=== PATIENT | male | born 1945 | race Caucasian/White ===

== ENCOUNTER → 2016-10-22 | Outpatient (CLI) | payer OTHER ==
[~2016-10-22] MED LIST: CALCTAB13 PO; DENOINJ IM; ENZA1CAP PO; FURO20TA PO; HYDR-3419 PO; LISI-725 PO; MELO7.5T5 PO; METO-478 PO; MORP15TA PO; MULT-506 PO; SENN1TAB77 PO; VITACAP26 PO; WARF3TAB PO; WARF7.5T4 PO; ZLDI IM
== END | disposition home or self-care (01) ==
LOC: C.NUCL 13:22
PROVIDERS: ATTEND Radiology Radiation Oncology
DX: C61 Malignant neoplasm of prostate (principal); C79.51 Secondary malignant neoplasm of bone

== ENCOUNTER → 2016-11-18 | Outpatient (CLI) | payer OTHER | END | disposition home or self-care (01) | LOC: C.NUCL 12:54 | PROVIDERS: ATTEND Radiology Radiation Oncology | DX: C61 Malignant neoplasm of prostate (principal); C79.51 Secondary malignant neoplasm of bone ==

== ENCOUNTER → 2016-12-19 | Outpatient (CLI) | payer OTHER | END | disposition home or self-care (01) | LOC: C.NUCL 13:08 | PROVIDERS: ATTEND Radiology Radiation Oncology | DX: C61 Malignant neoplasm of prostate (principal); C79.51 Secondary malignant neoplasm of bone ==

== ENCOUNTER → 2017-01-20 | Outpatient (CLI) | payer OTHER ==
[~2017-01-20] MED LIST changes: -METO-478 PO; +METO1TAB31 PO
== END | disposition home or self-care (01) ==
LOC: C.NUCL 10:09
PROVIDERS: ATTEND Internal Medicine Hematology
DX: C61 Malignant neoplasm of prostate (principal); C79.51 Secondary malignant neoplasm of bone

== ENCOUNTER → 2017-02-21 | Outpatient (CLI) | payer OTHER | END | disposition home or self-care (01) | LOC: C.NUCL 14:50 | PROVIDERS: ATTEND Radiology Radiation Oncology | DX: C61 Malignant neoplasm of prostate (principal); C79.51 Secondary malignant neoplasm of bone ==

== ENCOUNTER → 2017-03-28 | Outpatient (CLI) | payer OTHER | END | disposition home or self-care (01) | LOC: C.NUCL 12:48 | PROVIDERS: ATTEND Internal Medicine Hematology | DX: C61 Malignant neoplasm of prostate (principal); C79.51 Secondary malignant neoplasm of bone ==

== ENCOUNTER 2018-07-03 11:29 | Inpatient (IN) ==
[2018-07-03 12:02] LABS: Basophils # (auto) 0.01 K/uL (0-0.2); Basophils % (auto) 0.1 %; Eosinophils # (auto) 0.01 K/uL (0-0.5); Eosinophils % (auto) 0.1 %; Hematocrit (blood only) 36.4 % (42-52); Hemoglobin 11.4 g/dL (14.0-18.0); Immature Granulocytes # (auto) 0.08 K/uL (0.00-0.02); Lymphocytes # (auto) 1.28 K/uL (1.2-3.4); Lymphocytes % (auto) 15.5 %; Mean Corpuscular Hgb Conc 31.3 g/dL (32-36); Mean Corpuscular Volume 93.1 fL (80-100); Mean Platelet Volume 8.6 fL (7.4-10.4); Monocytes # (auto) 0.39 K/uL (0.11-0.59); Monocytes % (auto) 4.7 %; Neutrophils # (auto) 6.47 K/uL (1.4-6.5); Neutrophils % (auto) 78.6 %; Platelet Count 219 K/uL (130-400); RDW Coefficient of Variation 16.2 % (11.5-14.5); RDW Standard Deviation 55.4 fL (36.4-46.3); Red Blood Count 3.91 M/uL (4.7-6.1); White Blood Count 8.24 K/uL (4.8-10.8)
[2018-07-03 12:15] LABS: Alanine Aminotransferase 30 U/L (12-78); Albumin Level 2.8 gm/dl (3.4-5.0); Aspartate Aminotransferase 17 U/L (15-37); BUN Creatinine Ratio 13.4 (10-20); Blood Urea Nitrogen 18 mg/dl (7-18); Calcium 9.2 mg/dl (8.5-10.1); Carbon Dioxide 31 mmol/L (21-32); Chloride 92 mmol/L (98-107); Creatinine Clr Calc Pharmacy 59.3 ml/min; Est GFR (Non-African American) 54.4; Glucose 116 mg/dl (70-99); Partial Thromboplastin Time 25.5 Seconds (21.0-31.0); Potassium 3.8 mmol/L (3.5-5.1); Sodium 132 mmol/L (136-145)
[2018-07-03 12:20] LABS: Albumin Globulin Ratio 0.7 (0.9-2); Alkaline Phosphatase 59 U/L (45-117); Bilirubin,Total 0.5 mg/dl (0.2-1); Globulin 3.8 gm/dl (2.5-4.0); Total Protein 6.6 gm/dl (6.4-8.2); Troponin I < 0.015 ng/ml (0-0.045)
--- NOTE | 2018-07-03 12:35 | XRay Report ---
XR chest 1V portable HISTORY: 73 years-old Male Chest Pain acute atypical chest pain COMPARISON: Chest radiograph 04/17/2018, chest CT 08/30/2016. TECHNIQUE: Portable AP view of the chest FINDINGS: Cardiac silhouette is upper limits of normal in size. Calcification the thoracic aortic arch. Linear subsegmental bibasilar opacities are suggestive of atelectasis/scarring with chronic blunting of the costophrenic angles. No pneumothorax, pleural effusion or overt pulmonary edema. Multifocal blastic m etastasis redemonstrated. IMPRESSION: 1. Linear subsegmental bibasilar atelectasis/scarring without acute process. 2. Multifocal osseous blastic metastasis redemonstrated. The above report was generated using voice recognition software. It may contain grammatical, syntax o r spelling errors. Electronically signed by: Ever Aguilar M.D. 07/03/2018 12:33 PM
--- NOTE | 2018-07-03 12:59 | Emergency Department Note ---
Entered by Franco Castillo acting as a scribe for Elías Bess MD History of Present Illness General Chief complaint: Shortness of Breath/Dyspnea Stated complaint: sob / endo dept. Source: patient and RN notes reviewed Mode of arrival: wheelchair Limitations: no limitations History of Present Illness Provider complaint: Hypoxia/Fluid and weight gain Onset (ago): week(s) (2) Location: chest, lower extremity, left and right Pain Consistency: + other (worsening) Quality: + burning ("heartburn" in chest) and + other (wheeping in lower extremities, fluid acuumulation in abdomen) Associated symptoms: + other (Confusion); no fever/chills The patient is a 73 year old male who presents to the Emergency Room with complaints of worsening fluid build up and weight gain over the past two weeks. The patient was brought to the emergency department by Endoscopy lab nurses after he presented for a colonoscopy this morning. The nursing staff states that he went to have the procedure performed at [facility] last evening, but was 70% on room air after walking in from the parking lot. He came up to 90% without any supplemental oxygen. The [facility] office suggested he come to the ED last night, but he refused so they scheduled the colonoscopy to be performed today in the [facility] Endoscopy lab. After hearing the patient's story the endoscopy nurses brought him to the emergency department. The patient and his note that he has experienced a 20 pound weight gain over the past two weeks. He complains of feeling "heart burn" upon exertion. The patient also notes that he sees wound care for "weeping" of his lower extremities which has been progressively worsening for the past year. The patient has a history of prostate cancer with metastasis to the bone. Home Medications Home Medications Medication Instructions Recorded Confirmed Type ascorbic acid (vitamin C) [Vitamin 500 mg PO BID 03/29/18 07/03/18 History C] goserelin [Zoladex] 3.6 mg SUBCUT DIRECTED 03/29/18 07/03/18 History hydrocodone-acetaminophen [Vicodin] 1 tab PO Q4H PRN 03/29/18 07/03/18 History multivitamin 1 tab PO BID 03/29/18 07/03/18 History pantoprazole 40 mg PO QAM 03/29/18 07/03/18 History apixaban 5 mg PO BID 10/19/18 01/04/19 History prednisone 10 mg PO BID 04/17/18 07/03/18 History amiodarone 200 mg PO QPM 07/02/18 07/03/18 History gabapentin 600 mg PO Q6H 07/02/18 07/03/18 History metoprolol succinate 50 mg PO QAM 07/02/18 07/03/18 History morphine 30 mg PO Q12H 07/02/18 07/03/18 History sertraline 50 mg PO QPM 07/02/18 07/03/18 History spironolactone 25 mg PO QPM 07/02/18 07/03/18 History torsemide 40 mg PO QAM 07/02/18 07/03/18 History calcium carbonate-vitamin D3 2 tab PO BID 07/03/18 07/03/18 History [Calcium 500 + D] morphine 15 mg PO Q8H PRN 07/03/18 07/03/18 History potassium chloride [Klor-Con 10] 10 meq PO QPM 07/03/18 07/03/18 History sennosides-docusate sodium [Senna 4 tab PO BID PRN 07/03/18 07/03/18 History Plus] Allergies Allergy/AdvReac Type Severity Reaction Status Date / Time cephalexin [From Keflex] Allergy Rash Verified 07/03/18 12:25 Past Med/Surg History Medical History Chest pain (Acute) H/O Atrial fibrillation (Acute) TAKES METOPROLOL. NO CARDIOVERSION. Anasarca (Acute) HTN (hypertension) Prostate cancer Pyoderma gangrenosum Obesity (BMI 30-39.9) GERD (gastroesophageal reflux disease) Prostate cancer metastatic to bone (Chronic) ~2013 Anxiety Cancer PROSTATE CANCER (2000) Chronic steroid use TAKING STEROIDS DAILY FOR LOWER LEG SORES CURRENTLY. Depression Dyslipidemia H/O fracture of nose Hx of fracture of rib Leg fracture, right NO SURGERY. On anticoagulant therapy Right wrist fracture NO SURGERY. Sleep apnea MILD--NO MACHINE Transient ischemic attack (TIA) 2004 Umbilical hernia Surgical History H/O radical prostatectomy ~2000 History of arthroscopy of right knee History of back surgery L4-L5 History of cholecystectomy History of colonoscopy History of repair of rotator cuff LEFT SHOULDER History of tonsillectomy and adenoidectomy Family History Other No pertinent family history Social History marital status: Current Living Situation: Spouse Feels Safe at Home: Yes Smoking Status: Never smoker Tobacco Type: cigarettes Hx Alcohol Use: Yes Alcohol type: beer Alcohol Intake Frequency: holidays/ special occasions only Hx Substance Use: No Beliefs That Will Affect Care: None Preferred Language: Kuwaiti Communication Ability: Effective Review of Systems See HPI for pertinent positives & negatives. and A total of 10 systems reviewed and were otherwise negative Physical Exam Vital Signs Vital Signs - 24 hr 07/03/18 11:38 07/03/18 12:05 07/03/18 13:05 Temperature 36.7 C Temperature Source Oral Sepsis Recent Fever Within 48 Hours No Sepsis Action Taken by Nursing No Action Required Pulse Rate 80 Pulse Rate [Finger] 79 Respiratory Rate 24 24 Blood Pressure 137/82 Blood Pressure [Right Arm] 126/71 Blood Pressure Mean 100 Blood Pressure Mean [Right Arm] 89 Pulse Oximetry 94 92 94 Oxygen Delivery Method Room Air Room Air Room Air 07/03/18 14:28 Temperature Temperature Source Sepsis Recent Fever Within 48 Hours Sepsis Action Taken by Nursing Pulse Rate Pulse Rate [Finger] 83 Respiratory Rate 20 Blood Pressure Blood Pressure [Right Arm] 136/95 Blood Pressure Mean Blood Pressure Mean [Right Arm] 108 Pulse Oximetry 94 Oxygen Delivery Method Room Air General: Chronically-ill appearing older male in no acute distress. HEENT: Normal cephalic atraumatic. Pupils are equal round and reactive to light. Extraocular movements are intact. Oropharynx is pink with moist mucous membranes. No swelling of the mouth lips or tongue. Neck: Supple with a midline trachea. No meningeal signs or stiffness, no JVD or bruits. No Stridor. Chest: Clear to auscultation bilaterally. No wheezes or rhonchi. No increased work of breathing. Heart: regular rate and rhythm. Abdomen: Soft nontender, but distended without rebound guarding or rigidity. Extremities: Pitting edema present to the bilateral LE. Intact wound care wraps in place. Spine/Back. Non tender to palpation. No CVA tenderness Skin: Good turgor without rashes. Neurologic exam: Cranial nerves two through 12 are intact. Motor and sensation are intact and symmetrical throughout. Course 1128: Past medical records reviewed. The patient was evaluated in room B2, and a complete history and physical examination were performed. 1246: I checked on the patient at this time. He appears more comfortable and is agreeable to inpatient stay. 1249: I reviewed the patient's case with Alexia Tillman Zach WORTHY. She will evaluate the patient for further management. Consultations Consultation #1: 1249: I reviewed the patient's case with Alexia Serrano PA-C. She will evaluate the patient for further management. Medical Decision Making Differential Diagnosis Differential Diagnosis includes: CHF, renal failure, infection, electrolyte or metabolic abnormality Medical Records Attestation: I reviewed the patient's medical records. Home Medications Current Medication List: was personally reviewed by me Laboratory Data Attestation: I reviewed the patient's lab results. Result diagrams: 07/03/18 11:51 07/03/18 11:51 Lab Results 07/03/18 07/03/18 07/03/18 Range/Units 11:51 11:51 11:51 WBC 8.24 (4.8-10.8) K/uL RBC 3.91 L (4.7-6.1) M/uL Hgb 11.4 L (14.0-18.0) g/dL Hct 36.4 L (42-52) % MCV 93.1 (80-100) fL MCH 29.2 (25-34) pg MCHC 31.3 L (32-36) g/dL RDW Std Deviation 55.4 H (36.4-46.3) fL RDW Coeff of Adriana 16.2 H (11.5-14.5) % Plt Count 219 (130-400) K/uL MPV 8.6 (7.4-10.4) fL Immature Gran % (Auto) 1.0 % Neut % (Auto) 78.6 % Lymph % (Auto) 15.5 % Eddy % (Auto) 4.7 % Eos % (Auto) 0.1 % Baso % (Auto) 0.1 % Immature Gran # (Auto) 0.08 H (0.00-0.02) K/uL Neut # (Auto) 6.47 (1.4-6.5) K/uL Lymph # (Auto) 1.28 (1.2-3.4) K/uL Eddy # (Auto) 0.39 (0.11-0.59) K/uL Eos # (Auto) 0.01 (0-0.5) K/uL Baso # (Auto) 0.01 (0-0.2) K/uL PT 10.0 (9.0-12.0) Seconds INR 1.0 (0.9-1.1) APTT 25.5 (21.0-31.0) Seconds PTT Ratio 1.0 Sodium 132 L (136-145) mmol/L Potassium 3.8 (3.5-5.1) mmol/L Chloride 92 L (98-107) mmol/L Carbon Dioxide 31 (21-32) mmol/L Anion Gap 9.0 (3-11) BUN 18 (7-18) mg/dl Creatinine 1.31 (0.6-1.4) mg/dl Est Cr Clr Drug Dosing 59.3 ml/min Est GFR ( Amer) 63.0 Est GFR (Non-Af Amer) 54.4 BUN/Creatinine Ratio 13.4 (10-20) Glucose 116 H (70-99) mg/dl Calcium 9.2 (8.5-10.1) mg/dl Total Bilirubin 0.5 (0.2-1) mg/dl AST 17 (15-37) U/L ALT 30 (12-78) U/L Alkaline Phosphatase 59 (45-117) U/L Troponin I < 0.015 (0-0.045) ng/ml Total Protein 6.6 (6.4-8.2) gm/dl Albumin 2.8 L (3.4-5.0) gm/dl Globulin 3.8 (2.5-4.0) gm/dl Albumin/Globulin Ratio 0.7 L (0.9-2) Lipase 173 (73-393) U/L Imaging Data Attestation: I personally reviewed and interpreted this imaging study as follows : Radiologist's Impression: XR chest 1V portable HISTORY: 73 years-old Male Chest Pain acute atypical chest pain COMPARISON: Chest radiograph 04/17/2018, chest CT 08/30/2016. TECHNIQUE: Portable AP view of the chest FINDINGS: Cardiac silhouette is upper limits of normal in size. Calcification the thoracic aortic arch. Linear subsegmental bibasilar opacities are suggestive of atelectasis/scarring with chronic blunting of the costophrenic angles. No pneumothorax, pleural effusion or overt pulmonary edema. Multifocal blastic metastasis redemonstrated. IMPRESSION: 1. Linear subsegmental bibasilar atelectasis/scarring without acute process. 2. Multifocal osseous blastic metastasis redemonstrated. The above report was generated using voice recognition software. It may contain grammatical, syntax or spelling errors. Electronically signed by: Ever Aguilar M.D. 07/03/2018 12:33 PM ECG Data Attestation: I personally reviewed and interpreted this ECG as follows: Indication: SOB/dyspnea Rhythm: normal sinus Findings: + other (Poor baseline due to tremor); no acute ischemic change and no ectopy Comparison ECG Date: from (04/23/2018) Blood Pressure Blood Pressure Findings: Elevated blood pressure Blood Pressure Disposition: further management by hospitalist [facility] Narrative This patient comes in as described above. He was sent over from the endoscopy suite. He apparently showed up there today they are concerned about his respiratory status. He actually was at [facility] yesterday and they did not want to do endoscopy on him because his O2 sat was in the 70s and he was in A. fib at the time. he was supposed to come the ER but did not want to come last evening. He has had a weight gain of about 15-20 pounds. he does have a history of anasarca. He appears okay at present. He has wraps on his legs from chronic wounds that were placed by the wound center with special dressings. His lungs are clear. IV access established chest x-ray and EKG was obtained. Chest x-ray does not show pulmonary edema. I think it is more of right-sided heart failure/peripheral edema. He has a history of renal insufficiency and renal problems as well. He is not in A. fib at present. He has no acute electrolyte or metabolic abnormalities. I do think he will likely need diuresis and further treatment evaluation and input from both cardiology and nephrology. I have consulted [place] [facility] [place] to see him in the ER for these measures Impression & Plan SOB (shortness of breath), Anasarca Discharge Plan Visit Data Chief Complaint: Shortness of Breath/Dyspnea Stated Complaint: sob / endo dept. ED Provider: Elías Bess Discharge Problem: SOB (shortness of breath), Anasarca Patient Disposition: Being Evaluated by Hospitalist Forms Stand Alone Forms: My [facility] Prescriptions Prescriptions: No Action prednisone 10 mg tablet 10 mg PO BID RF: 0 apixaban 5 mg tablet 5 mg PO BID RF: 0 potassium chloride [Klor-Con 10] 10 mEq Tablet Extended Release 10 meq PO QPM RF: 0 calcium carbonate-vitamin D3 [Calcium 500 + D] 500 mg(1,250mg) -200 unit Tablet 2 tab PO BID RF: 0 sennosides-docusate sodium [Senna Plus] 8.6-50 mg Tablet 4 tab PO BID PRN (Reason: Constipation) RF: 0 morphine 15 mg Tablet 15 mg PO Q8H PRN (Reason: Pain) RF: 0 multivitamin Tablet 1 tab PO BID RF: 0 goserelin [Zoladex] 3.6 mg Implant 3.6 mg subcut DIRECTED RF: 0 ascorbic acid (vitamin C) [Vitamin C] 500 mg Tablet 500 mg PO BID RF: 0 pantoprazole 40 mg Tablet,Delayed Release (Dr/Ec) 40 mg PO QAM RF: 0 hydrocodone-acetaminophen [Vicodin] 5-300 mg Tablet 1 tab PO Q4H PRN (Reason: Pain) RF: 0 metoprolol succinate 50 mg Tablet Extended Release 24 Hr 50 mg PO QAM RF: 0 morphine 30 mg Tablet Extended Release 30 mg PO Q12H RF: 0 torsemide 20 mg Tablet 40 mg PO QAM RF: 0 sertraline 25 mg Tablet 50 mg PO QPM RF: 0 amiodarone 200 mg tablet 200 mg PO QPM RF: 0 spironolactone 25 mg tablet 25 mg PO QPM RF: 0 gabapentin 300 mg capsule 600 mg PO Q6H RF: 0 Referrals Referrals: Damion Taylor [Primary Care Provider] - The ezraibe's documentation has been prepared under my direction and personally reviewed by me in its entirety. I confirm that the note above accurately reflects all work, treatment, procedures, and medical decision making performed by me.
--- NOTE | 2018-07-03 14:45 | History & Physical Report ---
Date of Service July 03, 2018 Assessment & Plan (1) Anasarca: This is a 73yo M with a PMH of prostate cancer with mets to bone, h/o non- healing BLE wounds with recent diagnosis of non-uremic calciphylaxis by [facility] dermatology/wound care, HTN, paroxysmal A Fib (on Eliquis), CKD III and other medical problems listed below who presents with weight gain and progressive shortness of breath x 2 weeks. -Twenty pound weight gain, worsening orthopnea, dyspnea on exertion -Ongoing problems with anasarca in setting of chemotherapy (which has since been changed with some improvement) and chronic prednisone use. Dermatology/ wound clinic in process of tapering prednisone -Oxygen saturation of 94% on RA at rest, becomes hypoxic with exertion -No evidence of overt pulmonary edema or pleural effusion on CXR. 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 Follows weekly with [facility] wound care/dermatology -Is scheduled for a wrap change by wound care at [facility] on Jul 08 -Plan for prednisone taper and trial of bisphosphonate (also following with nephro) -No evidence of infection. May require wound care consult (4) Atrial fibrillation: Currently in normal sinus rhythm -Continue home dose amiodarone -Eliquis resumed for anticoagulation (has been stopped for last few days due to planned colonoscopy this morning) (5) Prostate cancer metastatic to bone: Receiving Zoladex every 3 weeks but rest of chemo regimen is being held due to complicated skin condition -Continue home pain regimen including scheduled gabapentin and morphine as well as PRN Tylenol, [place] and Morphine (6) CKD (chronic kidney disease), stage III: At high end of baseline kidney function range with Cr 1.3, GFR 54 -Monitor with daily BMP in the setting of IV diuretics (7) HTN (hypertension): Normotensive. Hold PO torsemide and spironolactone while receiving IV Lasix (8) GERD (gastroesophageal reflux disease): Continue PPI (9) Mood disorder: Continue SSRI DVT Ppx: Continue home Eliquis Code status: FULL per discussion with patient PCP: Brandon Dispo: Admitted to telemetry. Plan to return home once medically stable. Patient seen in collaboration with Dr. Tapia. Please see addendum. History of Present Illness Chief Complaint: Weight gain, SOB Primary Care Provider: Damion Taylor This is a 73yo M with a PMH of prostate cancer with mets to bone, h/o non- healing BLE wounds with recent diagnosis of non-uremic calciphylaxis by [facility] dermatology/wound care, HTN, paroxysmal A Fib (on Eliquis), CKD III and other medical problems listed below who presents with weight gain and progressive shortness of breath x 2 weeks. Was recently admitted to our service in early March for anasarca in the setting of chemotherapy and prednisone treatment for chronic leg ulcers and then again later in March for A Fib with RVR. Was discharged home on 04/27 after being started on amiodarone 200mg daily. Chemotherapy agents were changed (still receiving Zoladex every 3 weeks but other agents are on hold due to BLE open wounds) and anasarca improved until the last two weeks, when patient notes a 20 pound weight gain. Reported for colonoscopy today and was found to be short of breath and hypoxic at 70%. Was brought to ED for further evaluation. In addition to weight gain, patient notes worsening orthopnea and has been sleeping sitting up. Denies any chest pain or palpitations. Takes 40mg Torsemide daily and 25mg Spironolactone HS. Follows with Dr. Mulligan in clinic. Denies fever, chills, cough, congestion, wheezing, abdominal pain, nausea, vomiting, diarrhea or constipation. EKG with normal sinus rhythm upon arrival. Of note, is seen weekly by a grants specialist in [place] and scheduled to return on Friday, Jul 08 for new wraps. Also are planning to taper daily prednisone. Also recently evaluated by [facility] nephro iwho recommended starting patient on bisphosphonate with nephro follow up on Jul [address] Hoover. Allergies Allergy/AdvReac Type Severity Reaction Status Date / Time cephalexin [From Keflex] Allergy Rash Verified 07/03/18 12:25 Home Medications Home Medications Medication Instructions Recorded Confirmed Type ascorbic acid (vitamin C) [Vitamin 500 mg PO BID 03/29/18 07/03/18 History C] goserelin [Zoladex] 3.6 mg SUBCUT DIRECTED 03/29/18 07/03/18 History hydrocodone-acetaminophen [Vicodin] 1 tab PO Q4H PRN 03/29/18 07/03/18 History multivitamin 1 tab PO BID 03/29/18 07/03/18 History pantoprazole 40 mg PO QAM 03/29/18 07/03/18 History apixaban 5 mg PO BID 04/17/18 07/03/18 History prednisone 10 mg PO BID 04/17/18 07/03/18 History amiodarone 200 mg PO QPM 07/02/18 07/03/18 History gabapentin 600 mg PO Q6H 07/02/18 07/03/18 History metoprolol succinate 50 mg PO QAM 07/02/18 07/03/18 History morphine 30 mg PO Q12H 07/02/18 07/03/18 History sertraline 50 mg PO QPM 07/02/18 07/03/18 History spironolactone 25 mg PO QPM 07/02/18 07/03/18 History torsemide 40 mg PO QAM 07/02/18 07/03/18 History calcium carbonate-vitamin D3 2 tab PO BID 07/03/18 07/03/18 History [Calcium 500 + D] morphine 15 mg PO Q8H PRN 07/03/18 07/03/18 History potassium chloride [Klor-Con 10] 10 meq PO QPM 07/03/18 07/03/18 History sennosides-docusate sodium [Senna 4 tab PO BID PRN 07/03/18 07/03/18 History Plus] Past Med/Surg History Medical History Mood disorder (Chronic) Prostate cancer metastatic to bone (Chronic) ~2013 Anxiety (Chronic) Depression (Chronic) Umbilical hernia (Chronic) Dyslipidemia (Chronic) On anticoagulant therapy (Chronic) Chronic steroid use (Chronic) TAKING STEROIDS DAILY FOR LOWER LEG SORES CURRENTLY. Atrial fibrillation (Chronic) Chronic pain (Chronic) HTN (hypertension) (Chronic) Obesity (BMI 30-39.9) (Chronic) GERD (gastroesophageal reflux disease) (Chronic) Surgical History History of tonsillectomy and adenoidectomy (Resolved) H/O radical prostatectomy (Resolved) ~2000 History of cholecystectomy (Resolved) History of back surgery (Resolved) L4-L5 History of repair of rotator cuff (Resolved) LEFT SHOULDER Family History Mother HTN (hypertension) Father Lymphoma Social History marital status: Current Living Situation: Spouse current occupational status: retired Other Information That Helps Us Care for You: No Feels Safe at Home: Yes Safety Concerns: Feels Safe At This Time Smoking Status: Former smoker Do You Dip or Chew Tobacco: No Second Hand Exposure: No Tobacco Cessation Education Requested by Patient: No Hx Alcohol Use: No Hx Substance Use: No Beliefs That Will Affect Care: None Preferred Language: Belarusian Communication Ability: Effective 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[employer] 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 Required: No Review of Systems All systems reviewed & are unremarkable except as noted in HPI & below Physical Exam 2 Vital Signs (Past 24 Hours): Last Vital Signs Temp 36.7 C 07/03/18 11:38 Pulse 83 07/03/18 14:28 Resp 20 07/03/18 14:28 BP 136/95 07/03/18 14:28 Pulse Ox 94 07/03/18 14:28 Physical Exam: General Appearance: WD/WN, sitting upright with SOB when speaking, chronically ill appearing, obese Head: normocephalic, atraumatic Eyes: normal inspection, PERRL, EOMI ENT: hearing grossly normal, pharynx normal (moist mucous membranes) Neck: supple, no JVD, no adenopathy Respiratory/Chest: lungs clear to auscultation except for faint bibasilar crackles. No wheezes or rhonci. No respiratory distress or accessory muscle use Cardiovascular: regular rate, rhythm, no murmur, normal peripheral pulses Abdomen/GI: normal bowel sounds, distended but soft, non-tender to palpation Extremities/Musculoskelatal: Bilateral leg wraps to knee with some clear weeping. 2-3+ pitting edema distal to knee. Normal capillary refill. Neurologic/Psych: alert, normal mood/affect, oriented x 3 Skin: normal color, warm/dry, areas of purple lesions on bilateral arms Results & Data Laboratory Results Short CBC 07/03/18 Range/Units 11:51 WBC 8.24 (4.8-10.8) K/uL Hgb 11.4 L (14.0-18.0) g/dL Hct 36.4 L (42-52) % Plt Count 219 (130-400) K/uL BMP 07/03/18 11:51 Sodium 132 L Potassium 3.8 Chloride 92 L Carbon Dioxide 31 BUN 18 Creatinine 1.31 Glucose 116 H Calcium 9.2 Cardiac Enzymes 07/03/18 Range/Units 11:51 Troponin I < 0.015 (0-0.045) ng/ml Liver Function 07/03/18 Range/Units 11:51 Total Bilirubin 0.5 (0.2-1) mg/dl AST 17 (15-37) U/L ALT 30 (12-78) U/L Alkaline Phosphatase 59 (45-117) U/L Albumin 2.8 L (3.4-5.0) gm/dl Diagnostic Findings CXR: IMPRESSION: 1. Linear subsegmental bibasilar atelectasis/scarring without acute process. 2. Multifocal osseous blastic metastasis redemonstrated. ECG Rhythm: normal sinus Change: no significant change Code Status & VTE Plan Code Status FULL CODE VTE Prophylaxis Plan VTE Prophylaxis will be ordered: Yes Supervising Physician Co-Signing Physician Notes I saw this patient with the physician assistant family teacher, I participated in the history, physical, review of systems, and physical exam. I reviewed the medications with the patient and the physician assistant family teacher and helped reconcile the medications. I helped take a detailed family and social history as well. I formulated the assessment and plan personally with the physician assistant family teacher went over it with the patient and his .
[2018-07-03] MEDS ORDERED: POLYETHYLENE (MIRALAX) 17 GM PACK PO PRN (16:00)
[2018-07-03] MEDS ORDERED: HYDROCODONE ACETAMINOPHEN PO PRN (16:00)
[2018-07-03] MEDS ORDERED: DOCUSATE SODIUM/SENNA 50/8.6MG TAB PO PRN (16:00)
[2018-07-03] MEDS: FUROSEMIDE 40 MG in SYRINGE 0 ML IV SCH (17:06)
[2018-07-03] MEDS: GABAPENTIN 600 MG TAB PO SCH ×2 (17:07→23:19)
[2018-07-03] MEDS: MoRPHine SULFATE IR 15 MG TAB (IMMEDIATE RELEASE) PO PRN (17:09)
[2018-07-03] MEDS ORDERED: MoRPHine SULFATE CR 15 MG TABCR PO SCH (21:00)
[2018-07-03] MEDS: AMIODARONE 200 MG TAB PO SCH (21:11)
[2018-07-03] MEDS: CALCIUM 600MG + VIT D 400 IU TAB PO SCH (21:11)
[2018-07-03] MEDS: POTASSIUM CHLORIDE 10 MEQ TABCR PO SCH (21:12)
[2018-07-03] MEDS: APIXABAN 5 MG TABLET PO SCH (21:12)
[2018-07-03] MEDS: MULTIVITAMIN TAB PO SCH (21:12)
[2018-07-03] MEDS: predniSONE 10 MG TABLET PO SCH (21:13)
[2018-07-03] MEDS: SERTRALINE HCL 50 MG TABLET PO SCH (21:13)
[2018-07-03] MEDS: ASCORBIC ACID 500 MG TAB PO SCH (21:13)
[2018-07-03] MEDS: MoRPHine SULFATE CR 15 MG TABCR PO SCH (21:16)
[2018-07-03] MEDS: ACETAMINOPHEN 325 MG TAB PO PRN (21:16)
[2018-07-04 06:11] LABS: Hematocrit (blood only) 37.7 % (42-52); Hemoglobin 11.4 g/dL (14.0-18.0); Mean Corpuscular Hgb Conc 30.2 g/dL (32-36); Mean Corpuscular Volume 94.5 fL (80-100); Mean Platelet Volume 8.6 fL (7.4-10.4); Platelet Count 236 K/uL (130-400); RDW Coefficient of Variation 16.3 % (11.5-14.5); RDW Standard Deviation 56.1 fL (36.4-46.3); Red Blood Count 3.99 M/uL (4.7-6.1); White Blood Count 7.44 K/uL (4.8-10.8)
[2018-07-04] MEDS: GABAPENTIN 600 MG TAB PO SCH ×4 (06:14→23:13)
[2018-07-04] MEDS: PANTOprazole 40 MG TAB PO SCH (06:17)
[2018-07-04 06:47] LABS: Calcium 9.4 mg/dl (8.5-10.1); Creatinine Clr Calc Pharmacy 64.7 ml/min; Est GFR (African American) 70.8; Est GFR (Non-African American) 61.1; Potassium 4.2 mmol/L (3.5-5.1)
[2018-07-04] MEDS: MULTIVITAMIN TAB PO SCH ×2 (07:38→21:24)
[2018-07-04] MEDS: CALCIUM 600MG + VIT D 400 IU TAB PO SCH ×2 (07:39→21:23)
[2018-07-04] MEDS: MoRPHine SULFATE CR 15 MG TABCR PO SCH ×2 (07:39→21:21)
[2018-07-04] MEDS: predniSONE 10 MG TABLET PO SCH ×2 (07:39→21:23)
[2018-07-04] MEDS: METOPROLOL SUCC 50MG EXT REL TAB PO SCH (07:39)
[2018-07-04] MEDS: APIXABAN 5 MG TABLET PO SCH ×2 (07:39→21:23)
[2018-07-04] MEDS: ASCORBIC ACID 500 MG TAB PO SCH ×2 (07:40→21:22)
[2018-07-04] MEDS: FUROSEMIDE 40 MG in SYRINGE 0 ML IV SCH ×2 (09:46→17:16)
--- NOTE | 2018-07-04 10:11 | Hospitalist Progress Note ---
Date of Service July 04, 2018 Assessment & Plan (1) Anasarca: Documented 20 pound weight gain in the last 6 months with previous inpatient standing scale weight of 96 kg in March 2018. However, the patient' s weight has also fluctuated up and down around this number. He has had issues with fluid retention on chemotherapy according to the notes, and his chemo has been changed with some improvement. He has been on high-dose steroids since January 2018 and is also on gabapentin which can both cause lower extremity swelling and weight gain. He is also on apixaban making DVT less likely however he has had chronic lower extremity wounds that are nonhealing for many months and Eliquis was recently held for his upcoming colonoscopy. Arterial insufficiency or blood clots are also possible etiologies of the swelling. Will obtain lower extremity ultrasound to rule out DVT and would recommend ankle -brachial index measurements to screen for vascular insufficiency as outpatient. For now, nephrology has been consulted and recommends diuresis in addition to fluid restriction to help pull the weight down. Continue daily standing weights. Will work with him to adjust gabapentin to an alternative therapy. He is already on a prednisone taper. No evidence of overt pulmonary edema on CXR, and no acute infiltrates/clinical picture not consistent with pneumonia. Cont Lasix 40 IV BID and adjust per Nephro recommendations. Cont fluid restriction. Holding home Torsemide 40mg PO daily. Cont spironolactone 25mg qHS. Cont low sodium diet. 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 Follows weekly with [facility] [place] care/dermatology -Is scheduled for a wrap change by wound care at [facility] on Jul 08 -On prednisone taper and trial of pamidronate (also following with nephro) -Wound care was consulted to assess the wounds -Will not start this therapy until improved and discharged. Cont steroid taper as prescribed by outpatient Dermatology (4) Atrial fibrillation: Currently in normal sinus rhythm -Continue home dose amiodarone -Eliquis resumed for anticoagulation (has been stopped for last few days due to planned colonoscopy this morning) (5) Prostate cancer metastatic to bone: Receiving Zoladex every 3 weeks but rest of chemo regimen is being held due to complicated skin condition -Continue home pain regimen including scheduled gabapentin and morphine as well as PRN Tylenol, [place] and Morphine (6) CKD (chronic kidney disease), stage III: At high end of baseline kidney function range with Cr 1.3, GFR 54 -Monitor with daily BMP in the setting of IV diuretics (7) HTN (hypertension): Normotensive. Hold PO torsemide while receiving IV Lasix (8) GERD (gastroesophageal reflux disease): Continue PPI (9) Mood disorder: Continue SSRI DVT Ppx: Continue home Eliquis Code status: FULL PCP: Brandon Dispo: Admitted to telemetry. Plan to return home once medically stable. Lindsay Arambula, [facility] Subjective 73 y M with metastatic prostate cancer and 20 lb weight gain over the past 1-2 weeks. He has simultaneously experienced dyspnea on exertion and was found to be hypoxic on room air (70%) yesterday. He has no lung disease and is not on oxygen at baseline. He was going for a colonoscopy, however, he was sent to the ER instead. Since admission he has diuresed approximately 1L and weight has gone down some, however, he doesn't report much improvement. He denies cough, fevers, chills. He has been on high dose prednisone (50mg) since Jan 2018, and was on 10mg daily chronically for the last two years. He has bilateral LE wounds that are wrapped and received a dx of calciphylaxis recently , on a prednisone taper. He is currently on 20mg PO daily. He was ambulating around the hallways today and was very SOB when he got back to the room. His exercise capacity would allow him to make a lap around the hallways at baseline , but currently he can only go 20 ft or so. No chest pain. Expresssed his dissatisfaction with the fluid restriction. Physical Exam 2 Vital Signs (Past 24 Hours): Last Vital Signs Temp 36.7 C 07/04/18 07:42 Pulse 90 07/04/18 08:00 Resp 20 07/04/18 07:42 BP 155/85 H 07/04/18 07:42 Pulse Ox 92 07/04/18 07:42 CONSTITUTIONAL: WNWD, vitals as above, generally well-appearing EYES: normal conjuctivae, no scleral icterus ENT: MMM RESPIRATORY: clear to auscultation bilaterally, minor crackles that are sparse at bases bilaterally. No conversational dyspnea or SOB at rest. CARDIOVASCULAR: regular rate and rhythm, S1 and 2 heard without murmurs, gallops or rubs, no JVD, 3+ pitting edema to thighs bilaterally GASTROINTESTINAL: normal bowel sounds, soft, nontender, nondistended but protuberant MUSCULOSKELETAL: strength 5/5 throughout, head is normocephalic and atraumatic , amblatory SKIN: warm and dry, bilateral LE wounds which are wrapped and draining some. Wounds were not visualized. NEUROLOGIC: CN 2-12 grossly intact, normal cognition, normal speech PSYCHIATRIC: alert cooperative and oriented to person, place and time. Results & Data Laboratory Results Short CBC 07/04/18 Range/Units 05:42 WBC 7.44 (4.8-10.8) K/uL Hgb 11.4 L (14.0-18.0) g/dL Hct 37.7 L (42-52) % Plt Count 236 (130-400) K/uL BMP 07/04/18 05:42 Sodium 134 L Potassium 4.2 Chloride 94 L Carbon Dioxide 37 H BUN 20 H Creatinine 1.19 Glucose 154 H Calcium 9.4 Urine 07/04/18 Range/Units 17:45 Urine Color Yellow Urine Appearance Clear (Clear) Urine pH 7.0 (4.5-7.5) Ur Specific [place] 1.008 (1.000-1.030) Urine Protein Negative (Negative) Urine Glucose (UA) Negative (Negative) Medications Administered Current Inpatient Medications Acetaminophen (Tylenol) 650 mg PO Q4H PRN PRN Reason: Pain or Fever Stop: 08/02/18 15:59 Last Admin: 07/05/18 04:02 Dose: 650 mg Amiodarone HCl (Cordarone) 200 mg PO QPM LISBETH Stop: 08/02/18 20:59 Last Admin: 07/04/18 21:22 Dose: 200 mg Apixaban (Eliquis) 5 mg PO BID LISBETH Stop: 08/02/18 20:59 Last Admin: 07/04/18 21:23 Dose: 5 mg Ascorbic Acid (Vitamin C) 500 mg PO BID LISBETH Stop: 08/02/18 20:59 Last Admin: 07/04/18 21:22 Dose: 500 mg Gabapentin (Neurontin) 600 mg PO Q6H LISBETH Stop: 08/02/18 17:59 Last Admin: 07/04/18 23:13 Dose: 600 mg Furosemide 40 mg/ Syringe 4 mls @ 4 mls/min IV BID17 [facility] Stop: 08/02/18 16:59 Last Admin: 07/04/18 17:16 Dose: 4 mls/min Metoprolol Succinate (Toprol Xl) 50 mg PO QAM [facility] Stop: 08/03/18 08:59 Last Admin: 07/04/18 07:39 Dose: 50 mg Morphine Sulfate (Morphine Sulfate Ir) 15 mg PO Q8H PRN PRN Reason: Pain Stop: 07/17/18 14:44 Last Admin: 07/04/18 13:29 Dose: 15 mg Morphine Sulfate (Ms Contin) 30 mg PO Q12 [facility] Stop: 07/17/18 20:59 Last Admin: 07/04/18 21:21 Dose: 30 mg Multivitamins (Multivitamin) 1 tab PO BID [facility] Stop: 08/02/18 20:59 Last Admin: 07/04/18 21:24 Dose: 1 tab Multivitamins/Minerals (Caltrate Plus) 1 tab PO BID [facility] Stop: 08/02/18 20:59 Last Admin: 07/04/18 21:23 Dose: 1 tab Pantoprazole Sodium (Protonix) 40 mg PO QAM [facility] Stop: 08/03/18 08:59 Last Admin: 07/04/18 06:17 Dose: 40 mg Polyethylene Glycol (Miralax Powder Packet) 17 gm PO DAILY PRN PRN Reason: Constipation Stop: 08/02/18 15:59 Potassium Chloride (Klor-Con M10) 10 meq PO QPM [facility] Stop: 08/02/18 20:59 Last Admin: 07/04/18 21:23 Dose: 10 meq Prednisone (Prednisone) 10 mg PO BID [facility] Stop: 08/02/18 20:59 Last Admin: 07/04/18 21:23 Dose: 10 mg Senna/Docusate Sodium (Senokot S) 4 tab PO BID PRN PRN Reason: Constipation Stop: 08/02/18 15:59 Sertraline HCl (Zoloft) 50 mg PO QPM [facility] Stop: 08/02/18 20:59 Last Admin: 07/04/18 21:24 Dose: 50 mg
--- NOTE | 2018-07-04 13:23 | Nephrology Consultation ---
Date of Consultation July 04, 2018 Assessment & Plan (1) Edema extremities: CURRENT THERAPY -getting lasix 40 mg IV bid -large doses gabapentin noted -prednisone tapering -spironolactone held RECOMMEND >ordered uacm, prot/creat (had 600 mg proteinuria in fall 2017) >resume spironolactone and cont current lasix versus cont current lasix alone timed so as not to disrupt sleep > ? if we could try alternative med to gabapentin which can cause significant edema -continue wraps/ unna boots -needs daily standing weight >> he needs reinforcement/ teaching about daily weights, about low sodium intake , about fluid limits - he is very angry/agitated when I mention fluid limit to him and states that team is lying to him and working at cross purposes w/ one another (2L FR had been lifted earlier in day b/c pt refused to follow it) -would cont <2 gm daily Na diet; would also limit po fluid to 1.5L which I told him is what he needs but will order 2L to see if he can try that/get used to it ; not clear that he is interested in this -daily bmp >while he is at risk for CKD he does not technically have it >> has not had abnormal eGFR for 3 mos; has had EL however this fall and certainly at risk for that to occurr; would accept some worsening chronically of renal function to get good diuresis Present on Admission?: Yes (2) Chronic steroid use: can contribute to edema though edema exacerbation comes as this is being tapered; cont taper Present on Admission?: Yes (3) 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 PMH includes prostate CA w/ bone mets, non healing BLE wounds present for more than a year; A fib on eliquis, HTN, chronic and severe joint/bone pain. He was admitted here in March w/ a fib and RVR. He was dx'd w/ calciphylaxis (nonuremic) last month > > plan is pamidronate infusion 30 mg IV q2 wks x 3 doses; if no improvement plan then is to switch to Na thiosulfate. He follows in wound clinic [facility] for LE wounds >> no satisfactory dx has been found for these from what I read in chart. Had been concern for coumadin necrosis (but no improvement w/ stopping coumadin), for pyoderma gangrenosum (but no longer mentioned as dx on last derm note which does evaluate ulcers and no response to high dose prednisone which is being tapered); most recently concern for calciphylaxis. He is getting active treatment for prostate mets w/ zoladex q3 mos but xgeva held (per dr fitzpatrick's last note but still on med list) d/t worsening clinical status and cabazitaxel deferred d/t ulcerations. He was started on spironolactone in March and torsemide was also continued same time. he has had labile renal function past few months, with creatinine up to 1.7 in April > improved to 1.1 on 06/25; baseline through January was 0.9-1.0. he does not limit sodium or fluid intake on routine basis. His wt is generally in mid 210s including late April; at 06/25 [facility] visit it was up to 230 however but wt changes rapidly/ not consistent; does not do daily wts at home. First/ only standing wt this admission is 105.2 this am. Started gabapentin high dose late April. multiple family at bedside Allergies Allergy/AdvReac Type Severity Reaction Status Date / Time cephalexin [From Keflex] Allergy Rash Verified 07/03/18 12:25 Home Medications Home Medications Medication Instructions Recorded Confirmed Type ascorbic acid (vitamin C) [Vitamin 500 mg PO BID 03/29/18 07/03/18 History C] goserelin [Zoladex] 3.6 mg SUBCUT DIRECTED 03/29/18 07/03/18 History hydrocodone-acetaminophen [Vicodin] 1 tab PO Q4H PRN 03/29/18 07/03/18 History multivitamin 1 tab PO BID 03/29/18 07/03/18 History pantoprazole 40 mg PO QAM 03/29/18 07/03/18 History apixaban 5 mg PO BID 04/17/18 07/03/18 History prednisone 10 mg PO BID 04/17/18 07/03/18 History amiodarone 200 mg PO QPM 07/02/18 07/03/18 History gabapentin 600 mg PO Q6H 07/02/18 07/03/18 History metoprolol succinate 50 mg PO QAM 07/02/18 07/03/18 History morphine 30 mg PO Q12H 07/02/18 07/03/18 History sertraline 50 mg PO QPM 07/02/18 07/03/18 History spironolactone 25 mg PO QPM 07/02/18 07/03/18 History torsemide 40 mg PO QAM 07/02/18 07/03/18 History calcium carbonate-vitamin D3 2 tab PO BID 07/03/18 07/03/18 History [Calcium 500 + D] morphine 15 mg PO Q8H PRN 07/03/18 07/03/18 History potassium chloride [Klor-Con 10] 10 meq PO QPM 07/03/18 07/03/18 History sennosides-docusate sodium [Senna 4 tab PO BID PRN 07/03/18 07/03/18 History Plus] Patient History Medical History Mood disorder (Chronic) Prostate cancer metastatic to bone (Chronic) ~2013 Anxiety (Chronic) Depression (Chronic) Umbilical hernia (Chronic) Dyslipidemia (Chronic) On anticoagulant therapy (Chronic) Chronic steroid use (Chronic) TAKING STEROIDS DAILY FOR LOWER LEG SORES CURRENTLY. Atrial fibrillation (Chronic) Chronic pain (Chronic) HTN (hypertension) (Chronic) Obesity (BMI 30-39.9) (Chronic) GERD (gastroesophageal reflux disease) (Chronic) Surgical History History of tonsillectomy and adenoidectomy (Resolved) H/O radical prostatectomy (Resolved) ~2000 History of cholecystectomy (Resolved) History of back surgery (Resolved) L4-L5 History of repair of rotator cuff (Resolved) LEFT SHOULDER Family History Mother HTN (hypertension) Father Lymphoma Social History marital status: Current Living Situation: Spouse current occupational status: retired Other Information That Helps Us Care for You: No Feels Safe at Home: Yes Safety Concerns: Feels Safe At This Time Smoking Status: Former smoker Do You Dip or Chew Tobacco: No Second Hand Exposure: No Tobacco Cessation Education Requested by Patient: No Hx Alcohol Use: No Hx Substance Use: No Beliefs That Will Affect Care: None Preferred Language: Belgian Communication Ability: Effective Pump Service Supervisor Required: No Review of Systems Constitutional: + body aches, + fatigue and + weakness Eyes: no worsening vision Ear, Nose, Mouth, Throat: no dry mouth Respiratory: + dyspnea (stable chronic) Cardiovascular: + dyspnea, + edema and + calf pain; no chest pain Gastrointestinal: + change in bowel habits; no abdominal pain and no vomiting Genitourinary (Male): no dysuria, no difficulty urinating, no urinary frequency , no urinary hesitancy, no nocturia and no hematuria Musculoskeletal: as per Subjective / HPI, + back pain, + neck pain, + limited range of motion and + myalgia Integumentary: + non-healing lesions (sores BLE x 1 year; weeping/oozing) Neurologic: + gait abnormality and + loss of sensation; no confusion Psychiatric: + depression and + irritability; no confusion Endocrine: + fatigue and + polydipsia Hematologic / Lymphatic: no easy bleeding Physical Exam 2 Vital Signs (Past 24 Hours): Last Vital Signs Temp 37.3 C 07/04/18 11:36 Pulse 88 07/04/18 11:36 Resp 20 07/04/18 11:36 BP 144/82 H 07/04/18 11:36 Pulse Ox 94 07/04/18 11:36 Constitutional: well developed, well nourished and + obese sitting in chair on RA; legs not elevated Eyes: EOM intact bilaterally ENMT: Ears: no external ear abnormality Nose: no external nose abnormality Mouth: + dry oral mucous membranes Neck: no nuchal rigidity Respiratory: normal respiratory effort Auscultation: + diminished lung sounds Cardiovascular: Rate/Rhythm: regular rate (distant HS) and regular rhythm Extremities: + edema (pitting BL ant shins/prox near knee) Gastrointestinal (Abdomen): Inspection/Auscultation: normal bowel sounds Percussion/Palpation: abdomen soft; abdomen nontender no rivera Musculoskeletal: Extremities: strength 5/5 throughout Skin: + ulcer (reported/ dressing not removed as need wound nurse to replace properly; weeping around dressing) Neurologic: awake Motor/Sensory: normal movement Psychiatric: Orientation: alert and oriented x 3 Eye Contact: + fair eye contact Speech: normal rate/rhythm/volume of speech Mood: + irritable mood Thought Process: + flight of ideas and + looseness of associations Thought Content: + cognitive distortions Insight: + limited insight Judgement: + limited judgement Genitourinary: no rivera Results & Data Laboratory Results Abnormal lab results 07/04/18 07/04/18 Range/Units 05:42 05:42 RBC 3.99 L (4.7-6.1) M/uL Hgb 11.4 L (14.0-18.0) g/dL Hct 37.7 L (42-52) % MCHC 30.2 L (32-36) g/dL RDW Std Deviation 56.1 H (36.4-46.3) fL RDW Coeff of Adriana 16.3 H (11.5-14.5) % Sodium 134 L (136-145) mmol/L Chloride 94 L (98-107) mmol/L Carbon Dioxide 37 H (21-32) mmol/L BUN 20 H (7-18) mg/dl Glucose 154 H (70-99) mg/dl Diagnostic Findings cxr 1. Linear subsegmental bibasilar atelectasis/scarring without acute process. 2. Multifocal osseous blastic metastasis redemonstrated.
[2018-07-04] MEDS: MoRPHine SULFATE IR 15 MG TAB (IMMEDIATE RELEASE) PO PRN (13:29)
[2018-07-04 18:11] LABS: Appearance Urine Clear (Clear); Bilirubin Urine Negative (Negative); Color Urine Yellow; Glucose Urine UA Negative (Negative); Ketones Urine Negative (Negative); Leukocyte Esterase Urine Negative (Negative); Nitrite Urine Negative (Negative); Protein Urine Negative (Negative); Specific Gravity Urine 1.008 (1.000-1.030); Urobilinogen Urine Negative (Negative)
[2018-07-04 18:41] LABS: Creatinine Urine Random 29.9 mg/dl; Total Protein Urine Random < 5.0 mg/dl (0-11.9)
[2018-07-04] MEDS: ACETAMINOPHEN 325 MG TAB PO PRN (19:32)
[2018-07-04] MEDS: AMIODARONE 200 MG TAB PO SCH (21:22)
[2018-07-04] MEDS: POTASSIUM CHLORIDE 10 MEQ TABCR PO SCH (21:23)
[2018-07-04] MEDS: SERTRALINE HCL 50 MG TABLET PO SCH (21:24)
[2018-07-05] MEDS: ACETAMINOPHEN 325 MG TAB PO PRN ×2 (04:02→12:54)
[2018-07-05] MEDS: GABAPENTIN 600 MG TAB PO SCH ×3 (06:09→17:43)
[2018-07-05 06:28] LABS: Hematocrit (blood only) 38.7 % (42-52); Mean Corpuscular Volume 95.1 fL (80-100); Mean Platelet Volume 8.3 fL (7.4-10.4); Platelet Count 253 K/uL (130-400); RDW Coefficient of Variation 16.3 % (11.5-14.5); RDW Standard Deviation 56.4 fL (36.4-46.3); Red Blood Count 4.07 M/uL (4.7-6.1); White Blood Count 11.48 K/uL (4.8-10.8)
[2018-07-05 06:56] LABS: BUN Creatinine Ratio 17.2 (10-20); Calcium 9.3 mg/dl (8.5-10.1); Creatinine Clr Calc Pharmacy 68.4 ml/min; Est GFR (African American) 75.4; Potassium 4.2 mmol/L (3.5-5.1)
[2018-07-05] MEDS: MoRPHine SULFATE CR 15 MG TABCR PO SCH ×2 (08:53→21:15)
[2018-07-05] MEDS: predniSONE 10 MG TABLET PO SCH ×2 (08:53→21:08)
[2018-07-05] MEDS: FUROSEMIDE 40 MG in SYRINGE 0 ML IV SCH (08:53)
[2018-07-05] MEDS: APIXABAN 5 MG TABLET PO SCH (08:53)
[2018-07-05] MEDS: CALCIUM 600MG + VIT D 400 IU TAB PO SCH ×2 (08:53→21:10)
[2018-07-05] MEDS: METOPROLOL SUCC 50MG EXT REL TAB PO SCH (08:54)
[2018-07-05] MEDS: MULTIVITAMIN TAB PO SCH ×2 (08:54→21:07)
[2018-07-05] MEDS: PANTOprazole 40 MG TAB PO SCH (08:54)
[2018-07-05] MEDS: ASCORBIC ACID 500 MG TAB PO SCH ×2 (08:54→21:09)
--- NOTE | 2018-07-05 11:09 | Ultrasound Report ---
ULTRASOUND BILATERAL LOWER EXTREMITY VENOUS CLINICAL HISTORY: Lower extremity edema and chronic wounds. COMPARISON STUDY: Right lower extremity venous ultrasound dated 04/12/2010. TECHNIQUE: Real-time, grayscale, and color Doppler sonography of the deep veins of the right and left lower extremity was performed from the inguinal crease to the calf. Compression and augmentation wer e utilized. FINDINGS: Right lower extremity: There is no sonographic evidence of above knee deep venous thrombosis identifi ed in the right lower extremity. The common femoral, superficial femoral, and popliteal veins are pat ent and normally compressible. The greater saphenous vein and the profunda femoris vein at the juncti on with the common femoral vein are clear. The calf vessels were not assessed due to overlying bandag es. Soft tissue edema is noted. Left lower extremity: There is nearly occlusive deep venous thrombosis identified in the left poplite al vein. The left common femoral and superficial femoral veins are patent and normally compressible. The greater saphenous vein and the profunda femoris vein at the junction with the common femoral vein are clear. The calf vessels were assessed due to overlying bandages. Soft tissue edema is noted. IMPRESSION: 1. There is nearly occlusive deep venous thrombosis identified in the left popliteal vein. 2. The remaining above-knee deep veins of the left lower extremity are clear. 3. There is no sonographic evidence of above-knee deep venous thrombosis in the right lower extremity . 4. The calf vessels were not assessed due to wounds and bandaging. Electronically signed by: Joe Omalley M.D. 07/05/2018 11:07 AM
[2018-07-05] MEDS ORDERED: OPTIRAY 320 125ml IV PRN (12:37)
--- NOTE | 2018-07-05 13:02 | CT Scan Report ---
CT SCAN OF THE CHEST WITH IV CONTRAST CLINICAL HISTORY: Dyspnea. Deep venous thrombosis. COMPARISON STUDY: Chest x-ray dated 07/03/2018. TECHNIQUE: Following the IV administration of 118 cc of Optiray 320, CT scan of the thorax was perfor med from the thoracic inlet to the upper abdomen. Images are reviewed in the axial, sagittal, and cor onal planes. IV contrast was administered without complication. A dose lowering technique was utiliz ed adhering to the principles of ALARA. CT DOSE: 747.61 mGy.cm FINDINGS: Thyroid: Imaged portions of the thyroid gland are normal in size and attenuation. Thoracic aorta: There is atherosclerotic calcification of the thoracic aorta, which is normal in enriqueta bunny and demonstrates standard 3-vessel arch anatomy. No dissection is seen. Pulmonary vasculature: The pulmonary trunk is normal in caliber. There are no filling defects identif ied within the main, lobar, or proximal segmental pulmonary vessels to indicate pulmonary embolus. No te that this examination was not protocoled for evaluation of the pulmonary arteries as ordered by [facility] clinician. Heart: The heart is top normal in size and without pericardial effusion. The coronary arteries are de nsely calcified. Lungs and pleural spaces: There is no airspace consolidation or pleural effusion. Bibasilar scarring/ atelectasis is identified. There are at least 4 small pulmonary nodules scattered throughout the righ t lung. The largest measures 4 mm and is seen in the right middle lobe on image #[id number]. A calcified gra nuloma is noted in the left upper lobe. The trachea and central airways are clear. Mediastinum: There are scattered subcentimeter mediastinal lymph nodes. These are not pathologically enlarged by size criteria. Nikki: Clear. Axillae: There is no axillary lymphadenopathy. Upper abdomen: A 2.5 cm exophytic cyst arises from the upper pole of the right kidney. A 1.1 cm low-a ttenuation left adrenal nodule likely represents a small adenoma but cannot definitively characterize d due to the presence of IV contrast. Skeletal structures: The skeletal structures are osteopenic. Arthritic change is seen in the shoulder s. There is evidence of multifocal osteoblastic metastatic disease. IMPRESSION: 1. There are no filling defects identified within the main, lobar, or proximal segmental pulmonary ar teries to indicate pulmonary embolus. Note that the examination was not protocoled for evaluation of the pulmonary arteries as ordered by the referring clinician, and a small peripheral pulmonary embolu s would be difficult to exclude. 2. 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 Correlation with the patient's oncological history will be required. 3. No airspace consolidation or pleural effusion is identified. 4. There are least 4 pathologically indeterminant pulmonary nodules scattered throughout the right susan ng measuring up to 4 mm. 5. Additional findings as above. Electronically signed by: Joe Omalley M.D. 07/05/2018 1:01 PM
[2018-07-05] MEDS ORDERED: ENOXAPARIN 100 MG/1ML SYR SQ SCH (14:30)
--- NOTE | 2018-07-05 15:42 | Hospitalist Progress Note ---
Date of Service July 05, 2018 Assessment & Plan (1) Acute DVT (deep venous thrombosis): Failed Eliquis in setting of active malignancy. Switched to Lovenox full dose yesterday and will plan to dc on this. (2) Anasarca: Documented 20 pound weight gain in the last 6 months with previous inpatient standing scale weight of 96 kg in March 2018. However, the patient' s weight has also fluctuated up and down around this number. He has had issues with fluid retention on chemotherapy according to the notes, and his chemo has been changed with some improvement. He has been on high-dose steroids since January 2018 and is also on gabapentin which can both cause lower extremity swelling and weight gain. He is also on apixaban making DVT less likely however he has had chronic lower extremity wounds that are non-healing for many months and Eliquis was recently held for his upcoming colonoscopy. Arterial insufficiency may also be contributing. US of both leg with Doppler was performed, but was limited in the setting of bilateral Unna boots. Blood clot was seen in popliteal vein of the left leg. Eliquis was stopped and Lovenox was started. Right leg was not completely evaluated. Feel his swelling is still multifactorial and not completely related to the DVTs. Would recommend outpatient provider trying to titrate gabapentin, however, this is a drug that helps him with severe pain and neuropathy if he stops it. Lyrica is not an option as this causes peripheral edema as well. Hopeful that coming off the prednisone in the near future will lessen the edema. Lasix and fluid restriction resulted in 5 L off overnight. The patient has a headache and this may be contributing. Will decrease Lasix to once daily today in this elderly gentleman. Continue fluid restriction to assist with fluid loss per nephrology. No evidence of overt pulmonary edema on CXR, and no acute infiltrates/clinical picture not consistent with pneumonia. Patient still has dyspnea on exertion which is not improved since yesterday. Echo in March 2018 was within normal limits, however will repeat echo in setting of increased swelling. Suspect chronic wounds have something to do with current swelling as they are nonhealing. Cannot visualize them with current Unna boot on until cleared with wound care at [facility] as we have no ability to rewrap his legs. He reports when his wounds are exposed to air for more than 5 minutes they become severely itchy and painful. Consulted nutrition in setting of low albumin to assess nutritional intake. Low protein may contribute. Will also check TSH. (3) Dyspnea on exertion: He was much improved during the first 24 hours of admission but has since plateaued. Expect this is somewhat close to his baseline even though he reports a decreased exercise tolerance from his baseline 3-6 months ago. 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 [place] [facility] [place]matology -Is scheduled for a wrap change by wound care at [facility] on Jul 08 -On prednisone taper and trial of pamidronate (also following with nephro) -Wound care was consulted to assess the wounds -Will not start this therapy until improved and discharged. Cont steroid taper as prescribed by outpatient Dermatology (5) Atrial fibrillation: Continue amiodarone, Eliquis DC'd as above. Continue Lovenox full dose. (6) Prostate cancer metastatic to bone: Receiving Zoladex every 3 weeks but rest of chemo regimen is being held due to complicated skin condition -Continue home pain regimen including scheduled gabapentin and morphine as well as PRN Tylenol, [place] and Morphine (7) CKD (chronic kidney disease), stage III: At high end of baseline kidney function range with Cr 1.3, GFR 54 -Monitor with daily BMP in the setting of IV diuretics (8) HTN (hypertension): Normotensive. Hold PO torsemide while receiving IV Lasix (9) GERD (gastroesophageal reflux disease): Continue PPI (10) Mood disorder: Continue SSRI DVT Ppx: lovenox Code status: FULL PCP: Brandon Dispo: Admitted to telemetry. Plan to return home once medically stable. Lindsay Arambula DO [facility] Hospitalist Subjective +ENAMORADO after CT. No PE was seen. +DVT, switched to Lovenox. Pt states dyspnea on exertion is still present and not much improved. Physical Exam 2 Vital Signs (Past 24 Hours): Last Vital Signs Temp 36.7 C 07/05/18 15:09 Pulse 82 07/05/18 15:09 Resp 18 07/05/18 15:09 BP 146/83 H 07/05/18 15:09 Pulse Ox 92 07/05/18 15:09 CONSTITUTIONAL: WNWD, vitals as above, generally well-appearing EYES: normal conjuctivae, no scleral icterus ENT: MMM RESPIRATORY: clear to auscultation bilaterally, minor crackles that are sparse at bases bilaterally. No conversational dyspnea or SOB at rest. CARDIOVASCULAR: regular rate and rhythm, S1 and 2 heard without murmurs, gallops or rubs, no JVD, 3+ pitting edema to thighs bilaterally GASTROINTESTINAL: normal bowel sounds, soft, nontender, nondistended but protuberant MUSCULOSKELETAL: strength 5/5 throughout, head is normocephalic and atraumatic , amblatory SKIN: warm and dry, bilateral LE wounds which are wrapped and draining some. Wounds were not visualized. NEUROLOGIC: CN 2-12 grossly intact, normal cognition, normal speech PSYCHIATRIC: alert cooperative and oriented to person, place and time. Results & Data Medications Administered Current Inpatient Medications Acetaminophen (Tylenol) 650 mg PO Q4H PRN PRN Reason: Pain or Fever Stop: 08/02/18 15:59 Last Admin: 07/05/18 12:54 Dose: 650 mg Amiodarone HCl (Cordarone) 200 mg PO QPM [facility] Stop: 08/02/18 20:59 Last Admin: 07/05/18 21:07 Dose: 200 mg Ascorbic Acid (Vitamin C) 500 mg PO BID [facility] Stop: 08/02/18 20:59 Last Admin: 07/05/18 21:09 Dose: 500 mg Enoxaparin Sodium (Lovenox) 111 mg SQ Q12 [facility] Stop: 08/04/18 14:29 Last Admin: 07/06/18 00:17 Dose: 111 mg Gabapentin (Neurontin) 600 mg PO Q6H [facility] Stop: 08/02/18 17:59 Last Admin: 07/06/18 05:49 Dose: 600 mg Furosemide 40 mg/ Syringe 4 mls @ 4 mls/min IV DAILY [facility]ISBETH Stop: 08/05/18 08:59 Ioversol (Optiray 320 125ml) 118 ml IV ONCE PRN PRN Reason: Interaction Checking Stop: 07/09/18 12:36 Last Admin: 07/05/18 12:38 Dose: 118 ml Metoprolol Succinate (Toprol Xl) 50 mg PO QAM [facility] Stop: 08/03/18 08:59 Last Admin: 07/05/18 08:54 Dose: 50 mg Morphine Sulfate (Morphine Sulfate Ir) 15 mg PO Q8H PRN PRN Reason: Pain Stop: 07/17/18 14:44 Last Admin: 07/05/18 18:32 Dose: 15 mg Morphine Sulfate (Ms Contin) 30 mg PO Q12 [facility] Stop: 07/17/18 20:59 Last Admin: 07/05/18 21:15 Dose: 30 mg Multivitamins (Multivitamin) 1 tab PO BID LISBETH Stop: 08/02/18 20:59 Last Admin: 07/05/18 21:07 Dose: 1 tab Multivitamins/Minerals (Caltrate Plus) 1 tab PO BID [facility]ISBETH Stop: 08/02/18 20:59 Last Admin: 07/05/18 21:10 Dose: 1 tab Pantoprazole Sodium (Protonix) 40 mg PO QAM [facility] Stop: 08/03/18 08:59 Last Admin: 07/05/18 08:54 Dose: 40 mg Polyethylene Glycol (Miralax Powder Packet) 17 gm PO DAILY PRN PRN Reason: Constipation Stop: 08/02/18 15:59 Potassium Chloride (Klor-Con M10) 10 meq PO QPM [facility] Stop: 08/02/18 20:59 Last Admin: 07/05/18 21:10 Dose: 10 meq Prednisone (Prednisone) 10 mg PO BID [facility] Stop: 08/02/18 20:59 Last Admin: 07/05/18 21:08 Dose: 10 mg Senna/Docusate Sodium (Senokot S) 4 tab PO BID PRN PRN Reason: Constipation Stop: 08/02/18 15:59 Sertraline HCl (Zoloft) 50 mg PO QPM [facility] Stop: 08/02/18 20:59 Last Admin: 07/05/18 21:09 Dose: 50 mg Spironolactone (Aldactone) 25 mg PO QPM [facility] Stop: 08/04/18 20:59 Last Admin: 07/05/18 21:08 Dose: 25 mg
[2018-07-05] MEDS: ENOXAPARIN INJ 120 MG/0.8 ML SYR SQ SCH (16:18)
[2018-07-05] MEDS: MoRPHine SULFATE IR 15 MG TAB (IMMEDIATE RELEASE) PO PRN (18:32)
[2018-07-05] MEDS: AMIODARONE 200 MG TAB PO SCH (21:07)
[2018-07-05] MEDS: SPIRONOLACTONE 25 MG TAB PO SCH (21:08)
[2018-07-05] MEDS: SERTRALINE HCL 50 MG TABLET PO SCH (21:09)
[2018-07-05] MEDS: POTASSIUM CHLORIDE 10 MEQ TABCR PO SCH (21:10)
[2018-07-06] MEDS: GABAPENTIN 600 MG TAB PO SCH ×4 (00:16→17:38)
[2018-07-06] MEDS: ENOXAPARIN INJ 120 MG/0.8 ML SYR SQ SCH ×3 (00:17→21:24)
[2018-07-06 08:39] LABS: BUN Creatinine Ratio 18.5 (10-20); Calcium 9.7 mg/dl (8.5-10.1); Est GFR (African American) 76.2; Est GFR (Non-African American) 65.7; Magnesium 2.2 mg/dl (1.8-2.4); Potassium 3.6 mmol/L (3.5-5.1)
[2018-07-06] MEDS: METOPROLOL SUCC 50MG EXT REL TAB PO SCH (08:43)
[2018-07-06] MEDS: ASCORBIC ACID 500 MG TAB PO SCH ×2 (08:43→21:23)
[2018-07-06] MEDS: MoRPHine SULFATE CR 15 MG TABCR PO SCH ×2 (08:43→21:19)
[2018-07-06] MEDS: predniSONE 10 MG TABLET PO SCH ×2 (08:43→21:21)
[2018-07-06] MEDS: CALCIUM 600MG + VIT D 400 IU TAB PO SCH ×2 (08:43→21:22)
[2018-07-06] MEDS: MULTIVITAMIN TAB PO SCH ×2 (08:43→21:21)
[2018-07-06] MEDS: PANTOprazole 40 MG TAB PO SCH (08:43)
[2018-07-06] MEDS: FUROSEMIDE 40 MG in SYRINGE 0 ML IV SCH (08:44)
--- NOTE | 2018-07-06 17:45 | Nephrology Progress Note ---
Date of Service July 06, 2018 Assessment & Plan (1) Edema extremities: CURRENT THERAPY -getting lasix 40 mg IV bid -large doses gabapentin noted -prednisone tapering -spironolactone 25 mg daily -urine sediment completely bland RECOMMEND >hold diuretics this evening or am tomorrow since he had IV contrast << already held for this evening; cont to follow > ? if we could try alternative med to gabapentin which can cause significant edema -continue wraps/ unna boots -cont daily standing weight >> he needs reinforcement/ teaching about daily weights, about low sodium intake , about fluid limits - -would cont <2 gm daily Na diet; would also limit po fluid to 1.5L which I told him is what he needs but will order 2L to see if he can try that/get used to it ; not clear that he is interested in this -daily bmp >while he is at risk for CKD he does not technically have it >> has not had abnormal eGFR for 3 mos running; has had EL however this fall and certainly at risk for that to occurr; would accept some worsening chronically of renal function to get good diuresis (2) Chronic steroid use: can contribute to edema though edema exacerbation comes as this is being tapered; cont taper (3) 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 worried that lost no wt despite active voiding. no sob; no changes in edema noted. pain reasonable at time of my eval on rds this am 0740. note has L popliteal DVT and chest CTA w/o emboli no n/v/d. no voiding c/o. no chest pain/palpitations. no other lesions/rash. no bleeding. very good appetite ate full brkfst. Physical Exam 2 Vital Signs (Past 24 Hours): Last Vital Signs Temp 36.4 C L 07/06/18 15:31 Pulse 82 07/06/18 16:00 Resp 20 07/06/18 15:31 BP 104/71 07/06/18 15:31 Pulse Ox 93 07/06/18 15:31 Constitutional: well developed, well nourished and + obese sitting up in chair w/ legs down on RA Eyes: EOM intact bilaterally ENMT: Ears: no external ear abnormality Nose: no external nose abnormality Mouth: + dry oral mucous membranes Neck: no nuchal rigidity Respiratory: normal respiratory effort Auscultation: + diminished lung sounds Cardiovascular: Rate/Rhythm: regular rate (distant HS) and regular rhythm Extremities: + edema (pitting above knees/2+ BL; BL unna boots/ tight dressings on) Gastrointestinal (Abdomen): Inspection/Auscultation: normal bowel sounds Percussion/Palpation: abdomen soft; abdomen nontender Musculoskeletal: Extremities: strength 5/5 throughout Skin: + ulcer (reported/ dressing not removed as need wound nurse to replace properly; weeping around dressing) Neurologic: awake Motor/Sensory: normal movement Psychiatric: Orientation: alert and oriented x 3 Eye Contact: + fair eye contact Speech: normal rate/rhythm/volume of speech Mood: + anxious mood Thought Content: + preoccupation Insight: + limited insight Judgement: + limited judgement Results & Data Laboratory Results Abnormal lab results 07/06/18 Range/Units 07:49 Sodium 133 L (136-145) mmol/L Chloride 92 L (98-107) mmol/L Carbon Dioxide 34 H (21-32) mmol/L BUN 21 H (7-18) mg/dl Glucose 124 H (70-99) mg/dl
--- NOTE | 2018-07-06 17:59 | Hospitalist Progress Note ---
Date of Service July 06, 2018 Assessment & Plan (1) Acute DVT (deep venous thrombosis): Failed Eliquis in setting of active malignancy. Switched to Lovenox full dose and will plan to dc on this. (2) Anasarca: Resolved. Echo within normal limits, TSH normal. Today all swelling has resolved . Unna boots have been removed and wounds are covered with Optifoam. (3) Dyspnea on exertion: Continues to improve closer to baseline. 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 Follows weekly with [facility] wound care/dermatology -Is scheduled for a wrap change by wound care at [facility] on Jul 08 -On prednisone taper and trial of pamidronate (also following with nephro) -Wound care was consulted to assess the wounds -Will not start this therapy until improved and discharged. Cont steroid taper as prescribed by outpatient Dermatology (5) Atrial fibrillation: Continue amiodarone, Eliquis DC'd as above. Continue Lovenox full dose. (6) Prostate cancer metastatic to bone: Receiving Zoladex every 3 weeks but rest of chemo regimen is being held due to complicated skin condition -Continue home pain regimen including scheduled gabapentin and morphine as well as PRN Tylenol, [place] and Morphine (7) CKD (chronic kidney disease), stage III: at baseline (8) HTN (hypertension): Normotensive. Hold PO torsemide while receiving IV Lasix (9) GERD (gastroesophageal reflux disease): Continue PPI (10) Mood disorder: Continue SSRI DVT Ppx: lovenox Code status: FULL PCP: Brandon Dispo: transfer to med[facility]surg [facility] Subjective +swelling resolved +no [place] +no abdominal pain ROS otherwise negative. -pt can ambulate and transfer in the room independently Physical Exam 2 Vital Signs (Past 24 Hours): Last Vital Signs Temp 36.4 C L 07/06/18 15:31 Pulse 82 07/06/18 16:00 Resp 20 07/06/18 15:31 BP 104/71 07/06/18 15:31 Pulse Ox 93 07/06/18 15:31 CONSTITUTIONAL: WNWD, vitals as above, generally well-appearing EYES: normal conjuctivae, no scleral icterus ENT: MMM RESPIRATORY: clear to auscultation bilaterally.. No conversational dyspnea or SOB at rest. CARDIOVASCULAR: regular rate and rhythm, S1 and 2 heard without murmurs, gallops or rubs, no JVD, edema has resolved. GASTROINTESTINAL: ventral hernia, normal bowel sounds, soft, nontender, nondistended but protuberant MUSCULOSKELETAL: strength 5/5 throughout, head is normocephalic and atraumatic , amblatory SKIN: warm and dry, bilateral LE wounds which are covered with Optifoam and draining. Wounds were not visualized. Unna boots off. NEUROLOGIC: CN 2-12 grossly intact, normal cognition, normal speech PSYCHIATRIC: alert cooperative and oriented to person, place and time. Results & Data Laboratory Results [facility] 07/06/18 07:49 Sodium 133 L Potassium 3.6 Chloride 92 L Carbon Dioxide 34 H BUN 21 H Creatinine 1.12 Glucose 124 H Calcium 9.7 Medications Administered Current Inpatient Medications Acetaminophen (Tylenol) 650 mg PO Q4H PRN PRN Reason: Pain or Fever Stop: 08/02/18 15:59 Last Admin: 07/05/18 12:54 Dose: 650 mg Amiodarone HCl (Cordarone) 200 mg PO QPM [facility] Stop: 08/02/18 20:59 Last Admin: 07/06/18 21:20 Dose: 200 mg Ascorbic Acid (Vitamin C) 500 mg PO BID [facility] Stop: 08/02/18 20:59 Last Admin: 07/06/18 21:23 Dose: 500 mg Enoxaparin Sodium (Lovenox) 111 mg SQ Q12 [facility] Stop: 08/04/18 14:29 Last Admin: 07/06/18 21:24 Dose: 111 mg Gabapentin (Neurontin) 600 mg PO Q6H [facility] Stop: 08/02/18 17:59 Last Admin: 07/07/18 00:30 Dose: 600 mg Furosemide 40 mg/ Syringe 4 mls @ 4 mls/min IV DAILY [facility] Stop: 08/05/18 08:59 Last Admin: 07/06/18 08:44 Dose: 4 mls/min Ioversol (Optiray 320 125ml) 118 ml IV ONCE PRN PRN Reason: Interaction Checking Stop: 07/09/18 12:36 Last Admin: 07/05/18 12:38 Dose: 118 ml Metoprolol Succinate (Toprol Xl) 50 mg PO QAM [facility] Stop: 08/03/18 08:59 Last Admin: 07/06/18 08:43 Dose: 50 mg Morphine Sulfate (Morphine Sulfate Ir) 15 mg PO Q8H PRN PRN Reason: Pain Stop: 07/17/18 14:44 Last Admin: 07/05/18 18:32 Dose: 15 mg Morphine Sulfate (Ms Contin) 30 mg PO Q12 [facility] Stop: 07/17/18 20:59 Last Admin: 07/06/18 21:19 Dose: 30 mg Multivitamins (Multivitamin) 1 tab PO BID [facility] Stop: 08/02/18 20:59 Last Admin: 07/06/18 21:21 Dose: 1 tab Multivitamins/Minerals (Caltrate Plus) 1 tab PO BID [facility] Stop: 08/02/18 20:59 Last Admin: 07/06/18 21:22 Dose: 1 tab Pantoprazole Sodium (Protonix) 40 mg PO QAM [facility] Stop: 08/03/18 08:59 Last Admin: 07/06/18 08:43 Dose: 40 mg Polyethylene Glycol (Miralax Powder Packet) 17 gm PO DAILY PRN PRN Reason: Constipation Stop: 08/02/18 15:59 Potassium Chloride (Klor-Con M10) 10 meq PO QPM [facility] Stop: 08/02/18 20:59 Last Admin: 07/06/18 21:22 Dose: 10 meq Prednisone (Prednisone) 10 mg PO BID [facility] Stop: 08/02/18 20:59 Last Admin: 07/06/18 21:21 Dose: 10 mg Senna/Docusate Sodium (Senokot S) 4 tab PO BID PRN PRN Reason: Constipation Stop: 08/02/18 15:59 Sertraline HCl (Zoloft) 50 mg PO QPM [facility] Stop: 08/02/18 20:59 Last Admin: 07/06/18 21:23 Dose: 50 mg Spironolactone (Aldactone) 25 mg PO QPM [facility] Stop: 08/04/18 20:59 Last Admin: 07/06/18 21:22 Dose: 25 mg Zinc Sulfate (Zinc Sulfate) 220 mg PO QAM [facility] Stop: 08/06/18 08:59
[2018-07-06] MEDS: AMIODARONE 200 MG TAB PO SCH (21:20)
[2018-07-06] MEDS: SPIRONOLACTONE 25 MG TAB PO SCH (21:22)
[2018-07-06] MEDS: POTASSIUM CHLORIDE 10 MEQ TABCR PO SCH (21:22)
[2018-07-06] MEDS: SERTRALINE HCL 50 MG TABLET PO SCH (21:23)
[2018-07-07] MEDS: GABAPENTIN 600 MG TAB PO SCH ×3 (00:30→12:10)
[2018-07-07 03:54] LABS: BUN Creatinine Ratio 23.4 (10-20); Calcium 9.3 mg/dl (8.5-10.1); Creatinine Clr Calc Pharmacy 71.6 ml/min; Est GFR (African American) 79.6; Est GFR (Non-African American) 68.7
[2018-07-07] MEDS: MoRPHine SULFATE IR 15 MG TAB (IMMEDIATE RELEASE) PO PRN (04:44)
[2018-07-07] MEDS: FUROSEMIDE 40 MG in SYRINGE 0 ML IV SCH (08:21)
[2018-07-07] MEDS: METOPROLOL SUCC 50MG EXT REL TAB PO SCH (08:22)
[2018-07-07] MEDS: MULTIVITAMIN TAB PO SCH (08:22)
[2018-07-07] MEDS: ENOXAPARIN INJ 120 MG/0.8 ML SYR SQ SCH (08:22)
[2018-07-07] MEDS: predniSONE 10 MG TABLET PO SCH (08:22)
[2018-07-07] MEDS: CALCIUM 600MG + VIT D 400 IU TAB PO SCH (08:22)
[2018-07-07] MEDS: PANTOprazole 40 MG TAB PO SCH (08:22)
[2018-07-07] MEDS: ASCORBIC ACID 500 MG TAB PO SCH (08:22)
[2018-07-07] MEDS: MoRPHine SULFATE CR 15 MG TABCR PO SCH (08:27)
[2018-07-07] MEDS ORDERED: ZINC SULFATE 220 MG CAPSULE PO SCH (09:00)
[2018-07-07] MEDS: ACETAMINOPHEN 325 MG TAB PO PRN ×2 (10:54→17:48)
--- NOTE | 2018-07-07 10:55 | Infectious Disease Consult ---
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 Would like to start patient on oral Bactrim to hopefully reduce bacterial burden and allow better wound healing, will need to discuss with nephrology because of other medications and potential for hyperkalemia. Would like to see patient back in 2-3 weeks to assess response. Will follow while in hospital. History of Present Illness Reason for Consultation: Chronic lower extremity wounds, chronic ?infection, do we treat? Attending Physician: Lindsay Arambula, DO History of Present Illness 73-year-old male with multiple medical problems including history of prostate cancer with bone metastases, A. fib previously on Eliquis, hypertension, who has had problems with nonhealing lower extremity wounds for over a year. He has been followed at the [facility] wound care center and recently was found to have calciphylaxis on biopsy by dermatology. He has had multiple episodes of skin infection and treatment with antibiotics. He was admitted on the fourth with progressively worsening shortness of breath and fluid retention, found to have DVT and is now been started on Lovenox. Previous cultures from his wound grew Proteus, Citrobacter, and Serratia, and culture from yesterday growing 2 different gram-negative bacilli. Patient not currently on antibiotics. He has been wrapped with Coban and until this admission. Allergies Allergy/AdvReac Type Severity Reaction Status Date / Time cephalexin [From Keflex] Allergy Rash Verified 07/03/18 12:25 Home Medications Home Medications Medication Instructions Recorded Confirmed Type ascorbic acid (vitamin C) [Vitamin 500 mg PO BID 03/29/18 07/03/18 History C] goserelin [Zoladex] 3.6 mg SUBCUT DIRECTED 03/29/18 07/03/18 History hydrocodone-acetaminophen [Vicodin] 1 tab PO Q4H PRN 03/29/18 07/03/18 History multivitamin 1 tab PO BID 03/29/18 07/03/18 History pantoprazole 40 mg PO QAM 03/29/18 07/03/18 History apixaban 5 mg PO BID 04/17/18 07/03/18 History prednisone 10 mg PO BID 04/17/18 07/03/18 History amiodarone 200 mg PO QPM 07/02/18 07/03/18 History gabapentin 600 mg PO Q6H 07/02/18 07/03/18 History metoprolol succinate 50 mg PO QAM 07/02/18 07/03/18 History morphine 30 mg PO Q12H 07/02/18 07/03/18 History sertraline 50 mg PO QPM 07/02/18 07/03/18 History spironolactone 25 mg PO QPM 07/02/18 07/03/18 History torsemide 40 mg PO QAM 07/02/18 07/03/18 History calcium carbonate-vitamin D3 2 tab PO BID 07/03/18 07/03/18 History [Calcium 500 + D] morphine 15 mg PO Q8H PRN 07/03/18 07/03/18 History potassium chloride [Klor-Con 10] 10 meq PO QPM 07/03/18 07/03/18 History sennosides-docusate sodium [Senna 4 tab PO BID PRN 07/03/18 07/03/18 History Plus] Patient History Medical History Mood disorder (Chronic) Prostate cancer metastatic to bone (Chronic) ~2013 Anxiety (Chronic) Depression (Chronic) Umbilical hernia (Chronic) Dyslipidemia (Chronic) On anticoagulant therapy (Chronic) Chronic steroid use (Chronic) TAKING STEROIDS DAILY FOR LOWER LEG SORES CURRENTLY. Atrial fibrillation (Chronic) Chronic pain (Chronic) HTN (hypertension) (Chronic) Obesity (BMI 30-39.9) (Chronic) GERD (gastroesophageal reflux disease) (Chronic) Surgical History History of tonsillectomy and adenoidectomy (Resolved) H/O radical prostatectomy (Resolved) ~2000 History of cholecystectomy (Resolved) History of back surgery (Resolved) L4-L5 History of repair of rotator cuff (Resolved) LEFT SHOULDER Family History Mother HTN (hypertension) Father Lymphoma Social History marital status: Current Living Situation: Spouse current occupational status: retired Other Information That Helps Us Care for You: No Feels Safe at Home: Yes Safety Concerns: Feels Safe At This Time Smoking Status: Former smoker Do You Dip or Chew Tobacco: No Second Hand Exposure: No Tobacco Cessation Education Requested by Patient: No Hx Alcohol Use: No Hx Substance Use: No Beliefs That Will Affect Care: None Communication Ability: Effective Review of Systems All systems were reviewed and are negative except as per HPI Physical Exam 2 Vital Signs (Past 24 Hours): Last Vital Signs Temp 36.6 C 07/07/18 07:08 Pulse 76 07/07/18 07:08 Resp 16 07/07/18 07:08 BP 116/73 07/07/18 07:08 Pulse Ox 92 07/07/18 07:08 Constitutional: WD/WN, vitals as above comfortable; no acute distress Eyes: PERRL, conjunctivae normal, anicteric sclerae ENMT: external ear and nose normal, oropharynx normal Neck: trachea midline, no thyromegaly neck nontender Respiratory: normal respiratory effort, lungs clear to auscultation normal percussion; does not use accessory muscles Cardiovascular: Rate/Rhythm: regular rate and regular rhythm Heart Sounds: normal S1 and normal S2; no gallop, no murmur and no cardiac rub Vessels: normal peripheral pulses; no JVD Extremities: + edema Gastrointestinal (Abdomen): normal bowel sounds, soft, nontender, no hepatosplenomegaly Musculoskeletal: no cyanosis or clubbing, extremities motor strength 5/5 Spine: thoracic spine normal to inspection and lumbar spine normal to inspection ; no cervical spinal tenderness Skin: no rashes Bilateral lower extremity skin ulcerations with serous weeping, no significant surrounding cellulitis Neurologic: patellar DTR's 2+ bilat, sensation intact no focal motor deficits Psychiatric: A+Ox3, euthymic affect Orientation: cooperative Lymphatic: no cervical or axillary lymphadenopathy no inguinal lymphadenopathy Results & Data Laboratory Results BMP 07/07/18 03:15 Sodium 132 L Potassium 4.0 Chloride 93 L Carbon Dioxide 36 H BUN 25 H Creatinine 1.08 Glucose 116 H Calcium 9.3 Diagnostic Findings Microbiology 07/06/18 10:40 Leg,Left Gram Stain - Final 07/06/18 10:40 Leg,Left Wound Culture - Preliminary Gram negative bacilli Gram negative bacilli#2 07/06/18 10:40 Leg,Right Gram Stain - Final 07/06/18 10:40 Leg,Right Wound Culture - Preliminary Gram negative bacilli Gram negative bacilli#2 ULTRASOUND BILATERAL LOWER EXTREMITY VENOUS CLINICAL HISTORY: Lower extremity edema and chronic wounds. COMPARISON STUDY: Right lower extremity venous ultrasound dated 04/12/2010. TECHNIQUE: Real-time, grayscale, and color Doppler sonography of the deep veins of the right and left lower extremity was performed from the inguinal crease to the calf. Compression and augmentation were utilized. FINDINGS: Right lower extremity: There is no sonographic evidence of above knee deep venous thrombosis identified in the right lower extremity. The common femoral, superficial femoral, and popliteal veins are patent and normally compressible. The greater saphenous vein and the profunda femoris vein at the junction with the common femoral vein are clear. The calf vessels were not assessed due to overlying bandages. Soft tissue edema is noted. Left lower extremity: There is nearly occlusive deep venous thrombosis identified in the left popliteal vein. The left common femoral and superficial femoral veins are patent and normally compressible. The greater saphenous vein and the profunda femoris vein at the junction with the common femoral vein are clear. The calf vessels were assessed due to overlying bandages. Soft tissue edema is noted. IMPRESSION: 1. There is nearly occlusive deep venous thrombosis identified in the left popliteal vein. 2. The remaining above-knee deep veins of the left lower extremity are clear. 3. There is no sonographic evidence of above-knee deep venous thrombosis in the right lower extremity. 4. The calf vessels were not assessed due to wounds and bandaging. Electronically signed by: Joe Omalley M.D. 07/05/2018 11:07 AM
[2018-07-07] MEDS ORDERED: Nursing to Pharmacy Communication ONE (16:56)
[2018-07-07] MEDS ORDERED: ENOXAPARIN 100 MG/1ML SYR SQ SCH ×2 (18:00→21:00)
--- NOTE | 2018-07-09 12:43 | Discharge Summary ---
Date of Service July 09, 2018 Admission HPI Per Admitting Provider This is a 73yo M with a PMH of prostate cancer with mets to bone, h/o non- healing BLE wounds with recent diagnosis of non-uremic calciphylaxis by [facility] dermatology/wound care, HTN, paroxysmal A Fib (on Eliquis), CKD III and other medical problems listed below who presents with weight gain and progressive shortness of breath x 2 weeks. Was recently admitted to our service in early March for anasarca in the setting of chemotherapy and prednisone treatment for chronic leg ulcers and then again later in March for A Fib with RVR. Was discharged home on 04/27 after being started on amiodarone 200mg daily. Chemotherapy agents were changed (still receiving Zoladex every 3 weeks but other agents are on hold due to BLE open wounds) and anasarca improved until the last two weeks, when patient notes a 20 pound weight gain. Reported for colonoscopy today and was found to be short of breath and hypoxic at 70%. Was brought to ED for further evaluation. In addition to weight gain, patient notes worsening orthopnea and has been sleeping sitting up. Denies any chest pain or palpitations. Takes 40mg Torsemide daily and 25mg Spironolactone HS. Follows with Dr. Mulligan in clinic. Denies fever, chills, cough, congestion, wheezing, abdominal pain, nausea, vomiting, diarrhea or constipation. EKG with normal sinus rhythm upon arrival. Of note, is seen weekly by a marketing specialist in [place] and scheduled to return on Friday, Jul 08 for new wraps. Also are planning to taper daily prednisone. Also recently evaluated by [facility] nephro iwho recommended starting patient on bisphosphonate with nephro follow up on Jul [address] Hoover. Admission Exam Per Admitting Provider General Appearance: WD/WN, sitting upright with SOB when speaking, chronically ill appearing, obese Head: normocephalic, atraumatic Eyes: normal inspection, PERRL, EOMI ENT: hearing grossly normal, pharynx normal (moist mucous membranes) Neck: supple, no JVD, no adenopathy Respiratory/Chest: lungs clear to auscultation except for faint bibasilar crackles. No wheezes or rhonci. No respiratory distress or accessory muscle use Cardiovascular: regular rate, rhythm, no murmur, normal peripheral pulses Abdomen/GI: normal bowel sounds, distended but soft, non-tender to palpation Extremities/Musculoskelatal: Bilateral leg wraps to knee with some clear weeping. 2-3+ pitting edema distal to knee. Normal capillary refill. Neurologic/Psych: alert, normal mood/affect, oriented x 3 Skin: normal color, warm/dry, areas of purple lesions on bilateral arms Principal Diagnosis anasarca, superficial wound infection Discharge Exam CONSTITUTIONAL: WNWD, vitals as above, generally well-appearing EYES: normal conjuctivae, no scleral icterus ENT: MMM RESPIRATORY: clear to auscultation bilaterally.. No conversational dyspnea or SOB at rest. CARDIOVASCULAR: regular rate and rhythm, S1 and 2 heard without murmurs, gallops or rubs, no JVD, edema has resolved. GASTROINTESTINAL: ventral hernia, normal bowel sounds, soft, nontender, nondistended but protuberant MUSCULOSKELETAL: strength 5/5 throughout, head is normocephalic and atraumatic , amblatory SKIN: warm and dry, bilateral LE wounds which are covered with Optifoam and draining. Wounds were not visualized. Unna boots off. NEUROLOGIC: CN 2-12 grossly intact, normal cognition, normal speech PSYCHIATRIC: alert cooperative and oriented to person, place and time. 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 The patient was brought into the emergency department by the endoscopy lab nurses at [facility] where he presented for colonoscopy that morning. He was found to be 70% on room air walking in from the parking lot and came up to 90% without supplemental oxygen. The patient and his noted a 20 pound weight gain in the past 2 weeks which is verified on records. He also notably has chronic bilateral wounds wrapped in Unna boots on arrival, and had noted weeping of his lower extremities for the past year. He also notably has a history of prostate cancer with metastatic disease to the bone and is undergoing treatment with Dr. Dukes at [facility] oncology. On admission he was hemodynamically stable and afebrile oxygenating 94% on room air in the emergency room. Lab work revealed a very mild baseline anemia, sodium of 132 and renal function at baseline. No proteinuria was noted. Chest x-ray revealed linear subsegmental bibasilar atelectasis versus scarring without acute process and multifocal osseous blastic metastasis that were redemonstrated. An EKG revealed no acute ischemic change and no ectopy and was unchanged from prior EKG in March 2018. He was admitted to the hospitalist service and placed on IV diuresis and fluid restriction. Nephrology was consulted and recommended continuation of this to eliminate excess interstitial fluid. After initial diuresis efforts he had 4 L out and notably improved exercise tolerance, off supplemental oxygen at room air. Pitting edema to his thighs remained, however because of a headache and malaise, diuresis was thought to be too aggressive, and Lasix was decreased to 40 mg IV once daily. Fluid restriction was continued. There was subsequent resolution of anasarca over the next 2 days. Overall multiple issues were thought to have been contributing to his fluid retention and weight gain including chronic high-dose steroids since January 2018 which were being tapered , use of high-dose gabapentin for neuropathic pain in his lower extremities. Other issues such as low protein intake and chronic leg wounds were also thought to be contributing. Arterial insufficiency was considered, and it is recommended that he undergo vascular studies as outpatient. A Doppler ultrasound of both legs were performed while he was hospitalized but were limited in the setting of bilateral Unna boots. A blood clot was seen in the popliteal vein of the left leg. As the patient was on Eliquis this was considered a treatment failure and Lovenox subcutaneous was started at 1 mg/kg twice daily. A factor Xa level returned after the fifth dose indicating he was supratherapeutic and his Lovenox dose was reduced by 20% after discussing the case with Dr. Dukes, hematology/oncology with [facility]. At time of discharge, the patient's anasarca had resolved and his dyspnea on exertion was much improved. He was scheduled to undergo treatment for presumed calciphylaxis of his lower extremities with pamidronate as outpatient. He was discharged on Lovenox subcutaneous with close recommended primary care follow-up. Of note wound cultures were obtained during admission revealing superficial infection wi Proteus and Serratia. Infectious disease was consulted and recommended 4 weeks of oral Bactrim in an effort to reduce the bacterial burden and allow better wound healing. As a result of the Bactrim, his spironolactone was cut by 50% and his potassium supplementation was discontinued at discharge to avoid hyperkalemia issues. While hospitalized he also underwent an echocardiogram revealing EF of 60-65% with grade 1 diastolic dysfunction and normal LV systolic function. He was discharged in guarded condition because of his terminal cancer diagnosis but was stable and asymptomatic. Close PCP followup was recommended. Total Time Total Time Spent Total Time Spent (In Minutes): 60 Total Time Includes: Examination of the Patient, Discharge Planning, Medication Reconciliation and Communication With Other Providers Discharge Plan Discharge Items Patient Disposition: Home - Self-Care Reason For Visit: ANASARCA,ACUTE HYPOXIC RESP FAILURE Discharge Diagnosis: anasarca, superficial wound infection Discharge Goals: Decrease discomfort Activity: Resume your previous activity Non-emergency contact: Primary Care Provider Call non-emergency contact if: you have any medication questions, your symptoms worsen, your pain is not controlled, your pain is worsening and you have a fever Follow-up/Referrals: Lyndon Reddy MD [Physician] - Damion Taylor [Primary Care Provider] - Diet: Low Sodium (2gm) Addtl Provider Instructions: Please take all medications as instructed on discharge list below. You have been started on Enoxaparin injections for a new blood clot in your leg. These will need to be self-administered at home, and please follow-up with Dr. Hima Dukes regarding this treatment at the earliest convenience. It is recommended that you get a hospital follow-up appointment with Dr. Damion Taylor . Please followup with wound care as instructed. It is recommended that you take 4 weeks of Bactrim for a superficial wound infection. While on this medication, please use the prescription you received at discharge to get weekly NONFASTING bloodwork. You will need to follow-up with Dr. Lyndon Reddy in the [facility] Infectious Disease clinic in 2-3 weeks. It was a pleasure taking care of you! Please call if you have any questions or problems. You can reach a [facility] hospitalist on duty at [facility] 24 hours a day by calling [phone]. Take care of yourself. Lindsay Arambula, DO [facility] Prescriptions: New enoxaparin 100 mg/mL Syringe 90 mg subcut Q12 30 Days Qty: 54 RF: 1 spironolactone 25 mg Tablet 12.5 mg PO QPM 30 Days Qty: 15 RF: 0 zinc sulfate 220 (50) mg Capsule 220 mg PO QAM 30 Days Qty: 30 RF: 1 sulfamethoxazole-trimethoprim [Bactrim DS] 800-160 mg tablet 1 tab PO Q12H Qty: 30 RF: 1 Continue prednisone 10 mg tablet 10 mg PO BID RF: 0 calcium carbonate-vitamin D3 [Calcium 500 + D] 500 mg(1,250mg) -200 unit Tablet 2 tab PO BID RF: 0 sennosides-docusate sodium [Senna Plus] 8.6-50 mg Tablet 4 tab PO BID PRN (Reason: Constipation) RF: 0 morphine 15 mg Tablet 15 mg PO Q8H PRN (Reason: Pain) RF: 0 multivitamin Tablet 1 tab PO BID RF: 0 goserelin [Zoladex] 3.6 mg Implant 3.6 mg subcut DIRECTED RF: 0 ascorbic acid (vitamin C) [Vitamin C] 500 mg Tablet 500 mg PO BID RF: 0 pantoprazole 40 mg Tablet,Delayed Release (Dr/Ec) 40 mg PO QAM RF: 0 hydrocodone-acetaminophen [Vicodin] 5-300 mg Tablet 1 tab PO Q4H PRN (Reason: Pain) RF: 0 metoprolol succinate 50 mg Tablet Extended Release 24 Hr 50 mg PO QAM RF: 0 morphine 30 mg Tablet Extended Release 30 mg PO Q12H RF: 0 torsemide 20 mg Tablet 40 mg PO QAM RF: 0 sertraline 25 mg Tablet 50 mg PO QPM RF: 0 amiodarone 200 mg tablet 200 mg PO QPM RF: 0 gabapentin 300 mg capsule 600 mg PO Q6H RF: 0 Discontinued apixaban 5 mg tablet 5 mg PO BID RF: 0 potassium chloride [Klor-Con 10] 10 mEq Tablet Extended Release 10 meq PO QPM RF: 0 spironolactone 25 mg tablet 25 mg PO QPM RF: 0 Visit Report Forms: [facility] Portal Stand-Alone Forms: [facility] Discharge Orders: Discharge Order (Routine); Ordered 07/07/18 Ordered By: Lindsay Arambula Admission Data Admit Date/Time: 07/03/18 14:29 Attending Provider: Lindsay Arambula Admit Provider: Jean Carlos Tapia Primary Care Provider: Damion Taylor Other Providers: Remedios Dixon ; Lyndon Reddy Service: Medical Other Interventions: Discharge Summary Assessment (RN) Last Done: 07/07/18 18:27 DC Date/Time DO NOT enter until pt leaves facility: 07/07/18 19:21
== END 2018-07-07 19:21 | disposition home or self-care (01) | DRG 948 ==
LOC: ED 11:29 → 2S 14:29 → 2W 07-06 20:09
DX: I12.9 Hypertensive chronic kidney disease with stage 1 through stage 4 chronic kidney disease, or unspecified chronic kidney disease; Z68.38 Body mass index [BMI] 38.0-38.9, adult; E66.9 Obesity, unspecified; C61 Malignant neoplasm of prostate; I82.432 Acute embolism and thrombosis of left popliteal vein; I48.0 Paroxysmal atrial fibrillation; E78.5 Hyperlipidemia, unspecified; N18.3 Chronic kidney disease, stage 3 (moderate); C79.51 Secondary malignant neoplasm of bone; E83.59 Other disorders of calcium metabolism; Z79.02 Long term (current) use of antithrombotics/antiplatelets; F32.9 Major depressive disorder, single episode, unspecified; K21.9 Gastro-esophageal reflux disease without esophagitis; R60.1 Generalized edema; Z79.899 Other long term (current) drug therapy; Z79.52 Long term (current) use of systemic steroids

== ENCOUNTER 2018-09-23 14:55 | Inpatient (IN) ==
--- NOTE | 2018-09-23 17:10 | XRay Report ---
XR chest 1V portable HISTORY: Atypical Chest Pain COMPARISON: Chest 07/03/2018. 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 No pneumothorax. Small left pleu ral effusion and left basilar densities have slightly progressed. Progressive interstitial and vascul ar thickening consistent with mild pulmonary edema. The heart is mildly enlarged. IMPRESSION: 1. Interval progression of the mild pulmonary edema and small left pleural effusion. 2. Left basilar densities have also progressed and may represent atelectasis or pneumonia. 3. 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 Electronically signed by: Griffin Romero M.D. 09/23/2018 5:09 PM
[2018-09-23] MEDS ORDERED: MoRPHine SULFATE 4 MG/ML 1 ML CARP\\VIAL IV PRN (17:20)
[2018-09-23 17:43] LABS: Alanine Aminotransferase 16 U/L (12-78); Albumin Level 1.6 gm/dl (3.4-5.0); Aspartate Aminotransferase 33 U/L (15-37); BUN Creatinine Ratio 10.2 (10-20); Blood Urea Nitrogen 6 mg/dl (7-18); Calcium 8.2 mg/dl (8.5-10.1); Carbon Dioxide 29 mmol/L (21-32); Chloride 102 mmol/L (98-107); Est GFR (African American) 122.4; Est GFR (Non-African American) 105.6; Glucose 106 mg/dl (70-99); Potassium 3.5 mmol/L (3.5-5.1); Sodium 136 mmol/L (136-145)
[2018-09-23 17:48] LABS: Albumin Globulin Ratio 0.4 (0.9-2); Alkaline Phosphatase 97 U/L (45-117); Bilirubin,Total 0.2 mg/dl (0.2-1); Globulin 3.9 gm/dl (2.5-4.0); INR 1.1 (0.9-1.1); NT Pro B Type Natriuretic Pept 165 pg/ml (0-900); Partial Thromboplastin Ratio 1.4; Partial Thromboplastin Time 36.8 Seconds (21.0-31.0); Prothrombin Time 11.4 Seconds (9.0-12.0); Total Protein 5.5 gm/dl (6.4-8.2); Troponin I < 0.015 ng/ml (0-0.045)
[2018-09-23] MEDS ORDERED: HEPARIN 25000 UNIT/500 ML D5W IV ONE (18:04)
[2018-09-23] MEDS: Heparin IV Standard *NO* Bolus IV ONE ×2 (18:31→18:45)
--- NOTE | 2018-09-23 18:35 | History & Physical Report ---
Date of Service September 23, 2018 Assessment & Plan (1) Acute DVT (deep venous thrombosis): -acute DVT of left upper extremity ; history of lower extremity DVT in the past -in the past patient was on coumadin for anticoagulation of atrial fibrillation but this was stopped because of concern that coumadin worsened calciphylaxis lower leg wounds and was discontinued, then was on Eliquis and developed lower extremity DVT and was switched to Lovenox -recent hospitalization x 1 month in August 2018 at [facility] in [place] needing central lines for sepsis - Patient was discharged to [facility] on 09/21/18 on Lovenox and then Doppler of the LUE obtained on 09/23/18 as outpatient indicates left internal jugular and subclavian vein DVTs. Patient was then sent to Emergency room at [facility]. Emergency room doctor concerned that patient may have failed Lovenox therapy and started patient on heparin drip -Have contacted Dr. Hima Dukes of hemtaology/oncology for consultation on future anticoagulation regimen for this patient Metastatic Prostate Cancer to bones -follows with Dr. Hima Dukes of hemtaology/oncology -will defer to him on more background and assessment about patient's prostate cancer management calciphylaxis of lower extremities and bilateral leg ulcers present on admission bilateral heel ulcers present on admission -wound care every shift, wound care nursing -leg supports paroxysmal atrial Fibrillation -anticoagulation as above -continue home dose metoprolol 25 mg q12h, amiodarine 200 mg daily Chronic respiratory failure with hypoxia -admission CXR: Multifocal osteoblastic metastatic disease is again noted. No pneumothorax. Small left pleural effusion and left basilar densities have slightly progressed. Progressive interstitial and vascular thickening consistent with mild pulmonary edema. The heart is mildly enlarged. -will give Lasix 20 mg IV BID Current left upper extremity edema from DVT History of edema of lower extremities and anasarca -will give Lasix 20 mg IV BID chronic kidney disease stage III -monitor renal function while on Lasix History of clostridial bacteremia and c diff colitis -appears to have completed treatments as per review of available [facility] and [facility] notes -will place on contact precautions history of TIA as per discharge summary from [facility] in [place] -no gross focal deficits Chronic use of narcotics for pain control -continue home dose oxycodone and continue bowel regimen current DVT prophylaxis: heparin drip patient and patient's family (son Adonay [phone]; Hannah [phone] or [phone]) Full Code History of Present Illness Primary Care Provider: Damion Taylor This is a 73 year old Male with metastatic prostate cancer, calciphylaxis, chronic kidney disease stage III, atrial fibrillation, history of TIA as per discharge summary from [facility] in [place], who was hospitalized at [facility] for 4 weeks with multiple complications - he was initially admitted from wound care center due to weakness and confusion, eventually found with clostridial bacteremia and c diff colitis, acute respiratory failure requiring ventilatory support, he has a history of metastatic prostate cancer with diffuse spinal mets, history of lower extremity DVT while on Eliquis and patient had been on Lovenox Then Patient was discharged to [facility] on 09/21/18 on Lovenox and then Doppler of the LUE obtained on 09/23/18 as outpatient indicates left internal jugular and subclavian vein DVTs. Patient was then sent to Emergency room at [facility]. Emergency room doctor concerned that patient may have failed Lovenox therapy and started patient on heparin drip As per patient and patient's family (son Adonay [phone]; Hannah [phone] or [phone]) patient's left arm was actually swollen during hospitalization at [facility] in [place] but it was initially attributed to edema. Patient has had in the past hospitalizations at [facility] for lower extremity edema and poor wound healing from calciphylaxis (and actually was taken off of coumadin in the past because there was concern that coumadin may have contributed to worsening calciphylaxis) Patient is on chronic oxygen On this presentation to [facility], he denies shortness of breath, chest pain, of vomiting or headache. patient has generally been bedbound and non ambulatory. Besides the wound from ulcers due to calciphylaxis, patient also has bilateral heel ulcers that prevent him from putting pressure on the foot Family History of Father with malignancy Allergies Allergy/AdvReac Type Severity Reaction Status Date / Time doxycycline Allergy Unknown Unknown Verified 09/23/18 15:38 cephalexin [From Keflex] Allergy Rash Verified 07/03/18 12:25 Home Medications Home Medications Medication Instructions Recorded Confirmed Type ascorbic acid (vitamin C) [Vitamin 500 mg PO AMHS 03/29/18 09/23/18 History C] multivitamin 1 tab PO QAM 03/29/18 09/23/18 History pantoprazole 40 mg PO QAM 03/29/18 09/23/18 History amiodarone 200 mg PO QAM 07/02/18 09/23/18 History calcium carbonate-vitamin D3 2 tab PO BID 07/03/18 09/23/18 History [Calcium 500 + D] sennosides-docusate sodium [Senna 4 - 5 tabs PO AMHS 07/03/18 09/23/18 History Plus] acetaminophen [Acetaminophen Extra 500 mg PO Q6H PRN 09/23/18 09/23/18 History Strength] enoxaparin [Lovenox] 60 mg SUBCUT Q12H 09/23/18 09/23/18 History metoclopramide HCl 10 mg PO ACHS 09/23/18 09/23/18 History metoprolol tartrate 25 mg PO AMHS 09/23/18 09/23/18 History nystatin 1 applic TOPICAL BID 09/23/18 09/23/18 History ondansetron 8 mg PO Q8H PRN 09/23/18 09/23/18 History oxycodone 10 mg PO Q4H PRN 09/23/18 09/23/18 History oxycodone [OxyContin] 20 mg PO Q12H 09/23/18 09/23/18 History sertraline 75 mg PO QAM 09/23/18 09/23/18 History zinc sulfate 220 mg PO QAM 09/23/18 09/23/18 History Past Med/Surg History Medical History Mood disorder (Chronic) Prostate cancer metastatic to bone (Chronic) ~2013 Anxiety (Chronic) Depression (Chronic) Umbilical hernia (Chronic) Dyslipidemia (Chronic) On anticoagulant therapy (Chronic) Chronic steroid use (Chronic) TAKING STEROIDS DAILY FOR LOWER LEG SORES CURRENTLY. Atrial fibrillation (Chronic) Chronic pain (Chronic) HTN (hypertension) (Chronic) Obesity (BMI 30-39.9) (Chronic) GERD (gastroesophageal reflux disease) (Chronic) Surgical History History of tonsillectomy and adenoidectomy (Resolved) H/O radical prostatectomy (Resolved) ~2000 History of cholecystectomy (Resolved) History of back surgery (Resolved) L4-L5 History of repair of rotator cuff (Resolved) LEFT SHOULDER Family History Mother Hypertension Father Lymphoma Social History Preferred Language: Ukrainian Beliefs That Will Affect Care: None marital status: Current Living Situation: Spouse current occupational status: retired Feels Safe at Home: Yes Smoking Status: Never smoker Hx Alcohol Use: No Hx Substance Use: No Review of Systems All systems reviewed & are unremarkable except as noted in HPI & below Physical Exam Vital Signs (Past 24 Hours): Last Vital Signs Temp 36.9 C 09/23/18 15:20 Pulse 96 H 09/23/18 17:31 Resp 24 09/23/18 17:31 BP 118/65 09/23/18 17:30 Pulse Ox 96 09/23/18 17:31 Physical Exam: General: cooperative on exam Lungs: on nasal cannula, breathing is non labored, no wheezing Heart: regular rate Abdomen: obese, soft, nontender, bowel sounds present Extremities: lower extremities in dressing, photos of calciphylaxis bilateral ulcers shown by patient's were reviewed, bilateral heel ulcers Neuro/Psych: awake and alert and oriented x 3
[2018-09-23 18:36] LABS: Eosinophils # (auto) 0.09 K/uL (0-0.5); Eosinophils % (auto) 1.2 %; Hematocrit (blood only) 26.2 % (42-52); Hemoglobin 7.6 g/dL (14.0-18.0); Hypochromasia Present; Immature Granulocytes # (auto) 0.08 K/uL (0.00-0.02); Immature Granulocytes % (auto) 1.1 %; Lymphocytes # (auto) 1.91 K/uL (1.2-3.4); Lymphocytes % (auto) 25.8 %; Mean Corpuscular Volume 95.3 fL (80-100); Mean Platelet Volume 8.1 fL (7.4-10.4); Monocytes % (auto) 9.4 %; Neutrophils # (auto) 4.63 K/uL (1.4-6.5); Neutrophils % (auto) 62.5 %; Platelet Count 300 K/uL (130-400); RDW Coefficient of Variation 18.9 % (11.5-14.5); RDW Standard Deviation 65.2 fL (36.4-46.3); Red Blood Count 2.75 M/uL (4.7-6.1); White Blood Count 7.41 K/uL (4.8-10.8)
[2018-09-23] MEDS: Heparin Adult STANDARD Wt-Based Dextrose 5% 25,000 units/500 mL IV SCH (18:43)
--- NOTE | 2018-09-23 18:55 | Emergency Department Note ---
Entered by Alondra Asencio acting as a scribe for Garth Mohan DO History of Present Illness General Chief complaint: Illness Source: patient History of Present Illness Onset (ago): week(s) 2 Location: upper extremity Pain Consistency: + other (worsening) Quality: + other (illness) Associated symptoms: + other (left arm swelling); no chest pain, no nausea/vomiting and no shortness of breath (lying flat) The patient is a 73 year old male who presents to the Emergency Room with complaints of worsening illness starting 2 weeks ago. The patient states that he was in [place] for a month because he was incoherent and not himself. He states that he had pneumonia. He reports that while there he was having left arm swelling. He states that he mentioned it, but they told him it was due to fluid in the skin. The patient states that 2 days ago he was discharged to [facility]. He reports that the doctor there was concerned about it and ordered a Doppler to be done this morning. He reports that it came back positive for a blood clot so he was sent in. He states that he is on Lovenox because he had b een on Coumadin and Xarelto, but developed a DVT. The patient denies shortness of breath when lying flat, chest pain, nausea, and vomiting. He notes that he was not on Oxygen before going to [place], but has been since being there. Home Medications Home Medications Medication Instructions Recorded Confirmed Type ascorbic acid (vitamin C) [Vitamin 500 mg PO AMHS 03/29/18 09/23/18 History C] multivitamin 1 tab PO QAM 03/29/18 09/23/18 History pantoprazole 40 mg PO QAM 03/29/18 09/23/18 History amiodarone 200 mg PO QAM 07/02/18 09/23/18 History calcium carbonate-vitamin D3 2 tab PO BID 07/03/18 09/23/18 History [Calcium 500 + D] sennosides-docusate sodium [Senna 4 - 5 tabs PO AMHS 07/03/18 09/23/18 History Plus] acetaminophen [Acetaminophen Extra 500 mg PO Q6H PRN 09/23/18 09/23/18 History Strength] enoxaparin [Lovenox] 60 mg SUBCUT Q12H 09/23/18 09/23/18 History metoclopramide HCl 10 mg PO ACHS 09/23/18 09/23/18 History metoprolol tartrate 25 mg PO AMHS 09/23/18 09/23/18 History nystatin 1 applic TOPICAL BID 09/23/18 09/23/18 History ondansetron 8 mg PO Q8H PRN 09/23/18 09/23/18 History oxycodone 10 mg PO Q4H PRN 09/23/18 09/23/18 History oxycodone [OxyContin] 20 mg PO Q12H 09/23/18 09/23/18 History sertraline 75 mg PO QAM 09/23/18 09/23/18 History zinc sulfate 220 mg PO QAM 09/23/18 09/23/18 History Allergies Allergy/AdvReac Type Severity Reaction Status Date / Time doxycycline Allergy Unknown Unknown Verified 09/23/18 15:38 cephalexin [From Keflex] Allergy Rash Verified 07/03/18 12:25 Past Med/Surg History Medical History Mood disorder (Chronic) Prostate cancer metastatic to bone (Chronic) ~2013 Anxiety (Chronic) Depression (Chronic) Umbilical hernia (Chronic) Dyslipidemia (Chronic) On anticoagulant therapy (Chronic) Chronic steroid use (Chronic) TAKING STEROIDS DAILY FOR LOWER LEG SORES CURRENTLY. Atrial fibrillation (Chronic) Chronic pain (Chronic) HTN (hypertension) (Chronic) Obesity (BMI 30-39.9) (Chronic) GERD (gastroesophageal reflux disease) (Chronic) Surgical History History of tonsillectomy and adenoidectomy (Resolved) H/O radical prostatectomy (Resolved) ~2000 History of cholecystectomy (Resolved) History of back surgery (Resolved) L4-L5 History of repair of rotator cuff (Resolved) LEFT SHOULDER Family History Mother Hypertension Father Lymphoma Social History Communication Ability: Effective Beliefs That Will Affect Care: None marital status: Current Living Situation: Spouse current occupational status: retired Other Information That Helps Us Care for You: No Feels Safe at Home: Yes Safety Concerns: Feels Safe At This Time Smoking Status: Never smoker Hx Alcohol Use: No Hx Substance Use: No Review of Systems See HPI for pertinent positives & negatives. and A total of 10 systems reviewed and were otherwise negative Physical Exam Vital Signs Vital Signs - 24 hr 09/24/18 15:45 09/24/18 19:09 09/25/18 00:41 Temperature 37.7 C H 36.9 C Temperature Source Axillary Oral Pulse Rate 90 Pulse Rate [Right Brachial] 95 H 76 Respiratory Rate 18 20 Respiratory Effort / Characteristics Non-Labored Spontaneous Respiratory Depth Normal Respiratory Pattern Regular Blood Pressure [Right Arm] 127/73 102/63 Blood Pressure Mean [Right Arm] 91 76 Blood Pressure Position [Right Arm] Lying Lying Pulse Oximetry 91 94 Oxygen Delivery Method Nasal Cannula Nasal Cannula Nasal Cannula Oxygen Flow Rate 5 5 5 09/25/18 01:00 09/25/18 02:11 09/25/18 04:22 Temperature 37.2 C Temperature Source Oral Pulse Rate 88 Pulse Rate [Right Brachial] 91 H Respiratory Rate 20 Respiratory Effort / Characteristics Non-Labored Spontaneous Respiratory Depth Normal Respiratory Pattern Regular Blood Pressure [Right Arm] 114/61 Blood Pressure Mean [Right Arm] 78 Blood Pressure Position [Right Arm] Lying Pulse Oximetry 93 Oxygen Delivery Method Nasal Cannula Nasal Cannula Oxygen Flow Rate 5 5 09/25/18 07:28 09/25/18 08:11 09/25/18 11:42 Temperature 36.9 C Temperature Source Oral Pulse Rate 87 Pulse Rate [Right Brachial] 89 Respiratory Rate 18 Respiratory Effort / Characteristics Non-Labored Respiratory Depth Normal Respiratory Pattern Regular Blood Pressure [Right Arm] 132/73 Blood Pressure Mean [Right Arm] 92 Blood Pressure Position [Right Arm] Pulse Oximetry 92 Oxygen Delivery Method Room Air Oxygen Flow Rate GENERAL: Patient is listless and slow to respond to questions. Appears appropriately and follows commands. EYES: The conjunctivae are clear. The pupils are round and reactive. EARS, NOSE, MOUTH AND THROAT: The nose is without any evidence of deformity. Mucous membranes are moist. Tongue is midline. NECK: The neck is nontender and supple. RESPIRATORY: Normal respiratory effort is noted. Diminished breath sounds throughout with scattered rhonchi. CARDIOVASCULAR: Regular rate and rhythm noted. There are no murmurs rubs or gal lops. Normal S1, normal S2. GASTROINTESTINAL: The abdomen is soft. Bowel sounds are present in all q uadrants. Abdomen is nontender. MUSCULOSKELETAL/EXTREMITIES: There is no evidence of gross deformity. Full range of motion is noted in the hips and shoulders. SKIN: There is no obvious evidence of any rash. Bilateral lower extremity edema and left upper extremity edema. Skin was warm and dry. There is no petechiae, pallor or cyanosis noted. NEUROLOGIC: Patient is awake alert and oriented x3. Course 1517: Past medical records reviewed. The patient was evaluated in room C1B, and a complete history and physical examination were performed. 1738: I reevaluated the patient and updated him on his test results. I discussed the treatment plan with him. He verbally agrees and understands. 1743: I reviewed the patient's case [facility] He will evaluate the patient for further management. Consultations Consultation #1: I reviewed the patient's case with Dr. Yohana Serrano. He will evaluate the patient for further management. Time: 17:43 Administered Medications Amiodarone HCl (Cordarone) 200 mg PO QAM [facility] Stop: 10/24/18 08:59 Last Admin: 09/25/18 09:38 Dose: 200 mg Documented by: [id number] Admin: 09/24/18 08:03 Dose: 200 mg Documented by: [id number] Ascorbic Acid (Vitamin C) 500 mg PO AMHS [facility] Stop: 10/23/18 21:05 Last Admin: 09/25/18 09:51 Dose: 500 mg Documented by: [id number] Admin: 09/24/18 21:49 Dose: 500 mg Documented by: [id number] Admin: 09/24/18 08:05 Dose: 500 mg Documented by: [id number] Admin: 09/23/18 23:02 Dose: 500 mg Documented by: [id number] Enoxaparin Sodium (Lovenox) 100 mg SQ Q12@0600,1800 [facility] Stop: 10/24/18 17:59 Last Admin: 09/25/18 05:35 Dose: 100 mg Documented by: [id number] Admin: 09/24/18 21:49 Dose: 100 mg Documented by: [id number] Metoclopramide HCl (Reglan) 10 mg PO ACHS [facility] Stop: 10/23/18 21:05 Last Admin: 09/25/18 12:48 Dose: 10 mg Documented by: [id number] Admin: 09/25/18 09:42 Dose: 10 mg Documented by: [id number] Admin: 09/24/18 21:52 Dose: 10 mg Documented by: [id number] Admin: 09/24/18 16:09 Dose: 10 mg Documented by: [id number] Admin: 09/24/18 13:22 Dose: 10 mg Documented by: [id number] Admin: 09/24/18 08:02 Dose: 10 mg Documented by: [id number] Admin: 09/23/18 23:01 Dose: 10 mg Documented by: [id number] Metoprolol Tartrate (Lopressor) 25 mg PO AMHS [facility] Stop: 10/23/18 21:05 Last Admin: 09/25/18 09:40 Dose: 25 mg Documented by: [id number] Admin: 09/24/18 21:51 Dose: 25 mg Documented by: [id number] Admin: 09/24/18 10:23 Dose: 25 mg Documented by: [id number] Admin: 09/23/18 23:01 Dose: 25 mg Documented by: [id number] Multivitamins (Multivitamin Tab) 1 tab PO QAM [facility] Stop: 10/24/18 08:59 Last Admin: 09/25/18 09:41 Dose: 1 tab Documented by: [id number] Admin: 09/24/18 08:05 Dose: 1 tab Documented by: [id number] Multivitamins/Minerals (Caltrate Plus) 2 tab PO BID [facility] Stop: 10/23/18 21:05 Last Admin: 09/25/18 09:42 Dose: 2 tab Documented by: [id number] Admin: 09/24/18 21:50 Dose: 2 tab Documented by: [id number] Admin: 09/24/18 08:03 Dose: 2 tab Documented by: [id number] Admin: 09/23/18 23:01 Dose: 2 tab Documented by: [id number] Nystatin (Mycostatin) 1 appln EXT BID [facility] Stop: 10/23/18 21:05 Last Admin: 09/25/18 09:53 Dose: 1 appln Documented by: [id number] Admin: 09/24/18 21:52 Dose: 1 appln Documented by: [id number] Admin: 09/24/18 08:07 Dose: 1 appln Documented by: [id number] Admin: 09/23/18 23:02 Dose: 1 appln Documented by: [id number] Ondansetron HCl (Zofran Odt) 8 mg PO Q8H PRN PRN Reason: Nausea Stop: 10/23/18 21:05 Last Admin: 09/24/18 09:31 Dose: 8 mg Documented by: [id number] Oseltamivir Phosphate (Tamiflu) 75 mg PO DAILY [facility] Stop: 10/04/18 09:01 Last Admin: 09/25/18 14:45 Dose: 75 mg Documented by: [id number] Oxycodone HCl (Oxycontin) 20 mg PO Q12 [facility] Stop: 10/07/18 21:05 Last Admin: 09/25/18 10:04 Dose: 20 mg Documented by: [id number] Admin: 09/24/18 21:49 Dose: 20 mg Documented by: [id number] Admin: 09/24/18 08:02 Dose: 20 mg Documented by: [id number] Admin: 09/23/18 23:05 Dose: 20 mg Documented by: [id number] Oxycodone HCl (Roxicodone Immediate Rel) 10 mg PO Q4H PRN PRN Reason: Pain Stop: 10/07/18 21:05 Last Admin: 09/25/18 06:30 Dose: 10 mg Documented by: [id number] Admin: 09/24/18 12:46 Dose: 10 mg Documented by: [id number] Admin: 09/24/18 07:57 Dose: 10 mg Documented by: [id number] Pantoprazole Sodium (Protonix) 40 mg PO QAM [facility] Stop: 10/24/18 08:59 Last Admin: 09/25/18 09:42 Dose: 40 mg Documented by: [id number] Admin: 09/24/18 08:05 Dose: 40 mg Documented by: [id number] Senna/Docusate Sodium (Senokot S) 5 tab PO BID [facility] Stop: 10/23/18 22:59 Last Admin: 09/25/18 09:37 Dose: 5 tab Documented by: [id number] Admin: 09/24/18 21:52 Dose: Not Given Documented by: [id number] Admin: 09/24/18 10:22 Dose: Not Given Documented by: [id number] Admin: 09/23/18 23:05 Dose: 5 tab Documented by: [id number] Sertraline HCl (Zoloft) 75 mg PO QAM [facility] Stop: 10/24/18 08:59 Last Admin: 09/25/18 09:38 Dose: 75 mg Documented by: [id number] Admin: 09/24/18 08:06 Dose: 75 mg Documented by: [id number] Zinc Sulfate (Zinc Sulfate) 220 mg PO QAM [facility] Stop: 10/24/18 08:59 Last Admin: 09/25/18 09:38 Dose: 220 mg Documented by: [id number] Admin: 09/24/18 08:06 Dose: 220 mg Documented by: [id number] Discontinued Medications Furosemide (Lasix) 20 mg IV ONE ONE Stop: 09/23/18 19:16 Last Admin: 09/23/18 19:36 Dose: 20 mg Documented by: [id number] Heparin Sodium/Dextrose () 1 ea IV ONE ONE; Protocol Stop: 09/23/18 17:48 Last Admin: 09/23/18 18:45 Dose: Not Given Documented by: [id number] Heparin Sodium/Dextrose (Heparin Sodium/Dextrose) Confirm Administered Dose 25,000 units IV .STK-MED ONE Stop: 09/23/18 18:05 Last Admin: 09/23/18 18:31 Dose: Not Given Documented by: [id number] Hydromorphone HCl (Dilaudid) 0.5 mg IV NOW STA Stop: 09/24/18 11:46 Last Admin: 09/24/18 13:22 Dose: 0.5 mg Documented by: [id number] Heparin Sodium/Dextrose (Heparin Sodium/Dextrose) 25,000 units in 500 mls @ 20 mls/hr IV .Q24H [facility]; Protocol Stop: 10/23/18 18:44 Last Titration: 09/24/18 18:44 Dose: 0 units/hr, 0 mls/hr Documented by: [id number] Cosigned by: [id number] Titration: 09/24/18 16:31 Dose: 1,000 units/hr, 20 mls/hr Documented by: [id number] Cosigned by: [id number] Admin: 09/24/18 16:05 Dose: 1,100 units/hr, 22 mls/hr Documented by: [id number] Cosigned by: [id number] Titration: 09/24/18 15:52 Dose: 1,100 units/hr, 22 mls/hr Documented by: [id number] Cosigned by: [id number] Titration: 09/24/18 09:10 Dose: 1,100 units/hr, 22 mls/hr Documented by: [id number] Cosigned by: [id number] Titration: 09/24/18 08:10 Dose: 0 units/hr, 0 mls/hr Documented by: [id number] Cosigned by: [id number] Titration: 09/24/18 01:04 Dose: 1,250 units/hr, 25 mls/hr Documented by: [id number] Cosigned by: [id number] Admin: 09/23/18 18:43 Dose: 1,400 units/hr, 28 mls/hr Documented by: [id number] Cosigned by: [id number] Magnesium Sulfate/Dextrose (Magnesium Sulfate / D5w) 1 gm in 100 mls @ 100 mls/hr IV Q1H [facility] Stop: 09/25/18 11:59 Last Infusion: 09/25/18 14:28 Dose: 0 mls/hr Documented by: [id number] Admin: 09/25/18 12:48 Dose: 100 mls/hr Documented by: [id number] Infusion: 09/25/18 12:47 Dose: 100 mls/hr Documented by: [id number] Admin: 09/25/18 10:05 Dose: 100 mls/hr Documented by: [id number] Miscellaneous (Stop Order) 1 ea N/A NOW STA Stop: 09/24/18 18:03 Last Admin: 09/24/18 18:46 Dose: 1 ea Documented by: [id number] Morphine Sulfate (Morphine Sulfate) 4 mg IV Q15M PRN PRN Reason: Pain Stop: 10/07/18 17:19 Last Admin: 09/23/18 17:48 Dose: 4 mg Documented by: [id number] Potassium Chloride (Klor-Con M20) 40 meq PO NOW STA Stop: 09/24/18 14:34 Last Admin: 09/24/18 16:06 Dose: 40 meq Documented by: [id number] Medical Decision Making Differential Diagnosis Etiologies such as DVT, joint effusion, infection, trauma, muscular, lymphedema, idiopathic, CHF, as well as others were entertained. Medical Records Attestation: I reviewed the patient's medical records. Home Medications Current Medication List: was personally reviewed by me Laboratory Data Attestation: I reviewed the patient's lab results. Result diagrams: 09/25/18 07:29 09/25/18 07:29 Lab Results 09/23/18 09/23/18 09/23/18 Range/Units 17:07 17:07 17:07 WBC 7.41 (4.8-10.8) K/uL RBC 2.75 L (4.7-6.1) M/uL Hgb 7.6 L (14.0-18.0) g/dL Hct 26.2 L (42-52) % MCV 95.3 (80-100) fL MCH 27.6 (25-34) pg MCHC 29.0 L (32-36) g/dL RDW Std Deviation 65.2 H (36.4-46.3) fL RDW Coeff of Adriana 18.9 H (11.5-14.5) % Plt Count 300 (130-400) K/uL MPV 8.1 (7.4-10.4) fL Immature Gran % (Auto) 1.1 % Neut % (Auto) 62.5 % Lymph % (Auto) 25.8 % Cass % (Auto) 9.4 % Eos % (Auto) 1.2 % Baso % (Auto) 0.0 % Immature Gran # (Auto) 0.08 H (0.00-0.02) K/uL Neut # (Auto) 4.63 (1.4-6.5) K/uL Lymph # (Auto) 1.91 (1.2-3.4) K/uL Cass # (Auto) 0.70 H (0.11-0.59) K/uL Eos # (Auto) 0.09 (0-0.5) K/uL Baso # (Auto) 0.00 (0-0.2) K/uL Hypochromasia Present Anisocytosis PT 11.4 (9.0-12.0) Seconds INR 1.1 (0.9-1.1) APTT 36.8 H (21.0-31.0) Seconds PTT Ratio 1.4 Sodium 136 (136-145) mmol/L Potassium 3.5 (3.5-5.1) mmol/L Chloride 102 (98-107) mmol/L Carbon Dioxide 29 (21-32) mmol/L Anion Gap 6.0 (3-11) BUN 6 L (7-18) mg/dl Creatinine 0.54 L (0.6-1.4) mg/dl Est Cr Clr Drug Dosing Not Reportable Est GFR ( Amer) 122.4 Est GFR (Non-Af Amer) 105.6 BUN/Creatinine Ratio 10.2 (10-20) Glucose 106 H (70-99) mg/dl Calcium 8.2 L (8.5-10.1) mg/dl Magnesium (1.8-2.4) mg/dl Total Bilirubin 0.2 (0.2-1) mg/dl AST 33 (15-37) U/L ALT 16 (12-78) U/L Alkaline Phosphatase 97 (45-117) U/L Troponin I < 0.015 (0-0.045) ng/ml NT-Pro-B Natriuret Pep 165 (0-900) pg/ml Total Protein 5.5 L (6.4-8.2) gm/dl Albumin 1.6 L (3.4-5.0) gm/dl Globulin 3.9 (2.5-4.0) gm/dl Albumin/Globulin Ratio 0.4 L (0.9-2) Lipase 167 (73-393) U/L Nasal Screen MRSA (PCR) (Negative) Blood Type Antibody Screen Crossmatch 09/24/18 09/24/18 09/24/18 Range/Units 00:15 00:19 07:16 WBC 8.16 (4.8-10.8) K/uL RBC 2.82 L (4.7-6.1) M/uL Hgb 7.7 L (14.0-18.0) g/dL Hct 26.7 L (42-52) % MCV 94.7 (80-100) fL MCH 27.3 (25-34) pg MCHC 28.8 L (32-36) g/dL RDW Std Deviation 66.0 H (36.4-46.3) fL RDW Coeff of Adriana 19.1 H (11.5-14.5) % Plt Count 282 (130-400) K/uL MPV 8.0 (7.4-10.4) fL Immature Gran % (Auto) 1.1 % Neut % (Auto) 66.5 % Lymph % (Auto) 22.5 % Cass % (Auto) 8.9 % Eos % (Auto) 0.9 % Baso % (Auto) 0.1 % Immature Gran # (Auto) 0.09 H (0.00-0.02) K/uL Neut # (Auto) 5.42 (1.4-6.5) K/uL Lymph # (Auto) 1.84 (1.2-3.4) K/uL Cass # (Auto) 0.73 H (0.11-0.59) K/uL Eos # (Auto) 0.07 (0-0.5) K/uL Baso # (Auto) 0.01 (0-0.2) K/uL Hypochromasia Present Anisocytosis Present PT (9.0-12.0) Seconds INR (0.9-1.1) APTT 76.5 H* (21.0-31.0) Seconds PTT Ratio 2.8 Sodium (136-145) mmol/L Potassium (3.5-5.1) mmol/L Chloride (98-107) mmol/L Carbon Dioxide (21-32) mmol/L Anion Gap (3-11) BUN (7-18) mg/dl Creatinine (0.6-1.4) mg/dl Est Cr Clr Drug Dosing Est GFR ( Amer) Est GFR (Non-Af Amer) BUN/Creatinine Ratio (10-20) Glucose (70-99) mg/dl Calcium (8.5-10.1) mg/dl Magnesium (1.8-2.4) mg/dl Total Bilirubin (0.2-1) mg/dl AST (15-37) U/L ALT (12-78) U/L Alkaline Phosphatase (45-117) U/L Troponin I (0-0.045) ng/ml NT-Pro-B Natriuret Pep (0-900) pg/ml Total Protein (6.4-8.2) gm/dl Albumin (3.4-5.0) gm/dl Globulin (2.5-4.0) gm/dl Albumin/Globulin Ratio (0.9-2) Lipase (73-393) U/L Nasal Screen MRSA (PCR) Negative (Negative) Blood Type Antibody Screen Crossmatch 09/24/18 09/24/18 09/24/18 Range/Units 07:16 07:16 12:30 WBC (4.8-10.8) K/uL RBC (4.7-6.1) M/uL Hgb (14.0-18.0) g/dL Hct (42-52) % MCV (80-100) fL MCH (25-34) pg MCHC (32-36) g/dL RDW Std Deviation (36.4-46.3) fL RDW Coeff of Adriana (11.5-14.5) % Plt Count (130-400) K/uL MPV (7.4-10.4) fL Immature Gran % (Auto) % Neut % (Auto) % Lymph % (Auto) % Cass % (Auto) % Eos % (Auto) % Baso % (Auto) % Immature Gran # (Auto) (0.00-0.02) K/uL Neut # (Auto) (1.4-6.5) K/uL Lymph # (Auto) (1.2-3.4) K/uL Cass # (Auto) (0.11-0.59) K/uL Eos # (Auto) (0-0.5) K/uL Baso # (Auto) (0-0.2) K/uL Hypochromasia Anisocytosis PT (9.0-12.0) Seconds INR (0.9-1.1) APTT 97.9 H* 71.1 H* (21.0-31.0) Seconds PTT Ratio 3.6 2.6 Sodium 136 (136-145) mmol/L Potassium 3.1 L (3.5-5.1) mmol/L Chloride 99 (98-107) mmol/L Carbon Dioxide 33 H (21-32) mmol/L Anion Gap 4.0 (3-11) BUN 5 L (7-18) mg/dl Creatinine 0.55 L (0.6-1.4) mg/dl Est Cr Clr Drug Dosing 134.3 Est GFR ( Amer) 121.5 Est GFR (Non-Af Amer) 104.8 BUN/Creatinine Ratio 8.7 L (10-20) Glucose 94 (70-99) mg/dl Calcium 8.3 L (8.5-10.1) mg/dl Magnesium (1.8-2.4) mg/dl Total Bilirubin 0.2 (0.2-1) mg/dl AST 31 (15-37) U/L ALT 16 (12-78) U/L Alkaline Phosphatase 98 (45-117) U/L Troponin I (0-0.045) ng/ml NT-Pro-B Natriuret Pep (0-900) pg/ml Total Protein 5.4 L (6.4-8.2) gm/dl Albumin 1.6 L (3.4-5.0) gm/dl Globulin 3.8 (2.5-4.0) gm/dl Albumin/Globulin Ratio 0.4 L (0.9-2) Lipase (73-393) U/L Nasal Screen MRSA (PCR) (Negative) Blood Type Antibody Screen Crossmatch 09/24/18 09/24/18 09/25/18 Range/Units 15:22 22:26 07:29 WBC 7.68 (4.8-10.8) K/uL RBC 2.62 L (4.7-6.1) M/uL Hgb 7.1 L (14.0-18.0) g/dL Hct 24.6 L (42-52) % MCV 93.9 (80-100) fL MCH 27.1 (25-34) pg MCHC 28.9 L (32-36) g/dL RDW Std Deviation 66.3 H (36.4-46.3) fL RDW Coeff of Adriana 19.2 H (11.5-14.5) % Plt Count 246 (130-400) K/uL MPV 8.1 (7.4-10.4) fL Immature Gran % (Auto) 1.2 % Neut % (Auto) 57.6 % Lymph % (Auto) 30.3 % Cass % (Auto) 9.9 % Eos % (Auto) 0.9 % Baso % (Auto) 0.1 % Immature Gran # (Auto) 0.09 H (0.00-0.02) K/uL Neut # (Auto) 4.42 (1.4-6.5) K/uL Lymph # (Auto) 2.33 (1.2-3.4) K/uL Cass # (Auto) 0.76 H (0.11-0.59) K/uL Eos # (Auto) 0.07 (0-0.5) K/uL Baso # (Auto) 0.01 (0-0.2) K/uL Hypochromasia Anisocytosis Present PT (9.0-12.0) Seconds INR (0.9-1.1) APTT 68.7 H* 39.6 H (21.0-31.0) Seconds PTT Ratio 2.5 1.5 Sodium (136-145) mmol/L Potassium (3.5-5.1) mmol/L Chloride (98-107) mmol/L Carbon Dioxide (21-32) mmol/L Anion Gap (3-11) BUN (7-18) mg/dl Creatinine (0.6-1.4) mg/dl Est Cr Clr Drug Dosing Est GFR ( Amer) Est GFR (Non-Af Amer) BUN/Creatinine Ratio (10-20) Glucose (70-99) mg/dl Calcium (8.5-10.1) mg/dl Magnesium (1.8-2.4) mg/dl Total Bilirubin (0.2-1) mg/dl AST (15-37) U/L ALT (12-78) U/L Alkaline Phosphatase (45-117) U/L Troponin I (0-0.045) ng/ml NT-Pro-B Natriuret Pep (0-900) pg/ml Total Protein (6.4-8.2) gm/dl Albumin (3.4-5.0) gm/dl Globulin (2.5-4.0) gm/dl Albumin/Globulin Ratio (0.9-2) Lipase (73-393) U/L Nasal Screen MRSA (PCR) (Negative) Blood Type Antibody Screen Crossmatch 09/25/18 09/25/18 Range/Units 07:29 10:35 WBC (4.8-10.8) K/uL RBC (4.7-6.1) M/uL Hgb (14.0-18.0) g/dL Hct (42-52) % MCV (80-100) fL MCH (25-34) pg MCHC (32-36) g/dL RDW Std Deviation (36.4-46.3) fL RDW Coeff of Adriana (11.5-14.5) % Plt Count (130-400) K/uL MPV (7.4-10.4) fL Immature Gran % (Auto) % Neut % (Auto) % Lymph % (Auto) % Cass % (Auto) % Eos % (Auto) % Baso % (Auto) % Immature Gran # (Auto) (0.00-0.02) K/uL Neut # (Auto) (1.4-6.5) K/uL Lymph # (Auto) (1.2-3.4) K/uL Cass # (Auto) (0.11-0.59) K/uL Eos # (Auto) (0-0.5) K/uL Baso # (Auto) (0-0.2) K/uL Hypochromasia Anisocytosis PT (9.0-12.0) Seconds INR (0.9-1.1) APTT (21.0-31.0) Seconds PTT Ratio Sodium 135 L (136-145) mmol/L Potassium 3.8 D (3.5-5.1) mmol/L Chloride 100 (98-107) mmol/L Carbon Dioxide 31 (21-32) mmol/L Anion Gap 4.0 (3-11) BUN 6 L (7-18) mg/dl Creatinine 0.48 L (0.6-1.4) mg/dl Est Cr Clr Drug Dosing 152.8 Est GFR ( Amer) 128.5 Est GFR (Non-Af Amer) 110.9 BUN/Creatinine Ratio 11.5 (10-20) Glucose 91 (70-99) mg/dl Calcium 7.9 L (8.5-10.1) mg/dl Magnesium 1.1 L (1.8-2.4) mg/dl Total Bilirubin (0.2-1) mg/dl AST (15-37) U/L ALT (12-78) U/L Alkaline Phosphatase (45-117) U/L Troponin I (0-0.045) ng/ml NT-Pro-B Natriuret Pep (0-900) pg/ml Total Protein (6.4-8.2) gm/dl Albumin (3.4-5.0) gm/dl Globulin (2.5-4.0) gm/dl Albumin/Globulin Ratio (0.9-2) Lipase (73-393) U/L Nasal Screen MRSA (PCR) (Negative) Blood Type B Positive Antibody Screen NEGATIVE Crossmatch See Detail Imaging Data Radiologist's Impression: Radiology results as stated below per my review and the radiologist's interpretation: VENOUS DOPPLER LEFT EXTREMITY - Pre Hospital Left internal jugular and subclavian deep vein thrombosis. Signed by AKILAH Guerin 09/23/2018 1:49 PM XR chest 1V portable HISTORY: Atypical Chest Pain COMPARISON: Chest 07/03/2018. 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 No pneumothorax. Small left pleural effusion and left basilar densities have slig htly progressed. Progressive interstitial and vascular thickening consistent with mild pulmonary edema. The heart is mildly enlarged. IMPRESSION: 1. Interval progression of the mild pulmonary edema and small left pleural effusion. 2. Left basilar densities have also progressed and may represent atelectasis or pneumonia. 3. 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 Electronically signed by: Griffin Romero M.D. 09/23/2018 5:09 PM ECG Data Attestation: I personally reviewed and interpreted this ECG as follows: Indication: other (DVT) Rate (beats per minute): 91 Rhythm: normal sinus Findings: no PAC, no PVC, no ST depression, no ST elevation and no ectopy Comparison ECG Date: from (07/03/2018) Change: no significant change Blood Pressure Blood Pressure Findings: Normal blood pressure Blood Pressure Disposition: did not require urgent referral MDM Narrative The patient is a 73-year-old male who presented to the emergency department for an evaluation of an abnormal ultrasound. The patient's been having left upper extremity swelling. He has a recent admission to [facility] in [place] for a pneumonia which was prolonged with its course. The patient's symptoms are very complicated and he did have a central line placed in his left subclavian. The patient has had left upper extremity swelling for the last few weeks according to his . An ultrasound done as an outpatient showed an internal jugular as well as a subclavian DVT despite the patient taking Lovenox for another DVT. The patient was started on heparin in the emergency department. I discussed the patient's laboratory and radiographic studies with him. I discussed his condition with the on-call [facility] hospitalist. He was started on IV heparin. Impression & Plan Deep vein thrombosis (DVT) of left upper extremity Critical Care Time I have personally spent greater than 45 minutes of critical care time in the direct management of this patient. This includes bedside care, interpretation of diagnostic studies, and testing, discussion with consultants, patient, and family members, and other required patient management activities. This 45 minutes is in excess of all separately billable procedures. Critical Care Time: Yes Total Critical Care Time: 45 Discharge Plan Visit Data *Final* Discharge Date/Time: 09/23/18 20:13 Chief Complaint: Illness ED Provider: Garth Mohan Discharge Problem: Deep vein thrombosis (DVT) of left upper extremity Patient Disposition: Admitted As Inpatient The ezraibe's documentation has been prepared under my direction and personally reviewed by me in its entirety. I confirm that the note above accurately reflects all work, treatment, procedures, and medical decision making performed by me.
[2018-09-23] MEDS ORDERED: FUROSEMIDE 20 MG in SYRINGE 0 ML IV ONE (18:57)
[2018-09-23] MEDS ORDERED: FUROSEMIDE 40 MG/4 ML VIAL IV ONE (19:15)
[2018-09-23] MEDS ORDERED: ACETAMINOPHEN 325 MG TAB PO PRN (21:06)
[2018-09-23] MEDS ORDERED: ONDANSETRON 8MG OD TAB PO PRN (21:06)
[2018-09-23] MEDS: CALCIUM 600MG + VIT D 400 IU TAB PO SCH (23:01)
[2018-09-23] MEDS: METOPROLOL TARTRATE 25 MG TAB PO SCH (23:01)
[2018-09-23] MEDS: METOCLOPRAMIDE HCL 10 MG TABLET PO SCH (23:01)
[2018-09-23] MEDS: ASCORBIC ACID 500 MG TAB PO SCH (23:02)
[2018-09-23] MEDS: NYSTATIN POWDER 15GM BTL EXT SCH (23:02)
[2018-09-23] MEDS: DOCUSATE SODIUM/SENNA 50/8.6MG TAB PO SCH (23:05)
[2018-09-23] MEDS: OXYCODONE HCL 20 MG TABCR (OXYCONTIN) PO SCH (23:05)
[2018-09-24 00:50] LABS: Partial Thromboplastin Ratio 2.8
[2018-09-24 00:59] LABS: Partial Thromboplastin Time 76.5 Seconds (21.0-31.0)
--- NOTE | 2018-09-24 06:26 | Ultrasound Report ---
US venous doppler UE LT HISTORY: Pain. Edema. identify the outpatient DVT COMPARISON STUDY: None. FINDINGS: Findings consistent with acute deep venous thrombosis within the left jugular as well as le ft subclavian veins. There is also superficial component involving the cephalic vein. Soft tissue edema. IMPRESSION: Acute deep venous thrombosis involving the left jugular and subclavian vein. Superficial thrombophleb itis involving components of the cephalic vein. The above report was generated using voice recognition software. It may contain grammatical, syntax or spelling errors. Electronically signed by: Alex Jauregui M.D. 09/24/2018 6:25 AM
[2018-09-24 07:53] LABS: Hematocrit (blood only) 26.7 % (42-52); Hemoglobin 7.7 g/dL (14.0-18.0); Mean Corpuscular Hgb Conc 28.8 g/dL (32-36); Mean Corpuscular Volume 94.7 fL (80-100); Platelet Count 282 K/uL (130-400); RDW Coefficient of Variation 19.1 % (11.5-14.5); Red Blood Count 2.82 M/uL (4.7-6.1); White Blood Count 8.16 K/uL (4.8-10.8)
[2018-09-24 07:55] LABS: Partial Thromboplastin Ratio 3.6
[2018-09-24] MEDS: OXYCODONE HCL IR 5 MG TAB (IMMEDIATE RELEASE) PO PRN ×2 (07:57→12:46)
[2018-09-24 07:58] LABS: Partial Thromboplastin Time 97.9 Seconds (21.0-31.0)
[2018-09-24] MEDS: METOCLOPRAMIDE HCL 10 MG TABLET PO SCH ×4 (08:02→21:52)
[2018-09-24] MEDS: OXYCODONE HCL 20 MG TABCR (OXYCONTIN) PO SCH ×2 (08:02→21:49)
[2018-09-24] MEDS: AMIODARONE 200 MG TAB PO SCH (08:03)
[2018-09-24] MEDS: CALCIUM 600MG + VIT D 400 IU TAB PO SCH ×2 (08:03→21:50)
[2018-09-24] MEDS: PANTOprazole 40 MG TAB PO SCH (08:05)
[2018-09-24] MEDS: MULTIVITAMIN TAB PO SCH (08:05)
[2018-09-24] MEDS: ASCORBIC ACID 500 MG TAB PO SCH ×2 (08:05→21:49)
[2018-09-24] MEDS: ZINC SULFATE 220 MG CAPSULE PO SCH (08:06)
[2018-09-24] MEDS: SERTRALINE HCL 50 MG TABLET PO SCH (08:06)
[2018-09-24] MEDS: NYSTATIN POWDER 15GM BTL EXT SCH ×2 (08:07→21:52)
[2018-09-24 08:08] LABS: Albumin Level 1.6 gm/dl (3.4-5.0); BUN Creatinine Ratio 8.7 (10-20); Calcium 8.3 mg/dl (8.5-10.1); Creatinine Clr Calc Pharmacy 134.3 ml/min; Est GFR (African American) 121.5; Est GFR (Non-African American) 104.8; Potassium 3.1 mmol/L (3.5-5.1)
[2018-09-24 08:11] LABS: Albumin Globulin Ratio 0.4 (0.9-2); Bilirubin,Total 0.2 mg/dl (0.2-1); Globulin 3.8 gm/dl (2.5-4.0); Total Protein 5.4 gm/dl (6.4-8.2)
[2018-09-24 08:18] LABS: Anisocytosis Present; Basophils # (auto) 0.01 K/uL (0-0.2); Basophils % (auto) 0.1 %; Eosinophils # (auto) 0.07 K/uL (0-0.5); Eosinophils % (auto) 0.9 %; Hypochromasia Present; Immature Granulocytes # (auto) 0.09 K/uL (0.00-0.02); Immature Granulocytes % (auto) 1.1 %; Lymphocytes # (auto) 1.84 K/uL (1.2-3.4); Lymphocytes % (auto) 22.5 %; Monocytes # (auto) 0.73 K/uL (0.11-0.59); Monocytes % (auto) 8.9 %; Neutrophils # (auto) 5.42 K/uL (1.4-6.5); Neutrophils % (auto) 66.5 %
[2018-09-24] MEDS: DOCUSATE SODIUM/SENNA 50/8.6MG TAB PO SCH ×2 (10:22→21:52)
[2018-09-24] MEDS: METOPROLOL TARTRATE 25 MG TAB PO SCH ×2 (10:23→21:51)
[2018-09-24] MEDS ORDERED: HYDROmorphone INJ 0.5 MG/0.5 ML SYR IV STA (11:45)
[2018-09-24 13:02] LABS: Partial Thromboplastin Ratio 2.6
[2018-09-24 13:06] LABS: Partial Thromboplastin Time 71.1 Seconds (21.0-31.0)
--- NOTE | 2018-09-24 13:35 | Hospitalist Progress Note ---
Date of Service September 24, 2018 Assessment & Plan (1) Acute DVT (deep venous thrombosis): Note from admitting physician: -acute DVT of left upper extremity ; history of lower extremity DVT in the past -in the past patient was on coumadin for anticoagulation of atrial fibrillation but this was stopped because of concern that coumadin worsened calciphylaxis lower leg wounds and was discontinued, then was on Eliquis and developed lower extremity DVT and was switched to Lovenox -recent hospitalization x 1 month in August 2018 at [facility] in [place] needing central lines for sepsis - Patient was discharged to [facility] on 09/21/18 on Lovenox and then Doppler of the LUE obtained on 09/23/18 as outpatient indicates left internal jugular and subclavian vein DVTs. Patient was then sent to Emergency room at [facility]. Emergency room doctor concerned that patient may have failed Lovenox therapy and started patient on heparin drip -Have contacted Dr. Hima Dukes of hemtaology/oncology for consultation on future anticoagulation regimen for this patient 09/24: Complaint of some cough Denies any pain in the left upper extremity Left upper extremity swelling seems to be stable with minimal improvement Advised to elevate the left upper extremity on a pillow Metastatic Prostate Cancer to bones -follows with Dr. 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 No pneumothorax. Small left pleural effusion and left basilar densities have slightly progressed. Progressive interstitial and vascular thickening consistent with mild pulmonary edema. The heart is mildly enlarged. -will give Lasix 20 mg IV BID -No CHF -Has history of possible sleep apnea -We will prescribe cough medicine History of edema of lower extremities and anasarca -will give Lasix 20 mg IV BID -His albumin has been low at 1.6 -Advised nutritional support to improve albumin -No significant liver disease to quantify low albumin chronic kidney disease stage III -monitor renal function while on Lasix History of Clostridial bacteremia and c diff colitis -appears to have completed treatments as per review of available [facility] and [facility] notes -Not having any acute diarrheal symptoms -Doubt any ongoing C. difficile infection -We will check stool he denies any diarrhea history of TIA as per discharge summary from [facility] in [place] -no gross focal deficits Chronic use of narcotics for pain control -continue home dose oxycodone and continue bowel regimen current DVT prophylaxis: heparin drip patient and patient's family (son Adonay [phone]; Hannah [phone] or [phone]) Full Code The case was discussed in detail with her son All of his questions were answered in presence of the patient Subjective 09/24 The patient was seen and examined in medical unit in presence of the son He is a 73-year-old male with significant past medical history including CA prostate with bony metastasis, atrial fibrillation on anticoagulation, 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 Complains of pain in the legs Denies any chest pain, shortness of breath, palpitation, abdominal pain, nausea or vomiting Physical Exam Vital Signs (Past 24 Hours): Last Vital Signs Temp 36.9 C 09/24/18 07:30 Pulse 90 09/24/18 07:30 Resp 22 09/24/18 07:30 BP 125/72 09/24/18 07:30 Pulse Ox 93 09/24/18 07:30 Physical Exam: Lying in bed with minimal shortness of breath at rest Constitutional: + ill appearing and + obese Eyes: PERRL, conjunctivae normal, anicteric sclerae ENMT: external ear and nose normal, oropharynx normal Neck: trachea midline, no thyromegaly Respiratory: + respiratory distress (Minimal) and + cough Auscultation: + diminished lung sounds and + crackles (At the bases) Cardiovascular: Rate/Rhythm: + abnormal rate and + abnormal rhythm Heart Sounds: normal S1 and normal S2 Gastrointestinal (Abdomen): Inspection/Auscultation: abdomen normal to inspection and normal bowel sounds Percussion/Palpation: abdomen soft Musculoskeletal: But the legs are bandaged. Can move toes Skin: Necrotic ulcers involving the left leg-please see the picture Neurologic: Alert awake,. Minimal drowsiness Results & Data Laboratory Results Short CBC 09/23/18 09/24/18 Range/Units 17:07 07:16 WBC 7.41 8.16 (4.8-10.8) K/uL Hgb 7.6 L 7.7 L (14.0-18.0) g/dL Hct 26.2 L 26.7 L (42-52) % Plt Count 300 282 (130-400) K/uL BMP 09/23/18 09/24/18 17:07 07:16 Sodium 136 136 Potassium 3.5 3.1 L Chloride 102 99 Carbon Dioxide 29 33 H BUN 6 L 5 L Creatinine 0.54 L 0.55 L Glucose 106 H 94 Calcium 8.2 L 8.3 L Cardiac Enzymes 09/23/18 Range/Units 17:07 Troponin I < 0.015 (0-0.045) ng/ml Liver Function 09/23/18 09/24/18 Range/Units 17:07 07:16 Total Bilirubin 0.2 0.2 (0.2-1) mg/dl AST 33 31 (15-37) U/L ALT 16 16 (12-78) U/L Alkaline Phosphatase 97 98 (45-117) U/L Albumin 1.6 L 1.6 L (3.4-5.0) gm/dl Medications Administered Current Inpatient Medications Acetaminophen (Tylenol) 325 mg PO Q4H PRN PRN Reason: Pain or Fever Stop: 10/23/18 21:05 Amiodarone HCl (Cordarone) [facility] Stop: 10/24/18 08:59 Last Admin: 09/24/18 08:03 Dose: 200 mg Documented by: Ascorbic Acid (Vitamin C) 500 mg PO [facility] Stop: 10/23/18 21:05 Last Admin: 09/24/18 08:05 Dose: 500 mg Documented by: Heparin Sodium/Dextrose (Heparin Sodium/Dextrose) 25,000 units in 500 mls @ 22 mls/hr IV .[id number] [facility]; Protocol Stop: 10/23/18 18:44 Last Titration: 09/24/18 09:10 Dose: 1,100 units/hr, 22 mls/hr Documented by: Metoclopramide HCl (Reglan) 10 mg PO ACHS [facility] Stop: 10/23/18 21:05 Last Admin: 09/24/18 13:22 Dose: 10 mg Documented by: Metoprolol Tartrate (Lopressor) 25 mg PO AMHS [facility] Stop: 10/23/18 21:05 Last Admin: 09/24/18 10:23 Dose: 25 mg Documented by: Multivitamins (Multivitamin Tab) 1 [facility] Stop: 10/24/18 08:59 Last Admin: 09/24/18 08:05 Dose: 1 tab Documented by: Multivitamins/Minerals (Caltrate Plus) 2 tab PO BID [facility] Stop: 10/23/18 21:05 Last Admin: 09/24/18 08:03 Dose: 2 tab Documented by: Nystatin (Mycostatin) 1 appln EXT BID [facility] Stop: 10/23/18 21:05 Last Admin: 09/24/18 08:07 Dose: 1 appln Documented by: Ondansetron HCl (Zofran Odt) 8 mg PO Q8H PRN PRN Reason: Nausea Stop: 10/23/18 21:05 Last Admin: 09/24/18 09:31 Dose: 8 mg Documented by: Oxycodone HCl (Oxycontin) 20 mg PO Q12 [facility] Stop: 10/07/18 21:05 Last Admin: 09/24/18 08:02 Dose: 20 mg Documented by: Oxycodone HCl (Roxicodone Immediate Rel) 10 mg PO Q4H PRN PRN Reason: Pain Stop: 10/07/18 21:05 Last Admin: 09/24/18 12:46 Dose: 10 mg Documented by: Pantoprazole Sodium (Protonix) 40 mg PO [facility] Stop: 10/24/18 08:59 Last Admin: 09/24/18 08:05 Dose: 40 mg Documented by: Senna/Docusate Sodium (Senokot S) 5 tab PO BID [facility] Stop: 10/23/18 22:59 Last Admin: 09/24/18 10:22 Dose: Not Given Documented by: Sertraline HCl (Zoloft) 75 mg PO [facility] Stop: 10/24/18 08:59 Last Admin: 09/24/18 08:06 Dose: 75 mg Documented by: Zinc Sulfate (Zinc Sulfate) 220 mg PO [facility] Stop: 10/24/18 08:59 Last Admin: 09/24/18 08:06 Dose: 220 mg Documented by:
--- NOTE | 2018-09-24 14:20 | Ultrasound Report ---
US venous doppler LE BI HISTORY: Pain. Edema. rule out DVT COMPARISON STUDY: None. FINDINGS: There is normal compressibility, flow, and augmentation within the bilateral lower extremit y deep venous systems. IMPRESSION: No DVT within the right or left lower extremity. The above report was generated using voice recognition software. It may contain grammatical, syntax or spelling errors. Electronically signed by: Alex Jauregui M.D. 09/24/2018 2:18 PM
[2018-09-24] MEDS ORDERED: POTASSIUM CHLORIDE 20 MEQ TABCR PO STA (14:33)
[2018-09-24 16:00] LABS: Partial Thromboplastin Ratio 2.5
[2018-09-24] MEDS: Heparin Adult STANDARD Wt-Based Dextrose 5% 25,000 units/500 mL IV SCH (16:05)
[2018-09-24 16:16] LABS: Partial Thromboplastin Time 68.7 Seconds (21.0-31.0)
--- NOTE | 2018-09-24 18:43 | Oncology Consultation ---
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 Recently he was admitted at [facility] for about 3 days, he had a C. difficile colitis, pneumonia, he was in the ICU, intubated, also had left subclavian venous access line which was removed before the discharge, now has left upper extremity DVT. He was on Lovenox during the recent hospice and at 60 mg every 12 hourly and the same dose has been continued following discharge. In the past he was on Coumadin and Eliquis. I think he developed left upper extremity DVT when he was in the hospital, most likely related to the left subclavian venous catheter, Anti-Xa level was around 0.89 as of 09/11/2018. Presently he is receiving IV heparin, I would consider for going back on Lovenox every 12 hourly but giving higher dose based on his weight and see that would prevent new blood clot formation his case and monitor it Anti-Xa level.. He has anemia which appears to be multifactorial, will consider for blood transfusion if his hemoglobin level is less than 7.. Also spoke with the family member regarding advanced directive including DNR/DNI, they say that one that they had a discussion at [facility] as well as with the doctors in the hospital during this time, patient wants full code. Thanks for the consultation. Hima Dukes MD Hem/Onc History of Present Illness Attending Physician: Beka Gonzalez MD 73-year-old the male, Oncology diagnosis: - Carcinoma of the prostate initially diagnosed in 1999, S/P radical prostatectomy at that time - Recurrent disease in 2007. 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 Current treatment: - Zoladex every 3 monthly. Previous treatment: - Docetaxel and Carboplatin chemotherapy, Xtandi, Zytiga and prednisone. He was admitted at [facility] between 08/21/2018-09/21/2018: - He has bilateral lower extremity wounds (calciphylaxis), had intermittent confusional status, - He was treated with vancomycin and Zocin for pneumonia, was intubated, - Blood culture grew Clostridium, had distention of the abdomen, required NG to placement - He was seen by palliative care team, he declined for DNR/DNI at that time, - Had a C. difficile colitis, was treated with vancomycin and IV Flagyl. - On oxygen treatment at 4 L per minute, - He had left subclavian venous line was removed before the discharge, he then had left upper extremities edema for about 1 to 2 weeks before the discharge. - Transferred to [facility] - Before the admission, he was on Lovenox at 60 mg every 12 hourly and he was continued on the same dose. Now he's admitted at [facility] on 09/23/2018 as he was found to have left lower extremity DVT in early subclavian vein and internal jugular vein. I saw him at bedside, his was also at bedside, he is sleepy, receiving oxen treatment at 4 L per minute, left upper extremity edema noted, has some local discomfort, chronic leg ulceration noted. Poor appetite noted, some nausea, vomiting in the morning hours noted, no bleeding from any sites, receiving IV heparin since admission. Allergies Allergy/AdvReac Type Severity Reaction Status Date / Time doxycycline Allergy Unknown Unknown Verified 09/23/18 15:38 cephalexin [From Keflex] Allergy Rash Verified 07/03/18 12:25 Home Medications Home Medications Medication Instructions Recorded Confirmed Type ascorbic acid (vitamin C) [Vitamin 500 mg PO AMHS 03/29/18 09/23/18 History C] multivitamin 1 tab PO QAM 03/29/18 09/23/18 History pantoprazole 40 mg PO QAM 03/29/18 09/23/18 History amiodarone 200 mg PO QAM 07/02/18 09/23/18 History calcium carbonate-vitamin D3 2 tab PO BID 07/03/18 09/23/18 History [Calcium 500 + D] sennosides-docusate sodium [Senna 4 - 5 tabs PO AMHS 07/03/18 09/23/18 History Plus] acetaminophen [Acetaminophen Extra 500 mg PO Q6H PRN 09/23/18 09/23/18 History Strength] enoxaparin [Lovenox] 60 mg SUBCUT Q12H 09/23/18 09/23/18 History metoclopramide HCl 10 mg PO ACHS 09/23/18 09/23/18 History metoprolol tartrate 25 mg PO AMHS 09/23/18 09/23/18 History nystatin 1 applic TOPICAL BID 09/23/18 09/23/18 History ondansetron 8 mg PO Q8H PRN 09/23/18 09/23/18 History oxycodone 10 mg PO Q4H PRN 09/23/18 09/23/18 History oxycodone [OxyContin] 20 mg PO Q12H 09/23/18 09/23/18 History sertraline 75 mg PO QAM 09/23/18 09/23/18 History zinc sulfate 220 mg PO QAM 09/23/18 09/23/18 History Patient History Medical History Mood disorder (Chronic) Prostate cancer metastatic to bone (Chronic) ~2013 Anxiety (Chronic) Depression (Chronic) Umbilical hernia (Chronic) Dyslipidemia (Chronic) On anticoagulant therapy (Chronic) Chronic steroid use (Chronic) TAKING STEROIDS DAILY FOR LOWER LEG SORES CURRENTLY. Atrial fibrillation (Chronic) Chronic pain (Chronic) HTN (hypertension) (Chronic) Obesity (BMI 30-39.9) (Chronic) GERD (gastroesophageal reflux disease) (Chronic) Surgical History History of tonsillectomy and adenoidectomy (Resolved) H/O radical prostatectomy (Resolved) ~2000 History of cholecystectomy (Resolved) History of back surgery (Resolved) L4-L5 History of repair of rotator cuff (Resolved) LEFT SHOULDER Family History Mother Hypertension Father Lymphoma Social History Communication Ability: Effective Beliefs That Will Affect Care: None marital status: Current Living Situation: Spouse current occupational status: retired Other Information That Helps Us Care for You: No Feels Safe at Home: Yes Safety Concerns: Feels Safe At This Time Smoking Status: Never smoker Hx Alcohol Use: No Hx Substance Use: No Physical Exam Vital Signs (Past 24 Hours): Last Vital Signs Temp 37.8 C H 09/24/18 15:00 Pulse 85 09/24/18 15:00 Resp 19 09/24/18 15:00 BP 97/60 L 09/24/18 15:00 Pulse Ox 95 09/24/18 15:00 On exam: - Alert and oriented x3 but sleepy, well built man, not in any distress. - HEENT: no icterus, no pallor, Throat: Normal. - Neck: No palpable cervical lymphadenopathy. - Chest: crepitations noted. - Abdomen: soft, nontender, no hepatomegaly, no splenomegaly. - No focal neuro deficit. - Extremities: no finger clubbing, mild bilateral leg edema and ulceration noted.. - Left upper extremities edema noted. Results & Data Laboratory Results Workup done on 09/24/2018: - WBC 8600 H&H of 7.7/26.7, Platelet count of 282,000 - BUN/creatinine: 5/0.5. - Albumin level 1.6. Normal other liver function test. Diagnostic Findings - Left upper extremity doppler evaluation (09/23/2018) > Acute DVT in the left jugular and subclavian vein. Superficial thrombophlebitis noted. Bilateral lower extremity Doppler evaluation > No evidence of DVT.
[2018-09-24] MEDS: ENOXAPARIN 100 MG/1ML SYR SQ SCH (21:49)
[2018-09-24 22:47] LABS: Partial Thromboplastin Ratio 1.5; Partial Thromboplastin Time 39.6 Seconds (21.0-31.0)
[2018-09-25] MEDS: ENOXAPARIN 100 MG/1ML SYR SQ SCH ×2 (05:35→17:43)
[2018-09-25] MEDS: OXYCODONE HCL IR 5 MG TAB (IMMEDIATE RELEASE) PO PRN ×3 (06:30→23:47)
[2018-09-25 08:00] LABS: Hematocrit (blood only) 24.6 % (42-52); Hemoglobin 7.1 g/dL (14.0-18.0); Mean Corpuscular Hgb Conc 28.9 g/dL (32-36); Mean Corpuscular Volume 93.9 fL (80-100); Mean Platelet Volume 8.1 fL (7.4-10.4); Platelet Count 246 K/uL (130-400); RDW Coefficient of Variation 19.2 % (11.5-14.5); RDW Standard Deviation 66.3 fL (36.4-46.3); Red Blood Count 2.62 M/uL (4.7-6.1); White Blood Count 7.68 K/uL (4.8-10.8)
[2018-09-25 08:14] LABS: Anisocytosis Present; Basophils # (auto) 0.01 K/uL (0-0.2); Basophils % (auto) 0.1 %; Eosinophils # (auto) 0.07 K/uL (0-0.5); Eosinophils % (auto) 0.9 %; Immature Granulocytes # (auto) 0.09 K/uL (0.00-0.02); Immature Granulocytes % (auto) 1.2 %; Lymphocytes # (auto) 2.33 K/uL (1.2-3.4); Lymphocytes % (auto) 30.3 %; Monocytes # (auto) 0.76 K/uL (0.11-0.59); Monocytes % (auto) 9.9 %; Neutrophils # (auto) 4.42 K/uL (1.4-6.5); Neutrophils % (auto) 57.6 %
[2018-09-25 08:23] LABS: BUN Creatinine Ratio 11.5 (10-20); Calcium 7.9 mg/dl (8.5-10.1); Creatinine Clr Calc Pharmacy 152.8 ml/min; Est GFR (African American) 128.5; Est GFR (Non-African American) 110.9; Magnesium 1.1 mg/dl (1.8-2.4); Potassium 3.8 mmol/L (3.5-5.1)
[2018-09-25] MEDS ORDERED: SODIUM CHLORIDE 0.9% 250 ML IV PRN ×2 (09:28→15:05)
[2018-09-25] MEDS: DOCUSATE SODIUM/SENNA 50/8.6MG TAB PO SCH ×2 (09:37→20:57)
[2018-09-25] MEDS: ZINC SULFATE 220 MG CAPSULE PO SCH (09:38)
[2018-09-25] MEDS: SERTRALINE HCL 50 MG TABLET PO SCH (09:38)
[2018-09-25] MEDS: AMIODARONE 200 MG TAB PO SCH (09:38)
[2018-09-25] MEDS: METOPROLOL TARTRATE 25 MG TAB PO SCH ×2 (09:40→20:55)
[2018-09-25] MEDS: MULTIVITAMIN TAB PO SCH (09:41)
[2018-09-25] MEDS: PANTOprazole 40 MG TAB PO SCH (09:42)
[2018-09-25] MEDS: METOCLOPRAMIDE HCL 10 MG TABLET PO SCH ×4 (09:42→20:56)
[2018-09-25] MEDS: CALCIUM 600MG + VIT D 400 IU TAB PO SCH ×2 (09:42→20:55)
[2018-09-25] MEDS: ASCORBIC ACID 500 MG TAB PO SCH ×2 (09:51→21:44)
[2018-09-25] MEDS: NYSTATIN POWDER 15GM BTL EXT SCH ×2 (09:53→20:56)
[2018-09-25] MEDS: OXYCODONE HCL 20 MG TABCR (OXYCONTIN) PO SCH ×2 (10:04→20:56)
[2018-09-25] MEDS: FUROSEMIDE 40 MG in SYRINGE 0 ML IV SCH ×2 (10:05→19:13)
[2018-09-25] MEDS: MAGNESIUM SULFATE / D5W 1 GM/100 ML BAG IV SCH ×2 (10:05→12:48)
[2018-09-25] MEDS: OSELTAMIVIR PHOSPHATE 75 MG CAP PO SCH (14:45)
--- NOTE | 2018-09-25 17:30 | Hospitalist Progress Note ---
Date of Service September 25, 2018 Assessment & Plan (1) Acute DVT (deep venous thrombosis): Note from admitting physician: -acute DVT of left upper extremity ; history of lower extremity DVT in the past -in the past patient was on coumadin for anticoagulation of atrial fibrillation but this was stopped because of concern that coumadin worsened calciphylaxis lower leg wounds and was discontinued, then was on Eliquis and developed lower extremity DVT and was switched to Lovenox -recent hospitalization x 1 month in August 2018 at [facility] in [place] needing central lines for sepsis - Patient was discharged to [facility] on 09/21/18 on Lovenox and then Doppler of the LUE obtained on 09/23/18 as outpatient indicates left internal jugular and subclavian vein DVTs. Patient was then sent to Emergency room at [facility]. Emergency room doctor concerned that patient may have failed Lovenox therapy and started patient on heparin drip -Have contacted Dr. Hima Dukes of hemtaology/oncology for consultation on future anticoagulation regimen for this patient Complaint of some cough Denies any pain in the left upper extremity Left upper extremity swelling seems to be stable with minimal improvement Advised to elevate the left upper extremity on a pillow Heparin has been discontinued and Lovenox 100 mg twice daily started as per recommendation from oncologist Metastatic Prostate Cancer to bones -follows with Dr. Hima Dukes of hemtaology/oncology -will defer to him on more background and assessment about patient's prostate cancer management -Deep venous thrombosis is aggravated by the presence of calcium -Anemia seems to be due to marrow infiltration by cancer -There is no acute bleeding Anemia Likely secondary to marrow infiltration from prostate cancer Completed complicated by current and prolonged illness We will monitor hemoglobin and may need transfusion if levels falls below 7 -Discharge discussed with the son -Hemoglobin dropped to 7.1 -He will received 2 units of blood transfusion -Explained the cause for low hemoglobin and need for continued transfusion 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 No pneumothorax. Small left pleural effusion and left basilar densities have slightly progressed. Progressive interstitial and vascular thickening consistent with mild pulmonary edema. The heart is mildly enlarged. -will give Lasix 20 mg IV BID -No CHF -Has history of possible sleep apnea -We will prescribe cough medicine -Breathing seems to be better History of edema of lower extremities and anasarca -will give Lasix 20 mg IV BID -His albumin has been low at 1.6 -Advised nutritional support to improve albumin -No significant liver disease to quantify low albumin chronic kidney disease stage III -monitor renal function while on Lasix History of Clostridial bacteremia and c diff colitis -appears to have completed treatments as per review of available [facility] and [facility] notes -Not having any acute diarrheal symptoms -Doubt any ongoing C. difficile infection -We will check stool he denies any diarrhea-pending history of TIA as per discharge summary from [facility] in [place] -no gross focal deficits Chronic use of narcotics for pain control -continue home dose oxycodone and continue bowel regimen current DVT prophylaxis: heparin drip patient and patient's family (son Adonay [phone]; Hannah [phone] or [phone]) Full Code The case was discussed in detail with her son All of his questions were answered in presence of the patient Subjective 09/24 The patient was seen and examined in medical unit in presence of the son He is a 73-year-old male with significant past medical history including CA prostate with bony metastasis, atrial fibrillation on anticoagulation, 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 Complains of pain in the legs Denies any chest pain, shortness of breath, palpitation, abdominal pain, nausea or vomiting 09/25 The patient was seen and examined in the presence of the He has been feeling a lot better today His left upper extremity is less swollen and without any pain His breathing is much better Physical Exam Vital Signs (Past 24 Hours): Last Vital Signs Temp 37.3 C 09/25/18 16:58 Pulse 82 09/25/18 16:58 Resp 19 09/25/18 16:58 BP 109/65 09/25/18 16:58 Pulse Ox 95 09/25/18 16:28 Physical Exam: Looks pale without any apparent distress Constitutional: + ill appearing and + obese Eyes: PERRL, conjunctivae normal, anicteric sclerae ENMT: external ear and nose normal, oropharynx normal Neck: trachea midline, no thyromegaly Respiratory: normal respiratory effort and + cough Auscultation: + diminished lung sounds and + crackles (At the bases) Cardiovascular: Rate/Rhythm: + abnormal rate and + abnormal rhythm Heart Sounds: normal S1 and normal S2 Gastrointestinal (Abdomen): Inspection/Auscultation: abdomen normal to inspection and normal bowel sounds Percussion/Palpation: abdomen soft Musculoskeletal: Extremities: + upper extremity abnormal to inspection (Swelling of left upper extremity-seems to be improving) Left and + lower extremity abnormal to inspection (Ulceration left leg, no drainage) Left Neurologic: Alert, awake and oriented x3. Generally weak Results & Data Laboratory Results Short CBC 09/25/18 Range/Units 07:29 WBC 7.68 (4.8-10.8) K/uL Hgb 7.1 L (14.0-18.0) g/dL Hct 24.6 L (42-52) % Plt Count 246 (130-400) K/uL BMP 09/25/18 07:29 Sodium 135 L Potassium 3.8 D Chloride 100 Carbon Dioxide 31 BUN 6 L Creatinine 0.48 L Glucose 91 Calcium 7.9 L Medications Administered Current Inpatient Medications Acetaminophen (Tylenol) 325 mg PO Q4H PRN PRN Reason: Pain or Fever Stop: 10/23/18 21:05 Amiodarone HCl (Cordarone) 200 mg PO QAM [facility] Stop: 10/24/18 08:59 Last Admin: 09/25/18 09:38 Dose: 200 mg Documented by: Ascorbic Acid (Vitamin C) 500 mg PO AMHS [facility] Stop: 10/23/18 21:05 Last Admin: 09/25/18 09:51 Dose: 500 mg Documented by: Enoxaparin Sodium (Lovenox) 100 mg SQ Q12@0600,1800 [facility] Stop: 10/24/18 17:59 Last Admin: 09/25/18 05:35 Dose: 100 mg Documented by: Sodium Chloride (Nss) 250 mls @ 15 mls/hr IV .[id number] PRN PRN Reason: For Transfusion Stop: 10/25/18 09:27 Furosemide 40 mg/ Syringe 4 mls @ 4 mls/min IV TODAY@1000 [facility] Stop: 09/25/18 23:59 Metoclopramide HCl (Reglan) 10 mg PO ACHS [facility] Stop: 10/23/18 21:05 Last Admin: 09/25/18 16:46 Dose: 10 mg Documented by: Metoprolol Tartrate (Lopressor) 25 mg PO AMHS [facility] Stop: 10/23/18 21:05 Last Admin: 09/25/18 09:40 Dose: 25 mg Documented by: Multivitamins (Multivitamin Tab) 1 tab PO QAM [facility] Stop: 10/24/18 08:59 Last Admin: 09/25/18 09:41 Dose: 1 tab Documented by: Multivitamins/Minerals (Caltrate Plus) 2 tab PO BID [facility] Stop: 10/23/18 21:05 Last Admin: 09/25/18 09:42 Dose: 2 tab Documented by: Nystatin (Mycostatin) 1 appln EXT BID [facility] Stop: 10/23/18 21:05 Last Admin: 09/25/18 09:53 Dose: 1 appln Documented by: Ondansetron HCl (Zofran Odt) 8 mg PO Q8H PRN PRN Reason: Nausea Stop: 10/23/18 21:05 Last Admin: 09/24/18 09:31 Dose: 8 mg Documented by: Oseltamivir Phosphate (Tamiflu) 75 mg PO DAILY [facility] Stop: 10/04/18 09:01 Last Admin: 09/25/18 14:45 Dose: 75 mg Documented by: Oxycodone HCl (Oxycontin) 20 mg PO Q12 [facility] Stop: 10/07/18 21:05 Last Admin: 09/25/18 10:04 Dose: 20 mg Documented by: Oxycodone HCl (Roxicodone Immediate Rel) 10 mg PO Q4H PRN PRN Reason: Pain Stop: 10/07/18 21:05 Last Admin: 09/25/18 16:46 Dose: 10 mg Documented by: Pantoprazole Sodium (Protonix) 40 mg PO QAM [facility] Stop: 10/24/18 08:59 Last Admin: 09/25/18 09:42 Dose: 40 mg Documented by: Senna/Docusate Sodium (Senokot S) 5 tab PO BID [facility] Stop: 10/23/18 22:59 Last Admin: 03/29/19 09:37 Dose: 5 tab Documented by: Sertraline HCl (Zoloft) 75 mg PO [facility] Stop: 10/24/18 08:59 Last Admin: 09/25/18 09:38 Dose: 75 mg Documented by: Zinc Sulfate (Zinc Sulfate) 220 mg PO [facility] Stop: 10/24/18 08:59 Last Admin: 09/25/18 09:38 Dose: 220 mg Documented by:
[2018-09-26] MEDS: ENOXAPARIN 100 MG/1ML SYR SQ SCH (05:45)
[2018-09-26 06:46] LABS: Basophils # (auto) 0.01 K/uL (0-0.2); Basophils % (auto) 0.1 %; Eosinophils # (auto) 0.11 K/uL (0-0.5); Eosinophils % (auto) 1.3 %; Hematocrit (blood only) 29.3 % (42-52); Hemoglobin 9.1 g/dL (14.0-18.0); Immature Granulocytes # (auto) 0.06 K/uL (0.00-0.02); Immature Granulocytes % (auto) 0.7 %; Lymphocytes % (auto) 29.8 %; Mean Corpuscular Hgb Conc 31.1 g/dL (32-36); Mean Corpuscular Volume 89.6 fL (80-100); Mean Platelet Volume 8.1 fL (7.4-10.4); Monocytes # (auto) 0.83 K/uL (0.11-0.59); Monocytes % (auto) 9.9 %; Neutrophils # (auto) 4.89 K/uL (1.4-6.5); Neutrophils % (auto) 58.2 %; Platelet Count 238 K/uL (130-400); RDW Coefficient of Variation 19.7 % (11.5-14.5); RDW Standard Deviation 63.2 fL (36.4-46.3); Red Blood Count 3.27 M/uL (4.7-6.1)
[2018-09-26 07:09] LABS: BUN Creatinine Ratio 13.6 (10-20); Calcium 7.8 mg/dl (8.5-10.1); Creatinine Clr Calc Pharmacy 143.8 ml/min; Est GFR (African American) 125.3; Est GFR (Non-African American) 108.1; Magnesium 1.5 mg/dl (1.8-2.4); Phosphorus 3.2 mg/dl (2.5-4.9); Potassium 3.7 mmol/L (3.5-5.1)
[2018-09-26] MEDS: ZINC SULFATE 220 MG CAPSULE PO SCH (08:53)
[2018-09-26] MEDS: DOCUSATE SODIUM/SENNA 50/8.6MG TAB PO SCH ×2 (08:53→21:56)
[2018-09-26] MEDS: SERTRALINE HCL 50 MG TABLET PO SCH (08:53)
[2018-09-26] MEDS: AMIODARONE 200 MG TAB PO SCH (08:54)
[2018-09-26] MEDS: CALCIUM 600MG + VIT D 400 IU TAB PO SCH ×2 (08:54→21:55)
[2018-09-26] MEDS: ASCORBIC ACID 500 MG TAB PO SCH ×2 (08:54→21:57)
[2018-09-26] MEDS: METOCLOPRAMIDE HCL 10 MG TABLET PO SCH ×4 (08:54→21:56)
[2018-09-26] MEDS: METOPROLOL TARTRATE 25 MG TAB PO SCH ×2 (08:56→21:55)
[2018-09-26] MEDS: MULTIVITAMIN TAB PO SCH (08:56)
[2018-09-26] MEDS: PANTOprazole 40 MG TAB PO SCH (08:56)
[2018-09-26] MEDS: OSELTAMIVIR PHOSPHATE 75 MG CAP PO SCH (08:57)
--- NOTE | 2018-09-26 09:36 | Hospitalist Progress Note ---
Date of Service September 26, 2018 Assessment & Plan (1) Acute DVT (deep venous thrombosis): Note from admitting physician: -acute DVT of left upper extremity ; history of lower extremity DVT in the past -in the past patient was on coumadin for anticoagulation of atrial fibrillation but this was stopped because of concern that coumadin worsened calciphylaxis lower leg wounds and was discontinued, then was on Eliquis and developed lower extremity DVT and was switched to Lovenox -recent hospitalization x 1 month in August 2018 at [facility] in [place] needing central lines for sepsis - Patient was discharged to [facility] on 09/21/18 on Lovenox and then Doppler of the LUE obtained on 09/23/18 as outpatient indicates left internal jugular and subclavian vein DVTs. Patient was then sent to Emergency room at [facility]. Emergency room doctor concerned that patient may have failed Lovenox therapy and started patient on heparin drip -Have contacted Dr. Hima Dukes of hemtaology/oncology for consultation on future anticoagulation regimen for this patient Complaint of some cough Denies any pain in the left upper extremity Left upper extremity swelling seems to be stable with minimal improvement Advised to elevate the left upper extremity on a pillow Heparin has been discontinued and Lovenox 100 mg twice daily started as per recommendation from oncologist Left upper extremity swelling is improving Denies any pain left upper extremity Metastatic Prostate Cancer to bones -follows with Dr. Hima Dukes of hemtaology/oncology -will defer to him on more background and assessment about patient's prostate cancer management -Deep venous thrombosis is aggravated by the presence of calcium -Anemia seems to be due to marrow infiltration by cancer -There is no acute bleeding -Discussed with oncology and no further treatment for CA prostate at this time Anemia Likely secondary to marrow infiltration from prostate cancer Completed complicated by current and prolonged illness We will monitor hemoglobin and may need transfusion if levels falls below 7 -Discharge discussed with the son -Hemoglobin dropped to 7.1 -He will received 2 units of blood transfusion -Explained the cause for low hemoglobin and need for continued transfusion -Hemoglobin went up to 9.1 today and the patient is feeling better 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 No pneumothorax. Small left pleural effusion and left basilar densities have slightly progressed. Progressive interstitial and vascular thickening consistent with mild pulmonary edema. The heart is mildly enlarged. -will give Lasix 20 mg IV BID -No CHF -Has history of possible sleep apnea -We will prescribe cough medicine -Breathing seems to be better -Continue oxygen as needed to maintain saturation more than 90% History of edema of lower extremities and anasarca -will give Lasix 20 mg IV BID -His albumin has been low at 1.6 -Advised nutritional support to improve albumin -No significant liver disease to quantify low albumin chronic kidney disease stage III -monitor renal function while on Lasix History of Clostridial bacteremia and c diff colitis -appears to have completed treatments as per review of available [facility] and [facility] notes -Not having any acute diarrheal symptoms -Doubt any ongoing C. difficile infection -We will check stool he denies any diarrhea-pending history of TIA as per discharge summary from [facility] in [place] -no gross focal deficits Chronic use of narcotics for pain control -continue home dose oxycodone and continue bowel regimen current DVT prophylaxis: heparin drip patient and patient's family (son Adonay [phone]; Hannah [phone] or [phone]) Full Code The case was discussed in detail with her son All of his questions were answered in presence of the patient Discussed with the and [facility] Subjective 09/24 The patient was seen and examined in medical unit in presence of the son He is a 73-year-old male with significant past medical history including CA prostate with bony metastasis, atrial fibrillation on anticoagulation, 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 Complains of pain in the legs Denies any chest pain, shortness of breath, palpitation, abdominal pain, nausea or vomiting 09/25 The patient was seen and examined in the presence of the He has been feeling a lot better today His left upper extremity is less swollen and without any pain His breathing is much better 09/26 Patient was seen and examined in medical floor in presence of the present He feels a lot better and denies any significant symptoms His left upper extremity swelling is improved Denies any shortness of breath, chest pain, palpitation, abdominal pain, nausea and/or vomiting Physical Exam Vital Signs (Past 24 Hours): Last Vital Signs Temp 36.8 C 09/26/18 08:29 Pulse 88 09/26/18 08:29 Resp 18 09/26/18 08:29 BP 119/69 09/26/18 08:29 Pulse Ox 94 09/26/18 08:29 Physical Exam: Lying in bed comfortably with minimal shortness of breath Constitutional: + ill appearing and + obese Eyes: PERRL, conjunctivae normal, anicteric sclerae ENMT: external ear and nose normal, oropharynx normal Neck: trachea midline, no thyromegaly Respiratory: normal respiratory effort and + cough Auscultation: + diminished lung sounds, + crackles (At the bases) and + wheezes (Occasional wheezing) Cardiovascular: Rate/Rhythm: + abnormal rate and + abnormal rhythm Heart Sounds: normal S1 and normal S2 Gastrointestinal (Abdomen): Inspection/Auscultation: abdomen normal to inspection and normal bowel sounds Percussion/Palpation: abdomen soft Musculoskeletal: Extremities: + upper extremity abnormal to inspection (Swelling of left upper extremity-seems to be improving) and + lower extremity abnormal to inspection (Ulceration left leg, no drainage) Neurologic: Alert awake and oriented x3,. Generally weak Results & Data Laboratory Results Short CBC 09/26/18 Range/Units 06:28 WBC 8.40 (4.8-10.8) K/uL Hgb 9.1 L (14.0-18.0) g/dL Hct 29.3 L (42-52) % Plt Count 238 (130-400) K/uL BMP 09/26/18 06:28 Sodium 136 Potassium 3.7 Chloride 97 L Carbon Dioxide 34 H BUN 7 Creatinine 0.51 L Glucose 93 Calcium 7.8 L Medications Administered Current Inpatient Medications Acetaminophen (Tylenol) 325 mg PO Q4H PRN PRN Reason: Pain or Fever Stop: 10/23/18 21:05 Amiodarone HCl (Cordarone) 200 mg PO [facility] Stop: 10/24/18 08:59 Last Admin: 09/25/18 09:38 Dose: 200 mg Documented by: Ascorbic Acid (Vitamin C) 500 mg PO AMHS [facility] Stop: 10/23/18 21:05 Last Admin: 09/25/18 21:44 Dose: 500 mg Documented by: Enoxaparin Sodium (Lovenox) 100 mg SQ Q12@0600,1800 [facility] Stop: 10/24/18 17:59 Last Admin: 09/26/18 05:45 Dose: 100 mg Documented by: Sodium Chloride (Nss) 250 mls @ 15 mls/hr IV .[id number] PRN PRN Reason: For Transfusion Stop: 10/25/18 09:27 Metoclopramide HCl (Reglan) 10 mg PO [facility] Stop: 10/23/18 21:05 Last Admin: 09/25/18 20:56 Dose: 10 mg Documented by: Metoprolol Tartrate (Lopressor) 25 mg PO [facility] Stop: 10/23/18 21:05 Last Admin: 09/25/18 20:55 Dose: 25 mg Documented by: Multivitamins (Multivitamin Tab) 1 tab PO QAM [facility] Stop: 10/24/18 08:59 Last Admin: 09/25/18 09:41 Dose: 1 tab Documented by: Multivitamins/Minerals (Caltrate Plus) 2 tab PO BID [facility] Stop: 10/23/18 21:05 Last Admin: 09/25/18 20:55 Dose: 2 tab Documented by: Nystatin (Mycostatin) 1 appln EXT BID [facility] Stop: 10/23/18 21:05 Last Admin: 09/25/18 20:56 Dose: 1 appln Documented by: Ondansetron HCl (Zofran Odt) 8 mg PO Q8H PRN PRN Reason: Nausea Stop: 10/23/18 21:05 Last Admin: 09/24/18 09:31 Dose: 8 mg Documented by: Oseltamivir Phosphate (Tamiflu) 75 mg PO DAILY [facility] Stop: 10/04/18 09:01 Last Admin: 09/25/18 14:45 Dose: 75 mg Documented by: Oxycodone HCl (Oxycontin) 20 mg PO Q12 [facility] Stop: 10/07/18 21:05 Last Admin: 09/25/18 20:56 Dose: 20 mg Documented by: Oxycodone HCl (Roxicodone Immediate Rel) 10 mg PO Q4H PRN PRN Reason: Pain Stop: 10/07/18 21:05 Last Admin: 09/25/18 23:47 Dose: 10 mg Documented by: Pantoprazole Sodium (Protonix) 40 mg PO [facility] Stop: 10/24/18 08:59 Last Admin: 09/25/18 09:42 Dose: 40 mg Documented by: Senna/Docusate Sodium (Senokot S) 5 tab PO BID [facility] Stop: 10/23/18 22:59 Last Admin: 09/25/18 20:57 Dose: 2.5 tab Documented by: Sertraline HCl (Zoloft) 75 mg PO [facility] Stop: 10/24/18 08:59 Last Admin: 09/25/18 09:38 Dose: 75 mg Documented by: Zinc Sulfate (Zinc Sulfate) 220 mg PO [facility] Stop: 10/24/18 08:59 Last Admin: 09/25/18 09:38 Dose: 220 mg Documented by:
[2018-09-26] MEDS: OXYCODONE HCL 20 MG TABCR (OXYCONTIN) PO SCH ×2 (09:49→21:56)
[2018-09-26] MEDS: NYSTATIN POWDER 15GM BTL EXT SCH ×2 (09:50→21:56)
[2018-09-26] MEDS: OXYCODONE HCL IR 5 MG TAB (IMMEDIATE RELEASE) PO PRN (16:04)
[2018-09-26] MEDS: ENOXAPARIN 80 MG/0.8 ML SYR SQ SCH (18:32)
[2018-09-27] MEDS: ENOXAPARIN 80 MG/0.8 ML SYR SQ SCH ×2 (05:47→17:44)
[2018-09-27] MEDS: OXYCODONE HCL IR 5 MG TAB (IMMEDIATE RELEASE) PO PRN ×2 (05:54→13:13)
[2018-09-27] MEDS: METOCLOPRAMIDE HCL 10 MG TABLET PO SCH ×4 (07:48→20:38)
[2018-09-27] MEDS: DOCUSATE SODIUM/SENNA 50/8.6MG TAB PO SCH ×2 (09:09→20:38)
[2018-09-27] MEDS: OXYCODONE HCL 20 MG TABCR (OXYCONTIN) PO SCH ×2 (09:09→20:38)
[2018-09-27] MEDS: SERTRALINE HCL 50 MG TABLET PO SCH (09:10)
[2018-09-27] MEDS: AMIODARONE 200 MG TAB PO SCH (09:10)
[2018-09-27] MEDS: PANTOprazole 40 MG TAB PO SCH (09:11)
[2018-09-27] MEDS: ASCORBIC ACID 500 MG TAB PO SCH ×2 (09:11→20:38)
[2018-09-27] MEDS: ZINC SULFATE 220 MG CAPSULE PO SCH (09:11)
[2018-09-27] MEDS: METOPROLOL TARTRATE 25 MG TAB PO SCH ×2 (09:11→20:37)
[2018-09-27] MEDS: MULTIVITAMIN TAB PO SCH (09:11)
[2018-09-27] MEDS: OSELTAMIVIR PHOSPHATE 75 MG CAP PO SCH (09:12)
[2018-09-27] MEDS: CALCIUM 600MG + VIT D 400 IU TAB PO SCH ×2 (09:32→20:37)
[2018-09-27] MEDS: NYSTATIN POWDER 15GM BTL EXT SCH ×2 (09:33→20:37)
--- NOTE | 2018-09-27 13:59 | XRay Report ---
XR chest 1V portable HISTORY: 73 years-old Male r/o pneumonia acute atypical chest pain COMPARISON: Chest radiograph 09/23/2018, chest CT 07/05/2018 TECHNIQUE: Portable AP view of the chest FINDINGS: Cardiac mediastinal and hilar silhouettes appear unchanged. Pulmonary vascular congestion with mild p ulmonary edema. Trace right and small left pleural effusions with persistent left greater than right bibasilar opacities. Multifocal osteoblastic metastatic lesions redemonstrated. Degenerative changes of the shoulders and spine. IMPRESSION: 1. Cardiomegaly with unchanged pulmonary edema. 2. Small left and trace right pleural effusions. 3. Unchanged left greater than right bibasilar opacities suggestive of atelectasis or pneumonitis. 4. Multifocal osteoblastic metastasis redemonstrated. The above report was generated using voice recognition software. It may contain grammatical, syntax o r spelling errors. Electronically signed by: Ever Aguilar M.D. 09/27/2018 1:58 PM
[2018-09-27] MEDS: LEVALBUTEROL HCL 0.63 MG/3 ML NEB NEB SCH ×2 (14:05→20:29)
[2018-09-27] MEDS ORDERED: FUROSEMIDE 20 MG in SYRINGE 0 ML IV ONE (19:05)
[2018-09-28] MEDS: LEVALBUTEROL HCL 0.63 MG/3 ML NEB NEB SCH ×4 (01:50→19:28)
[2018-09-28] MEDS: ENOXAPARIN 80 MG/0.8 ML SYR SQ SCH ×2 (06:00→17:42)
[2018-09-28] MEDS: OXYCODONE HCL IR 5 MG TAB (IMMEDIATE RELEASE) PO PRN (06:00)
[2018-09-28] MEDS: AMIODARONE 200 MG TAB PO SCH (08:47)
[2018-09-28] MEDS: METOCLOPRAMIDE HCL 10 MG TABLET PO SCH ×4 (08:47→21:03)
[2018-09-28] MEDS: PANTOprazole 40 MG TAB PO SCH (08:47)
[2018-09-28] MEDS: ZINC SULFATE 220 MG CAPSULE PO SCH (08:47)
[2018-09-28] MEDS: METOPROLOL TARTRATE 25 MG TAB PO SCH ×2 (08:47→21:03)
[2018-09-28] MEDS: MULTIVITAMIN TAB PO SCH (08:47)
[2018-09-28] MEDS: CALCIUM 600MG + VIT D 400 IU TAB PO SCH ×2 (08:47→21:02)
[2018-09-28] MEDS: OSELTAMIVIR PHOSPHATE 75 MG CAP PO SCH (08:47)
[2018-09-28] MEDS: ASCORBIC ACID 500 MG TAB PO SCH ×2 (08:47→21:05)
[2018-09-28] MEDS: SERTRALINE HCL 50 MG TABLET PO SCH (08:48)
[2018-09-28] MEDS: NYSTATIN POWDER 15GM BTL EXT SCH ×2 (08:48→21:03)
[2018-09-28] MEDS: OXYCODONE HCL 20 MG TABCR (OXYCONTIN) PO SCH ×2 (09:19→21:03)
[2018-09-28] MEDS: DOCUSATE SODIUM/SENNA 50/8.6MG TAB PO SCH ×2 (09:20→21:29)
[2018-09-28] MEDS ORDERED: PIPERACILL/TAZOBAC CONSULT ACTIVE PRN (14:17)
[2018-09-28] MEDS ORDERED: PIPERACILLIN/TAZOBACTAM 4.5 GM in DEXTROSE 5% 100 ML IV ONE (15:00)
--- NOTE | 2018-09-28 18:07 | Hematology/Oncology Prog Note ---
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 Presently admitted in the hospital for left approximately DVT, initially treated with IV heparin, now he is on higher dose of Lovenox twice a day, I saw him at bedside, he is feeling weak and tired, appears to be sleepy most of the time, not much talking, leg edema has improved, left upper extremities edema is present, does come some pain in the both upper extremities, chronic back pain present, no new bleeding from any sites, recently he was admitted at a [facility] for pneumonia, he was intubated, does complain of cough with expectorant, receiving broad-spectrum antibiotic coverage, some low-grade fever noted He did receive 2 units of PRBC during this hospitalization. Hemoglobin level improved to around 9.1 g/dL, normal white blood cell count and platelet count. - Anti-Xa level > 0.77 (09/28/2018).- BUN/creatinine: 7/0.5, calcium 7.8, magnesium 1.5.- Albumin 1.6, total protein 5.4. Regarding left approximately DVT, will continue Lovenox 80 mg twice a day. Regarding prostate cancer diagnosis, will continue Zoladex as an outpatient but he is not a candidate for any kind of systemic treatment for metastatic prostate cancer. 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 Hima Dukes MD Hem/Onc Physical Exam Vital Signs (Past 24 Hours): Last Vital Signs Temp 37.5 C 09/28/18 15:59 Pulse 94 H 09/28/18 16:00 Resp 22 09/28/18 15:59 BP 120/70 09/28/18 15:59 Pulse Ox 90 09/28/18 15:59
--- NOTE | 2018-09-28 18:59 | CT Scan Report ---
CT SCAN OF THE CHEST WITHOUT IV CONTRAST CLINICAL HISTORY: Cough. COMPARISON STUDY: Chest CT scans dated 08/30/2016 and 07/05/2018. TECHNIQUE: CT scan of the thorax was performed from the thoracic inlet to the upper abdomen. Images are reviewed in the axial, sagittal, and coronal planes. IV contrast was not administered for this ex amination as per the referring clinician. A dose lowering technique was utilized adhering to the [facility] of [place]. CT DOSE: 395.03 mGy.cm FINDINGS: Thyroid: Atrophic. Thoracic aorta: There is advanced atherosclerotic calcification of the thoracic aorta, which is sri l in caliber and demonstrates standard 3-vessel arch anatomy. Heart: The heart is enlarged and without pericardial effusion. The coronary arteries are densely calc ified. Lungs and pleural spaces: Evaluation of the lung parenchyma is significantly degraded by motion artif act. There are small pleural effusions with dense bibasilar airspace consolidation, left greater than right. Patchy consolidative changes suggested in the upper lobes. A 5 mm right middle lobe nodule is again seen on image #149. Calcified granulomas are observed. Mediastinum: There are numerous subcentimeter mediastinal lymph nodes. Several of these contain coars e calcifications indicating remote granulomatous infection. Nikki: Not well assessed but IV contrast. Axillae: There is no axillary lymphadenopathy. Upper abdomen: There is a tiny hiatal hernia. Partially visualized upper abdominal viscera is otherw ise grossly unremarkable. Soft tissues: Gynecomastia is noted. There is mild body wall edema. Skeletal structures: The skeletal structures are osteopenic. Advanced arthritic change is seen in the shoulders. Changes of diffuse/multifocal osteoblastic metastatic disease are again noted. IMPRESSION: 1. Motion compromised examination. 2. There are small pleural effusions with dense bibasilar consolidation. Patchy airspace consolidatio n is also suggested in the upper lobes. Correlate clinically for evidence of pneumonia/aspiration pne umonitis. Radiographic follow-up to resolution is recommended. 3. Cardiomegaly. 4. Multifocal osteoblastic metastatic disease is again noted and similar to previous. 5. Additional findings as above. Electronically signed by: Joe Omalley M.D. 09/28/2018 6:58 PM
[2018-09-28] MEDS: ACETYLCYSTEINE 10% INHAL SOLN **DISPENSED FROM RESP. INH SCH (19:28)
[2018-09-28] MEDS: PIPERACILLIN/TAZOBACTAM 4.5 GM in DEXTROSE 5% 100 ML IV SCH (20:07)
[2018-09-28] MEDS ORDERED: predniSONE 20 MG TAB PO SCH (20:15)
[2018-09-29] MEDS: LEVALBUTEROL HCL 0.63 MG/3 ML NEB NEB SCH ×4 (02:12→19:07)
--- NOTE | 2018-09-29 02:31 | Hospitalist Progress Note ---
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 No pneumothorax. Small left pleural effusion and left basilar densities have slightly progressed. Progressive interstitial and vascular thickening consistent with mild pulmonary edema. The heart is mildly enlarged. -CXR ordered no pneumonia - Lasix 20mg IV given History of edema of lower extremities and anasarca -His albumin has been low at 1.6 -Advised nutritional support to improve albumin -No significant liver disease to quantify low albumin chronic kidney disease stage III -monitor renal function while on Lasix History of Clostridial bacteremia and c diff colitis -appears to have completed treatments as per review of available [facility] and [facility] notes - no diarrhea history of TIA as per discharge summary from [facility] in [place] -no gross focal deficits Chronic use of narcotics for pain control -continue home dose oxycodone and continue bowel regimen current DVT prophylaxis: Lovenox patient and patient's family (son Adonay [phone]; Hannah [phone] or [phone]) Full Code Subjective seen with at bedside ff up for DVT seen resting , sitting up in bed family noted cough, breathing not that good no other symptoms Physical Exam Vital Signs (Past 24 Hours): Last Vital Signs Temp 37.0 C 09/29/18 00:15 Pulse 91 H 09/29/18 00:34 Resp 20 09/29/18 00:15 BP 136/69 09/29/18 00:15 Pulse Ox 90 09/29/18 00:15 Physical Exam: General- oriented x 3, not in distress, speaks in sentences with no effort or accessory muscle use Eyes- anicteric Neck- no JVD Lungs- mild rales at the bases, no wheezing Heart- normal rate, regular rhythm; no murmurs Abdomen- normal bowel sounds, nondistended, soft, nontender Extremities- (+) edema LUE no pretibial edema, no calf tenderness Neuro- alert, oriented x 3; no gross focal neurologic deficits Skin- warm & dry Results & Data Laboratory Results noted, reviewed
--- NOTE | 2018-09-29 02:40 | Hospitalist Progress Note ---
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 No pneumothorax. Small left pleural effusion and left basilar densities have slightly progressed. Progressive interstitial and vascular thickening consistent with mild pulmonary edema. The heart is mildly enlarged. -CXR ordered - CT chest ordered There are small pleural effusions with dense bibasilar consolidation. Patchy airspace consolidation is also suggested in the upper lobes. Correlate clinically for evidence of pneumonia/aspiration pneumonitis. Radiographic follow-up to resolution is recommended. check sputum Zosyn, Prednisone ordered continue Nebs History of edema of lower extremities and anasarca -His albumin has been low at 1.6 -Advised nutritional support to improve albumin -No significant liver disease to quantify low albumin chronic kidney disease stage III -monitor renal function while on Lasix History of Clostridial bacteremia and c diff colitis -appears to have completed treatments as per review of available [facility] and [facility] notes - no diarrhea history of TIA as per discharge summary from [facility] in [place] -no gross focal deficits Chronic use of narcotics for pain control -continue home dose oxycodone and continue bowel regimen current DVT prophylaxis: Lovenox patient and patient's family (son Adnoay [phone]; Hannah [phone] or [phone]) Full Code Subjective seen with at bedside ff up for DVT sitting up in bed, not in distress reports increased cough, with yellow sputum still on 4 L nasal cannula no other symptoms Physical Exam Vital Signs (Past 24 Hours): Last Vital Signs Temp 37.0 C 09/29/18 00:15 Pulse 91 H 09/29/18 00:34 Resp 20 09/29/18 00:15 BP 136/69 09/29/18 00:15 Pulse Ox 90 09/29/18 00:15 Physical Exam: General- oriented x 3, not in distress, speaks in sentences with no effort or accessory muscle use Eyes- anicteric Neck- no JVD Lungs-mild rhonchi b/l Heart- normal rate, regular rhythm; no murmurs Abdomen- normal bowel sounds, nondistended, soft, nontender Extremities-(+) LUE edema no pretibial edema, no calf tenderness Neuro- alert, oriented x 3; no gross focal neurologic deficits Skin- warm & dry Results & Data Laboratory Results noted
[2018-09-29] MEDS: PIPERACILLIN/TAZOBACTAM 4.5 GM in DEXTROSE 5% 100 ML IV SCH ×3 (04:06→20:35)
[2018-09-29] MEDS: ENOXAPARIN 80 MG/0.8 ML SYR SQ SCH ×2 (05:53→18:02)
[2018-09-29] MEDS: ACETYLCYSTEINE 10% INHAL SOLN **DISPENSED FROM RESP. INH SCH ×2 (07:14→19:06)
[2018-09-29] MEDS: ASCORBIC ACID 500 MG TAB PO SCH ×2 (08:49→21:54)
[2018-09-29] MEDS: DOCUSATE SODIUM/SENNA 50/8.6MG TAB PO SCH ×2 (08:49→21:54)
[2018-09-29] MEDS: OSELTAMIVIR PHOSPHATE 75 MG CAP PO SCH (08:49)
[2018-09-29] MEDS: MULTIVITAMIN TAB PO SCH (08:49)
[2018-09-29] MEDS: OXYCODONE HCL 20 MG TABCR (OXYCONTIN) PO SCH ×2 (08:49→21:52)
[2018-09-29] MEDS: METOCLOPRAMIDE HCL 10 MG TABLET PO SCH ×4 (08:50→21:53)
[2018-09-29] MEDS: PANTOprazole 40 MG TAB PO SCH (08:50)
[2018-09-29] MEDS: METOPROLOL TARTRATE 25 MG TAB PO SCH ×2 (08:50→21:53)
[2018-09-29] MEDS: ZINC SULFATE 220 MG CAPSULE PO SCH (08:50)
[2018-09-29] MEDS: CALCIUM 600MG + VIT D 400 IU TAB PO SCH ×2 (08:51→21:53)
[2018-09-29] MEDS: NYSTATIN POWDER 15GM BTL EXT SCH ×2 (08:51→21:53)
[2018-09-29] MEDS: SERTRALINE HCL 50 MG TABLET PO SCH (08:51)
[2018-09-29] MEDS: AMIODARONE 200 MG TAB PO SCH (08:51)
[2018-09-29] MEDS: OXYCODONE HCL IR 5 MG TAB (IMMEDIATE RELEASE) PO PRN (16:47)
[2018-09-29] MEDS: predniSONE 20 MG TAB PO SCH (16:48)
--- NOTE | 2018-09-29 19:00 | Hospitalist Progress Note ---
Date of Service September 29, 2018 delayed entry date of service as noted above Assessment & Plan (1) Acute DVT (deep venous thrombosis): LUE DVT due to recent L subclavian central venous catheter continue Lovenox antixa to be checked at 10pm 09/29/18, coordinated with Pharmacist who will make appropriate recommendations after Possible Health Care Associated Pneumonia Chronic respiratory failure with hypoxia -admission CXR: Multifocal osteoblastic metastatic disease is again noted. No pneumothorax. Small left pleural effusion and left basilar densities have slightly progressed. Progressive interstitial and vascular thickening consistent with mild pulmonary edema. The heart is mildly enlarged. - CT chest ordered 09/28/18 There are small pleural effusions with dense bibasilar consolidation. Patchy airspace consolidation is also suggested in the upper lobes. Correlate clinically for evidence of pneumonia/aspiration pneumonitis. Radiographic follow-up to resolution is recommended. 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 -Discussed with oncology and no further treatment for CA prostate at this time Anemia Likely secondary to marrow infiltration from prostate cancer stable 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 present on admission Pressure ulcer of sacral/coccyx region, stage 2, POA Pressure ulcers bilateral heels, unstageable, POA -wound care every shift, wound care nursing Paroxysmal atrial Fibrillation -anticoagulation as above -continue home dose metoprolol 25 mg q12h, amiodarine 200 mg daily - HR stable History of edema of lower extremities and anasarca -His albumin has been low at 1.6 -Advised nutritional support to improve albumin -No significant liver disease to quantify low albumin chronic kidney disease stage III -monitor renal function while on Lasix History of Clostridial bacteremia and c diff colitis -appears to have completed treatments as per review of available [facility] and [facility] notes - no diarrhea history of TIA as per discharge summary from [facility] in [place] -no gross focal deficits Chronic use of narcotics for pain control -continue home dose oxycodone and continue bowel regimen discussed with patient and his daily the plan of care they are understanding and agreeable with plan of care Bishop Crawford MD Subjective ff up for DVT, pneumonia seen resting in bed, sitting up more alert, brighter states he feels improved today, agrees less dyspnea, cough, sputum no chest pain no other symptoms Physical Exam Vital Signs (Past 24 Hours): Last Vital Signs Temp 36.7 C 09/29/18 15:00 Pulse 82 09/29/18 16:00 Resp 18 09/29/18 15:00 BP 143/75 H 09/29/18 15:00 Pulse Ox 92 09/29/18 15:00 Physical Exam: General- oriented x 3, not in distress, speaks in sentences with no effort or accessory muscle use Eyes- anicteric Neck- no JVD Lungs- occasional rhonchi bilaterally no wheezing Heart- normal rate, regular rhythm; no murmurs Abdomen- normal bowel sounds, nondistended, soft, nontender Extremities- wounds on bilateral legs: no signs of infection, healing trace pretibial edema, no calf tenderness Neuro- alert, oriented x 3; no gross focal neurologic deficits Skin- warm & dry Results & Data Laboratory Results all noted and reviewed
[2018-09-30] MEDS: LEVALBUTEROL HCL 0.63 MG/3 ML NEB NEB SCH ×4 (02:12→19:43)
[2018-09-30] MEDS: PIPERACILLIN/TAZOBACTAM 4.5 GM in DEXTROSE 5% 100 ML IV SCH ×3 (04:00→20:15)
[2018-09-30] MEDS: ENOXAPARIN 80 MG/0.8 ML SYR SQ SCH ×2 (05:32→17:56)
[2018-09-30 06:57] LABS: Creatinine Clr Calc Pharmacy 141.9 ml/min; Est GFR (African American) 124.3; Est GFR (Non-African American) 107.3
[2018-09-30] MEDS: ACETYLCYSTEINE 10% INHAL SOLN **DISPENSED FROM RESP. INH SCH ×2 (07:08→19:43)
[2018-09-30] MEDS: METOPROLOL TARTRATE 25 MG TAB PO SCH ×2 (08:55→21:41)
[2018-09-30] MEDS: PANTOprazole 40 MG TAB PO SCH (08:55)
[2018-09-30] MEDS: MULTIVITAMIN TAB PO SCH (08:55)
[2018-09-30] MEDS: predniSONE 20 MG TAB PO SCH (08:56)
[2018-09-30] MEDS: METOCLOPRAMIDE HCL 10 MG TABLET PO SCH ×4 (08:56→21:42)
[2018-09-30] MEDS: SERTRALINE HCL 50 MG TABLET PO SCH (08:56)
[2018-09-30] MEDS: CALCIUM 600MG + VIT D 400 IU TAB PO SCH ×2 (08:56→21:41)
[2018-09-30] MEDS: AMIODARONE 200 MG TAB PO SCH (08:56)
[2018-09-30] MEDS: OSELTAMIVIR PHOSPHATE 75 MG CAP PO SCH (08:58)
[2018-09-30] MEDS: ZINC SULFATE 220 MG CAPSULE PO SCH (08:58)
[2018-09-30] MEDS: DOCUSATE SODIUM/SENNA 50/8.6MG TAB PO SCH ×2 (08:59→21:42)
[2018-09-30] MEDS: ASCORBIC ACID 500 MG TAB PO SCH ×2 (09:01→21:42)
[2018-09-30] MEDS: OXYCODONE HCL 20 MG TABCR (OXYCONTIN) PO SCH ×2 (09:09→21:42)
[2018-09-30] MEDS: NYSTATIN POWDER 15GM BTL EXT SCH ×2 (09:13→21:41)
[2018-09-30 10:26] LABS: Basophils # (auto) 0.01 K/uL (0-0.2); Basophils % (auto) 0.1 %; Hematocrit (blood only) 32.3 % (42-52); Hemoglobin 9.7 g/dL (14.0-18.0); Immature Granulocytes % (auto) 1.4 %; Lymphocytes # (auto) 1.52 K/uL (1.2-3.4); Lymphocytes % (auto) 21.5 %; Mean Platelet Volume 8.7 fL (7.4-10.4); Monocytes # (auto) 0.63 K/uL (0.11-0.59); Monocytes % (auto) 8.9 %; Neutrophils # (auto) 4.81 K/uL (1.4-6.5); Neutrophils % (auto) 68.1 %; Platelet Count 438 K/uL (130-400); RDW Coefficient of Variation 17.3 % (11.5-14.5); Red Blood Count 3.51 M/uL (4.7-6.1); White Blood Count 7.07 K/uL (4.8-10.8)
--- NOTE | 2018-09-30 10:29 | Pulmonary Consultation ---
Date of Consultation September 30, 2018 Assessment & Plan (1) Lung infiltrate: has bilateral infiltrates L >R with small pleural effusion. unclear if this is new infection or residual infiltrates from prior admission. agree with short term abx for 5 day course. ?[facility] would consider ABG with AM labs has co2 is high and may have chronic respiratory acidosis with compensation History of Present Illness Reason for Consultation: chronic respiratory failure Attending Physician: Beka Gonzalez MD History of Present Illness 73 y/o male with metastatic prostate CA who presented 09/23 with left arm swelling. He was found to have a DVT in that arm. He was recently hospitalized at [facility] for a month. He had multiple complications including intubation for respiratory failure. patient currently has minimal respiratory symptoms He denies shortness of breath. complains of cough. says feels like there is sputum but not able to get it up patient had a CT with bilaterally infiltrates and he was started on abx. per had fever 2 days ago but highest I see documented 37.8 Allergies Allergy/AdvReac Type Severity Reaction Status Date / Time doxycycline Allergy Unknown Unknown Verified 09/23/18 15:38 cephalexin [From Keflex] Allergy Rash Verified 07/03/18 12:25 Home Medications Home Medications Medication Instructions Recorded Confirmed Type ascorbic acid (vitamin C) [Vitamin 500 mg PO AMHS 03/29/18 09/23/18 History C] multivitamin 1 tab PO QAM 03/29/18 09/23/18 History pantoprazole 40 mg PO QAM 03/29/18 09/23/18 History amiodarone 200 mg PO QAM 07/02/18 09/23/18 History calcium carbonate-vitamin D3 2 tab PO BID 07/03/18 09/23/18 History [Calcium 500 + D] sennosides-docusate sodium [Senna 4 - 5 tabs PO AMHS 07/03/18 09/23/18 History Plus] acetaminophen [Acetaminophen Extra 500 mg PO Q6H PRN 09/23/18 09/23/18 History Strength] enoxaparin [Lovenox] 60 mg SUBCUT Q12H 09/23/18 09/23/18 History metoclopramide HCl 10 mg PO ACHS 09/23/18 09/23/18 History metoprolol tartrate 25 mg PO AMHS 09/23/18 09/23/18 History nystatin 1 applic TOPICAL BID 09/23/18 09/23/18 History ondansetron 8 mg PO Q8H PRN 09/23/18 09/23/18 History oxycodone 10 mg PO Q4H PRN 09/23/18 09/23/18 History oxycodone [OxyContin] 20 mg PO Q12H 09/23/18 09/23/18 History sertraline 75 mg PO QAM 09/23/18 09/23/18 History zinc sulfate 220 mg PO QAM 09/23/18 09/23/18 History Patient History Medical History Mood disorder (Chronic) Prostate cancer metastatic to bone (Chronic) ~2013 Anxiety (Chronic) Depression (Chronic) Umbilical hernia (Chronic) Dyslipidemia (Chronic) On anticoagulant therapy (Chronic) Chronic steroid use (Chronic) TAKING STEROIDS DAILY FOR LOWER LEG SORES CURRENTLY. Atrial fibrillation (Chronic) Chronic pain (Chronic) HTN (hypertension) (Chronic) Obesity (BMI 30-39.9) (Chronic) GERD (gastroesophageal reflux disease) (Chronic) Surgical History History of tonsillectomy and adenoidectomy (Resolved) H/O radical prostatectomy (Resolved) ~2000 History of cholecystectomy (Resolved) History of back surgery (Resolved) L4-L5 History of repair of rotator cuff (Resolved) LEFT SHOULDER Family History Mother Hypertension Father Lymphoma Social History Communication Ability: Effective Beliefs That Will Affect Care: None marital status: Current Living Situation: Spouse current occupational status: retired Other Information That Helps Us Care for You: No Feels Safe at Home: Yes Safety Concerns: Feels Safe At This Time Smoking Status: Never smoker Hx Alcohol Use: No Hx Substance Use: No Review of Systems Constitutional: + fevers no chills no weight loss Eyes: no blurry or double vision EENT: no sore throat, no congestion Respiratory: + cough no shortness of breath Cardiovascular: no chest pain no palpitations GI: no abdominal pain, no nausea, no vomiting, no diarrhea, no constipation Gu: no dysuria, no frequency MSK: no joint pain, no muscle aches Skin: no rash Neuro: no headache, no dizziness, no focal weakness heme: no easy bruising, no lymphadenopathy Physical Exam Vital Signs (Past 24 Hours): Last Vital Signs Temp 36.4 C L 09/30/18 07:49 Pulse 83 09/30/18 07:49 Resp 20 09/30/18 07:49 BP 146/77 H 09/30/18 07:49 Pulse Ox 96 09/30/18 07:49 Physical Exam: Constitutional: Comfortable NAD HEENT: normocephalic atraumatic. MMM. no cervical lymphadenopathy CV: RRR nl s1,s2 no murmurs rubs or gallops Lungs: clear to auscultation bilaterally. no accessory muscle use Abd: soft nontender nondistended. normal bowel sounds Ext: no edema. no cyanosis, no clubbing Skin: warm dry Neuro: alert and awake. moving all extremities Psych: normal mood and affect Results & Data Laboratory Results labs reviewed Diagnostic Findings CT SCAN OF THE CHEST WITHOUT IV CONTRAST CLINICAL HISTORY: Cough. COMPARISON STUDY: Chest CT scans dated 08/30/2016 and 07/05/2018. TECHNIQUE: CT scan of the thorax was performed from the thoracic inlet to the upper abdomen. Images are reviewed in the axial, sagittal, and coronal planes. IV contrast was not administered for this examination as per the referring clinician. A dose lowering technique was utilized adhering to the principles of [place]. CT DOSE: 395.03 mGy.cm FINDINGS: Thyroid: Atrophic. Thoracic aorta: There is advanced atherosclerotic calcification of the thoracic aorta, which is normal in caliber and demonstrates standard 3-vessel arch anatomy. Heart: The heart is enlarged and without pericardial effusion. The coronary arteries are densely calcified. Lungs and pleural spaces: Evaluation of the lung parenchyma is significantly degraded by motion artifact. There are small pleural effusions with dense bibasilar airspace consolidation, left greater than right. Patchy consolidative changes suggested in the upper lobes. A 5 mm right middle lobe nodule is again seen on image #149. Calcified granulomas are observed. Mediastinum: There are numerous subcentimeter mediastinal lymph nodes. Several of these contain coarse calcifications indicating remote granulomatous infection. Nikki: Not well assessed but IV contrast. Axillae: There is no axillary lymphadenopathy. Upper abdomen: There is a tiny hiatal hernia. Partially visualized upper abdominal viscera is otherwise grossly unremarkable. Soft tissues: Gynecomastia is noted. There is mild body wall edema. Skeletal structures: The skeletal structures are osteopenic. Advanced arthritic change is seen in the shoulders. Changes of diffuse/multifocal osteoblastic metastatic disease are again noted. IMPRESSION: 1. Motion compromised examination. 2. There are small pleural effusions with dense bibasilar consolidation. Patchy airspace consolidation is also suggested in the upper lobes. Correlate clinically for evidence of pneumonia/aspiration pneumonitis. Radiographic follow-up to resolution is recommended. 3. Cardiomegaly. 4. Multifocal osteoblastic metastatic disease is again noted and similar to previous. 5. Additional findings as above. Electronically signed by: Joe Omalley M.D. 09/28/2018 6:58 PM
--- NOTE | 2018-09-30 16:06 | Hospitalist Progress Note ---
Date of Service September 30, 2018 Assessment & Plan (1) Acute DVT (deep venous thrombosis): LUE DVT due to recent L subclavian central venous catheter continue Lovenox antixa to be checked at 10pm 09/29/18, coordinated with Pharmacist who will make appropriate recommendations after Has been on 80 mg of Lovenox twice daily-we will continue that for now Possible Health Care Associated Pneumonia Chronic respiratory failure with hypoxia -admission CXR: Multifocal osteoblastic metastatic disease is again noted. No pneumothorax. Small left pleural effusion and left basilar densities have slightly progressed. Progressive interstitial and vascular thickening consistent with mild pulmonary edema. The heart is mildly enlarged. -CT chest ordered 09/28/18 Appreciate clinical engineering director input and recommendation Zosyn, Prednisone started, Nebs continued Sputum culture growing strep pneumoniae-sensitivity pending Continue current management Antibiotic for 5 days in total Metastatic Prostate Cancer to bones -Discussed with oncology and no further treatment for CA prostate at this time Appreciate oncology's input and recommendation We will discuss with the son for possible changing" status Anemia Likely secondary to marrow infiltration from prostate cancer stable Will monitor CBC 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 present on admission Pressure ulcer of sacral/coccyx region, stage 2, POA Pressure ulcers bilateral heels, unstageable, POA -wound care every shift, wound care nursing Paroxysmal atrial Fibrillation -anticoagulation as above -continue home dose metoprolol 25 mg q12h, amiodarine 200 mg daily - HR stable History of edema of lower extremities and anasarca -His albumin has been low at 1.6 -Advised nutritional support to improve albumin -No significant liver disease to quantify low albumin chronic kidney disease stage III -monitor renal function while on Lasix History of Clostridial bacteremia and c diff colitis -appears to have completed treatments as per review of available [facility] and [facility] notes - no diarrhea history of TIA as per discharge summary from [facility] in [place] -no gross focal deficits Chronic use of narcotics for pain control -continue home dose oxycodone and continue bowel regimen discussed with patient and his daily the plan of care they are understanding and agreeable with plan of care Subjective /3 The patient was seen and examined by me in presence of the way Has been feeling little better today Has minimal shortness of breath with cough and lots of secretions Denies any significant pain Physical Exam Vital Signs (Past 24 Hours): Last Vital Signs Temp 36.6 C 09/30/18 15:20 Pulse 90 09/30/18 15:26 Resp 20 09/30/18 15:20 BP 144/73 H 09/30/18 15:20 Pulse Ox 91 09/30/18 15:20 Physical Exam: Moderate distress at rest Constitutional: + ill appearing and + obese Eyes: PERRL, conjunctivae normal, anicteric sclerae ENMT: external ear and nose normal, oropharynx normal Neck: trachea midline, no thyromegaly Respiratory: + respiratory distress (Minimal) and + cough Auscultation: + diminished lung sounds, + crackles (At the bases) and + wheezes (Occasional wheezing) Cardiovascular: Rate/Rhythm: + abnormal rate and + abnormal rhythm Heart Sounds: normal S1 and normal S2 Gastrointestinal (Abdomen): Inspection/Auscultation: abdomen normal to inspection and normal bowel sounds Percussion/Palpation: abdomen soft Musculoskeletal: Extremities: + upper extremity abnormal to inspection (Swelling of left upper extremity-seems to be improving) and + lower extremity abnormal to inspection (Ulceration left leg, no drainage) Neurologic: Alert and awake. Generally weak Results & Data Laboratory Results Short CBC 09/30/18 Range/Units 06:08 WBC 7.07 (4.8-10.8) K/uL Hgb 9.7 L (14.0-18.0) g/dL Hct 32.3 L (42-52) % Plt Count 438 H (130-400) K/uL BMP 09/30/18 06:07 Creatinine 0.52 L Medications Administered Current Inpatient Medications Acetaminophen (Tylenol) 325 mg PO Q4H PRN PRN Reason: Pain or Fever Stop: 10/23/18 21:05 Acetylcysteine (Mucomyst 10%) 3 ml INH Q12R [facility] Stop: 10/28/18 19:59 Last Admin: 09/30/18 07:08 Dose: 3 ml Documented by: Amiodarone HCl (Cordarone) 200 mg PO QAM [facility] Stop: 10/24/18 08:59 Last Admin: 09/30/18 08:56 Dose: 200 mg Documented by: Ascorbic Acid (Vitamin C) 500 mg PO AMHS [facility] Stop: 10/23/18 21:05 Last Admin: 09/30/18 09:01 Dose: 500 mg Documented by: Enoxaparin Sodium (Lovenox) 80 mg SQ BID@0600,1800 COUNT [facility]CLUDES [facility]; Protocol Stop: 10/26/18 17:59 Last Admin: 09/30/18 05:32 Dose: 80 mg Documented by: Sodium Chloride (Nss) 250 mls @ 15 mls/hr IV .[id number] PRN PRN Reason: For Transfusion Stop: 10/25/18 09:27 Piperacillin Sod/Tazobactam (Sod 4.5 gm/ Dextrose) 120 mls @ 30 mls/hr IV Q8H COUNT [facility]CLUDES THE [facility]; Protocol Stop: 10/05/18 19:59 Last Infusion: 09/30/18 15:19 Dose: Infused Documented by: Levalbuterol HCl (Xopenex 0.63 Mg/3 Ml Neb) 0.63 mg NEB Q6R [facility] Stop: 10/27/18 13:59 Last Admin: 09/30/18 13:48 Dose: 0.63 mg Documented by: Metoclopramide HCl (Reglan) 10 mg PO ACHS COUNT [facility]CLUDES [facility] Stop: 10/23/18 21:05 Last Admin: 09/30/18 11:10 Dose: 10 mg Documented by: Metoprolol Tartrate (Lopressor) 25 mg PO AMHS COUNT [facility]CLUDES [facility] Stop: 10/23/18 21:05 Last Admin: 09/30/18 08:55 Dose: 25 mg Documented by: Miscellaneous Information (Consult) 1 ea N/A UD PRN PRN Reason: Consult Stop: 10/28/18 14:16 Multivitamins (Multivitamin Tab) 1 tab PO QAM COUNT [facility]CLUD[facility] Stop: 10/24/18 08:59 Last Admin: 09/30/18 08:55 Dose: 1 tab Documented by: Multivitamins/Minerals (Caltrate Plus) 2 tab PO BID COUNT [facility]CLUD[facility] Stop: 10/23/18 21:05 Last Admin: 09/30/18 08:56 Dose: 2 tab Documented by: Nystatin (Mycostatin) 1 appln EXT BID COUNT [facility]CLUDES [facility] Stop: 10/23/18 21:05 Last Admin: 09/30/18 09:13 Dose: 1 appln Documented by: Ondansetron HCl (Zofran Odt) 8 mg PO Q8H PRN PRN Reason: Nausea Stop: 10/23/18 21:05 Last Admin: 09/24/18 09:31 Dose: 8 mg Documented by: Oseltamivir Phosphate (Tamiflu) 75 mg PO DAILY [facility] Stop: 10/04/18 09:01 Last Admin: 09/30/18 08:58 Dose: 75 mg Documented by: Oxycodone HCl (Oxycontin) 20 mg PO Q12 [facility] Stop: 10/07/18 21:05 Last Admin: 09/30/18 09:09 Dose: 20 mg Documented by: Oxycodone HCl (Roxicodone Immediate Rel) 10 mg PO Q4H PRN PRN Reason: Pain Stop: 10/07/18 21:05 Last Admin: 09/29/18 16:47 Dose: 10 mg Documented by: Pantoprazole Sodium (Protonix) 40 mg PO QAM COUNT [facility] Stop: 10/24/18 08:59 Last Admin: 09/30/18 08:55 Dose: 40 mg Documented by: Prednisone (Prednisone) 40 mg PO DAILY COUNT [facility]CLUDES [facility] Stop: 10/29/18 15:14 Last Admin: 09/30/18 08:56 Dose: 40 mg Documented by: Senna/Docusate Sodium (Senokot S) 5 tab PO BID COUNT [facility]CLUD[facility] Stop: 10/23/18 22:59 Last Admin: 09/30/18 08:59 Dose: 2 tab Documented by: Sertraline HCl (Zoloft) 75 mg PO QAM COUNT [facility] Stop: 10/24/18 08:59 Last Admin: 09/30/18 08:56 Dose: 75 mg Documented by: Zinc Sulfate (Zinc Sulfate) 220 mg PO QAM COUNT [facility] Stop: 10/24/18 08:59 Last Admin: 09/30/18 08:58 Dose: 220 mg Documented by:
[2018-10-01] MEDS: LEVALBUTEROL HCL 0.63 MG/3 ML NEB NEB SCH ×3 (01:35→13:53)
[2018-10-01] MEDS: PIPERACILLIN/TAZOBACTAM 4.5 GM in DEXTROSE 5% 100 ML IV SCH ×2 (04:59→11:58)
[2018-10-01] MEDS: ENOXAPARIN 80 MG/0.8 ML SYR SQ SCH ×2 (05:04→17:30)
[2018-10-01 07:01] LABS: Basophils # (auto) 0.02 K/uL (0-0.2); Basophils % (auto) 0.3 %; Eosinophils # (auto) 0.02 K/uL (0-0.5); Eosinophils % (auto) 0.3 %; Hematocrit (blood only) 32.3 % (42-52); Hemoglobin 9.7 g/dL (14.0-18.0); Immature Granulocytes # (auto) 0.26 K/uL (0.00-0.02); Immature Granulocytes % (auto) 3.8 %; Lymphocytes # (auto) 1.99 K/uL (1.2-3.4); Lymphocytes % (auto) 29.2 %; Mean Platelet Volume 8.2 fL (7.4-10.4); Monocytes # (auto) 0.92 K/uL (0.11-0.59); Monocytes % (auto) 13.5 %; Neutrophils % (auto) 52.9 %; Platelet Count 430 K/uL (130-400); RDW Coefficient of Variation 17.1 % (11.5-14.5); RDW Standard Deviation 57.4 fL (36.4-46.3); Red Blood Count 3.51 M/uL (4.7-6.1); White Blood Count 6.81 K/uL (4.8-10.8)
[2018-10-01] MEDS: ACETYLCYSTEINE 10% INHAL SOLN **DISPENSED FROM RESP. INH SCH (07:13)
[2018-10-01 07:19] LABS: BUN Creatinine Ratio 10.6 (10-20); Calcium 8.8 mg/dl (8.5-10.1); Creatinine Clr Calc Pharmacy 137.8 ml/min; Est GFR (African American) 123.4; Est GFR (Non-African American) 106.5; Magnesium 1.7 mg/dl (1.8-2.4); Potassium 3.2 mmol/L (3.5-5.1)
[2018-10-01] MEDS: ASCORBIC ACID 500 MG TAB PO SCH (07:53)
[2018-10-01] MEDS: METOPROLOL TARTRATE 25 MG TAB PO SCH (07:53)
[2018-10-01] MEDS: AMIODARONE 200 MG TAB PO SCH (07:53)
[2018-10-01] MEDS: ZINC SULFATE 220 MG CAPSULE PO SCH (07:53)
[2018-10-01] MEDS: METOCLOPRAMIDE HCL 10 MG TABLET PO SCH ×3 (07:53→17:04)
[2018-10-01] MEDS: CALCIUM 600MG + VIT D 400 IU TAB PO SCH (07:53)
[2018-10-01] MEDS: predniSONE 20 MG TAB PO SCH (07:53)
[2018-10-01] MEDS: DOCUSATE SODIUM/SENNA 50/8.6MG TAB PO SCH (07:54)
[2018-10-01] MEDS: MULTIVITAMIN TAB PO SCH (07:54)
[2018-10-01] MEDS: OSELTAMIVIR PHOSPHATE 75 MG CAP PO SCH (07:54)
[2018-10-01] MEDS: PANTOprazole 40 MG TAB PO SCH (07:54)
[2018-10-01] MEDS: SERTRALINE HCL 50 MG TABLET PO SCH (07:54)
[2018-10-01] MEDS: NYSTATIN POWDER 15GM BTL EXT SCH (07:55)
[2018-10-01] MEDS: OXYCODONE HCL 20 MG TABCR (OXYCONTIN) PO SCH (08:00)
[2018-10-01] MEDS ORDERED: POTASSIUM CHLORIDE 20 MEQ TABCR PO ONE (08:45)
[2018-10-01] MEDS ORDERED: levoFLOXacin 750 MG TAB PO ONE (12:01)
[2018-10-01] MEDS: OXYCODONE HCL IR 5 MG TAB (IMMEDIATE RELEASE) PO PRN (13:42)
--- NOTE | 2018-10-01 14:12 | Hospitalist Progress Note ---
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 No pneumothorax. Small left pleural effusion and left basilar densities have slightly progressed. Progressive interstitial and vascular thickening consistent with mild pulmonary edema. The heart is mildly enlarged. -CT chest ordered 09/28/18 Appreciate outside sales associate input and recommendation Zosyn, Prednisone started, Nebs continued Sputum culture growing strep pneumoniae-sensitivity pending Continue current management Antibiotic for 5 days in total We will change antibiotic to oral Levaquin and continue for next 3-4 days Metastatic Prostate Cancer to bones -Discussed with oncology and no further treatment for CA prostate at this time Appreciate oncology's input and recommendation We will discuss with the son for possible changing" status No further treatment for prostate cancer right now Prognosis is poor Anemia Likely secondary to marrow infiltration from prostate cancer stable Will monitor CBC-hemoglobin stable at 9.7 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 present on admission Pressure ulcer of sacral/coccyx region, stage 2, POA Pressure ulcers bilateral heels, unstageable, POA -wound care every shift, wound care nursing Paroxysmal atrial Fibrillation -anticoagulation as above -continue home dose metoprolol 25 mg q12h, amiodarine 200 mg daily - HR stable History of edema of lower extremities and anasarca -His albumin has been low at 1.6 -Advised nutritional support to improve albumin -No significant liver disease to quantify low albumin chronic kidney disease stage III -monitor renal function while on Lasix History of Clostridial bacteremia and c diff colitis -appears to have completed treatments as per review of available [facility] and [facility] notes - no diarrhea history of TIA as per discharge summary from [facility] in [place] -no gross focal deficits Chronic use of narcotics for pain control -continue home dose oxycodone and continue bowel regimen discussed with patient and his daily the plan of care they are understanding and agreeable with plan of care Discussed with son before transferring the patient to [facility] today or tomorrow Subjective 09/30 The patient was seen and examined by me in presence of the way Has been feeling little better today Has minimal shortness of breath with cough and lots of secretions Denies any significant pain 10/01 Patient was seen and examined in medical floor He remains a stable and denies history of any symptoms His breathing is much better and saturations improved to He is generally weak and cannot do much for himself Physical Exam Vital Signs (Past 24 Hours): Last Vital Signs Temp 36.4 C L 10/01/18 12:32 Pulse 82 10/01/18 13:58 Resp 18 10/01/18 13:58 BP 177/84 H 10/01/18 12:32 Pulse Ox 96 10/01/18 13:58 Physical Exam: No apparent distress at rest Constitutional: + ill appearing and + obese Eyes: PERRL, conjunctivae normal, anicteric sclerae ENMT: external ear and nose normal, oropharynx normal Neck: trachea midline, no thyromegaly Respiratory: + respiratory distress (Minimal) and + cough Auscultation: + diminished lung sounds, + crackles (At the bases) and + wheezes (Occasional wheezing) Cardiovascular: Rate/Rhythm: + abnormal rate and + abnormal rhythm Heart So unds: normal S1 and normal S2 Gastrointestinal (Abdomen): Inspection/Auscultation: abdomen normal to inspection and normal bowel sounds Percussion/Palpation: abdomen soft Musculoskeletal: Extremities: + upper extremity abnormal to inspection (Swelling of left upper extremity-seems to be improving) and + lower extremity abnormal to inspection (Ulceration left leg, no drainage) Neurologic: Alert, awake and oriented x3. Generally very weak Results & Data Laboratory Results Short CBC 10/01/18 Range/Units 06:36 WBC 6.81 (4.8-10.8) K/uL Hgb 9.7 L (14.0-18.0) g/dL Hct 32.3 L (42-52) % Plt Count 430 H (130-400) K/uL BMP 10/01/18 06:36 Sodium 139 Potassium 3.2 L Chloride 100 Carbon Dioxide 35 H BUN 6 L Creatinine 0.53 L Glucose 85 Calcium 8.8 Medications Administered Current Inpatient Medications Acetaminophen (Tylenol) 325 mg PO Q4H PRN PRN Reason: Pain or Fever Stop: 10/23/18 21:05 Acetylcysteine (Mucomyst 10%) 3 ml INH Q12R [facility] Stop: 10/28/18 19:59 Last Admin: 10/01/18 07:13 Dose: 3 ml Documented by: Amiodarone HCl (Cordarone) 200 mg PO QAM [facility] Stop: 10/24/18 08:59 Last Admin: 10/01/18 07:53 Dose: 200 mg Documented by: Ascorbic Acid (Vitamin C) 500 mg PO [facility] Stop: 10/23/18 21:05 Last Admin: 10/01/18 07:53 Dose: 500 mg Documented by: Enoxaparin Sodium (Lovenox) 80 mg SQ BID@0600,1800 [facility]; Protocol Stop: 10/26/18 17:59 Last Admin: 10/01/18 05:04 Dose: 80 mg Documented by: Sodium Chloride (Nss) 250 mls @ 15 mls/hr IV .[id number] PRN PRN Reason: For Transfusion Stop: 10/25/18 09:27 Levalbuterol HCl (Xopenex 0.63 Mg/3 Ml Neb) 0.63 mg NEB Q6R [facility] Stop: 10/27/18 13:59 Last Admin: 10/01/18 13:53 Dose: 0.63 mg Documented by: Levofloxacin (Levaquin) 750 mg PO DAILY@1100 [facility] Stop: 10/08/18 10:59 Metoclopramide HCl (Reglan) 10 mg PO [facility] Stop: 10/23/18 21:05 Last Admin: 10/01/18 10:12 Dose: 10 mg Documented by: Metoprolol Tartrate (Lopressor) 25 mg PO [facility] Stop: 10/23/18 21:05 Last Admin: 10/01/18 07:53 Dose: 25 mg Documented by: Multivitamins ([facility]ivitamin Tab) [facility] Stop: 10/24/18 08:59 Last Admin: 10/01/18 07:54 Dose: 1 tab Documented by: Multivitamins/Minerals (Caltrate Plus) 2 tab PO BID [facility] Stop: 10/23/18 21:05 Last Admin: 10/01/18 07:53 Dose: 2 tab Documented by: Nystatin (Mycostatin) 1 appln EXT BID [facility] Stop: 10/23/18 21:05 Last Admin: 10/01/18 07:55 Dose: 1 appln Documented by: Ondansetron HCl (Zofran Odt) 8 mg PO Q8H PRN PRN Reason: Nausea Stop: 10/23/18 21:05 Last Admin: 09/24/18 09:31 Dose: 8 mg Documented by: Oseltamivir Phosphate (Tamiflu) 75 mg PO DAILY [facility] Stop: 10/04/18 09:01 Last Admin: 10/01/18 07:54 Dose: 75 mg Documented by: Oxycodone HCl (Oxycontin) 20 mg PO Q12 [facility] Stop: 10/07/18 21:05 Last Admin: 10/01/18 08:00 Dose: 20 mg Documented by: Oxycodone HCl (Roxicodone Immediate Rel) 10 mg PO Q4H PRN PRN Reason: Pain Stop: 10/07/18 21:05 Last Admin: 10/01/18 13:42 Dose: 10 mg Documented by: Pantoprazole Sodium (Protonix) 40 mg PO QAM [facility] Stop: 10/24/18 08:59 Last Admin: 10/01/18 07:54 Dose: 40 mg Documented by: Prednisone (Prednisone) 40 mg PO DAILY [facility] Stop: 10/29/18 15:14 Last Admin: 10/01/18 07:53 Dose: 40 mg Documented by: Senna/Docusate Sodium (Senokot S) 5 tab PO BID [facility] Stop: 10/23/18 22:59 Last Admin: 10/01/18 07:54 Dose: Not Given Documented by: Sertraline HCl (Zoloft) 75 mg PO QAM [facility] Stop: 10/24/18 08:59 Last Admin: 10/01/18 07:54 Dose: 75 mg Documented by: Zinc Sulfate (Zinc Sulfate) 220 mg PO QAM [facility] Stop: 10/24/18 08:59 Last Admin: 10/01/18 07:53 Dose: 220 mg Documented by:
[2018-10-01 14:52] VITALS: BP 162/88; TEMP 97.9; O2SAT 95
[2018-10-01 16:34] VITALS: PULSE 84
--- NOTE | 2018-10-02 07:30 | Discharge Summary ---
Date of Service October 02, 2018 Admission HPI Per Admitting Provider This is a 73 year old Male with metastatic prostate cancer, calciphylaxis, chronic kidney disease stage III, atrial fibrillation, history of TIA as per discharge summary from [facility] in [place], who was hospitalized at [facility] for 4 weeks with multiple complications - he was initially admitted from wound care center due to weakness and confusion, eventually found with clostridial bacteremia and c diff colitis, acute respiratory failure requiring ventilatory support, he has a history of metastatic prostate cancer with diffuse spinal mets, history of lower extremity DVT while on Eliquis and patient had been on Lovenox Then Patient was discharged to [facility] on 09/21/18 on Lovenox and then Doppler of the LUE obtained on 09/23/18 as outpatient indicates left internal jugular and subclavian vein DVTs. Patient was then sent to Emergency room at [facility]. Emergency room doctor concerned that patient may have failed Lovenox therapy and started patient on heparin drip As per patient and patient's family (son Adonay [phone]; Hannah [phone] or [phone]) patient's left arm was actually swollen during hospitalization at [facility] in [place] but it was initially attributed to edema. Patient has had in the past hospitalizations at [facility] for lower extremity edema and poor wound healing from calciphylaxis (and actually was taken off of coumadin in the past because there was concern that coumadin may have contributed to worsening calciphylaxis) Patient is on chronic oxygen On this presentation to [facility], he denies shortness of breath, chest pain, of vomiting or headache. patient has generally been bedbound and non ambulatory. Besides the wound from ulcers due to calciphylaxis, patient also has bilateral heel ulcers that prevent him from putting pressure on the foot Family History of Father with malignancy Admission Exam Per Admitting Provider Vital Signs (Past 24 Hours): Last Vital Signs Temp 36.9 C 09/23/18 15:20 Pulse 96 H 09/23/18 17:31 Resp 24 09/23/18 17:31 BP 118/65 09/23/18 17:30 Pulse Ox 96 09/23/18 17:31 Physical Exam: General: cooperative on exam Lungs: on nasal cannula, breathing is non labored, no wheezing Heart: regular rate Abdomen: obese, soft, nontender, bowel sounds present Extremities: lower extremities in dressing, photos of calciphylaxis bilateral ulcers shown by patient's were reviewed, bilateral heel ulcers Neuro/Psych: awake and alert and oriented x 3 Principal Diagnosis Left upper extremity DVT, metastatic prostate cancer, calciphylaxis of both lower extremities, PAF, chronic anemia Discharge Exam Constitutional + ill appearing and + obese Eyes PERRL, conjunctivae normal, anicteric sclerae ENMT external ear and nose normal, oropharynx normal Neck trachea midline, no thyromegaly Respiratory + respiratory distress (Minimal) and + cough Auscultation: + diminished lung sounds, + crackles (At the bases) and + wheezes (Occasional wheezing) Cardiovascular Rate/Rhythm: + abnormal rate and + abnormal rhythm Heart Sounds: normal S1 and normal S2 Gastrointestinal (Abdomen) Inspection/Auscultation: abdomen normal to inspection and normal bowel sounds Percussion/Palpation: abdomen soft Musculoskeletal Extremities: + upper extremity abnormal to inspection (Swelling of left upper extremity-seems to be improving) and + lower extremity abnormal to inspection (Ulceration left leg, no drainage) Discharge Data Allergies Allergy/AdvReac Type Severity Reaction Status Date / Time doxycycline Allergy Unknown Unknown Verified 09/23/18 15:38 cephalexin [From Keflex] Allergy Rash Verified 07/03/18 12:25 Consultations 09/23/18 17:47 ED Decision to Admit Stat 09/23/18 18:26 Consult Case Management - Discharge Planning Routine 09/23/18 18:28 Consult Oncology Routine 09/29/18 19:08 Consult Pulmonology Routine Ordered Studies 09/23/18 21:17 US venous doppler UE LT Routine 09/24/18 21:17 US venous doppler LE BI Routine 09/28/18 17:18 CT chest wo con Routine Hospital Course (1) Acute DVT (deep venous thrombosis): LUE DVT due to recent L subclavian central venous catheter continue Lovenox antixa to be checked at 10pm 09/29/18, coordinated with Pharmacist who will make appropriate recommendations after Has been on 80 mg of Lovenox twice daily-we will continue that for now Continue Lovenox as an outpatient Possible Health Care Associated Pneumonia Chronic respiratory failure with hypoxia -admission CXR: Multifocal osteoblastic metastatic disease is again noted. No pneumothorax. Small left pleural effusion and left basilar densities have sligh tly progressed. Progressive interstitial and vascular thickening consistent with mild pulmonary edema. The heart is mildly enlarged. -CT chest ordered 09/28/18 Appreciate grocery clerk checking input and recommendation Zosyn, Prednisone started, Nebs continued Sputum culture growing strep pneumoniae-sensitivity pending Continue current management Antibiotic for 5 days in total We will change antibiotic to oral Levaquin and continue for next 3-4 days Metastatic Prostate Cancer to bones -Discussed with oncology and no further treatment for CA prostate at this time Appreciate oncology's input and recommendation We will discuss with the son for possible changing" status No further treatment for prostate cancer right now Prognosis is poor Anemia Likely secondary to marrow infiltration from prostate cancer stable Will monitor CBC-hemoglobin stable at 9.7 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 present on admission Pressure ulcer of sacral/coccyx region, stage 2, POA Pressure ulcers bilateral heels, unstageable, POA -wound care every shift, wound care nursing Paroxysmal atrial Fibrillation -anticoagulation as above -continue home dose metoprolol 25 mg q12h, amiodarine 200 mg daily - HR stable History of edema of lower extremities and anasarca -His albumin has been low at 1.6 -Advised nutritional support to improve albumin -No significant liver disease to quantify low albumin chronic kidney disease stage III -monitor renal function while on Lasix History of Clostridial bacteremia and c diff colitis -appears to have completed treatments as per review of available [facility] notes - no diarrhea history of TIA as per discharge summary from [facility] in [place] -no gross focal deficits Chronic use of narcotics for pain control -continue home dose oxycodone and continue bowel regimen discussed with patient and his daily the plan of care they are understanding and agreeable with plan of care Discussed with son before transferring the patient to [facility] today or tomorrow Total Time Total Time Spent Total Time Spent (In Minutes): 35 Minutes Total Time Includes: Examination of the Patient, Discharge Planning, Medication Reconciliation and Communication With Other Providers Discharge Plan Discharge Items Patient Disposition: Transfer [facility] Reason For Visit: LEFT UPPER EXTREMITY DVT Discharge Diagnosis: Left upper extremity DVT, metastatic prostate cancer, calciphylaxis of both lower extremities, PAF, chronic anemia Condition: Fair Discharge Goals: Decrease discomfort, Improve function and Increase independence Activity: Resume your previous activity Non-emergency contact: Primary Care Provider Call non-emergency contact if: you have any medication questions and your symptoms worsen Follow-up/Referrals: Damion Taylor [Primary Care Provider] - (Please make an appointment with your primary care physician in 1 week) Diet: Heart Healthy and Low Sodium (2gm) Diet Comment: Minced and moist Addtl Provider Instructions: Continue physical therapy. Please take precaution to avoid falls. Use incentive spirometer Prescriptions: New prednisone 20 mg Tablet 20 mg PO UD Qty: 9 RF: 0 oseltamivir [Tamiflu] 75 mg Capsule 75 mg PO DAILY 3 Days Qty: 3 RF: 0 levofloxacin 750 mg Tablet 750 mg PO DAILY@1100 3 Days Qty: 3 RF: 0 oxycodone 5 mg Tablet 10 mg PO Q4H PRN (Reason: pain) 3 Days Qty: 10 RF: 0 enoxaparin [Lovenox] 80 mg/0.8 mL Syringe 80 mg subcut BID@0600,1800 10 Days Qty: 20 RF: 0 oxycodone [OxyContin] 20 mg Tablet,Oral Only,Ext.Rel.12 Hr 20 mg PO Q12 3 Days Qty: 6 RF: 0 Lactinex 1 million cell tablet,chewable 1 tab PO BID Qty: 20 RF: 0 Continued calcium carbonate-vitamin D3 [Calcium 500 + D] 500 mg(1,250mg) -200 unit Tablet 2 tab PO BID RF: 0 sennosides-docusate sodium [Senna Plus] 8.6-50 mg Tablet 4 - 5 tabs PO AMHS RF: 0 acetaminophen [Acetaminophen Extra Strength] 500 mg Tablet 500 mg PO Q6H PRN (Reason: Pain) RF: 0 ondansetron 8 mg Tablet,Disintegrating 8 mg PO Q8H PRN (Reason: Nausea) RF: 0 sertraline 25 mg Tablet 75 mg PO QAM RF: 0 nystatin 100,000 unit/gram Powder 1 applic TOPICAL BID RF: 0 metoclopramide HCl 10 mg Tablet 10 mg PO ACHS RF: 0 metoprolol tartrate 25 mg Tablet 25 mg PO AMHS RF: 0 zinc sulfate 220 (50) mg Capsule 220 mg PO QAM RF: 0 oxycodone 10 mg Tablet 10 mg PO Q4H PRN (Reason: Pain) RF: 0 oxycodone [OxyContin] 20 mg Tablet,Oral Only,Ext.Rel.12 Hr 20 mg PO Q12H RF: 0 multivitamin Tablet 1 tab PO QAM RF: 0 ascorbic acid (vitamin C) [Vitamin C] 500 mg Tablet 500 mg PO AMHS RF: 0 pantoprazole 40 mg Tablet,Delayed Release (Dr/Ec) 40 mg PO QAM RF: 0 amiodarone 200 mg tablet 200 mg PO QAM RF: 0 Discontinued enoxaparin [Lovenox] 60 mg/0.6 mL Syringe 60 mg SUBCUT Q12H RF: 0 Stand-Alone Forms: [facility] Discharge Orders: Discharge Order (Routine); Ordered 10/01/18 Ordered By: Beka Gonzalez Skilled Items Patient informed of condition?: Yes DNR: No Discharge Level of Care: Skilled Communicable Disease: No Discharge Prognosis: Stable Admission Data Admit Date/Time: 09/23/18 18:24 Attending Provider: Beka Gonzalez Admit Provider: Jean Carlos Noel Primary Care Provider: Damion Taylor Other Providers: Jean Carlos Noel ; Hima Dukes ; Beka Gonzalez ; Garth Zhu ; Johnnie Hackett ; Lulu Barrett ; Joe Mathew Jessica L. ; Bernardo Madrigal ; Shahana Israel ; Salazar Velazquez ; Myrtle Almendarez ; Kelly Rosales ; Ean Montaño ; Meño Mcfarland ; Keanu Vargas ; Ketan Crawford Service: Telemetry Other Interventions: Discharge Summary Assessment (RN) Last Done: 10/01/18 16:29 DC Date/Time DO NOT enter until pt leaves facility: 10/01/18 17:45
[2018-10-02] MEDS ORDERED: levoFLOXacin 750 MG TAB PO SCH (11:00)
--- NOTE | 2018-10-07 10:38 | Coding Query ---
PRESENT ON ADMISSION QUERY To promote full compliance with coding requirements relating to pateint care, physician participation is requested in all cases of air export logistics manager uncertainty. Please assist us with the question(s) below: Please place an X within the parenthesis (x). The following diagnosis(es) listed in this patient's medical record require physician assistance to determine if they were present on admission (POA) or not. Please advise for each diagnosis whether it was present on admission, not present on admission, or if it was clinically undetermined. 1.[facility] PNEUMONIA ( ) Present On Admission (+ ) Not Present On Admission ( ) Clinically Undetermined Thank you Kati Lynn *Definition of the present on admission (POA)-Present on admission is defined as present at the time the order for inpatient admission occurs. Conditions that develop during an outpatient encounter prior to a written order for inpatient admission (including emergency department, observation, or outpatient surgery) are considered present on admission. MTDD
== END 2018-10-01 17:45 | DRG 314 ==
LOC: ED 14:55 → SUATTDRO 18:24 → 2N 18:24 → 2W 18:24 → 2N 20:00

== ENCOUNTER 2018-11-30 13:26 | Inpatient (IN) ==
--- OUTSIDE RECORDS SUMMARY | 2018-11-30 13:29 | External Medical Summary | Continuity of Care Document ---
:1945 Author Name Rajinder Vang Address Unavailable Unavailable , Care Team Providers Name Role Phone Unavailable Unavailable Unavailable Ml COOK Unavailable Unavailable Problems Active medical history not documented Allergies and Adverse Reactions Allergy history not documented Medications Medications not documented Procedures Procedures not documented Immunizations Immunizations not documented Plan of Treatment Planned Observations Planned Goals not documented Results No Known Results Results not documented
[2018-11-30] MEDS ORDERED: SODIUM CHLORIDE 0.9% 1000ML 500 ML IV ONE ×2 (13:56→15:41)
[2018-11-30] MEDS ORDERED: MoRPHine SULFATE 4 MG/ML 1 ML CARP\\VIAL IV STA (13:56)
[2018-11-30 14:21] LABS: Basophils # (auto) 0.02 K/uL (0-0.2); Basophils % (auto) 0.1 %; Hematocrit (blood only) 28.8 % (42-52); Hemoglobin 8.7 g/dL (14.0-18.0); Immature Granulocytes % (auto) 2.8 %; Lymphocytes # (auto) 3.32 K/uL (1.2-3.4); Lymphocytes % (auto) 18.7 %; Mean Corpuscular Hgb Conc 30.2 g/dL (32-36); Mean Corpuscular Volume 82.8 fL (80-100); Mean Platelet Volume 8.1 fL (7.4-10.4); Monocytes # (auto) 1.94 K/uL (0.11-0.59); Monocytes % (auto) 10.9 %; Neutrophils # (auto) 12.01 K/uL (1.4-6.5); Neutrophils % (auto) 67.5 %; Platelet Count 320 K/uL (130-400); RDW Coefficient of Variation 17.7 % (11.5-14.5); RDW Standard Deviation 53.9 fL (36.4-46.3); Red Blood Count 3.48 M/uL (4.7-6.1); White Blood Count 17.79 K/uL (4.8-10.8)
--- NOTE | 2018-11-30 14:28 | XRay Report ---
XR chest 1V portable CLINICAL HISTORY: 73 years-old Male presenting with AMS. TECHNIQUE: Portable upright AP view of the chest was obtained. COMPARISON: 09/27/2018. FINDINGS: Atherosclerosis of the aortic arch. Cardiac silhouette enlarged. Mild pelvic vascular prominence. Dec reased aeration of the lower lobes with mid to basilar predominant reticular opacities, which may in part represent prominent vascularity. Trace bilateral pleural effusions may be present. No pneumothor ax. Degenerative changes of the thoracic spine. Upper abdomen normal. IMPRESSION: 1. Extensive bibasilar atelectasis with trace bilateral pleural effusions. 2. Cardiomegaly with volume overload and congestive change. No [place] pulmonary edema. Electronically signed by: Brice Cuellar M.D. 11/30/2018 2:26 PM
[2018-11-30 14:35] LABS: INR 1.1 (0.9-1.1); Prothrombin Time 11.3 Seconds (9.0-12.0)
--- NOTE | 2018-11-30 14:37 | Emergency Department Note ---
History of Present Illness General Chief complaint: Back Injury/Pain Stated complaint: back pain Time Seen by Provider: 11/30/18 13:35 History of Present Illness Maximum Pain Intensity: 8 This patient is a 73-year-old male who presents the emergency department via ALS from [facility] for evaluation of altered mental status for the last 24 hours. The patient has a history of multiple medical problems including C. difficile colitis, A. fib, DVT. The patient's reports that he was confused yesterday. He was reportedly normal 3 days ago. The patient is currently complaining of back discomfort. This is not new. 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 He has been receiving oxycodone with moderate pain relief. He denies any fever or chills. No cough. He denies any nausea or abdominal pain. He reports the diarrhea has gotten better. The p atient is concerned because he is supposed to be discharged home from [facility] this Friday, 2 days from now. Home Medications Home Medications Medication Instructions Recorded Confirmed Type ascorbic acid (vitamin C) [Vitamin 500 mg PO AMHS 03/29/18 11/30/18 History C] multivitamin 1 tab PO QDL 03/29/18 11/30/18 History pantoprazole 40 mg PO QAM 03/29/18 11/30/18 History amiodarone 200 mg PO QAM 07/02/18 11/30/18 History calcium carbonate-vitamin D3 2 tab PO BID 07/03/18 11/30/18 History [Calcium 500 + D] acetaminophen [Acetaminophen Extra 500 mg PO Q6H PRN 09/23/18 11/30/18 History Strength] metoprolol tartrate 25 mg PO AMHS 09/23/18 11/30/18 History nystatin 1 applic TOPICAL BID 09/23/18 11/30/18 History ondansetron 8 mg PO Q8H PRN 09/23/18 11/30/18 History oxycodone 10 mg PO Q4H PRN 09/23/18 11/30/18 History oxycodone [OxyContin] 20 mg PO Q12H 09/23/18 11/30/18 History sertraline 75 mg PO QAM 09/23/18 11/30/18 History zinc sulfate 220 mg PO QDL 09/23/18 11/30/18 History Lactobacillus acidoph-L.bulgar 1 tab PO BIDM 11/30/18 11/30/18 History [Lactinex] Saccharomyces boulardii [Florastor] 250 mg PO BIDM 11/30/18 11/30/18 History collagenase clostridium histo. 1 applic TOPICAL DAILY 11/30/18 11/30/18 History diclofenac sodium 2 g TOPICAL QID 11/30/18 11/30/18 History enoxaparin [Lovenox] 80 mg SUBCUT Q12H 11/30/18 11/30/18 History ferrous sulfate 325 mg PO BID 11/30/18 11/30/18 History fluticasone propionate [Flonase 1 spray INTRANASAL QAM 11/30/18 11/30/18 History Allergy Relief] lanolin-mineral oil [Thera-Derm] 1 applic TOPICAL TID 11/30/18 11/30/18 History vancomycin 125 mg PO QID 11/30/18 11/30/18 History Allergies Allergy/AdvReac Type Severity Reaction Status Date / Time doxycycline Allergy Unknown Unknown Verified 11/30/18 14:38 cephalexin [From Keflex] Allergy Rash Verified 11/30/18 14:38 Past Med/Surg History Medical History Mood disorder (Chronic) Prostate cancer metastatic to bone (Chronic) ~2013 Anxiety (Chronic) Depression (Chronic) Umbilical hernia (Chronic) Dyslipidemia (Chronic) On anticoagulant therapy (Chronic) Chronic steroid use (Chronic) TAKING STEROIDS DAILY FOR LOWER LEG SORES CURRENTLY. Atrial fibrillation (Chronic) Chronic pain (Chronic) HTN (hypertension) (Chronic) Obesity (BMI 30-39.9) (Chronic) GERD (gastroesophageal reflux disease) (Chronic) Surgical History History of tonsillectomy and adenoidectomy (Resolved) H/O radical prostatectomy (Resolved) ~2000 History of cholecystectomy (Resolved) History of back surgery (Resolved) L4-L5 History of repair of rotator cuff (Resolved) LEFT SHOULDER Family History Mother Hypertension Father Lymphoma Social History Preferred Language: Kiswahili Communication Ability: Effective Beliefs That Will Affect Care: None marital status: Current Living Situation: Spouse current occupational status: retired Feels Safe at Home: Yes Smoking Status: Never smoker Tobacco Type: cigarettes Second Hand Exposure: No Hx Alcohol Use: No Hx Substance Use: No Review of Systems A total of 10 systems reviewed and were otherwise negative Physical Exam Vital Signs Vital Signs - 24 hr 11/30/18 13:33 11/30/18 16:13 Temperature 36.4 C L Temperature Source Oral Sepsis Recent Fever Within 48 Hours No Sepsis New/Unexplained Change in Mental Status No Sepsis Action Taken by Nursing No Action Required Pulse Rate 93 H Pulse Rate [Apical] 87 Pulse Rhythm [Apical] Regular Pulse Strength [Apical] Normal Respiratory Rate 18 20 Respiratory Effort / Characteristics Non-Labored Non-Labored Spontaneous Respiratory Depth Normal Normal Respiratory Pattern Regular Blood Pressure 135/66 Blood Pressure [Left Arm] 119/61 Blood Pressure Mean 89 Blood Pressure Mean [Left Arm] 80 Pulse Oximetry 96 93 Oxygen Delivery Method Room Air Constitutional WD/WN, vitals as above Eyes EOM intact bilaterally ENMT Oral mucosa dry Neck trachea midline Respiratory normal respiratory effort, lungs clear to auscultation Cardiovascular RRR, no murmur, no edema Gastrointestinal (Abdomen) normal bowel sounds, soft, nontender, no hepatosplenomegaly Skin Multiple chronic ulcers noted to the lower extremities and feet bilaterally. Mild surrounding erythema noted. Foul odor noted. No purulent drainage noted. Neurologic Alert and oriented x3. No focal motor deficits. The patient is repetitive. Psychiatric Acting appropriately Course Patient was seen and examined Vital signs including blood pressure were reviewed medications list was verified with patient Labs were obtained, and a saline lock was established The patient was ordered morphine 4 mg IV and 500 cc normal saline bolus Imaging was performed and reviewed Upon reassessment, the patient was still complaining of pain. He was ordered fe ntanyl 75 mcg IV. I reviewed the work-up with the patient and the patient's significant other. They voiced understanding. The case was also discussed with my supervising physician who is in agreement with my plan. The patient was again complaining of discomfort. He was given Tylenol 650 mg p.o. [facility] evaluate the patient for possible inpatient management. Consultations [facility] Administered Medications Ascorbic Acid (Vitamin C) 500 mg PO [facility] Stop: 12/30/18 20:59 Last Admin: 11/30/18 21:13 Dose: 500 mg Documented by: [id number] Collagenase (Santyl) 1 appln TOP DAILY [facility] Stop: 12/31/18 08:59 Last Admin: 11/30/18 21:16 Dose: 1 appln Documented by: [id number] Diclofenac Sodium (Voltaren 1% Top) 1 appln EXT QID [facility] Stop: 12/30/18 20:59 Last Admin: 11/30/18 21:15 Dose: 1 appln Documented by: [id number] Enoxaparin Sodium (Lovenox) 80 mg SQ [facility] Stop: 12/30/18 19:59 Last Admin: 11/30/18 21:14 Dose: 80 mg Documented by: [id number] Ferrous Sulfate (Feosol) 325 mg PO BID [facility] Stop: 12/30/18 20:59 Last Admin: 11/30/18 21:12 Dose: 325 mg Documented by: [id number] Piperacillin Sod/Tazobactam (Sod 3.375 gm/ Dextrose) 115 mls @ 28.75 mls/hr IV Q8H [facility]; Protocol Stop: 12/02/18 17:59 Last Admin: 11/30/18 22:18 Dose: 28.8 mls/hr Documented by: [id number] Metoprolol Tartrate (Lopressor) 25 mg PO [facility] Stop: 12/30/18 20:59 Last Admin: 11/30/18 21:10 Dose: 25 mg Documented by: [id number] Nystatin (Mycostatin) 1 appln EXT BID [facility] Stop: 12/30/18 20:59 Last Admin: 11/30/18 21:14 Dose: 1 appln Documented by: [id number] Oxycodone HCl (Roxicodone Immediate Rel) 10 mg PO Q4H PRN PRN Reason: Pain Stop: 12/14/18 19:45 Last Admin: 11/30/18 21:09 Dose: 10 mg Documented by: [id number] Oxycodone HCl (Oxycontin) 20 mg PO [facility] Stop: 12/14/18 19:59 Last Admin: 11/30/18 21:09 Dose: 20 mg Documented by: [id number] Raspberry (Raspberry) 5 ml PO QID [facility] Stop: 12/10/18 20:59 Last Admin: 11/30/18 21:14 Dose: 5 ml Documented by: [id number] Vancomycin HCl (Vancomycin Hcl) 125 mg PO QID [facility] Stop: 12/10/18 20:59 Last Admin: 11/30/18 21:14 Dose: 125 mg Documented by: [id number] Discontinued Medications Acetaminophen (Tylenol) 650 mg PO NOW STA Stop: 11/30/18 17:47 Last Admin: 11/30/18 17:53 Dose: 650 mg Documented by: [id number] Fentanyl Citrate (Fentanyl Citrate) 75 mcg IV NOW ONE Stop: 11/30/18 16:31 Last Admin: 11/30/18 17:02 Dose: 75 mcg Documented by: [id number] Sodium Chloride (Nss 1000ml) 500 mls @ 999 mls/hr IV .Q31M ONE Stop: 11/30/18 14:26 Last Infusion: 11/30/18 15:36 Dose: 0 mls/hr Documented by: [id number] Admin: 11/30/18 14:50 Dose: 999 mls/hr Documented by: [id number] Sodium Chloride (Nss 1000ml) 500 mls @ 999 mls/hr IV .Q31M ONE Stop: 11/30/18 16:11 Last Infusion: 11/30/18 17:24 Dose: 0 mls/hr Documented by: [id number] Admin: 11/30/18 15:50 Dose: 999 mls/hr Documented by: [id number] Piperacillin Sod/Tazobactam Sod (Zosyn) 3.375 gm in 115 mls @ 230 mls/hr IV NOW STA Stop: 11/30/18 17:15 Last Infusion: 11/30/18 19:54 Dose: 0 mls/hr Documented by: [id number] Infusion: 11/30/18 19:45 Dose: 230 mls/hr Documented by: [id number] Infusion: 11/30/18 18:15 Dose: 0 mls/hr Documented by: [id number] Admin: 11/30/18 17:53 Dose: 230 mls/hr Documented by: [id number] Ceftriaxone Sodium (Rocephin) 1,000 mg in 50 mls @ 100 mls/hr IV NOW STA Stop: 11/30/18 17:13 Last Infusion: 11/30/18 17:45 Dose: 0 mls/hr Documented by: [id number] Admin: 11/30/18 17:03 Dose: 100 mls/hr Documented by: [id number] Ioversol (Optiray 320 100ml) 92 ml IV ONCE PRN PRN Reason: Interaction Checking Stop: 12/04/18 18:04 Last Admin: 11/30/18 18:06 Dose: 92 ml Documented by: [id number] Morphine Sulfate (Morphine Sulfate) 4 mg IV NOW STA Stop: 11/30/18 13:57 Last Admin: 11/30/18 14:50 Dose: 4 mg Documented by: [id number] Medical Decision Making Medical Records Attestation: I reviewed the patient's medical records. Home Medications Current Medication List: was personally reviewed by me Laboratory Data Attestation: I reviewed the patient's lab results. Result diagrams: 11/30/18 14:05 11/30/18 14:05 Lab Results 11/30/18 11/30/18 11/30/18 Range/Units 14:05 14:05 14:05 WBC 17.79 H (4.8-10.8) K/uL RBC 3.48 L (4.7-6.1) M/uL Hgb 8.7 L (14.0-18.0) g/dL Hct 28.8 L (42-52) % MCV 82.8 (80-100) fL MCH 25.0 (25-34) pg MCHC 30.2 L (32-36) g/dL RDW Std Deviation 53.9 H (36.4-46.3) fL RDW Coeff of Adriana 17.7 H (11.5-14.5) % Plt Count 320 (130-400) K/uL MPV 8.1 (7.4-10.4) fL Immature Gran % (Auto) 2.8 % Neut % (Auto) 67.5 % Lymph % (Auto) 18.7 % [place] % (Auto) 10.9 % Eos % (Auto) 0.0 % Baso % (Auto) 0.1 % Immature Gran # (Auto) 0.50 H (0.00-0.02) K/uL Neut # (Auto) 12.01 H (1.4-6.5) K/uL Lymph # (Auto) 3.32 (1.2-3.4) K/uL [place] # (Auto) 1.94 H (0.11-0.59) K/uL Eos # (Auto) 0.00 (0-0.5) K/uL Baso # (Auto) 0.02 (0-0.2) K/uL PT 11.3 (9.0-12.0) Seconds INR 1.1 (0.9-1.1) Sodium Cancelled Potassium Cancelled Chloride Cancelled Carbon Dioxide Cancelled Anion Gap Cancelled BUN Cancelled Creatinine Cancelled Est Cr Clr Drug Dosing Cancelled Est GFR ( Amer) Cancelled Est GFR (Non-Af Amer) Cancelled BUN/Creatinine Ratio Cancelled Glucose Cancelled Lactate (0.4-2.0) mmol/L Calcium Cancelled Phosphorus (2.5-4.9) mg/dl Magnesium Cancelled Total Bilirubin Cancelled AST Cancelled ALT Cancelled Alkaline Phosphatase Cancelled Ammonia (11-32) umol/L Total Protein Cancelled Albumin Cancelled Globulin Cancelled Albumin/Globulin Ratio Cancelled Urine Color Urine Appearance (Clear) Urine pH (4.5-7.5) Ur Specific [place] (1.000-1.030) Urine Protein (Negative) Urine Glucose (UA) (Negative) Urine Ketones (Negative) Urine Blood (Negative) Urine Nitrite (Negative) Urine Bilirubin (Negative) Urine Urobilinogen (Negative) Ur Leukocyte Esterase (Negative) 11/30/18 11/30/18 11/30/18 Range/Units 14:05 14:05 14:05 WBC (4.8-10.8) K/uL RBC (4.7-6.1) M/uL Hgb (14.0-18.0) g/dL Hct (42-52) % MCV (80-100) fL MCH (25-34) pg MCHC (32-36) g/dL RDW Std Deviation (36.4-46.3) fL RDW Coeff of Adriana (11.5-14.5) % Plt Count (130-400) K/uL MPV (7.4-10.4) fL Immature Gran % (Auto) % Neut % (Auto) % Lymph % (Auto) % [place] % (Auto) % Eos % (Auto) % Baso % (Auto) % Immature Gran # (Auto) (0.00-0.02) K/uL Neut # (Auto) (1.4-6.5) K/uL Lymph # (Auto) (1.2-3.4) K/uL [place] # (Auto) (0.11-0.59) K/uL Eos # (Auto) (0-0.5) K/uL Baso # (Auto) (0-0.2) K/uL PT (9.0-12.0) Seconds INR (0.9-1.1) Sodium 130 L Potassium 3.8 Chloride 97 L Carbon Dioxide 24 Anion Gap 10.0 BUN 15 Creatinine 0.63 Est Cr Clr Drug Dosing 112.9 Est GFR ( Amer) 114.9 Est GFR (Non-Af Amer) 99.1 BUN/Creatinine Ratio 24.6 H Glucose 103 H Lactate 1.5 (0.4-2.0) mmol/L Calcium 8.2 L Phosphorus 3.5 (2.5-4.9) mg/dl Magnesium 1.7 L Total Bilirubin 0.3 AST 13 L ALT 10 L Alkaline Phosphatase 77 Ammonia 23.1 (11-32) umol/L Total Protein 5.6 L Albumin 1.8 L Globulin 3.8 Albumin/Globulin Ratio 0.5 L Urine Color Urine Appearance (Clear) Urine pH (4.5-7.5) Ur Specific [place] (1.000-1.030) Urine Protein (Negative) Urine Glucose (UA) (Negative) Urine Ketones (Negative) Urine Blood (Negative) Urine Nitrite (Negative) Urine Bilirubin (Negative) Urine Urobilinogen (Negative) Ur Leukocyte Esterase (Negative) 11/30/18 Range/Units 17:11 WBC (4.8-10.8) K/uL RBC (4.7-6.1) M/uL Hgb (14.0-18.0) g/dL Hct (42-52) % MCV (80-100) fL MCH (25-34) pg MCHC (32-36) g/dL RDW Std Deviation (36.4-46.3) fL RDW Coeff of Adriana (11.5-14.5) % Plt Count (130-400) K/uL MPV (7.4-10.4) fL Immature Gran % (Auto) % Neut % (Auto) % Lymph % (Auto) % [place] % (Auto) % Eos % (Auto) % Baso % (Auto) % Immature Gran # (Auto) (0.00-0.02) K/uL Neut # (Auto) (1.4-6.5) K/uL Lymph # (Auto) (1.2-3.4) K/uL [place] # (Auto) (0.11-0.59) K/uL Eos # (Auto) (0-0.5) K/uL Baso # (Auto) (0-0.2) K/uL PT (9.0-12.0) Seconds INR (0.9-1.1) Sodium Potassium Chloride Carbon Dioxide Anion Gap BUN Creatinine Est Cr Clr Drug Dosing Est GFR ( Amer) Est GFR (Non-Af Amer) BUN/Creatinine Ratio Glucose Lactate (0.4-2.0) mmol/L Calcium Phosphorus (2.5-4.9) mg/dl Magnesium Total Bilirubin AST ALT Alkaline Phosphatase Ammonia (11-32) umol/L Total Protein Albumin Globulin Albumin/Globulin Ratio Urine Color Dark Yellow Urine Appearance Clear (Clear) Urine pH 5.5 (4.5-7.5) Ur Specific [place] 1.022 (1.000-1.030) Urine Protein Negative (Negative) Urine Glucose (UA) Negative (Negative) Urine Ketones Negative (Negative) Urine Blood Negative (Negative) Urine Nitrite Negative (Negative) Urine Bilirubin Negative (Negative) Urine Urobilinogen Negative (Negative) Ur Leukocyte Esterase Negative (Negative) Imaging Data Attestation: I personally reviewed and interpreted this imaging study as follows: Radiologist's Impression: CXR IMPRESSION: 1. Extensive bibasilar atelectasis with trace bilateral pleural effusions. 2. Cardiomegaly with volume overload and congestive change. No cornell pulmonary edema. Electronically signed by: Brice Cuellar M.D. 11/30/2018 2:26 PM Dictated: 11/30/[address] lumbar spine IMPRESSION: 1. No acute fracture or subluxation within the lumbar spine. 2. 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 3. Multilevel degenerative changes as described above. Electronically signed by: Griffin Romero M.D. 11/30/2018 4:06 PM Dictated: 11/30/18 1603 Transcribed: 11/30/18 1603 Transcribed: 11/30/[address] head without contrast IMPRESSION: No acute intracranial abnormality. The above report was generated using voice recognition software. It may contain grammatical, syntax or spelling errors. Electronically signed by: Ever Aguilar M.D. 11/30/2018 3:06 PM Dictated: 11/30/18 1500 Transcribed: 11/30/18 1500 Blood Pressure Blood Pressure Findings: Normal blood pressure MDM Narrative Differential diagnosis: Infectious etiology, metabolic abnormality, intracranial abnormality such as metastatic disease, dehydration, among others This patient is a 73-year-old male presents to the emergency department with altered mental status. On exam, although he was alert and oriented x3. He was repetitive and asking the same questions. otherwise, he seems neurologically intact. He was only complaining of back pain. He does have significant ulcerations to the legs with mild erythema. His labs reveal significant leukocytosis. Urinalysis was clear. Chest x-ray, head CT and lumbar spine are fairly unremarkable. The patient has chronic mets to the lumbar spine, which is likely causing his pain. The etiology of the altered mental status and WBC is unclear. He is currently being treated for C. difficile. A CT of the abdomen and pelvis with IV contrast is pending at this point. Given the metabolic encephalopathy in the setting of possible infection, I do not feel comfortable discharging the patient. [facility] for possible inpatient management. Impression & Plan Altered mental status Discharge Plan Visit Data *Final* Discharge Date/Time: 11/30/18 19:30 Chief Complaint: Back Injury/Pain Stated Complaint: back pain ED Provider: Alexey Restrepo ED Midlevel Provider: Karis Merritt Discharge Problem: Altered mental status Patient Disposition: Admitted As Inpatient Discharge Instructions Interventions: ED Discharge Assessment Last Done: 11/30/18 19:30
[2018-11-30 14:39] LABS: Albumin Level 1.8 gm/dl (3.4-5.0); BUN Creatinine Ratio 24.6 (10-20); Calcium 8.2 mg/dl (8.5-10.1); Creatinine Clr Calc Pharmacy 112.9 ml/min; Est GFR (African American) 114.9; Est GFR (Non-African American) 99.1; Magnesium 1.7 mg/dl (1.8-2.4); Phosphorus 3.5 mg/dl (2.5-4.9); Potassium 3.8 mmol/L (3.5-5.1)
[2018-11-30 14:41] LABS: Albumin Globulin Ratio 0.5 (0.9-2); Bilirubin,Total 0.3 mg/dl (0.2-1); Globulin 3.8 gm/dl (2.5-4.0); Total Protein 5.6 gm/dl (6.4-8.2)
--- NOTE | 2018-11-30 15:08 | CT Scan Report ---
CT head/brain wo con CLINICAL HISTORY: 73 years-old Male with altered mental status. Acutely altered mental status TECHNIQUE: Multiple axial CT images of the head were obtained without contrast. A dose lowering tech nique was utilized adhering to the principles of ALARA. CT DOSE: 1193.28 mGy.cm COMPARISON: None. FINDINGS: No acute intracranial hemorrhage, midline shift, intracranial mass, hydrocephalus, territorial ischem ia or abnormal extra-axial collection. Age-related involutional changes with ex vacuo ventriculomegal y. Minimal ill-defined hypodensities about the white matter are suggestive of chronic microvascular i schemic disease. Cerebral vascular calcifications are noted. The calvarium is intact. The paranasal sinuses, mastoid air cells, and middle ear cavities are clear . IMPRESSION: No acute intracranial abnormality. The above report was generated using voice recognition software. It may contain grammatical, syntax o r spelling errors. Electronically signed by: Ever Aguilar M.D. 11/30/2018 3:06 PM
--- NOTE | 2018-11-30 16:08 | CT Scan Report ---
LUMBAR SPINE CT CT DOSE: HISTORY: back pain hx prostate CA TECHNIQUE: Multiaxial CT images of the lumbar spine were performed and reformatted in the sagittal an d coronal plane without the use of contrast. A dose lowering technique was utilized adhering to the principles of ALARA. COMPARISON: Lumbar spine MRI 12/29/2014. FINDINGS: Multifocal osteoblastic metastatic disease is again noted throughout the lumbar spine and s acrum. This has progressed compared to the 2014 examination. There is moderate to severe disc space n arrowing throughout the lumbar spine. No fracture or subluxation. Moderate thickening of the distal s igmoid colon. There is associated mild pericolonic fat stranding. Mild to moderate central canal narr owing at L2-L3, L3-L4, L4-L5. There is also moderate to space narrowing at L4-L5 and L5-S1. Mild dext roscoliosis of the lumbar spine. IMPRESSION: 1. No acute fracture or subluxation within the lumbar spine. 2. 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 3. Multilevel degenerative changes as described above. Electronically signed by: Griffin Romero M.D. 11/30/2018 4:06 PM
[2018-11-30] MEDS ORDERED: fentaNYL citrate 100 MCG/2 ML VIAL IV ONE (16:30)
[2018-11-30] MEDS ORDERED: cefTRIAXone SODIUM 1,000 MG/50 ML BAG IV STA (16:44)
[2018-11-30] MEDS ORDERED: PIPERACILL/TAZOBAC CONSULT ACTIVE PRN (16:46)
[2018-11-30] MEDS ORDERED: PIPERACILLIN/TAZOBACTAM 3.375 GM/115 ML BAG IV STA (16:46)
[2018-11-30 17:26] LABS: Appearance Urine Clear (Clear); Bilirubin Urine Negative (Negative); Blood Urine Negative (Negative); Color Urine Dark Yellow; Glucose Urine UA Negative (Negative); Ketones Urine Negative (Negative); Leukocyte Esterase Urine Negative (Negative); Nitrite Urine Negative (Negative); Protein Urine Negative (Negative); Specific Gravity Urine 1.022 (1.000-1.030); Urobilinogen Urine Negative (Negative); pH Urine 5.5 (4.5-7.5)
[2018-11-30] MEDS ORDERED: ACETAMINOPHEN 325 MG TAB PO STA (17:46)
[2018-11-30] MEDS ORDERED: IOVERSOL 100ml IV PRN (18:05)
--- NOTE | 2018-11-30 18:52 | CT Scan Report ---
CT SCAN OF THE ABDOMEN AND PELVIS WITH IV CONTRAST CLINICAL HISTORY: Generalized abdominal pain. Back pain. Leukocytosis. COMPARISON STUDY: Pelvic CT dated 02/15/2008. TECHNIQUE: Following the IV administration of 92 cc of Optiray 320, CT scan of the abdomen and pelvi s is performed from the lung bases to the proximal femora. Images are reviewed in the axial, sagittal , and coronal planes. IV contrast was administered without complication. A dose lowering technique wa s utilized adhering to the principles of ALARA. CT DOSE: 632.61 mGy.cm FINDINGS: Lung bases: The heart is enlarged and without pericardial effusion. There are small pleural effusions with bibasilar atelectasis. Intralobular septal thickening is suggested at the lung bases. There is a tiny hiatal hernia. Liver: The contrast-enhanced liver is enlarged, measuring 20.9 cm in length. The liver demonstrates d iffusely diminished attenuation consistent with hepatic steatosis. There is no intrahepatic biliary d uctal dilatation. The hepatic veins and portal veins are patent. Gallbladder: Unremarkable. Spleen: Normal in size and attenuation. Pancreas: There is moderate fatty atrophy of the pancreas. No acute pancreatic abnormality is identif ied. Adrenal glands: There is mild nodularity of the adrenal glands. Kidneys: The contrast enhanced kidneys demonstrate cortical atrophy and are without hydronephrosis. T he kidneys enhance symmetrically. A 2.4 cm exophytic cyst arises from the right upper pole. A 1.4 cm cyst is noted in the interpolar left kidney. Abdominal vasculature: The abdominal aorta is normal in course and caliber noting advanced atheroscle rotic calcification. Bowel: There is a long segment of thick-walled colon with edema and mucosal hyperemia. This is greate st involving the descending colon and rectosigmoid, and is consistent with a nonspecific colitis. The re is associated pericolonic inflammation, as well as presacral induration. There are scattered colon ic diverticula without CT evidence of acute diverticulitis. No bowel obstruction is seen. The appendi x is well-visualized and normal. Peritoneum: There is no intraperitoneal free air or abdominal ascites. There are foci of subcutaneous gas within the ventral abdominal wall, likely related to intradermal injections. Lymphadenopathy: None. Pelvic viscera: The prostate gland is surgically absent. The bladder wall appears thickened and trabe culated suggesting chronic outlet obstruction. Skeletal structures: The skeletal structures are osteopenic. Findings consistent with multifocal oste oblastic metastatic disease. Moderate lumbosacral spondylosis is observed. IMPRESSION: 1. Findings are consistent with a nonspecific colitis of the left colon. This likely on an infectious or inflammatory basis and clinical correlation will be required. 2. Findings are consistent with multifocal osteoblastic metastatic disease. 3. The heart is enlarged and there are small bilateral pleural effusions. Additionally, intralobular septal thickening is noted at the lung bases. Correlate clinically for evidence of congestive failure . 4. Hepatomegaly and hepatic steatosis. 5. Status post prostatectomy. 6. Additional findings as above. Electronically signed by: Joe Omalley M.D. 11/30/2018 6:51 PM
--- NOTE | 2018-11-30 19:08 | History & Physical Report ---
Date of Service November 30, 2018 Assessment & Plan (1) Leukocytosis: This is a 73yo M with a PMH of prostate cancer with mets to bone, h/o non- healing BLE wounds thought to be calciphylaxis, HTN, paroxysmal A Fib, CKD III, RUE DVT on SQ Lovenox and other medical problems listed below who presents from [facility] for concern for infection. -Leukocytosis of 17k, lactate normal, non-toxic appearance -Known cancer, known C. diff infection -Follow blood cultures, added Zosyn for broad spectrum coverage -No evidence of infection on CXR, CT abd/pelvis or UA -Need to clarify goals of care. 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 Continue amiodarone (6) Anxiety: (7) Depression: Continue SSRI (8) Chronic pain: Continue Oxycodone (9) HTN (hypertension): Normotensive -Continue Lopressor with hold parameters (10) DVT (deep venous thrombosis): RUE DVT -Continue Lovenox SQ 80mg BID DVT Ppx: SQ Lovenox BID Code status: FULL Dispo: Admitted to med surg. Plan to return home once medically stable. Patient seen in collaboration with Dr. Noel. Please see addendum. History of Present Illness Chief Complaint: concern for infection Primary Care Provider: [facility] [place] This is a 73yo M with a PMH of prostate cancer with mets to bone, h/o non- healing BLE wounds thought to be calciphylaxis, HTN, paroxysmal A Fib, CKD III, RUE DVT on SQ Lovenox and other medical problems listed below who presents from [facility] for concern for infection. Patient noted by custodial staff to seem confused and less engaged over the past few days. Continues to have chronic bone pain from metastatic prostate cancer as well as chronic wounds. Found to have recurrent C. difficile last week and has been on oral Vanco. Continues to have loose stool but denies fever, chills, abdominal pain, nausea or vomiting. Has been eating a normal amount. Patient's primary concern is to improve comfort with chronic wounds. and coordinator of rehabilitation services at bedside, seem to be interested in clarification of goals of care. Agreeable to palliative care consult. Vital signs stable. Leukocytosis of 17 K. Lactate normal, nontoxic in appearance. Chest x-ray with bibasilar atelectasis and cardiomegaly but no overt volume overload. CT head negative for acute abnormalities. Lumbar spine x-ray with osteoblastic disease throughout spine, which is known. CT abdomen pelvis with nonspecific colitis of the left colon and multifocal osteoblastic metastatic disease. Denies headache, lightheadedness, visual changes, cough, chest pain, shortness of breath, abdominal pain, nausea, vomiting, dysuria or constipation. Allergies Allergy/AdvReac Type Severity Reaction Status Date / Time doxycycline Allergy Unknown Unknown Verified 11/30/18 14:38 cephalexin [From Keflex] Allergy Rash Verified 11/30/18 14:38 Home Medications Home Medications Medication Instructions Recorded Confirmed Type ascorbic acid (vitamin C) [Vitamin 500 mg PO AMHS 03/29/18 11/30/18 History C] multivitamin 1 tab PO QDL 03/29/18 11/30/18 History pantoprazole 40 mg PO QAM 03/29/18 11/30/18 History amiodarone 200 mg PO QAM 07/02/18 11/30/18 History calcium carbonate-vitamin D3 2 tab PO BID 07/03/18 11/30/18 History [Calcium 500 + D] acetaminophen [Acetaminophen Extra 500 mg PO Q6H PRN 09/23/18 11/30/18 History Strength] metoprolol tartrate 25 mg PO AMHS 09/23/18 11/30/18 History nystatin 1 applic TOPICAL BID 09/23/18 11/30/18 History ondansetron 8 mg PO Q8H PRN 09/23/18 11/30/18 History oxycodone 10 mg PO Q4H PRN 09/23/18 11/30/18 History oxycodone [OxyContin] 20 mg PO Q12H 09/23/18 11/30/18 History sertraline 75 mg PO QAM 09/23/18 11/30/18 History zinc sulfate 220 mg PO QDL 09/23/18 11/30/18 History Lactobacillus acidoph-L.bulgar 1 tab PO BIDM 11/30/18 11/30/18 History [Lactinex] Saccharomyces boulardii [Florastor] 250 mg PO BIDM 11/30/18 11/30/18 History collagenase clostridium histo. 1 applic TOPICAL DAILY 11/30/18 11/30/18 History diclofenac sodium 2 g TOPICAL QID 11/30/18 11/30/18 History enoxaparin [Lovenox] 80 mg SUBCUT Q12H 11/30/18 11/30/18 History ferrous sulfate 325 mg PO BID 11/30/18 11/30/18 History fluticasone propionate [Flonase 1 spray INTRANASAL QAM 11/30/18 11/30/18 History Allergy Relief] lanolin-mineral oil [Thera-Derm] 1 applic TOPICAL TID 11/30/18 11/30/18 History vancomycin 125 mg PO QID 11/30/18 11/30/18 History Past Med/Surg History Medical History Mood disorder (Chronic) Prostate cancer metastatic to bone (Chronic) ~2013 Anxiety (Chronic) Depression (Chronic) Umbilical hernia (Chronic) Dyslipidemia (Chronic) On anticoagulant therapy (Chronic) Chronic steroid use (Chronic) TAKING STEROIDS DAILY FOR LOWER LEG SORES CURRENTLY. Atrial fibrillation (Chronic) Chronic pain (Chronic) HTN (hypertension) (Chronic) Obesity (BMI 30-39.9) (Chronic) GERD (gastroesophageal reflux disease) (Chronic) Surgical History History of tonsillectomy and adenoidectomy (Resolved) H/O radical prostatectomy (Resolved) ~2000 History of cholecystectomy (Resolved) History of back surgery (Resolved) L4-L5 History of repair of rotator cuff (Resolved) LEFT SHOULDER Family History Mother Hypertension Father Lymphoma Social History Preferred Language: Kazakh Communication Ability: Effective Beliefs That Will Affect Care: None marital status: Current Living Situation: Spouse current occupational status: retired Feels Safe at Home: Yes Smoking Status: Never smoker Tobacco Type: cigarettes Second Hand Exposure: No Hx Alcohol Use: No Hx Substance Use: No Review of Systems Review of Systems: At least ten systems reviewed and negative except as noted in the HPI. Physical Exam Physical Exam: General Appearance: WD/WN, chronically ill appearing Head: normocephalic, atraumatic Eyes: normal inspection, PERRL, EOMI ENT: hearing grossly normal, pharynx normal (moist mucous membranes) Neck: supple, no JVD, no adenopathy Respiratory/Chest: lungs clear to auscultation. No wheezes, rales or rhonci. No respiratory distress or accessory muscle use Cardiovascular: regular rate, rhythm, systolic murmur, normal peripheral pulses, 2+ BLE edema Abdomen/GI: normal bowel sounds, soft, non-tender to palpation Extremities/Musculoskelatal: No calf tenderness, normal capillary refill Neurologic/Psych: alert, normal mood/affect, oriented x 3. Poor insight Skin: normal color, warm/dry. BLE with multiple chronic ulcers with sloughing, no purulent drainage or surrounding erythema noted. Results & Data Vital Signs (Past 12 Hours) Vital Signs Temp Pulse Pulse Resp BP BP Pulse Ox 11/30/18 16:13 87 20 119/61 93 11/30/18 13:33 36.4 C L 93 H 18 135/66 96 Laboratory Results Short CBC 11/30/18 Range/Units 14:05 WBC 17.79 H (4.8-10.8) K/uL Hgb 8.7 L (14.0-18.0) g/dL Hct 28.8 L (42-52) % Plt Count 320 (130-400) K/uL BMP 11/30/18 11/30/18 14:05 14:05 Sodium Cancelled 130 L Potassium Cancelled 3.8 Chloride Cancelled 97 L Carbon Dioxide Cancelled 24 BUN Cancelled 15 Creatinine Cancelled 0.63 Glucose Cancelled 103 H Calcium Cancelled 8.2 L Liver Function 11/30/18 11/30/18 Range/Units 14:05 14:05 Total Bilirubin Cancelled 0.3 AST Cancelled 13 L ALT Cancelled 10 L Alkaline Phosphatase Cancelled 77 Albumin Cancelled 1.8 L Urine 11/30/18 Range/Units 17:11 Urine Color Dark Yellow Urine Appearance Clear (Clear) Urine pH 5.5 (4.5-7.5) Ur Specific [place] 1.022 (1.000-1.030) Urine Protein Negative (Negative) Urine Glucose (UA) Negative (Negative) Diagnostic Findings CT head: IMPRESSION: No acute intracranial abnormality. CXR: IMPRESSION: 1. Extensive bibasilar atelectasis with trace bilateral pleural effusions. 2. Cardiomegaly with volume overload and congestive change. No cornell pulmonary edema. CT abd/pelvis: IMPRESSION: 1. Findings are consistent with a nonspecific colitis of the left colon. This likely on an infectious or inflammatory basis and clinical correlation will be required. 2. Findings are consistent with multifocal osteoblastic metastatic disease. 3. The heart is enlarged and there are small bilateral pleural effusions. Additionally, intralobular septal thickening is noted at the lung bases. Correlate clinically for evidence of congestive failure. 4. Hepatomegaly and hepatic steatosis. 5. Status post prostatectomy. 6. Additional findings as above. Lumbar spine XR: IMPRESSION: 1. No acute fracture or subluxation within the lumbar spine. 2. 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 3. Multilevel degenerative changes as described above. Supervising Physician Co-Signing Physician Notes I have seen and examined the patient and agree with the assessment and plan as documented physician bacteriology research assistant Patient was sent from nursing facility for infectious workup. 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 Continues to have diarrhea symptoms. Other notable health issue is malignancy with calciphylaxis. Calciphylaxis of the legs appear to be much better compared to previous admissions. Will continue broad spectrum IV antibiotics of Zosyn as patient with malignancy and multiple hospitalizations and possibly immunocompromised with leukocytosis to treat potential infection. Await blood culture results. Continue pain management. Patient would prefer not to work with physical therapy because of leg pain with calciphylaxis. Will need wound care for calciphylaxis of the lower extremities with various stages of wound healing systemic anticoagulation for history of thromboembolism Agree with other medical plans for issues as documented by physician bacteriology research assistant
[2018-11-30] MEDS ORDERED: ACETAMINOPHEN 500 MG TAB PO PRN (19:46)
[2018-11-30] MEDS ORDERED: ONDANSETRON INJ 2 MG/ML 2 ML VIAL IV PRN (19:46)
[2018-11-30] MEDS: OXYCODONE HCL IR 5 MG TAB (IMMEDIATE RELEASE) PO PRN (21:09)
[2018-11-30] MEDS: OXYCODONE HCL 20 MG TABCR (OXYCONTIN) PO SCH (21:09)
[2018-11-30] MEDS: METOPROLOL TARTRATE 25 MG TAB PO SCH (21:10)
[2018-11-30] MEDS: FERROUS SULFATE 325 MG TAB PO SCH (21:12)
[2018-11-30] MEDS: ASCORBIC ACID 500 MG TAB PO SCH (21:13)
[2018-11-30] MEDS: RASPBERRY SYRUP 5 ML UDP PO SCH (21:14)
[2018-11-30] MEDS: ENOXAPARIN 80 MG/0.8 ML SYR SQ SCH (21:14)
[2018-11-30] MEDS: VANCOMYCIN HCL 125 MG/2.5ML SOLN PO SCH (21:14)
[2018-11-30] MEDS: NYSTATIN POWDER 15GM BTL EXT SCH (21:14)
[2018-11-30] MEDS: DICLOFENAC SOD 1% GEL 100 GM TUBE EXT SCH (21:15)
[2018-11-30] MEDS: COLLAGENASE OINT 30 GM TUBE TOP SCH (21:16)
[2018-11-30] MEDS: PIPERACILLIN/TAZOBACTAM 3.375 GM in DEXTROSE 5% 100 ML IV SCH (22:18)
[2018-12-01] MEDS: OXYCODONE HCL IR 5 MG TAB (IMMEDIATE RELEASE) PO PRN ×3 (01:43→17:48)
[2018-12-01 05:52] LABS: Hematocrit (blood only) 27.4 % (42-52); Hemoglobin 8.1 g/dL (14.0-18.0); Mean Corpuscular Hgb Conc 29.6 g/dL (32-36); Mean Corpuscular Volume 83.8 fL (80-100); Mean Platelet Volume 7.8 fL (7.4-10.4); Platelet Count 329 K/uL (130-400); RDW Coefficient of Variation 17.8 % (11.5-14.5); RDW Standard Deviation 55.4 fL (36.4-46.3); Red Blood Count 3.27 M/uL (4.7-6.1); White Blood Count 18.21 K/uL (4.8-10.8)
[2018-12-01] MEDS: PIPERACILLIN/TAZOBACTAM 3.375 GM in DEXTROSE 5% 100 ML IV SCH ×3 (06:04→22:32)
[2018-12-01 06:26] LABS: BUN Creatinine Ratio 18.6 (10-20); Calcium 7.5 mg/dl (8.5-10.1); Creatinine Clr Calc Pharmacy 122.7 ml/min; Est GFR (African American) 118.9; Est GFR (Non-African American) 102.6; Potassium 3.7 mmol/L (3.5-5.1)
[2018-12-01] MEDS: SACCHAROMYCES BOULARDII 250 MG CAP PO SCH ×2 (09:44→17:32)
[2018-12-01] MEDS: LACTOBACILLUS ACIDOPHILUS (FLORANEX) TAB PO SCH ×2 (09:44→17:31)
[2018-12-01] MEDS: AMIODARONE 200 MG TAB PO SCH (09:45)
[2018-12-01] MEDS: FERROUS SULFATE 325 MG TAB PO SCH ×2 (09:46→20:32)
[2018-12-01] MEDS: FLUTICASONE PROPIONATE NA SPR 16 GM BTL NAE SCH (09:46)
[2018-12-01] MEDS: PANTOprazole 40 MG TAB PO SCH (09:48)
[2018-12-01] MEDS: METOPROLOL TARTRATE 25 MG TAB PO SCH ×2 (09:48→20:31)
[2018-12-01] MEDS: ASCORBIC ACID 500 MG TAB PO SCH ×2 (09:49→20:33)
[2018-12-01] MEDS: DICLOFENAC SOD 1% GEL 100 GM TUBE EXT SCH ×4 (09:49→20:34)
[2018-12-01] MEDS: SERTRALINE HCL 50 MG TABLET PO SCH (09:50)
[2018-12-01] MEDS: ENOXAPARIN 80 MG/0.8 ML SYR SQ SCH ×2 (09:53→20:28)
[2018-12-01] MEDS: OXYCODONE HCL 20 MG TABCR (OXYCONTIN) PO SCH ×2 (10:30→20:29)
[2018-12-01] MEDS: RASPBERRY SYRUP 5 ML UDP PO SCH ×4 (10:33→20:30)
[2018-12-01] MEDS: NYSTATIN POWDER 15GM BTL EXT SCH ×2 (10:33→20:34)
[2018-12-01] MEDS: VANCOMYCIN HCL 125 MG/2.5ML SOLN PO SCH ×4 (10:33→20:29)
[2018-12-01] MEDS: COLLAGENASE OINT 30 GM TUBE TOP SCH (10:46)
[2018-12-01] MEDS ORDERED: NYSTATIN PO ONE (12:52)
[2018-12-01] MEDS ORDERED: [UNRECOGNIZED DRUG - OTHER] PO ONE (12:52)
[2018-12-01] MEDS ORDERED: DEXAMETHASONE PO ONE (12:52)
[2018-12-01] MEDS ORDERED: DEXAMETHASONE CONC 3.75 MG, NYSTATIN 30 ML, DiphenhydrAMINE Syrup 300 MG, ORA-SWEET SYR... PO PRN (12:52)
[2018-12-01] MEDS ORDERED: DIPHENHYDRAMINE PO ONE (12:52)
[2018-12-01] MEDS ORDERED: DEXAMETHASONE CONC 3.75 MG, NYSTATIN 30 ML, DiphenhydrAMINE Syrup 300 MG, ORA-SWEET SYR... PO ONE (13:15)
[2018-12-01] MEDS: MULTIVITAMIN TAB PO SCH (13:39)
[2018-12-01] MEDS: CALCIUM 600MG + VIT D 400 IU TAB PO SCH ×2 (13:40→17:31)
[2018-12-01] MEDS: ZINC SULFATE 220 MG CAPSULE PO SCH (13:40)
[2018-12-01] MEDS: MAGNESIUM SULFATE / D5W 1 GM/100 ML BAG IV SCH ×2 (13:48→14:55)
--- NOTE | 2018-12-01 15:50 | Hospitalist Progress Note ---
Date of Service December 01, 2018 Assessment & Plan (1) Leukocytosis: This is a 73yo M with a PMH of prostate cancer with mets to bone, h/o non- healing BLE wounds thought to be calciphylaxis, HTN, paroxysmal A Fib, CKD III, left upper upper extremity DVT on SQ Lovenox and other medical problems listed below who presents from [facility] for concern for infection. -Patient was sent from nursing facility for infectious workup. 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 Continues to have diarrhea symptoms. Other notable health issue is malignancy with calciphylaxis. Calciphylaxis of the legs appear to be much better compared to previous admissions. 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 (5) Atrial fibrillation: Controlled. Continue amiodarone (6) Anxiety: (7) Depression: Continue SSRI (8) Chronic pain: Continue Oxycodone (9) HTN (hypertension): Normotensive -Continue Lopressor with hold parameters (10) DVT (deep venous thrombosis): left upper Extremity Deep Vein thrombosis which were diagnosed in previous hospitalizations -Continue Lovenox SQ 80mg BID DVT Ppx: SQ Lovenox BID Code status: FULL Subjective Patient seen and examined while sitting up on the chair. Patient's legs are in dressings which are dry. Patient appears comfortable and not in distress and breathing on room air. When asked about leg pains, he reports that they are present and maybe a little bit more painful than yesterday. Patient cooperative on exam. No chest pain. no abdomen pain. no vomiting. Physical Exam Physical Exam: General Appearance: WD/WN Head: normocephalic, atraumatic Eyes: normal inspection, PERRL, EOMI ENT: hearing grossly normal, pharynx normal (moist mucous membranes) Neck: supple, no JVD, no adenopathy Respiratory/Chest: lungs clear to auscultation. No wheezes, rales or rhonci. No respiratory distress or accessory muscle use Cardiovascular: regular rate, rhythm, systolic murmur, normal peripheral pulses, 2+ BLE edema Abdomen/GI: normal bowel sounds, soft, non-tender to palpation Extremities/Musculoskelatal: No calf tenderness, normal capillary refill Neurologic/Psych: alert, normal mood/affect, oriented x 3. Poor insight Skin: Bilateral Lower Extremity with multiple chronic ulcers that are in dressing Results & Data Vital Signs (Past 12 Hours) Vital Signs Temp Pulse Resp BP Pulse Ox 12/01/18 15:05 36.7 C 84 16 131/69 12/01/18 11:26 36.3 C L 82 16 101/69 12/01/18 08:00 36.8 C 90 12/01/18 07:20 38.0 C H 88 16 130/72 93
--- NOTE | 2018-12-01 16:21 | Palliative Care Consultation ---
Date of Consultation December 01, 2018 Assessment & Plan (1) Goals of care, counseling/discussion: Patient is a 73-year-old male with a history of calciphylaxis, CKD, metastatic prostate cancer with mets to spine, A. fib, history of TIA, history of DVT while on Coumadin and Xarelto and was on Lovenox. Patient was hospitalized at [facility] for 4 weeks in July- he was admitted with altered mental status and pneumonia-requiring intubation as well as complications from his above listed medical problems. Patient was discharged to [facility] on 09/21 for rehab. On 09/23 he had a left upper extremity ultrasound that showed a DVT in the left internal jugular and left subclavian vein-patient was admitted to [facility] on 09/23 through 10/02. Patient developed the DVT on Lovenox at 60 mg every 12-this was increased to 80 mg every 12 and patient was again discharged to [facility] on 10/02 for further rehab. Patient was nearing the end of his rehabs today when he was noted to be more confused and had new heel ulcers and was sent to the emergency room on 11/30. reports patient had done well in rehab at [facility]-he was able to sit up on the side of the bed without requiring Fanta lift. Patient states he had been doing well but then started to decline over the past 2 weeks. Patient and did not identify any particular reason for his decline. Patient had been receiving treatment for C. difficile-patient states he was moving his bowels approximately twice a day but was unable to say if they were still loose. Patient readmitted and started on IV antibiotics-has elevated white count-not sure if due to lower extremity wounds or his colitis. Discussed patient's goals-patient would like to return home as he has not been home since July. is not sure she can provide the care he needs at home-has limited family support. They do have a hospital bed available as well as a walker at home. is willing to try to take patient home if she can get additional care in the home-she also understands that if she is unable to care for him he will require jail placement. Collaborated with case management-referrals have been made to [facility] as well as [facility] for further rehab if patient is not safe to return home. PT/OT have been consulted to evaluate and treat to help improve transfers. -Goals of care-patient's goal is to return home- is willing to take him home if she can get additional caregivers along with support from family. - Altered mental status-appears to be improving -Leukocytosis-question whether due to C. difficile versus leg wounds-blood cultures pending, patient on IV antibiotics -C. difficile colitis-patient may be a carrier, reports he was having 2 bowel movements daily-unable to report whether or not they were loose. Patient on p.o. vancomycin as well as Florastor -DVT-patient with DVT while on Coumadin, Xarelto and lower dose Lovenox-now on Lovenox at 80 mg every 12-continue to monitor for further DVTs -Metastatic prostate cancer-mets to spine-patient on PRN oxycodone, pain prim arily due to his leg wounds -Calciphylaxis-continue current wound care orders-blood cultures pending. Will continue to follow and assist with medical decision making-collaborated with case management regarding patient and family's goals of care. (2) Altered mental status: (3) Leukocytosis: (4) Recurrent Clostridium difficile diarrhea: (5) DVT (deep venous thrombosis): (6) Prostate cancer metastatic to bone: (7) Calciphylaxis cutis: History of Present Illness Reason for Consultation: Discuss and address goals of care Requesting Physician: Aimee Celis PA-C Attending Physician: Jean Carlos Noel MD History of Present Illness Patient seen and examined in his room-patient's at bedside. Patient with memory deficits-relied on to help with ROS and history. Patient is a 73-year-old male with a history of calciphylaxis, CKD, metastatic prostate cancer with mets to spine, A. fib, history of TIA, history of DVT while on Coumadin and Xarelto and was on Lovenox. Patient was hospitalized at [facility] for 4 weeks in July- he was admitted with altered mental status and pneumonia-requiring intubation as well as complications from his above listed medical problems. Patient was discharged to [facility] on 09/21 for rehab. On 09/23 he had a left upper extremity ultrasound that showed a DVT in the left internal jugular and left subclavian vein-patient was admitted to [facility] on 09/23 through 10/02. Patient developed the DVT on Lovenox at 60 mg every 12-this was increased to 80 mg every 12 and patient was again discharged to [facility] on 10/02 for further rehab. Patient was nearing the end of his rehabs today when he was noted to be more confused and had new heel ulcers and was sent to the emergency room on 11/30. reports patient had done well in rehab at [facility]-he was able to sit up on the side of the bed without requiring Fanta lift. Patient states he had been doing well but then started to decline over the past 2 weeks. Patient and did not identify any particular reason for his decline. Patient had been receiving treatment for C. difficile-patient states he was moving his bowels approximately twice a day but was unable to say if they were still loose. Patient readmitted and started on IV antibiotics-has elevated white count-not sure if due to lower extremity wounds or his colitis. Discussed patient's goals-patient would like to return home as he has not been home since July. is not sure she can provide the care he needs at home-has limited family support. They do have a hospital bed available as well as a walker at home. is willing to try to take patient home if she can get additional care in the home-she also understands that if she is unable to care for him he will req re jail placement. Collaborated with case management-referrals have been made to [facility] as well as [facility] for further rehab if patient is not safe to return home. PT/OT have been consulted to evaluate and treat to help improve transfers. Allergies Allergy/AdvReac Type Severity Reaction Status Date / Time doxycycline Allergy Unknown Unknown Verified 11/30/18 14:38 cephalexin [From Keflex] Allergy Rash Verified 11/30/18 14:38 Home Medications Home Medications Medication Instructions Recorded Confirmed Type ascorbic acid (vitamin C) [Vitamin 500 mg PO AMHS 03/29/18 11/30/18 History C] multivitamin 1 tab PO QDL 03/29/18 11/30/18 History pantoprazole 40 mg PO QAM 03/29/18 11/30/18 History amiodarone 200 mg PO QAM 07/02/18 11/30/18 History calcium carbonate-vitamin D3 2 tab PO BID 07/03/18 11/30/18 History [Calcium 500 + D] acetaminophen [Acetaminophen Extra 500 mg PO Q6H PRN 09/23/18 11/30/18 History Strength] metoprolol tartrate 25 mg PO AMHS 09/23/18 11/30/18 History nystatin 1 applic TOPICAL BID 09/23/18 11/30/18 History ondansetron 8 mg PO Q8H PRN 09/23/18 11/30/18 History oxycodone 10 mg PO Q4H PRN 09/23/18 11/30/18 History oxycodone [OxyContin] 20 mg PO Q12H 09/23/18 11/30/18 History sertraline 75 mg PO QAM 09/23/18 11/30/18 History zinc sulfate 220 mg PO QDL 09/23/18 11/30/18 History Lactobacillus acidoph-L.bulgar 1 tab PO BIDM 11/30/18 11/30/18 History [Lactinex] Saccharomyces boulardii [Florastor] 250 mg PO BIDM 11/30/18 11/30/18 History collagenase clostridium histo. 1 applic TOPICAL DAILY 11/30/18 11/30/18 History diclofenac sodium 2 g TOPICAL QID 11/30/18 11/30/18 History enoxaparin [Lovenox] 80 mg SUBCUT Q12H 11/30/18 11/30/18 History ferrous sulfate 325 mg PO BID 11/30/18 11/30/18 History fluticasone propionate [Flonase 1 spray INTRANASAL QAM 11/30/18 11/30/18 History Allergy Relief] lanolin-mineral oil [Thera-Derm] 1 applic TOPICAL TID 11/30/18 11/30/18 History vancomycin 125 mg PO QID 11/30/18 11/30/18 History Patient History Medical History Mood disorder (Chronic) Prostate cancer metastatic to bone (Chronic) ~2013 Anxiety (Chronic) Depression (Chronic) Umbilical hernia (Chronic) Dyslipidemia (Chronic) On anticoagulant therapy (Chronic) Chronic steroid use (Chronic) TAKING STEROIDS DAILY FOR LOWER LEG SORES CURRENTLY. Atrial fibrillation (Chronic) Chronic pain (Chronic) HTN (hypertension) (Chronic) Obesity (BMI 30-39.9) (Chronic) GERD (gastroesophageal reflux disease) (Chronic) Surgical History History of tonsillectomy and adenoidectomy (Resolved) H/O radical prostatectomy (Resolved) ~2000 History of cholecystectomy (Resolved) History of back surgery (Resolved) L4-L5 History of repair of rotator cuff (Resolved) LEFT SHOULDER Family History Mother Hypertension Father Lymphoma Social History Preferred Language: French Communication Ability: Effective Loan Servicing Representative Required: Yes Beliefs That Will Affect Care: None marital status: Current Living Situation: Rehab current occupational status: retired Other Information That Helps Us Care for You: No Feels Safe at Home: Yes Safety Concerns: Feels Safe At This Time Smoking Status: Never smoker Tobacco Type: cigarettes Second Hand Exposure: No Hx Alcohol Use: No Hx Substance Use: No Review of Systems Review of Systems: ROS limited by patient's altered mental status and memory loss Eyes: no problem reported Ear, Nose, Mouth, Throat: + mouth lesions Poor dentition Respiratory: no problem reported Cardiovascular: Additional Comments: Atrial fibrillation Gastrointestinal: C. difficile Musculoskeletal: + muscle weakness Integumentary: + non-healing lesions and + skin ulcer Calciphylaxis of both lower extremities Neurologic: + memory loss Hematologic / Lymphatic: Anemia, thrombocytopenia Physical Exam Physical Exam: PE: NAD HEENT: EOMI, hearing within normal limits, poor oral dentition Respiratory: Clear breath sounds, unlabored respirations CV: Rate controlled Abdomen: Soft, nontender Extremities: Lower extremity wounds with dressings in place-dressings are clean dry and intact Neuro: Positive cognitive deficits, memory loss Results & Data Vital Signs (Past 12 Hours) Vital Signs Temp Pulse Resp BP Pulse Ox 12/01/18 15:05 98.1 F 84 16 131/69 12/01/18 11:26 97.3 F L 82 16 101/69 12/01/18 08:00 98.2 F 90 12/01/18 07:20 100.4 F H 88 16 130/72 93 Time Spent Attending Total time spent 60 minutes with greater than 50% of the time spent at bedside discussing goals of care of both patient and . Collaborated with case man aixa.
[2018-12-02 06:03] LABS: Hematocrit (blood only) 27.7 % (42-52); Hemoglobin 8.2 g/dL (14.0-18.0); Mean Corpuscular Hgb Conc 29.6 g/dL (32-36); Mean Corpuscular Volume 84.5 fL (80-100); Platelet Count 305 K/uL (130-400); RDW Coefficient of Variation 17.9 % (11.5-14.5); Red Blood Count 3.28 M/uL (4.7-6.1); White Blood Count 13.49 K/uL (4.8-10.8)
[2018-12-02 06:32] LABS: BUN Creatinine Ratio 16.8 (10-20); Creatinine Clr Calc Pharmacy 119.9 ml/min; Est GFR (African American) 119.7; Est GFR (Non-African American) 103.3; Potassium 3.7 mmol/L (3.5-5.1)
[2018-12-02] MEDS: PIPERACILLIN/TAZOBACTAM 3.375 GM in DEXTROSE 5% 100 ML IV SCH ×3 (06:48→22:47)
[2018-12-02] MEDS: OXYCODONE HCL IR 5 MG TAB (IMMEDIATE RELEASE) PO PRN ×2 (07:16→22:11)
[2018-12-02] MEDS: OXYCODONE HCL 20 MG TABCR (OXYCONTIN) PO SCH ×2 (08:23→21:58)
[2018-12-02] MEDS: DICLOFENAC SOD 1% GEL 100 GM TUBE EXT SCH ×4 (08:24→21:58)
[2018-12-02] MEDS: VANCOMYCIN HCL 125 MG/2.5ML SOLN PO SCH ×4 (08:24→22:11)
[2018-12-02] MEDS: AMIODARONE 200 MG TAB PO SCH (08:24)
[2018-12-02] MEDS: RASPBERRY SYRUP 5 ML UDP PO SCH ×4 (08:24→21:59)
[2018-12-02] MEDS: LACTOBACILLUS ACIDOPHILUS (FLORANEX) TAB PO SCH ×2 (08:25→17:39)
[2018-12-02] MEDS: SACCHAROMYCES BOULARDII 250 MG CAP PO SCH ×2 (08:26→17:38)
[2018-12-02] MEDS: FERROUS SULFATE 325 MG TAB PO SCH ×2 (08:26→22:00)
[2018-12-02] MEDS: METOPROLOL TARTRATE 25 MG TAB PO SCH ×2 (08:26→21:59)
[2018-12-02] MEDS: NYSTATIN POWDER 15GM BTL EXT SCH ×2 (08:26→21:59)
[2018-12-02] MEDS: PANTOprazole 40 MG TAB PO SCH (08:26)
[2018-12-02] MEDS: FLUTICASONE PROPIONATE NA SPR 16 GM BTL NAE SCH (08:27)
[2018-12-02] MEDS: SERTRALINE HCL 50 MG TABLET PO SCH (08:28)
[2018-12-02] MEDS: ENOXAPARIN 80 MG/0.8 ML SYR SQ SCH ×2 (08:29→19:06)
[2018-12-02] MEDS: ASCORBIC ACID 500 MG TAB PO SCH ×2 (08:31→22:00)
[2018-12-02] MEDS ORDERED: COLLAGENASE OINT 30 GM TUBE TOP SCH (09:00)
[2018-12-02] MEDS ORDERED: NURSING DECISION MEDICATION ONE (11:07)
[2018-12-02] MEDS: ZINC SULFATE 220 MG CAPSULE PO SCH (12:15)
[2018-12-02] MEDS: CALCIUM 600MG + VIT D 400 IU TAB PO SCH ×2 (12:15→17:38)
[2018-12-02] MEDS: MULTIVITAMIN TAB PO SCH (12:16)
[2018-12-02] MEDS: DEXAMETHASONE CONC 3.75 MG, NYSTATIN 30 ML, DiphenhydrAMINE Syrup 300 MG, ORA-SWEET SYR... PO PRN ×2 (14:27→22:11)
--- NOTE | 2018-12-02 16:46 | Hospitalist Progress Note ---
Date of Service December 02, 2018 Assessment & Plan (1) Leukocytosis: Per Dr. Noel's notes: This is a 73yo M with a PMH of prostate cancer with mets to bone, h/o non- healing BLE wounds thought to be calciphylaxis, HTN, paroxysmal A Fib, CKD III, left upper upper extremity DVT on SQ Lovenox and other medical problems listed below who presents from [facility] for concern for infection. -Patient was sent from nursing facility for infectious workup. 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 Continues to have diarrhea symptoms. Other notable health issue is malignancy with calciphylaxis. Calciphylaxis of the legs appear to be much better compared to previous admissions. -admission WBC 17,000 -empirically started on admission broad spectrum IV antibiotics of Zosyn as patient with malignancy and multiple hospitalizations and possibly immunocompromised with leukocytosis to treat potential infection Patient remains afebrile since this morning T-max 38.0 recorded yesterday morning Leukocytosis improving over 13 K from 18 K Blood and urine cultures pending Continue empiric Zosyn for now Monitor closely (2) Recurrent Clostridium difficile diarrhea: Patient reports 3 formed stools yesterday, today reports one formed stool Continue PO vancomycin and probiotics -Contact precautions (3) Prostate cancer metastatic to bone: -palliative care consult (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 (5) Atrial fibrillation: Controlled. Continue amiodarone (6) Anxiety: (7) Depression: Continue SSRI (8) Chronic pain: Continue Oxycodone (9) HTN (hypertension): Normotensive -Continue Lopressor with hold parameters (10) DVT (deep venous thrombosis): left upper Extremity Deep Vein thrombosis which were diagnosed in previous hospitalizations -Continue Lovenox SQ 80mg BID DVT Ppx: SQ Lovenox BID Code status: FULL Disposition pending Patient would like to be discharged to home, patient's would like to ensure that she has adequate help Will discuss with watch caser Subjective Follow-up for leukocytosis and fever Seen resting in bedside chair, comfortable States he feels fine overall Denies headache, dizziness, shortness of breath, chest pain, abdominal pain, p roblems with urination Patient does report chronic dry cough unchanged Also has pain in the thoracic spine Denies other symptoms Review of Systems Review of Systems: All systems reviewed & are unremarkable except as noted in HPI & below Physical Exam Physical Exam: General- oriented x 3, not in distress, speaks in sentences with no effort or accessory muscle use Eyes- anicteric Neck- no JVD Lungs- clear breath sounds bilaterally, no rales/wheezes Back-positive point tenderness in the thoracic area Heart- normal rate, regular rhythm; no murmurs Abdomen- normal bowel sounds, nondistended, soft, nontender Extremities- no pretibial edema, no calf tenderness Lower legs with dressings in place, no bleeding or discharge Neuro- alert, oriented x 3; no gross focal neurologic deficits Skin- warm & dry Results & Data Vital Signs (Past 12 Hours) Vital Signs Temp Pulse Resp BP Pulse Ox 12/02/18 15:51 36.8 C 77 20 107/68 95 12/02/18 11:44 36.3 C L 70 20 110/68 95 12/02/18 07:42 36.5 C 72 20 108/66 97 Laboratory Results Laboratory Results - last 24 hr 12/02/18 12/02/18 05:31 05:31 WBC 13.49 H RBC 3.28 L Hgb 8.2 L Hct 27.7 L MCV 84.5 MCH 25.0 MCHC 29.6 L RDW Std Deviation 56.0 H RDW Coeff of Adriana 17.9 H Plt Count 305 MPV 8.0 Sodium 132 L Potassium 3.7 Chloride 99 Carbon Dioxide 26 Anion Gap 6.0 BUN 10 Creatinine 0.57 L Est Cr Clr Drug Dosing 119.9 Est GFR ( Amer) 119.7 Est GFR (Non-Af Amer) 103.3 BUN/Creatinine Ratio 16.8 Glucose 89 Calcium 8.0 L
[2018-12-02] MEDS: LIDOCAINE 5% 1 PATCH TD SCH (17:41)
[2018-12-02] MEDS: COLLAGENASE OINT 30 GM TUBE TOP SCH (21:30)
[2018-12-03] MEDS: PIPERACILLIN/TAZOBACTAM 3.375 GM in DEXTROSE 5% 100 ML IV SCH (06:25)
--- NOTE | 2018-12-03 06:34 | XRay Report ---
XR thoracic spine 2V HISTORY: 73 years-old Male pain, thoracic spine acute upper back pain without reported trauma COMPARISON: Chest CT 09/28/2018 TECHNIQUE: 2 views of the thoracic spine FINDINGS: 12 rib-bearing thoracic-type vertebral segments are present. Multifocal osteoblastic metastatic lesio ns are again noted throughout the thoracic spine without pathologic compression deformity identified. Moderate multilevel disc space narrowing with facet arthrosis and spondylitic spurring. Multiple corbin stic red and sternal lesions are better seen on comparison CT. Cardiomegaly with interstitial coarsen ing and left basilar opacities. IMPRESSION: 1. No acute fracture or dislocation. 2. Multifocal osteoblastic metastatic lesions redemonstrated. The above report was generated using voice recognition software. It may contain grammatical, syntax o r spelling errors. Electronically signed by: Ever Aguilar M.D. 12/03/2018 6:33 AM
[2018-12-03] MEDS: OXYCODONE HCL IR 5 MG TAB (IMMEDIATE RELEASE) PO PRN ×3 (06:40→16:46)
[2018-12-03] MEDS: DEXAMETHASONE CONC 3.75 MG, NYSTATIN 30 ML, DiphenhydrAMINE Syrup 300 MG, ORA-SWEET SYR... PO PRN ×2 (08:18→16:47)
[2018-12-03] MEDS: LACTOBACILLUS ACIDOPHILUS (FLORANEX) TAB PO SCH ×2 (08:43→16:44)
[2018-12-03] MEDS: SACCHAROMYCES BOULARDII 250 MG CAP PO SCH ×2 (08:43→16:45)
[2018-12-03] MEDS: OXYCODONE HCL 20 MG TABCR (OXYCONTIN) PO SCH ×2 (08:44→21:33)
[2018-12-03] MEDS: AMIODARONE 200 MG TAB PO SCH (08:45)
[2018-12-03] MEDS: METOPROLOL TARTRATE 25 MG TAB PO SCH ×2 (08:46→21:35)
[2018-12-03] MEDS: FERROUS SULFATE 325 MG TAB PO SCH ×2 (08:46→21:35)
[2018-12-03] MEDS: SERTRALINE HCL 50 MG TABLET PO SCH (08:47)
[2018-12-03] MEDS: ASCORBIC ACID 500 MG TAB PO SCH ×2 (08:47→21:36)
[2018-12-03] MEDS: PANTOprazole 40 MG TAB PO SCH (08:47)
[2018-12-03] MEDS: FLUTICASONE PROPIONATE NA SPR 16 GM BTL NAE SCH (08:50)
[2018-12-03] MEDS: VANCOMYCIN HCL 125 MG/2.5ML SOLN PO SCH ×4 (08:51→21:41)
[2018-12-03] MEDS: RASPBERRY SYRUP 5 ML UDP PO SCH ×4 (08:51→21:36)
[2018-12-03] MEDS: ENOXAPARIN 80 MG/0.8 ML SYR SQ SCH ×2 (09:46→21:33)
[2018-12-03] MEDS: DICLOFENAC SOD 1% GEL 100 GM TUBE EXT SCH ×4 (09:49→21:36)
[2018-12-03] MEDS: LIDOCAINE 5% 1 PATCH TD SCH (09:49)
[2018-12-03] MEDS: NYSTATIN POWDER 15GM BTL EXT SCH ×2 (10:35→21:39)
[2018-12-03] MEDS: MULTIVITAMIN TAB PO SCH (12:38)
[2018-12-03] MEDS: CALCIUM 600MG + VIT D 400 IU TAB PO SCH ×2 (12:39→16:44)
[2018-12-03] MEDS: ZINC SULFATE 220 MG CAPSULE PO SCH (12:39)
[2018-12-03] MEDS ORDERED: Nursing to Pharmacy Communication ONE (13:37)
[2018-12-03] MEDS: COLLAGENASE OINT 30 GM TUBE TOP SCH (21:37)
--- NOTE | 2018-12-03 23:06 | Hospitalist Progress Note ---
Date of Service December 03, 2018 Assessment & Plan (1) Leukocytosis: Per Dr. Noel's notes: This is a 73yo M with a PMH of prostate cancer with mets to bone, h/o non- healing BLE wounds thought to be calciphylaxis, HTN, paroxysmal A Fib, CKD III, left upper upper extremity DVT on SQ Lovenox and other medical problems listed below who presents from [facility] for concern for infection. -Patient was sent from nursing facility for infectious workup. 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 Continues to have diarrhea symptoms. Other notable health issue is malignancy with calciphylaxis. Calciphylaxis of the legs appear to be much better compared to previous admissions. -admission WBC 17,000 -empirically started on admission broad spectrum IV antibiotics of Zosyn as patient with malignancy and multiple hospitalizations and possibly immunocompromised with leukocytosis to treat potential infection afebrile Leukocytosis improving over 13 K from 18 K Blood and urine cultures negative d/c empiric Zosyn for now Monitor closely (2) Recurrent Clostridium difficile diarrhea: Patient reports 3 formed stools yesterday, today reports one formed stool Continue PO vancomycin and probiotics -Contact precautions (3) Prostate cancer metastatic to bone: -palliative care consult (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 (5) Atrial fibrillation: Controlled. Continue amiodarone (6) Anxiety: (7) Depression: Continue SSRI (8) Chronic pain: Continue Oxycodone (9) HTN (hypertension): Normotensive -Continue Lopressor with hold parameters (10) DVT (deep venous thrombosis): left upper Extremity Deep Vein thrombosis which were diagnosed in previous hospitalizations -Continue Lovenox SQ 80mg BID DVT Ppx: SQ Lovenox BID Code status: FULL Disposition pending Patient would like to be discharged to home, patient's would like to ensure that she has adequate help Will discuss with case assembler Subjective ff up for fever, leukocytosis seen resting in chair , comfortable states he fees fine overall no diarrhea denies cough, dyspnea no fever/chills no other symptoms Review of Systems Review of Systems: All systems reviewed & are unremarkable except as noted in HPI & below Physical Exam Physical Exam: General- oriented x 3, not in distress, speaks in sentences with no effort or accessory muscle use Eyes- anicteric Neck- no JVD Lungs- clear BS bilaterally no wheezing, no crackles Heart- normal rate, regular rhythm; no murmurs Abdomen- normal bowel sounds, nondistended, soft, nontender Extremities- no edema, no calf tenderness dressing intact, no bleeding/discharge Neuro- alert, oriented x 3; no gross focal neurologic deficits Skin- warm & dry Results & Data Vital Signs (Past 12 Hours) Vital Signs Temp Pulse Resp BP Pulse Ox 12/03/18 19:52 36.3 C L 84 18 108/64 92 12/03/18 12:37 36.8 C 67 16 129/71 95
[2018-12-04] MEDS: DEXAMETHASONE CONC 3.75 MG, NYSTATIN 30 ML, DiphenhydrAMINE Syrup 300 MG, ORA-SWEET SYR... PO PRN ×4 (01:01→17:06)
[2018-12-04] MEDS: OXYCODONE HCL IR 5 MG TAB (IMMEDIATE RELEASE) PO PRN ×4 (01:02→22:19)
[2018-12-04] MEDS: LACTOBACILLUS ACIDOPHILUS (FLORANEX) TAB PO SCH ×2 (09:52→18:03)
[2018-12-04] MEDS: SACCHAROMYCES BOULARDII 250 MG CAP PO SCH ×2 (09:52→18:00)
[2018-12-04] MEDS: ENOXAPARIN 80 MG/0.8 ML SYR SQ SCH ×2 (09:53→19:51)
[2018-12-04] MEDS: OXYCODONE HCL 20 MG TABCR (OXYCONTIN) PO SCH ×2 (09:54→20:12)
[2018-12-04] MEDS: AMIODARONE 200 MG TAB PO SCH (09:54)
[2018-12-04] MEDS: FLUTICASONE PROPIONATE NA SPR 16 GM BTL NAE SCH (09:55)
[2018-12-04] MEDS: FERROUS SULFATE 325 MG TAB PO SCH ×2 (09:55→19:48)
[2018-12-04] MEDS: LIDOCAINE 5% 1 PATCH TD SCH (09:55)
[2018-12-04] MEDS: PANTOprazole 40 MG TAB PO SCH (10:02)
[2018-12-04] MEDS: ASCORBIC ACID 500 MG TAB PO SCH ×2 (10:02→19:50)
[2018-12-04] MEDS: SERTRALINE HCL 50 MG TABLET PO SCH (10:03)
[2018-12-04] MEDS: NYSTATIN POWDER 15GM BTL EXT SCH ×2 (10:06→20:11)
[2018-12-04] MEDS: RASPBERRY SYRUP 5 ML UDP PO SCH ×4 (10:07→19:47)
[2018-12-04] MEDS: VANCOMYCIN HCL 125 MG/2.5ML SOLN PO SCH ×4 (10:07→20:07)
[2018-12-04] MEDS: DICLOFENAC SOD 1% GEL 100 GM TUBE EXT SCH ×4 (10:09→19:51)
[2018-12-04] MEDS: METOPROLOL TARTRATE 25 MG TAB PO SCH ×2 (12:53→19:48)
[2018-12-04] MEDS: MULTIVITAMIN TAB PO SCH (12:53)
[2018-12-04] MEDS: CALCIUM 600MG + VIT D 400 IU TAB PO SCH ×2 (12:54→17:58)
[2018-12-04] MEDS: ZINC SULFATE 220 MG CAPSULE PO SCH (12:54)
[2018-12-04] MEDS: COLLAGENASE OINT 30 GM TUBE TOP SCH (19:49)
[2018-12-05] MEDS: OXYCODONE HCL IR 5 MG TAB (IMMEDIATE RELEASE) PO PRN (06:18)
--- NOTE | 2018-12-05 07:55 | Hospitalist Progress Note ---
Date of Service Delayed entry Date of service December 04, 2018 December 05, 2018 Assessment & Plan (1) Leukocytosis: Per Dr. Noel's notes: This is a 73yo M with a PMH of prostate cancer with mets to bone, h/o non- healing BLE wounds thought to be calciphylaxis, HTN, paroxysmal A Fib, CKD III, left upper upper extremity DVT on SQ Lovenox and other medical problems listed below who presents from [facility] for concern for infection. -Patient was sent from nursing facility for infectious workup. 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 Continues to have diarrhea symptoms. Other notable health issue is malignancy with calciphylaxis. Calciphylaxis of the legs appear to be much better compared to previous admissions. -admission WBC 17,000 -empirically started on admission broad spectrum IV antibiotics of Zosyn as patient with malignancy and multiple hospitalizations and possibly immunocompromised with leukocytosis to treat potential infection Remains afebrile Leukocytosis improving over 13 K from 18 K Blood and urine cultures negative Discontinued Zosyn, remains afebrile clinically stable Monitor closely (2) Recurrent Clostridium difficile diarrhea: Patient reports 3 formed stools yesterday, today reports one formed stool Continue PO vancomycin and probiotics -Contact precautions (3) Prostate cancer metastatic to bone: -palliative care consult (4) 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 (5) Atrial fibrillation: Controlled. Continue amiodarone (6) Anxiety: (7) Depression: Continue SSRI (8) Chronic pain: Continue Oxycodone (9) HTN (hypertension): Normotensive -Continue Lopressor with hold parameters (10) DVT (deep venous thrombosis): left upper Extremity Deep Vein thrombosis which were diagnosed in previous hospitalizations -Continue Lovenox SQ 80mg BID DVT Ppx: SQ Lovenox BID Code status: FULL Disposition pending Case management on board, referrals to long term facilities in progress Subjective Follow-up for fever, leukocytosis Seen resting in wheelchair, comfortable States he feels weak in his legs Otherwise feels fine overall Denies fever or chills, chest pain, cough, chest with breathing, sputum, abdominal pain Denies diarrhea No other symptoms Review of Systems Review of Systems: All systems reviewed & are unremarkable except as noted in HPI & below Physical Exam Physical Exam: General- oriented x 3, not in distress, speaks in sentences with no effort or accessory muscle use Eyes- anicteric Neck- no JVD Lungs- clear breath sounds, no crackles no wheezing bilaterally Heart- normal rate, regular rhythm; no murmurs Abdomen- normal bowel sounds, nondistended, soft, nontender Extremities- no calf tenderness Positive dressings on the lower extremity, no bleeding or discharge, no visible edema lower extremities Neuro- alert, oriented x 3; no gross focal neurologic deficits Skin- warm & dry Results & Data Vital Signs (Past 12 Hours) Vital Signs Temp Pulse Resp BP Pulse Ox 12/05/18 07:42 36.9 C 82 20 122/70 94 12/04/18 23:00 36.8 C 76 20 115/68 97
[2018-12-05 08:28] LABS: Hematocrit (blood only) 27.2 % (42-52); Hemoglobin 7.9 g/dL (14.0-18.0); Mean Platelet Volume 7.8 fL (7.4-10.4); Platelet Count 302 K/uL (130-400); RDW Coefficient of Variation 18.1 % (11.5-14.5); RDW Standard Deviation 56.4 fL (36.4-46.3); White Blood Count 9.13 K/uL (4.8-10.8)
[2018-12-05 09:02] LABS: Creatinine Clr Calc Pharmacy 142.2 ml/min; Est GFR (African American) 127.4; Est GFR (Non-African American) 109.9
[2018-12-05] MEDS: OXYCODONE HCL 20 MG TABCR (OXYCONTIN) PO SCH ×2 (09:08→20:28)
[2018-12-05] MEDS: LACTOBACILLUS ACIDOPHILUS (FLORANEX) TAB PO SCH ×2 (09:09→18:01)
[2018-12-05] MEDS: SACCHAROMYCES BOULARDII 250 MG CAP PO SCH ×2 (09:10→18:02)
[2018-12-05] MEDS: ENOXAPARIN 80 MG/0.8 ML SYR SQ SCH ×2 (09:11→20:24)
[2018-12-05] MEDS: AMIODARONE 200 MG TAB PO SCH (09:12)
[2018-12-05] MEDS: FERROUS SULFATE 325 MG TAB PO SCH ×2 (09:12→20:23)
[2018-12-05] MEDS: LIDOCAINE 5% 1 PATCH TD SCH (09:13)
[2018-12-05] MEDS: FLUTICASONE PROPIONATE NA SPR 16 GM BTL NAE SCH (09:13)
[2018-12-05] MEDS: METOPROLOL TARTRATE 25 MG TAB PO SCH ×2 (09:14→20:21)
[2018-12-05] MEDS: PANTOprazole 40 MG TAB PO SCH (09:15)
[2018-12-05] MEDS: NYSTATIN POWDER 15GM BTL EXT SCH ×2 (09:15→20:23)
[2018-12-05] MEDS: ASCORBIC ACID 500 MG TAB PO SCH ×2 (09:16→20:22)
[2018-12-05] MEDS: RASPBERRY SYRUP 5 ML UDP PO SCH ×4 (09:16→20:22)
[2018-12-05] MEDS: VANCOMYCIN HCL 125 MG/2.5ML SOLN PO SCH ×4 (09:16→20:28)
[2018-12-05] MEDS: SERTRALINE HCL 50 MG TABLET PO SCH (09:17)
[2018-12-05] MEDS: DICLOFENAC SOD 1% GEL 100 GM TUBE EXT SCH ×4 (09:17→20:20)
[2018-12-05] MEDS: DEXAMETHASONE CONC 3.75 MG, NYSTATIN 30 ML, DiphenhydrAMINE Syrup 300 MG, ORA-SWEET SYR... PO PRN ×2 (11:59→18:11)
[2018-12-05] MEDS: MULTIVITAMIN TAB PO SCH (12:46)
[2018-12-05] MEDS: ZINC SULFATE 220 MG CAPSULE PO SCH (12:46)
[2018-12-05] MEDS: CALCIUM 600MG + VIT D 400 IU TAB PO SCH ×2 (12:47→18:00)
--- NOTE | 2018-12-05 17:46 | Hospitalist Progress Note ---
Date of Service December 05, 2018 Assessment & Plan (1) Leukocytosis: Per Dr. Noel's notes: This is a 73yo M with a PMH of prostate cancer with mets to bone, h/o non- healing BLE wounds thought to be calciphylaxis, HTN, paroxysmal A Fib, CKD III, left upper upper extremity DVT on SQ Lovenox and other medical problems listed below who presents from [facility] for concern for infection. -Patient was sent from nursing facility for infectious workup. 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 Continues to have diarrhea symptoms. Other notable health issue is malignancy with calciphylaxis. Calciphylaxis of the legs appear to be much better compared to previous admissions. -admission WBC 17,000 -empirically started on admission broad spectrum IV antibiotics of Zosyn as patient with malignancy and multiple hospitalizations and possibly immunocompromised with leukocytosis to treat potential infection Afebrile, clinically stable Leukocytosis improved Blood and urine cultures negative Discontinued Zosyn, remains afebrile and stable off antibiotics Monitor closely (2) Recurrent Clostridium difficile diarrhea: Patient reports 3 formed stools yesterday, today reports one formed stool Continue PO vancomycin and probiotics -Contact precautions -Cultures were [place], confirmed that vancomycin p.o. 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 (5) Atrial fibrillation: Controlled. Continue amiodarone (6) Anxiety: (7) Depression: Continue SSRI (8) Chronic pain: Continue Oxycodone (9) HTN (hypertension): Normotensive -Continue Lopressor with hold parameters (10) DVT (deep venous thrombosis): left upper Extremity Deep Vein thrombosis which were diagnosed in previous hospitalizations -Continue Lovenox SQ 80mg BID DVT Ppx: SQ Lovenox BID Code status: FULL Disposition pending Case management on board, referrals to senior care facilities in progress Subjective ff up for fever, leukocytosis seen resting in chair, comfortable states he feels about the same overall denies diarrhea, abdominal pain no dyspnea, cough denies other symptoms Review of Systems Review of Systems: All systems reviewed & are unremarkable except as noted in HPI & below Physical Exam Physical Exam: General- oriented x 3, not in distress, speaks in sentences with no effort or accessory muscle use Eyes- anicteric Neck- no JVD Lungs- clear BS BL no rales, no wheezing Heart- normal rate, regular rhythm; no murmurs Abdomen- normal bowel sounds, nondistended, soft, nontender Extremities- no edema, no calf tenderness Dressings in the lower extremity in place: No bleeding or discharge Neuro- alert, oriented x 3; no gross focal neurologic deficits Skin- warm & dry Results & Data Vital Signs (Past 12 Hours) Vital Signs Temp Pulse Resp BP Pulse Ox 12/05/18 14:53 36.6 C 72 20 110/62 93 12/05/18 11:28 36.8 C 74 18 98/57 L 94 12/05/18 07:42 36.9 C 82 20 122/70 94
[2018-12-05] MEDS: COLLAGENASE OINT 30 GM TUBE TOP SCH (20:23)
[2018-12-06] MEDS: OXYCODONE HCL IR 5 MG TAB (IMMEDIATE RELEASE) PO PRN ×2 (01:28→23:37)
[2018-12-06] MEDS: ACETAMINOPHEN 325 MG TAB PO PRN ×3 (03:27→21:14)
[2018-12-06] MEDS: DEXAMETHASONE CONC 3.75 MG, NYSTATIN 30 ML, DiphenhydrAMINE Syrup 300 MG, ORA-SWEET SYR... PO PRN ×3 (08:10→16:53)
[2018-12-06] MEDS: LACTOBACILLUS ACIDOPHILUS (FLORANEX) TAB PO SCH ×2 (08:10→16:52)
[2018-12-06] MEDS: SACCHAROMYCES BOULARDII 250 MG CAP PO SCH ×2 (08:11→16:52)
[2018-12-06] MEDS: ENOXAPARIN 80 MG/0.8 ML SYR SQ SCH ×2 (08:11→20:37)
[2018-12-06] MEDS: OXYCODONE HCL 20 MG TABCR (OXYCONTIN) PO SCH ×2 (08:12→20:38)
[2018-12-06] MEDS: AMIODARONE 200 MG TAB PO SCH (08:12)
[2018-12-06] MEDS: FLUTICASONE PROPIONATE NA SPR 16 GM BTL NAE SCH (08:13)
[2018-12-06] MEDS: LIDOCAINE 5% 1 PATCH TD SCH (08:13)
[2018-12-06] MEDS: FERROUS SULFATE 325 MG TAB PO SCH ×2 (08:13→20:40)
[2018-12-06] MEDS: METOPROLOL TARTRATE 25 MG TAB PO SCH ×2 (08:14→20:39)
[2018-12-06] MEDS: NYSTATIN POWDER 15GM BTL EXT SCH ×2 (08:15→20:40)
[2018-12-06] MEDS: PANTOprazole 40 MG TAB PO SCH (08:15)
[2018-12-06] MEDS: RASPBERRY SYRUP 5 ML UDP PO SCH ×4 (08:15→20:39)
[2018-12-06] MEDS: DICLOFENAC SOD 1% GEL 100 GM TUBE EXT SCH ×5 (08:16→20:41)
[2018-12-06] MEDS: VANCOMYCIN HCL 125 MG/2.5ML SOLN PO SCH ×4 (08:16→20:45)
[2018-12-06] MEDS: ASCORBIC ACID 500 MG TAB PO SCH ×2 (08:16→20:41)
[2018-12-06] MEDS: SERTRALINE HCL 50 MG TABLET PO SCH (08:17)
[2018-12-06] MEDS: ZINC SULFATE 220 MG CAPSULE PO SCH (12:25)
[2018-12-06] MEDS: MULTIVITAMIN TAB PO SCH (12:25)
[2018-12-06] MEDS: CALCIUM 600MG + VIT D 400 IU TAB PO SCH ×2 (12:26→16:52)
--- NOTE | 2018-12-06 16:02 | Hospitalist Progress Note ---
Date of Service December 06, 2018 Assessment & Plan (1) Leukocytosis: Per Dr. Noel's notes: This is a 73yo M with a PMH of prostate cancer with mets to bone, h/o non- healing BLE wounds thought to be calciphylaxis, HTN, paroxysmal A Fib, CKD III, left upper upper extremity DVT on SQ Lovenox and other medical problems listed below who presents from [facility] for concern for infection. -Patient was sent from nursing facility for infectious workup. 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 Continues to have diarrhea symptoms. Other notable health issue is malignancy with calciphylaxis. Calciphylaxis of the legs appear to be much better compared to previous admissions. 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 (5) Atrial fibrillation: Controlled. Continue amiodarone (6) Anxiety: (7) Depression: Continue SSRI (8) Chronic pain: Continue Oxycodone (9) HTN (hypertension): Normotensive -Continue Lopressor with hold parameters (10) DVT (deep venous thrombosis): left upper Extremity Deep Vein thrombosis which were diagnosed in previous hospitalizations -Continue Lovenox SQ 80mg BID DVT Ppx: SQ Lovenox BID Code status: FULL Disposition pending Case management on board, referrals to alf facilities in progress Subjective Follow-up for fever, leukocytosis Seen sitting in chair, comfortable, not in distress Family present at bedside States he feels fine overall today No changes., Cough, sputum No diarrhea, no abdominal pain no fever chills Denies any symptoms Review of Systems Review of Systems: All systems reviewed & are unremarkable except as noted in HPI & below Physical Exam Physical Exam: General- oriented x 3, not in distress, speaks in sentences with no effort or accessory muscle use Eyes- anicteric Neck- no JVD Lungs- clear BS, no crackles bilaterally Heart- normal rate, regular rhythm; no murmurs Abdomen- normal bowel sounds, nondistended, soft, nontender Extremities-dressings in place, no bleeding or discharge Per RN, wounds healing well, trace edema Neuro- alert, oriented x 3; no gross focal neurologic deficits Skin- warm & dry Results & Data Vital Signs (Past 12 Hours) Vital Signs Temp Pulse Resp BP BP Pulse Ox 12/06/18 15:01 36.4 C L 75 20 171/80 H 92 12/06/18 11:11 36.5 C 71 20 112/69 91 12/06/18 07:38 36.7 C 74 20 135/75 93
[2018-12-06] MEDS: COLLAGENASE OINT 30 GM TUBE TOP SCH (20:38)
[2018-12-06] MEDS: MUPIROCIN 2% OINT 22 GM TUBE SCH (21:38)
[2018-12-07] MEDS: OXYCODONE HCL IR 5 MG TAB (IMMEDIATE RELEASE) PO PRN ×3 (03:30→23:50)
[2018-12-07] MEDS: ACETAMINOPHEN 325 MG TAB PO PRN (05:32)
[2018-12-07] MEDS: VANCOMYCIN HCL 125 MG/2.5ML SOLN PO SCH ×4 (07:59→20:38)
[2018-12-07] MEDS: OXYCODONE HCL 20 MG TABCR (OXYCONTIN) PO SCH ×2 (07:59→20:39)
[2018-12-07] MEDS: NYSTATIN POWDER 15GM BTL EXT SCH ×2 (07:59→20:38)
[2018-12-07] MEDS: RASPBERRY SYRUP 5 ML UDP PO SCH ×4 (07:59→20:38)
[2018-12-07] MEDS: SACCHAROMYCES BOULARDII 250 MG CAP PO SCH ×2 (08:00→16:26)
[2018-12-07] MEDS: LACTOBACILLUS ACIDOPHILUS (FLORANEX) TAB PO SCH ×2 (08:00→16:27)
[2018-12-07] MEDS: AMIODARONE 200 MG TAB PO SCH (08:00)
[2018-12-07] MEDS: MUPIROCIN 2% OINT 22 GM TUBE SCH ×2 (08:00→20:38)
[2018-12-07] MEDS: PANTOprazole 40 MG TAB PO SCH (08:00)
[2018-12-07] MEDS: ENOXAPARIN 80 MG/0.8 ML SYR SQ SCH ×2 (08:01→20:37)
[2018-12-07] MEDS: FERROUS SULFATE 325 MG TAB PO SCH ×2 (08:01→20:40)
[2018-12-07] MEDS: FLUTICASONE PROPIONATE NA SPR 16 GM BTL NAE SCH (08:01)
[2018-12-07] MEDS: ASCORBIC ACID 500 MG TAB PO SCH ×2 (08:02→20:40)
[2018-12-07] MEDS: METOPROLOL TARTRATE 25 MG TAB PO SCH ×2 (08:02→20:39)
[2018-12-07] MEDS: SERTRALINE HCL 50 MG TABLET PO SCH (08:02)
[2018-12-07] MEDS: DICLOFENAC SOD 1% GEL 100 GM TUBE EXT SCH ×4 (08:02→20:39)
[2018-12-07] MEDS: LIDOCAINE 5% 1 PATCH TD SCH (08:03)
[2018-12-07 09:23] LABS: Hematocrit (blood only) 28.1 % (42-52); Hemoglobin 8.2 g/dL (14.0-18.0)
[2018-12-07] MEDS: ZINC SULFATE 220 MG CAPSULE PO SCH (12:42)
[2018-12-07] MEDS: MULTIVITAMIN TAB PO SCH (12:42)
[2018-12-07] MEDS: CALCIUM 600MG + VIT D 400 IU TAB PO SCH ×2 (12:42→16:27)
--- NOTE | 2018-12-07 14:36 | XRay Report ---
XR shoulder LT min 2V routine CLINICAL HISTORY: 73 years-old Male presenting with posterior shoulder swelling and pain. TECHNIQUE: Internal rotation, external rotation, Grashey views of the left shoulder were obtained. COMPARISON: Chest x-ray from 09/27/2018. FINDINGS: Acromioclavicular and glenohumeral joints congruent. Nondisplaced fracture line of the distal left cl avicle suspected. No acute fracture of the humerus. Advanced degenerative changes of the acromioclavi cular joint. Mildly low lung volume on the left. IMPRESSION: 1. Possible nondisplaced fracture of the distal clavicle. Dedicated radiographs of the left clavicle may be beneficial. Correlate for point tenderness. No other evidence of acute osseous injury. 2. Advanced degenerative changes of the acromioclavicular joint. Electronically signed by: Brice Cuellar M.D. 12/07/2018 2:35 PM
[2018-12-07] MEDS: DEXAMETHASONE CONC 3.75 MG, NYSTATIN 30 ML, DiphenhydrAMINE Syrup 300 MG, ORA-SWEET SYR... PO SCH (16:27)
--- NOTE | 2018-12-07 17:03 | Hospitalist Progress Note ---
Date of Service December 07, 2018 Assessment & Plan (1) Left shoulder pain: shoulder xray: (+) possible nondisplaced distal clavicle fracture Ortho consulted continue Lidoderm patch, ice pack already on Oxycodone (2) Leukocytosis: Per Dr. Noel's notes: This is a 73yo M with a PMH of prostate cancer with mets to bone, h/o non- healing BLE wounds thought to be calciphylaxis, HTN, paroxysmal A Fib, CKD III, left upper upper extremity DVT on SQ Lovenox and other medical problems listed below who presents from [facility] for concern for infection. -Patient was sent from nursing facility for infectious workup. 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 Continues to have diarrhea symptoms. Other notable health issue is malignancy with calciphylaxis. Calciphylaxis of the legs appear to be much better compared to previous admissions. 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 (6) Atrial fibrillation: Controlled. Continue amiodarone (7) Anxiety: (8) Depression: Continue SSRI (9) Chronic pain: Continue Oxycodone (10) HTN (hypertension): Normotensive -Continue Lopressor with hold parameters (11) DVT (deep venous thrombosis): left upper Extremity Deep Vein thrombosis which were diagnosed in previous hospitalizations -Continue Lovenox SQ 80mg BID DVT Ppx: SQ Lovenox BID Code status: FULL Disposition pending Case management on board, referrals to prison facilities in progress Subjective ff up for fever, leukocytosis seen sitting in wheelchair states he feels fine overall except for left posterior shoulder pain no abdominal pain, diarrhea no other symptoms Review of Systems Review of Systems: All systems reviewed & are unremarkable except as noted in HPI & below Physical Exam Physical Exam: General- oriented x 3, not in distress, speaks in sentences with no effort or accessory muscle use Eyes- anicteric Neck- no JVD Lungs- clear breath sounds bilaterally, no rales/wheezes Heart- normal rate, regular rhythm; no murmurs Abdomen- normal bowel sounds, nondistended, soft, nontender Extremities- no pretibial edema, no calf tenderness Neuro- alert, oriented x 3; no gross focal neurologic deficits Skin- warm & dry Results & Data Vital Signs (Past 12 Hours) Vital Signs Temp Pulse Resp BP Pulse Ox 12/07/18 15:26 36.8 C 72 16 104/67 93 12/07/18 11:21 36.6 C 64 16 101/60 94 12/07/18 07:26 36.7 C 77 16 113/70 93 Laboratory Results Laboratory Results - last 24 hr 12/07/18 08:43 Hgb 8.2 L Hct 28.1 L
[2018-12-07] MEDS: COLLAGENASE OINT 30 GM TUBE TOP SCH (17:07)
--- NOTE | 2018-12-07 17:08 | XRay Report ---
RIGHT SHOULDER 3 VIEWS HISTORY: right shoulder pain COMPARISON: None. FINDINGS: Abnormal lucency through the superior glenoid consistent within age-indeterminate fracture. Moderate osteoarthritis at the a.c. and glenohumeral joints. There is severe narrowing of the subacr omial space with [id number] articulation. This is consistent with chronic rotator cuff injury. No d islocation. No radiopaque foreign bodies. IMPRESSION: 1. Age-indeterminate fracture through the superior glenoid. 2. No dislocation. 3. Degenerative changes as described above. 4. Chronic rotator cuff injury. Electronically signed by: Griffin Romero M.D. 12/07/2018 5:06 PM
--- NOTE | 2018-12-07 20:24 | Orthopedic Consultation ---
Date of Consultation December 07, 2018 Assessment & Plan (1) Bilateral shoulder pain: Acute on chronic left rotator cuff injury, impingement, clavicle fracture , Age-indeterminate. Recommend CT scan left shoulder better evaluate clavicle fracture, conservative treatments for rotator cuff including Lidoderm patch, PT/OT, weightbearing status pending CT scan, consider intra-articular corticosteroid. Most Right shoulder rotator cuff arthropathy, chronic superior glenoid fracture, severe DJD. Conservative treatment including Lidoderm patch, PT/OT, weight- bear as tolerated right left upper extremity. Thank you for the consultation History of Present Illness Reason for Consultation: B/L should pain Attending Physician: Ketan Crawford MD History of Present Illness The patient is a 73-year-old male was in the past medical history for C. difficile, CKD, DVT left upper extremity, metastatic prostate cancer, dy slipidemia, anxiety, depression, A. fib, hypertension, GERD, acute on chronic bilateral shoulder pain, left greater than right. Reports 1 day history of left shoulder pain, worse with activity, history of prior rotator cuff repair by Dr. Banks," years ago". Patient is a poor historian. Reports long-standing history of right rotator cuff injury. Pain localized to the left shoulder. Denies numbness and tingling of left upper extremity. Allergies Allergy/AdvReac Type Severity Reaction Status Date / Time doxycycline Allergy Unknown Unknown Verified 11/30/18 14:38 cephalexin [From Keflex] Allergy Rash Verified 11/30/18 14:38 Home Medications Home Medications Medication Instructions Recorded Confirmed Type ascorbic acid (vitamin C) [Vitamin 500 mg PO AMHS 03/29/18 11/30/18 History C] multivitamin 1 tab PO QDL 03/29/18 11/30/18 History pantoprazole 40 mg PO QAM 03/29/18 11/30/18 History amiodarone 200 mg PO QAM 07/02/18 11/30/18 History calcium carbonate-vitamin D3 2 tab PO BID 07/03/18 11/30/18 History [Calcium 500 + D] acetaminophen [Acetaminophen Extra 500 mg PO Q6H PRN 09/23/18 11/30/18 History Strength] metoprolol tartrate 25 mg PO AMHS 09/23/18 11/30/18 History nystatin 1 applic TOPICAL BID 09/23/18 11/30/18 History ondansetron 8 mg PO Q8H PRN 09/23/18 11/30/18 History oxycodone 10 mg PO Q4H PRN 09/23/18 11/30/18 History oxycodone [OxyContin] 20 mg PO Q12H 09/23/18 11/30/18 History sertraline 75 mg PO QAM 09/23/18 11/30/18 History zinc sulfate 220 mg PO QDL 09/23/18 11/30/18 History Lactobacillus acidoph-L.bulgar 1 tab PO BIDM 11/30/18 11/30/18 History [Lactinex] Saccharomyces boulardii [Florastor] 250 mg PO BIDM 11/30/18 11/30/18 History collagenase clostridium histo. 1 applic TOPICAL DAILY 11/30/18 11/30/18 History diclofenac sodium 2 g TOPICAL QID 11/30/18 11/30/18 History enoxaparin [Lovenox] 80 mg SUBCUT Q12H 11/30/18 11/30/18 History ferrous sulfate 325 mg PO BID 11/30/18 11/30/18 History fluticasone propionate [Flonase 1 spray INTRANASAL QAM 11/30/18 11/30/18 History Allergy Relief] lanolin-mineral oil [Thera-Derm] 1 applic TOPICAL TID 11/30/18 11/30/18 History vancomycin 125 mg PO QID 11/30/18 11/30/18 History Patient History Medical History Mood disorder (Chronic) Prostate cancer metastatic to bone (Chronic) ~2013 Anxiety (Chronic) Depression (Chronic) Umbilical hernia (Chronic) Dyslipidemia (Chronic) On anticoagulant therapy (Chronic) Chronic steroid use (Chronic) TAKING STEROIDS DAILY FOR LOWER LEG SORES CURRENTLY. Atrial fibrillation (Chronic) Chronic pain (Chronic) HTN (hypertension) (Chronic) Obesity (BMI 30-39.9) (Chronic) GERD (gastroesophageal reflux disease) (Chronic) Surgical History History of tonsillectomy and adenoidectomy (Resolved) H/O radical prostatectomy (Resolved) ~2000 History of cholecystectomy (Resolved) History of back surgery (Resolved) L4-L5 History of repair of rotator cuff (Resolved) LEFT SHOULDER Family History Mother Hypertension Father Lymphoma Social History Preferred Language: Citizen Of The [place] Communication Ability: Effective Educational Adviser Required: Yes Beliefs That Will Affect Care: None marital status: Current Living Situation: Rehab current occupational status: retired Other Information That Helps Us Care for You: No Feels Safe at Home: Yes Safety Concerns: Feels Safe At This Time Smoking Status: Never smoker Tobacco Type: cigarettes Second Hand Exposure: No Hx Alcohol Use: No Hx Substance Use: No Review of Systems Review of Systems: All systems reviewed & are unremarkable except as noted in HPI & below Constitutional: as per Subjective / HPI Physical Exam Physical Exam: Bilateral upper extremities, neurovascular sensory intact, + radial/ulnar/median/AIN/PIN, sensory intact light touch grossly. At baseline decreased range of motion bilateral shoulders. +2 radial pulse, FF 100 degrees, Abd 100 degrees, ext rot 35 degrees, positive He can test, decreased motor strength supraspinatus and infraspinatus testing, positive impingement. Constitutional: WD/WN, vitals as above Results & Data Vital Signs (Past 12 Hours) Vital Signs Temp Pulse Pulse Resp BP Pulse Ox 12/07/18 19:38 36.6 C 80 20 164/94 H 94 12/07/18 15:26 36.8 C 72 16 104/67 93 12/07/18 11:21 36.6 C 64 16 101/60 94 Diagnostic Findings XR shoulder LT min 2V routine CLINICAL HISTORY: 73 years-old Male presenting with posterior shoulder swelling and pain. TECHNIQUE: Internal rotation, external rotation, Grashey views of the left shoulder were obtained. COMPARISON: Chest x-ray from 09/27/2018. FINDINGS: Acromioclavicular and glenohumeral joints congruent. Nondisplaced fracture line of the distal left clavicle suspected. No acute fracture of the humerus. Advanced degenerative changes of the acromioclavicular joint. Mildly low lung volume on the left. IMPRESSION: 1. Possible nondisplaced fracture of the distal clavicle. Dedicated radiographs of the left clavicle may be beneficial. Correlate for point tenderness. No other evidence of acute osseous injury. 2. Advanced degenerative changes of the acromioclavicular joint. RIGHT SHOULDER 3 VIEWS HISTORY: right shoulder pain COMPARISON: None. FINDINGS: Abnormal lucency through the superior glenoid consistent within age- indeterminate fracture. Moderate osteoarthritis at the a.c. and glenohumeral joints. There is severe narrowing of the subacromial space with [id number] articulation. This is consistent with chronic rotator cuff injury. No dislocation. No radiopaque foreign bodies. IMPRESSION: 1. Age-indeterminate fracture through the superior glenoid. 2. No dislocation. 3. Degenerative changes as described above. 4. Chronic rotator cuff injury.
[2018-12-08] MEDS: OXYCODONE HCL IR 5 MG TAB (IMMEDIATE RELEASE) PO PRN ×2 (05:44→23:18)
[2018-12-08 05:46] LABS: Hematocrit (blood only) 26.8 % (42-52); Mean Corpuscular Hgb Conc 29.9 g/dL (32-36); Mean Corpuscular Volume 85.1 fL (80-100); Mean Platelet Volume 7.8 fL (7.4-10.4); Nucleated RBC # (auto) 0.03 K/uL (0-0); Nucleated RBC % (auto) 0.3 %; Platelet Count 326 K/uL (130-400); RDW Coefficient of Variation 19.1 % (11.5-14.5); RDW Standard Deviation 58.7 fL (36.4-46.3); Red Blood Count 3.15 M/uL (4.7-6.1); White Blood Count 10.59 K/uL (4.8-10.8)
[2018-12-08 06:17] LABS: Creatinine Clr Calc Pharmacy 112.6 ml/min; Est GFR (African American) 115.7; Est GFR (Non-African American) 99.8
[2018-12-08] MEDS: DEXAMETHASONE CONC 3.75 MG, NYSTATIN 30 ML, DiphenhydrAMINE Syrup 300 MG, ORA-SWEET SYR... PO SCH ×3 (08:00→17:03)
[2018-12-08] MEDS: OXYCODONE HCL 20 MG TABCR (OXYCONTIN) PO SCH ×2 (08:00→20:37)
[2018-12-08] MEDS: PANTOprazole 40 MG TAB PO SCH (08:01)
[2018-12-08] MEDS: SERTRALINE HCL 50 MG TABLET PO SCH (08:01)
[2018-12-08] MEDS: ZINC SULFATE 220 MG CAPSULE PO SCH (08:01)
[2018-12-08] MEDS: MUPIROCIN 2% OINT 22 GM TUBE SCH ×2 (08:01→20:39)
[2018-12-08] MEDS: LACTOBACILLUS ACIDOPHILUS (FLORANEX) TAB PO SCH ×2 (08:02→17:04)
[2018-12-08] MEDS: AMIODARONE 200 MG TAB PO SCH (08:02)
[2018-12-08] MEDS: ENOXAPARIN 80 MG/0.8 ML SYR SQ SCH ×2 (08:02→20:38)
[2018-12-08] MEDS: MULTIVITAMIN TAB PO SCH (08:02)
[2018-12-08] MEDS: SACCHAROMYCES BOULARDII 250 MG CAP PO SCH ×2 (08:02→17:04)
[2018-12-08] MEDS: ASCORBIC ACID 500 MG TAB PO SCH ×2 (08:02→20:42)
[2018-12-08] MEDS: METOPROLOL TARTRATE 25 MG TAB PO SCH ×2 (08:02→20:40)
[2018-12-08] MEDS: FLUTICASONE PROPIONATE NA SPR 16 GM BTL NAE SCH (08:02)
[2018-12-08] MEDS: FERROUS SULFATE 325 MG TAB PO SCH ×2 (08:03→20:41)
[2018-12-08] MEDS: LIDOCAINE 5% 1 PATCH TD SCH (08:03)
[2018-12-08] MEDS: DICLOFENAC SOD 1% GEL 100 GM TUBE EXT SCH ×4 (08:04→20:41)
[2018-12-08] MEDS: NYSTATIN POWDER 15GM BTL EXT SCH ×2 (08:04→20:41)
[2018-12-08] MEDS: CALCIUM 600MG + VIT D 400 IU TAB PO SCH ×2 (11:52→17:04)
--- NOTE | 2018-12-08 14:37 | CT Scan Report ---
CT shoulder LT wo con HISTORY: 73 years-old Male left shoulder pain acute left shoulder pain. History of osteoblastic pros delgado metastasis. COMPARISON: Left shoulder radiographs 12/07/2018, lumbar spine radiographs 11/30/2018. TECHNIQUE: Multiple axial CT images of the left shoulder were obtained without the use of IV contrast . A dose lowering technique was used consistent with the principals of KEVIN. FINDINGS: Mildly demineralized appearance of the bones. Severe degenerative changes of the cervical spine. Scat tered multifocal osteoblastic lesions are noted throughout the bony structures of the axial and appen dicular skeletal system. Subacute appearing nondisplaced fracture about the spine of the scapula albaro elates with the lucency seen on comparison shoulder radiographs. This is likely on a posttraumatic ba sis without a large metastatic lesion seen within this area to suggest pathologic fracture. The clavi cullen and left humerus appear intact. Moderate glenohumeral and moderate AC joint osteoarthritis. No ac round valley fracture or dislocation. Decreased acromiohumeral interval is suggestive of chronic full-thicknes s rotator cuff tear. The study is not tailored to assess the intrinsic ligaments and tendons of the s houlder. Moderate atrophy of the supraspinatus, infraspinatus and subscapularis musculature. Moderate left pleural effusion. Cardiomegaly. Left basilar consolidation. No adenopathy or large join t effusion. IMPRESSION: 1. Multifocal osteoblastic lesions redemonstrated throughout the imaged axial and appendicular skelet al system. 2. Healing nondisplaced subacute appearing fracture about the spine of the left scapula. 3. No acute fracture or dislocation identified, specifically the clavicle appears intact. 4. Moderate glenohumeral and AC joint degenerative changes. 5. Moderate left pleural effusion with left basilar consolidation. 6. Chronic rotator cuff pathology as above. The above report was generated using voice recognition software. It may contain grammatical, syntax o r spelling errors. Electronically signed by: Ever Aguilar M.D. 12/08/2018 2:36 PM
--- NOTE | 2018-12-08 16:51 | Hospitalist Progress Note ---
Date of Service December 08, 2018 Assessment & Plan (1) Left shoulder pain: shoulder xray: (+) possible nondisplaced distal clavicle fracture Ortho consulted, CT shoulder ordered improving continue Lidoderm patch, ice pack already on Oxycodone (2) Leukocytosis: Per Dr. 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 -Patient was sent from nursing facility for infectious workup. 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 Continues to have diarrhea symptoms. Other notable health issue is malignancy with calciphylaxis. Calciphylaxis of the legs appear to be much better compared to previous admissions. 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 (6) Atrial fibrillation: Controlled. Continue amiodarone (7) Anxiety: (8) Depression: Continue SSRI (9) Chronic pain: Continue Oxycodone (10) HTN (hypertension): Normotensive -Continue Lopressor with hold parameters (11) DVT (deep venous thrombosis): left upper Extremity Deep Vein thrombosis which were diagnosed in previous hospitalizations -Continue Lovenox SQ 80mg BID DVT Ppx: SQ Lovenox BID Code status: FULL Disposition pending Case management on board, referrals to fpc facilities in progress Subjective Follow-up for fever leukocytosis Seen resting in bed, comfortable States he feels fine overall Left shoulder pain is improved Denies new symptoms Review of Systems Review of Systems: All systems reviewed & are unremarkable except as noted in HPI & below Physical Exam Physical Exam: General- oriented x 3, not in distress, speaks in sentences with no effort or accessory muscle use Eyes- anicteric Neck- no JVD Lungs- clear BS BL Heart- normal rate, regular rhythm; no murmurs Abdomen- normal bowel sounds, nondistended, soft, nontender Extremities- no edema noted dressing in place: no bleeding discharge Left shoulder- edema much improved less tenderness no warmth Neuro- alert, oriented x 3; no gross focal neurologic deficits Skin- warm & dry Results & Data Vital Signs (Past 12 Hours) Vital Signs Temp Pulse Pulse Resp BP Pulse Ox 12/08/18 15:42 36.4 C L 79 16 159/98 H 96 12/08/18 12:00 36.4 C L 70 20 127/71 95 12/08/18 08:01 36.7 C 79 16 116/62 95
[2018-12-08] MEDS: COLLAGENASE OINT 30 GM TUBE TOP SCH (20:38)
[2018-12-08] MEDS: ACETAMINOPHEN 325 MG TAB PO PRN (22:35)
[2018-12-09] MEDS: OXYCODONE HCL IR 5 MG TAB (IMMEDIATE RELEASE) PO PRN ×2 (03:43→13:50)
[2018-12-09 08:10] LABS: Basophils # (auto) 0.05 K/uL (0-0.2); Basophils % (auto) 0.5 %; Hematocrit (blood only) 30.7 % (42-52); Lymphocytes # (auto) 2.95 K/uL (1.2-3.4); Lymphocytes % (auto) 28.4 %; Mean Corpuscular Hgb Conc 29.3 g/dL (32-36); Mean Platelet Volume 7.9 fL (7.4-10.4); Monocytes # (auto) 0.74 K/uL (0.11-0.59); Monocytes % (auto) 7.1 %; Neutrophils # (auto) 6.46 K/uL (1.4-6.5); Platelet Count 372 K/uL (130-400); RDW Coefficient of Variation 19.5 % (11.5-14.5); RDW Standard Deviation 60.7 fL (36.4-46.3); Red Blood Count 3.57 M/uL (4.7-6.1)
[2018-12-09 08:26] LABS: Albumin Level 1.9 gm/dl (3.4-5.0); BUN Creatinine Ratio 10.5 (10-20); Calcium 8.9 mg/dl (8.5-10.1); Creatinine Clr Calc Pharmacy 107.3 ml/min; Est GFR (African American) 114.2; Est GFR (Non-African American) 98.5; Magnesium 1.9 mg/dl (1.8-2.4); Potassium 4.1 mmol/L (3.5-5.1)
[2018-12-09 08:29] LABS: Albumin Globulin Ratio 0.4 (0.9-2); Bilirubin,Total 0.3 mg/dl (0.2-1); Globulin 4.3 gm/dl (2.5-4.0); Total Protein 6.2 gm/dl (6.4-8.2)
--- NOTE | 2018-12-09 08:45 | Hospitalist Progress Note ---
Date of Service December 09, 2018 Assessment & Plan (1) Left shoulder pain: -Left shoulder CT scan: Subacute appearing nondisplaced fracture about the spine of the scapula correlates with the lucency seen on comparison shoulder radiographs. This is likely on a posttraumatic basis without a large metastatic lesion seen within this area to suggest pathologic fracture -continue Lidoderm patch, ice pack -already on Oxycodone -follow orthopedic recommendations -12/09/18: the left shoulder CT scan findings including osteoblastic lesions and left sided pleural effusion. Patient's left shoulder has more swelling than right side. Patient breathing comfortably on room air. He is able to use the upp er extremities to eat breakfast at the bedside. no acute shortness of breath. no chest pain. no abdomen pain. no vomiting. Patient and patient's son interested in possible palliative radiation therapy for pain control. At this time, they are no currently interested in thoracentesis and opting for medical management of the pleural effusion -Dr. Johana Dukes from radiation oncology to see the patient for possible palliative radiation therapy Left Pleural effusion -potentially could be malignant pleural effusion given history of metastatic prostate caner -patient and family defers diagnostic or therapeutic thoracentesis at this time -will start furosemide 20 mg daily (2) Leukocytosis: This is a 73yo M with a PMH of prostate cancer with mets to bone, h/o non- healing BLE wounds thought to be calciphylaxis, HTN, paroxysmal A Fib, CKD III, left upper upper extremity DVT on SQ Lovenox and other medical problems listed below who presents from [facility] for concern for infection. -Patient was sent from nursing facility for infectious workup. 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 Continues to have diarrhea symptoms. Other notable health issue is malignancy with calciphylaxis. Calciphylaxis of the legs appear to be much better compared to previous admissions. 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 started on November 28, 2018 -patient has complete 10-day treatment of vancomycin oral as last day December 07, 2018 (4) Prostate cancer metastatic to bone: -patient has in the past followed with [facility] oncology Dr. 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 Patient's left shoulder has more swelling than right side. Patient breathing comfortably on room air. He is able to use the upper extremities to eat breakfast at the bedside. no acute shortness of breath. no chest pain. no abdomen pain. no vomiting. Patient and patient's son interested in possible palliative radiation therapy for pain control. At this time, they are no currently interested in thoracentesis and opting for medical management of the pleural effusion -Dr. 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 (6) Atrial fibrillation: Continue amiodarone (7) Anxiety: (8) Depression: Continue SSRI (9) Chronic pain: Continue Oxycodone (10) HTN (hypertension): Normotensive -Continue Lopressor with hold parameters (11) DVT (deep venous thrombosis): left upper Extremity Deep Vein thrombosis which were diagnosed in previous hospitalizations -Continue Lovenox SQ 80mg BID DVT Ppx: SQ Lovenox BID Code status: FULL Subjective Had long discussion with patient and his son at bedside about left shoulder CT scan findings including osteoblastic lesions and left sided pleural effusion. Patient's left shoulder has more swelling than right side. Patient breathing comfortably on room air. He is able to use the upper extremities to eat breakfast at the bedside. no acute shortness of breath. no chest pain. no abdomen pain. no vomiting. Patient and patient's son interested in possible palliative radiation therapy for pain control. At this time, they are no currently interested in thoracentesis and opting for medical management of the pleural effusion Physical Exam Constitutional: WD/WN, vitals as above Eyes: PERRL, conjunctivae normal, anicteric sclerae EOM intact bilaterally ENMT: external ear and nose normal, oropharynx normal Neck: trachea midline, no thyromegaly normal visual inspection Respiratory: normal respiratory effort Auscultation: lungs clear to auscultation bilaterally (despite radialogy imaging of pleural effusion, breathing sounds symmetric) Cardiovascular: Rate/Rhythm: regular rate and regular rhythm Gastrointestinal (Abdomen): normal bowel sounds, soft, nontender, no hepatosplenomegaly Skin: bilateral shins in dressing, left shoulder swelling Neurologic: PERRL, EOMI, accommodation nl, no face palsy, no dysarthria CN's II-XI intact bilaterally Psychiatric: A+Ox3, euthymic affect Results & Data Vital Signs (Past 12 Hours) Vital Signs Temp Pulse Resp BP Pulse Ox 12/09/18 08:01 36.6 C 81 18 132/63 12/09/18 03:35 36.4 C L 74 20 107/62 93 12/08/18 23:38 36.8 C 76 18 115/63 94
[2018-12-09] MEDS: ASCORBIC ACID 500 MG TAB PO SCH ×2 (08:58→20:24)
[2018-12-09] MEDS: PANTOprazole 40 MG TAB PO SCH (08:58)
[2018-12-09] MEDS: OXYCODONE HCL 20 MG TABCR (OXYCONTIN) PO SCH ×2 (08:58→20:20)
[2018-12-09] MEDS: SACCHAROMYCES BOULARDII 250 MG CAP PO SCH ×2 (08:59→16:35)
[2018-12-09] MEDS: LACTOBACILLUS ACIDOPHILUS (FLORANEX) TAB PO SCH ×2 (08:59→16:33)
[2018-12-09] MEDS: METOPROLOL TARTRATE 25 MG TAB PO SCH ×2 (08:59→20:24)
[2018-12-09] MEDS: FERROUS SULFATE 325 MG TAB PO SCH ×2 (08:59→20:24)
[2018-12-09] MEDS ORDERED: FUROSEMIDE 20 MG TAB PO ONE (09:00)
[2018-12-09] MEDS: ENOXAPARIN 80 MG/0.8 ML SYR SQ SCH ×2 (09:00→20:20)
[2018-12-09] MEDS: FLUTICASONE PROPIONATE NA SPR 16 GM BTL NAE SCH (09:01)
[2018-12-09] MEDS: AMIODARONE 200 MG TAB PO SCH (09:01)
[2018-12-09] MEDS: MUPIROCIN 2% OINT 22 GM TUBE SCH ×2 (09:02→20:23)
[2018-12-09] MEDS: DICLOFENAC SOD 1% GEL 100 GM TUBE EXT SCH ×4 (09:03→20:21)
[2018-12-09] MEDS: SERTRALINE HCL 50 MG TABLET PO SCH (09:04)
[2018-12-09] MEDS: LIDOCAINE 5% 1 PATCH TD SCH (09:04)
[2018-12-09] MEDS: NYSTATIN POWDER 15GM BTL EXT SCH ×2 (09:08→20:22)
[2018-12-09] MEDS: DEXAMETHASONE CONC 3.75 MG, NYSTATIN 30 ML, DiphenhydrAMINE Syrup 300 MG, ORA-SWEET SYR... PO SCH ×3 (09:09→16:32)
--- NOTE | 2018-12-09 11:46 | Communication Note ---
Date of Service: December 09, 2018 Discussed further imaging of left shoulder with Dr Saravia. Plan for PT/OT; Limited weight bearing at this time. Lifting of no more than 10lbs; Continue ge ntle ROM. Follow up in office with Dr Saravia in 2 weeks for repeat xrays.
[2018-12-09] MEDS: ZINC SULFATE 220 MG CAPSULE PO SCH (13:50)
[2018-12-09] MEDS: MULTIVITAMIN TAB PO SCH (13:50)
[2018-12-09] MEDS: CALCIUM 600MG + VIT D 400 IU TAB PO SCH ×2 (13:53→16:34)
--- NOTE | 2018-12-09 14:15 | Radiation OncologyConsultation ---
Date of Consultation December 09, 2018 Assessment & Plan (1) Prostate cancer metastatic to bone: Assessment: Mr. Tejeda is a 73-year-old gentleman who presents with castrate resistant metastatic prostate cancer. The patient was initially treated with surgery followed by radiation therapy which completed in 2007 however developed metastatic disease and has been under the care of Dr. Hima Dukes from medical oncology. The patient was previously treated with Xtandi, Zytiga and his most recently been on Zoladex only. The patient was also treated with Xofigo. He was also treated with Xgeva in the past but that has been discontinued. Recently, he met with Dr. iHma Dukes, and the agreement was for the patient to only undergo treatment with a palliative intent. More recently, the patient was admitted to the hospital due to a C. difficile colitis. During his admission, he was complaining of left shoulder pain and did receive imaging which did reveal a pathologic fracture involving the left scapula. We have been asked to evaluate him for consideration of palliative radiation therapy. Recommendation: Palliative external beam radiation therapy to the left shoulder. We will determine the number of fractions based on the patient's tolerance to CT simulation. If he tolerates CT simulation well, we will recommend 5 fractions. If he tolerates CT simulation poorly, we can recommend one fraction. Plan: 1. Patient will come down tomorrow for CT simulation for treatment planning. Start radiation therapy on Friday. Consent obtained today. Rationale/Explanation of Treatment: We explained the indications, alternatives, benefits, risks and side effects of external beam radiation therapy to left shoulder. We then went on to discuss the acute and late side effects of radiation therapy which include, but are not limited to, skin erythema, skin breakdown, decreased range of motion, bone fracture. We then went on to discuss the procedures and scheduling of radiation therapy. The patient is agreeable to treatment and is willing to sign consent. The patient, and son had multiple questions which were answered to their full satisfaction. Thank you for allowing us to participate in the care of this patient. This chart was completed in part utilizing [employer] Speech Voice Recognition software. Attempts were made to minimize the grammatical errors, random word insertions, pronoun errors and incomplete sentences. Any formal questions or concerns about the content, text or information contained within the body of this dictation should be directly addressed to the provider for clarification. Johana Dukes MD Department of Radiation Oncology Luis Alberto james [place] [facility] Present on Admission?: Yes History of Present Illness Attending Physician: Jean Carlos Noel MD History of Present Illness 04/04/2008 to 05/24/2008. Radiation therapy for treatment of prostate cancer. 7200 cGy in 36 fractions. 09/23/2011 to 10/04/2011. Radiation therapy to bilateral breast for gynecomastia. 2000 cGy in 10 fractions at 200 cGy per fraction. 11/04/2018. Medical oncology follow-up with Dr. Hima Dukes. Given patient's issues with systemic therapy, Dr. Dukes is recommended only Zoladex and the patient has agreed to only consider treatment for goals of palliative intent. 11/30/2018. CT of abdomen/pelvis. IMPRESSION: 1. Findings are consistent with a nonspecific colitis of the left colon. This likely on an infectious or inflammatory basis and clinical correlation will be required. 2. Findings are consistent with multifocal osteoblastic metastatic disease. 3. The heart is enlarged and there are small bilateral pleural effusions. Additionally, intralobular septal thickening is noted at the lung bases. Correlate clinically for evidence of congestive failure. 4. Hepatomegaly and hepatic steatosis. 5. Status post prostatectomy. 6. Additional findings as above. 11/30/2018. CT lumbar spine. IMPRESSION: 1. No acute fracture or subluxation within the lumbar spine. 2. 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 3. Multilevel degenerative changes as described above. 12/07/2018. Orthopedic consultation by Dr. Saravia. Dr. Saravia has recommended conservative management only. 12/08/2018. CT left shoulder. IMPRESSION: 1. Multifocal osteoblastic lesions redemonstrated throughout the imaged axial and appendicular skeletal system. 2. Healing nondisplaced subacute appearing fracture about the spine of the left scapula. 3. No acute fracture or dislocation identified, specifically the clavicle appears intact. 4. Moderate glenohumeral and AC joint degenerative changes. 5. Moderate left pleural effusion with left basilar consolidation. 6. Chronic rotator cuff pathology as above. Currently, the patient does have significant discomfort involving his left shoulder. He also complains of bilateral lower extremity discomfort with associated tingling and sensitivity to touch. Allergies Allergy/AdvReac Type Severity Reaction Status Date / Time doxycycline Allergy Unknown Unknown Verified 11/30/18 14:38 cephalexin [From Keflex] Allergy Rash Verified 11/30/18 14:38 Home Medications Home Medications Medication Instructions Recorded Confirmed Type ascorbic acid (vitamin C) [Vitamin 500 mg PO AMHS 03/29/18 11/30/18 History C] multivitamin 1 tab PO QDL 03/29/18 11/30/18 History pantoprazole 40 mg PO QAM 03/29/18 11/30/18 History amiodarone 200 mg PO QAM 07/02/18 11/30/18 History calcium carbonate-vitamin D3 2 tab PO BID 07/03/18 11/30/18 History [Calcium 500 + D] acetaminophen [Acetaminophen Extra 500 mg PO Q6H PRN 09/23/18 11/30/18 History Strength] metoprolol tartrate 25 mg PO AMHS 09/23/18 11/30/18 History nystatin 1 applic TOPICAL BID 09/23/18 11/30/18 History ondansetron 8 mg PO Q8H PRN 09/23/18 11/30/18 History oxycodone 10 mg PO Q4H PRN 09/23/18 11/30/18 History oxycodone [OxyContin] 20 mg PO Q12H 09/23/18 11/30/18 History sertraline 75 mg PO QAM 09/23/18 11/30/18 History zinc sulfate 220 mg PO QDL 09/23/18 11/30/18 History Lactobacillus acidoph-L.bulgar 1 tab PO BIDM 11/30/18 11/30/18 History [Lactinex] Saccharomyces boulardii [Florastor] 250 mg PO BIDM 11/30/18 11/30/18 History collagenase clostridium histo. 1 applic TOPICAL DAILY 11/30/18 11/30/18 History diclofenac sodium 2 g TOPICAL QID 11/30/18 11/30/18 History enoxaparin [Lovenox] 80 mg SUBCUT Q12H 11/30/18 11/30/18 History ferrous sulfate 325 mg PO BID 11/30/18 11/30/18 History fluticasone propionate [Flonase 1 spray INTRANASAL QAM 11/30/18 11/30/18 History Allergy Relief] lanolin-mineral oil [Thera-Derm] 1 applic TOPICAL TID 11/30/18 11/30/18 History vancomycin 125 mg PO QID 11/30/18 11/30/18 History Patient History Medical History Mood disorder (Chronic) Prostate cancer metastatic to bone (Chronic) ~2013 Anxiety (Chronic) Depression (Chronic) Umbilical hernia (Chronic) Dyslipidemia (Chronic) On anticoagulant therapy (Chronic) Chronic steroid use (Chronic) TAKING STEROIDS DAILY FOR LOWER LEG SORES CURRENTLY. Atrial fibrillation (Chronic) Chronic pain (Chronic) HTN (hypertension) (Chronic) Obesity (BMI 30-39.9) (Chronic) GERD (gastroesophageal reflux disease) (Chronic) Surgical History History of tonsillectomy and adenoidectomy (Resolved) H/O radical prostatectomy (Resolved) ~2000 History of cholecystectomy (Resolved) History of back surgery (Resolved) L4-L5 History of repair of rotator cuff (Resolved) LEFT SHOULDER Family History Mother Hypertension Father Lymphoma Social History Preferred Language: Ukrainian Communication Ability: Effective [employer] Required: Yes Beliefs That Will Affect Care: None marital status: Current Living Situation: Rehab current occupational status: retired Other Information That Helps Us Care for You: No Feels Safe at Home: Yes Safety Concerns: Feels Safe At This Time Smoking Status: Never smoker Tobacco Type: cigarettes Second Hand Exposure: No Hx Alcohol Use: No Hx Substance Use: No Review of Systems Constitutional: as per Subjective / HPI Gastrointestinal: as per Subjective / HPI Genitourinary: + as per Subjective / HPI Physical Exam Constitutional: WD/WN, vitals as above Psychiatric: A+Ox3, euthymic affect Results Additional Studies 11/30/18 13:56 CT head/brain wo con Stat CT lumbar spine wo con Stat 11/30/18 13:58 XR chest 1V portable Stat 11/30/18 16:44 CT abd pelvis IV con only Stat 12/02/18 16:40 XR thoracic spine 2V Routine 12/07/18 13:16 XR shoulder LT min 2V routine Routine 12/07/18 15:19 XR shoulder RT min 2V routine Routine 12/08/18 13:51 CT shoulder LT wo con Routine Time Spent Attending I spent 45 minutes for this consultation, which included obtaining clinical information, performing a physical exam, recommending a plan of action and answering questions. Greater than 50% of the time spent was direct face to face interaction with the patient.
[2018-12-09] MEDS: COLLAGENASE OINT 30 GM TUBE TOP SCH (20:22)
[2018-12-10] MEDS: FLUTICASONE PROPIONATE NA SPR 16 GM BTL NAE SCH (08:47)
[2018-12-10] MEDS: SERTRALINE HCL 50 MG TABLET PO SCH (08:48)
[2018-12-10] MEDS: AMIODARONE 200 MG TAB PO SCH (08:48)
[2018-12-10] MEDS: PANTOprazole 40 MG TAB PO SCH (08:49)
[2018-12-10] MEDS: METOPROLOL TARTRATE 25 MG TAB PO SCH ×2 (08:50→20:12)
[2018-12-10] MEDS: SACCHAROMYCES BOULARDII 250 MG CAP PO SCH ×2 (08:50→16:23)
[2018-12-10] MEDS: DICLOFENAC SOD 1% GEL 100 GM TUBE EXT SCH ×4 (08:50→20:14)
[2018-12-10] MEDS: NYSTATIN POWDER 15GM BTL EXT SCH ×2 (08:51→20:13)
[2018-12-10] MEDS: ASCORBIC ACID 500 MG TAB PO SCH ×2 (08:51→20:12)
[2018-12-10] MEDS: LACTOBACILLUS ACIDOPHILUS (FLORANEX) TAB PO SCH ×2 (08:51→16:22)
[2018-12-10] MEDS: MUPIROCIN 2% OINT 22 GM TUBE SCH ×2 (08:52→20:14)
[2018-12-10] MEDS: FUROSEMIDE 20 MG TAB PO SCH (08:52)
[2018-12-10] MEDS: LIDOCAINE 5% 1 PATCH TD SCH (08:53)
[2018-12-10] MEDS: ENOXAPARIN 80 MG/0.8 ML SYR SQ SCH ×2 (08:53→20:10)
--- NOTE | 2018-12-10 09:02 | Hospitalist Progress Note ---
Date of Service December 10, 2018 Assessment & Plan (1) Left shoulder pain: -Left shoulder CT scan: Subacute appearing nondisplaced fracture about the spine of the scapula correlates with the lucency seen on comparison shoulder radiographs. This is likely on a posttraumatic basis without a large metastatic lesion seen within this area to suggest pathologic fracture -continue Lidoderm patch, ice pack -already on Oxycodone -follow orthopedic recommendations -12/09/18: the left shoulder CT scan findings including osteoblastic lesions and left sided pleural effusion. Patient's left shoulder has more swelling than right side. Patient breathing comfortably on room air. He is able to use the upp er extremities to eat breakfast at the bedside. no acute shortness of breath. no chest pain. no abdomen pain. no vomiting. Patient and patient's son interested in possible palliative radiation therapy for pain control. At this time, they are no currently interested in thoracentesis and opting for medical management of the pleural effusion -Dr. Johana Dukes from radiation oncology: Palliative external beam radiation therapy to the left shoulder. will determine the number of fractions based on the patient's tolerance to CT simulation. If he tolerates CT simulation well, will recommend 5 fractions. If he tolerates CT simulation poorly, we can recommend one fraction. -CT simulation on 12/10/18 -as per recent orthopedic evaluation of left shoulder: Plan for PT/OT; Limited weight bearing at this time. Lifting of no more than 10lbs; Continue gentle ROM. Follow up in office with Dr Saravia in 2 weeks for repeat xrays. 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 -Patient was sent from nursing facility for infectious workup. 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 Continues to have diarrhea symptoms. Other notable health issue is malignancy with calciphylaxis. Calciphylaxis of the legs appear to be much better compared to previous admissions. 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 started on November 28, 2018 -patient has complete 10-day treatment of vancomycin oral as last day December 07, 2018 (4) Prostate cancer metastatic to bone: -patient has in the past followed with [facility] oncology Dr. 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 Patient's left shoulder has more swelling than right side. Patient breathing comfortably on room air. He is able to use the upper extremities to eat breakfast at the bedside. no acute shortness of breath. no chest pain. no abdomen pain. no vomiting. Patient and patient's son interested in possible palliative radiation therapy for pain control. At this time, they are no currently interested in thoracentesis and opting for medical management of the pleural effusion -Dr. 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 (6) Atrial fibrillation: Continue amiodarone (7) Anxiety: (8) Depression: Continue SSRI (9) Chronic pain: -Continue Oxycodone -senna/colace to prevent narcotic induce constipation (10) HTN (hypertension): Normotensive -Continue Lopressor with hold parameters (11) DVT (deep venous thrombosis): left upper Extremity Deep Vein thrombosis which were diagnosed in previous hospitalizations -Continue Lovenox SQ 80mg BID DVT Ppx: SQ Lovenox BID Code status: FULL Subjective Patient seen and examined at bedside. Was just evaluated by wound care nursing. no ulcers of buttocks. shins in dressing. we discussed wound care plans for the future and recommendations. patient denies acute pains at time of exam. no shortness of breath, he is breathing comfortably on room air. cooperative on exam. no fevers. patient's at bedside. we discussed hospital course and goals. patient is awaiting this AM to get simulation for radiation therapy of left shoulder Physical Exam Constitutional: WD/WN, vitals as above Eyes: PERRL, conjunctivae normal, anicteric sclerae EOM intact bilaterally ENMT: external ear and nose normal, oropharynx normal Neck: trachea midline, no thyromegaly normal visual inspection Respiratory: normal respiratory effort Auscultation: lungs clear to auscultation bilaterally (despite radialogy imaging of pleural effusion, breathing sounds symmetric) Cardiovascular: Rate/Rhythm: regular rate and regular rhythm Gastrointestinal (Abdomen): normal bowel sounds, soft, nontender, no hepatosplenomegaly Neurologic: PERRL, EOMI, accommodation nl, no face palsy, no dysarthria CN's II-XI intact bilaterally Psychiatric: A+Ox3, euthymic affect Results & Data Vital Signs (Past 12 Hours) Vital Signs Temp Pulse Resp BP Pulse Ox 12/10/18 08:10 100 12/10/18 07:46 37.1 C 97 H 16 96/63 L 12/10/18 03:18 36.8 C 76 20 108/69 94 12/10/18 00:00 36.8 C 92 H 20 106/52 L 92
[2018-12-10] MEDS: OXYCODONE HCL 20 MG TABCR (OXYCONTIN) PO SCH ×2 (09:03→20:10)
[2018-12-10] MEDS: DEXAMETHASONE CONC 3.75 MG, NYSTATIN 30 ML, DiphenhydrAMINE Syrup 300 MG, ORA-SWEET SYR... PO SCH ×3 (09:04→16:19)
[2018-12-10] MEDS: FERROUS SULFATE 325 MG TAB PO SCH ×2 (10:10→20:12)
[2018-12-10] MEDS: SENNA 8.6 MG TAB PO SCH (13:17)
[2018-12-10] MEDS: DOCUSATE SODIUM 100 MG CAP PO SCH ×2 (13:17→20:13)
[2018-12-10] MEDS: CALCIUM 600MG + VIT D 400 IU TAB PO SCH ×2 (13:17→16:21)
[2018-12-10] MEDS: MULTIVITAMIN TAB PO SCH (13:18)
[2018-12-10] MEDS: ZINC SULFATE 220 MG CAPSULE PO SCH (13:18)
[2018-12-10] MEDS: OXYCODONE HCL IR 5 MG TAB (IMMEDIATE RELEASE) PO PRN (17:51)
[2018-12-10] MEDS: ACETAMINOPHEN 325 MG TAB PO PRN (19:32)
[2018-12-11] MEDS: OXYCODONE HCL IR 5 MG TAB (IMMEDIATE RELEASE) PO PRN ×3 (06:06→19:42)
[2018-12-11] MEDS: DEXAMETHASONE CONC 3.75 MG, NYSTATIN 30 ML, DiphenhydrAMINE Syrup 300 MG, ORA-SWEET SYR... PO SCH ×3 (07:40→16:26)
[2018-12-11] MEDS: AMIODARONE 200 MG TAB PO SCH (08:50)
[2018-12-11] MEDS: LACTOBACILLUS ACIDOPHILUS (FLORANEX) TAB PO SCH ×2 (08:50→16:27)
[2018-12-11] MEDS: FUROSEMIDE 20 MG TAB PO SCH (08:51)
[2018-12-11] MEDS: PANTOprazole 40 MG TAB PO SCH (08:51)
[2018-12-11] MEDS: FERROUS SULFATE 325 MG TAB PO SCH ×2 (08:51→20:37)
[2018-12-11] MEDS: SENNA 8.6 MG TAB PO SCH (08:51)
[2018-12-11] MEDS: METOPROLOL TARTRATE 25 MG TAB PO SCH ×2 (08:51→20:38)
[2018-12-11] MEDS: SERTRALINE HCL 50 MG TABLET PO SCH (08:52)
[2018-12-11] MEDS: SACCHAROMYCES BOULARDII 250 MG CAP PO SCH ×2 (08:52→16:28)
[2018-12-11] MEDS: ASCORBIC ACID 500 MG TAB PO SCH ×2 (08:52→20:38)
[2018-12-11] MEDS: FLUTICASONE PROPIONATE NA SPR 16 GM BTL NAE SCH (08:53)
[2018-12-11] MEDS: DICLOFENAC SOD 1% GEL 100 GM TUBE EXT SCH ×4 (08:53→20:38)
[2018-12-11] MEDS: LIDOCAINE 5% 1 PATCH TD SCH ×2 (08:53→20:41)
[2018-12-11] MEDS: ENOXAPARIN 80 MG/0.8 ML SYR SQ SCH ×2 (08:54→19:43)
[2018-12-11] MEDS: MUPIROCIN 2% OINT 22 GM TUBE SCH ×2 (08:54→20:37)
[2018-12-11] MEDS: NYSTATIN POWDER 15GM BTL EXT SCH ×2 (08:55→20:36)
[2018-12-11] MEDS: OXYCODONE HCL 20 MG TABCR (OXYCONTIN) PO SCH ×2 (09:07→19:43)
[2018-12-11] MEDS: DOCUSATE SODIUM 100 MG CAP PO SCH ×2 (09:07→20:37)
--- NOTE | 2018-12-11 10:21 | Hospitalist Progress Note ---
Date of Service December 11, 2018 Assessment & Plan (1) Left shoulder pain: -Left shoulder CT scan: Subacute appearing nondisplaced fracture about the spine of the scapula correlates with the lucency seen on comparison shoulder radiographs. This is likely on a posttraumatic basis without a large metastatic lesion seen within this area to suggest pathologic fracture -continue Lidoderm patch, ice pack -already on Oxycodone -follow orthopedic recommendations -12/09/18: the left shoulder CT scan findings including osteoblastic lesions and left sided pleural effusion. Patient's left shoulder has more swelling than right side. Patient breathing comfortably on room air. He is able to use the up er extremities to eat breakfast at the bedside. no acute shortness of breath. no chest pain. no abdomen pain. no vomiting. Patient and patient's son interested in palliative radiation therapy for pain control. At this time, they are no currently interested in thoracentesis and opting for medical management of the pleural effusion -as per 12/09/18 orthopedic evaluation of left shoulder: Plan for PT/OT; Limited weight bearing at this time. Lifting of no more than 10lbs; Continue gentle ROM. Follow up in office with Dr Saravia in 2 weeks for repeat xrays. 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 -Patient was sent from nursing facility for infectious workup. 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 Continues to have diarrhea symptoms. Other notable health issue is malignancy with calciphylaxis. Calciphylaxis of the legs appear to be much better compared to previous admissions. 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 started on November 28, 2018 -patient has complete 10-day treatment of vancomycin oral as last day December 07, 2018 (4) Prostate cancer metastatic to bone: -patient has in the past followed with [facility] oncology Dr. 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 Patient's left shoulder has more swelling than right side. Patient breathing comfortably on room air. He is able to use the upper extremities to eat breakfast at the bedside. no acute shortness of breath. no chest pain. no abdomen pain. no vomiting. Patient and patient's son interested in palliative radiation therapy for pain control. 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 (6) Atrial fibrillation: Continue amiodarone (7) Anxiety: (8) Depression: Continue SSRI (9) Chronic pain: -Continue Oxycodone -senna/colace to prevent narcotic induce constipation (10) HTN (hypertension): Normotensive -Continue Lopressor with hold parameters (11) DVT (deep venous thrombosis): left upper Extremity Deep Vein thrombosis which were diagnosed in previous hospitalizations -Continue Lovenox SQ 80mg BID DVT Ppx: SQ Lovenox BID Code status: FULL Disposition: based on case management notes on looking for rehabilitation facilities and because patient to receive palliative radiation treatment while in the hospital, the discharge date depends on finding acceptable rehabilitation facility and radiation treatment plans Subjective Patient seen and examined while sitting up in the chair. he is awaiting to go to radiation therapy. no distress. breathing on room air. no acute pain currently. no vomiting. no fever. he reports he feels anxious while waiting for the radiation treatment Physical Exam Constitutional: WD/WN, vitals as above Eyes: PERRL, conjunctivae normal, anicteric sclerae EOM intact bilaterally ENMT: external ear and nose normal, oropharynx normal Neck: trachea midline, no thyromegaly normal visual inspection Respiratory: normal respiratory effort Auscultation: lungs clear to auscultation bilaterally (despite radialogy imaging of pleural effusion, breathing sounds symmetric) Cardiovascular: Rate/Rhythm: regular rate and regular rhythm Gastrointestinal (Abdomen): normal bowel sounds, soft, nontender, no hepatosplenomegaly Neurologic: PERRL, EOMI, accommodation nl, no face palsy, no dysarthria CN's II-XI intact bilaterally Psychiatric: A+Ox3, euthymic affect Results & Data Vital Signs (Past 12 Hours) Vital Signs Temp Pulse Pulse Resp BP Pulse Ox 12/11/18 06:55 37.1 C 86 18 112/65 95 12/11/18 04:00 36.7 C 80 19 110/67 97 12/10/18 23:53 36.7 C 73 18 100/63 90
[2018-12-11] MEDS: ZINC SULFATE 220 MG CAPSULE PO SCH (11:17)
[2018-12-11] MEDS: CALCIUM 600MG + VIT D 400 IU TAB PO SCH ×2 (11:17→16:28)
[2018-12-11] MEDS: MULTIVITAMIN TAB PO SCH (11:17)
[2018-12-11] MEDS ORDERED: Nursing to Pharmacy Communication ONE (16:59)
[2018-12-12] MEDS: OXYCODONE HCL IR 5 MG TAB (IMMEDIATE RELEASE) PO PRN ×2 (06:33→19:31)
[2018-12-12] MEDS: DICLOFENAC SOD 1% GEL 100 GM TUBE EXT SCH ×5 (08:22→20:21)
[2018-12-12] MEDS: PANTOprazole 40 MG TAB PO SCH (08:22)
[2018-12-12] MEDS: METOPROLOL TARTRATE 25 MG TAB PO SCH ×2 (08:22→20:19)
[2018-12-12] MEDS: AMIODARONE 200 MG TAB PO SCH (08:23)
[2018-12-12] MEDS: DOCUSATE SODIUM 100 MG CAP PO SCH ×2 (08:23→20:19)
[2018-12-12] MEDS: ASCORBIC ACID 500 MG TAB PO SCH ×2 (08:23→20:20)
[2018-12-12] MEDS: SACCHAROMYCES BOULARDII 250 MG CAP PO SCH ×2 (08:23→16:21)
[2018-12-12] MEDS: SENNA 8.6 MG TAB PO SCH (08:23)
[2018-12-12] MEDS: LACTOBACILLUS ACIDOPHILUS (FLORANEX) TAB PO SCH ×2 (08:24→16:21)
[2018-12-12] MEDS: FERROUS SULFATE 325 MG TAB PO SCH ×2 (08:24→20:20)
[2018-12-12] MEDS: FUROSEMIDE 20 MG TAB PO SCH (08:24)
[2018-12-12] MEDS: SERTRALINE HCL 50 MG TABLET PO SCH (08:24)
[2018-12-12] MEDS: ENOXAPARIN 80 MG/0.8 ML SYR SQ SCH ×2 (08:25→19:32)
[2018-12-12] MEDS: DEXAMETHASONE CONC 3.75 MG, NYSTATIN 30 ML, DiphenhydrAMINE Syrup 300 MG, ORA-SWEET SYR... PO SCH ×3 (08:34→16:19)
[2018-12-12] MEDS: FLUTICASONE PROPIONATE NA SPR 16 GM BTL NAE SCH (08:34)
[2018-12-12] MEDS: OXYCODONE HCL 20 MG TABCR (OXYCONTIN) PO SCH ×2 (08:34→19:31)
[2018-12-12] MEDS: NYSTATIN POWDER 15GM BTL EXT SCH ×2 (08:35→20:20)
--- NOTE | 2018-12-12 09:45 | Hospitalist Progress Note ---
Date of Service December 12, 2018 Assessment & Plan (1) Left shoulder pain: -Left shoulder CT scan: Subacute appearing nondisplaced fracture about the spine of the scapula correlates with the lucency seen on comparison shoulder radiographs. This is likely on a posttraumatic basis without a large metastatic lesion seen within this area to suggest pathologic fracture -continue Lidoderm patch, ice pack -already on Oxycodone -follow orthopedic recommendations -12/09/18: the left shoulder CT scan findings including osteoblastic lesions and left sided pleural effusion. Patient's left shoulder has more swelling than right side. Patient breathing comfortably on room air. He is able to use the up er extremities to eat breakfast at the bedside. no acute shortness of breath. no chest pain. no abdomen pain. no vomiting. Patient and patient's son interested in palliative radiation therapy for pain control. At this time, they are no currently interested in thoracentesis and opting for medical management of the pleural effusion -as per 12/09/18 orthopedic evaluation of left shoulder: Plan for PT/OT; Limited weight bearing at this time. Lifting of no more than 10lbs; Continue gentle ROM. Follow up in office with Dr Saravia in 2 weeks for repeat xrays. -radiation oncology: Palliative external beam radiation therapy to the left shoulder; CT simulation on 12/10/18 completed, started 1st session on 12/11/18 with plans for total of 5 fractions; next session is for Friday12/14/18 Left Pleural effusion -potentially could be malignant pleural effusion given history of metastatic prostate caner -patient and family defers diagnostic or therapeutic thoracentesis at this time -started furosemide 20 mg daily on 12/09/18, continue -will check electrolytes on 12/12/18 (2) Leukocytosis: This is a 73yo M with a PMH of prostate cancer with mets to bone, h/o 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 -Patient was sent from nursing facility for infectious workup. 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 Continues to have diarrhea symptoms. Other notable health issue is malignancy with calciphylaxis. Calciphylaxis of the legs appear to be much better compared to previous admissions. 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 started on November 28, 2018 -patient has complete 10-day treatment of vancomycin oral as last day December 07, 2018 (4) Prostate cancer metastatic to bone: -patient has in the past followed with [facility] oncology Dr. 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 Patient's left shoulder has more swelling than right side. Patient breathing comfortably on room air. He is able to use the upper extremities to eat breakfast at the bedside. no acute shortness of breath. no chest pain. no abdomen pain. no vomiting. Patient and patient's son interested in palliative radiation therapy for pain control. 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 (6) Atrial fibrillation: Continue amiodarone (7) Anxiety: (8) Depression: Continue SSRI (9) Chronic pain: -Continue Oxycodone -senna/colace to prevent narcotic induce constipation (10) HTN (hypertension): Normotensive -Continue Lopressor with hold parameters (11) DVT (deep venous thrombosis): left upper Extremity Deep Vein thrombosis which were diagnosed in previous hospitalizations -Continue Lovenox SQ 80mg BID DVT Ppx: SQ Lovenox BID Code status: FULL Disposition: based on case management notes on looking for rehabilitation facilities and because patient to receive palliative radiation treatment while in the hospital, the discharge date depends on finding acceptable rehabilitation facility and radiation treatments Subjective Patient reports since radiation therapy on Friday12/11/18 he feels somewhat more pain of the shoulder. The next session is scheduled for Friday12/14/18. He is not in distress. His friend at bedside raised concerns that patient talks in his sleep and some tremors at night. But patient reports he has good sleep. patient denies acute pain elsewhere. continues to breath comfortably on room air Physical Exam Constitutional: WD/WN, vitals as above Eyes: PERRL, conjunctivae normal, anicteric sclerae EOM intact bilaterally ENMT: external ear and nose normal, oropharynx normal Neck: trachea midline, no thyromegaly normal visual inspection Respiratory: normal respiratory effort Auscultation: lungs clear to auscultation bilaterally (despite radialogy imaging of pleural effusion, breathing sounds symmetric) Cardiovascular: Rate/Rhythm: regular rate and regular rhythm Gastrointestinal (Abdomen): normal bowel sounds, soft, nontender, no hepatosplenomegaly Neurologic: PERRL, EOMI, accommodation nl, no face palsy, no dysarthria CN's II-XI intact bilaterally Psychiatric: A+Ox3, euthymic affect Results & Data Vital Signs (Past 12 Hours) Vital Signs Temp Pulse Pulse Resp BP Pulse Ox 12/12/18 07:57 37.0 C 86 20 116/65 92 12/12/18 04:00 36.9 C 84 20 104/63 97 12/12/18 03:00 36.9 C 84 20 104/63 97 12/11/18 23:35 36.8 C 84 16 101/60 94
[2018-12-12 10:11] LABS: BUN Creatinine Ratio 9.4 (10-20); Calcium 8.7 mg/dl (8.5-10.1); Est GFR (African American) 106.4; Est GFR (Non-African American) 91.8; Potassium 3.7 mmol/L (3.5-5.1)
[2018-12-12 10:13] LABS: Albumin Globulin Ratio 0.5 (0.9-2); Bilirubin,Total 0.4 mg/dl (0.2-1); Globulin 4.3 gm/dl (2.5-4.0); Total Protein 6.3 gm/dl (6.4-8.2)
[2018-12-12] MEDS: ZINC SULFATE 220 MG CAPSULE PO SCH (11:31)
[2018-12-12] MEDS: CALCIUM 600MG + VIT D 400 IU TAB PO SCH ×2 (11:31→16:21)
[2018-12-12] MEDS: MULTIVITAMIN TAB PO SCH (11:31)
[2018-12-12] MEDS: LIDOCAINE 5% 1 PATCH TD SCH (20:21)
[2018-12-13] MEDS: ACETAMINOPHEN 325 MG TAB PO PRN (06:04)
--- NOTE | 2018-12-13 08:23 | Hospitalist Progress Note ---
Date of Service December 13, 2018 Assessment & Plan (1) Left shoulder pain: -Left shoulder CT scan: Subacute appearing nondisplaced fracture about the spine of the scapula correlates with the lucency seen on comparison shoulder radiographs. This is likely on a posttraumatic basis without a large metastatic lesion seen within this area to suggest pathologic fracture -continue Lidoderm patch, ice pack -already on Oxycodone -follow orthopedic recommendations -12/09/18: the left shoulder CT scan findings including osteoblastic lesions and left sided pleural effusion. Patient's left shoulder has more swelling than right side. Patient breathing comfortably on room air. He is able to use the up er extremities to eat breakfast at the bedside. no acute shortness of breath. no chest pain. no abdomen pain. no vomiting. Patient and patient's son interested in palliative radiation therapy for pain control. At this time, they are no currently interested in thoracentesis and opting for medical management of the pleural effusion -as per 12/09/18 orthopedic evaluation of left shoulder: Plan for PT/OT; Limited weight bearing at this time. Lifting of no more than 10lbs; Continue gentle ROM. Follow up in office with Dr Saravia in 2 weeks for repeat xrays. -radiation oncology: Palliative external beam radiation therapy to the left shoulder; CT simulation on 12/10/18 completed, started 1st session on 12/11/18 with plans for total of 5 fractions; next session is for Friday12/14/18 Left Pleural effusion -potentially could be malignant pleural effusion given history of metastatic prostate caner -patient and family defers diagnostic or therapeutic thoracentesis at this time -started furosemide 20 mg daily on 12/09/18, continue -will check electrolytes on 12/12/18 (2) Leukocytosis: This is a 73yo M with a PMH of prostate cancer with mets to bone, h/o non- healing 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 -Patient was sent from nursing facility for infectious workup. 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 Continues to have diarrhea symptoms. Other notable health issue is malignancy with calciphylaxis. Calciphylaxis of the legs appear to be much better compared to previous admissions. 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 started on November 28, 2018 -patient has complete 10-day treatment of vancomycin oral as last day December 07, 2018 (4) Prostate cancer metastatic to bone: -patient has in the past followed with [facility] oncology Dr. 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 Patient's left shoulder has more swelling than right side. Patient breathing comfortably on room air. He is able to use the upper extremities to eat breakfast at the bedside. no acute shortness of breath. no chest pain. no abdomen pain. no vomiting. Patient and patient's son interested in palliative radiation therapy for pain control. 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 (6) Atrial fibrillation: Continue amiodarone (7) Anxiety: (8) Depression: Continue SSRI (9) Chronic pain: -senna/colace to prevent narcotic induce constipation -to try to prevent delirium or confusion from narcotics, have reduced the scheduled sustained release oxycodone from 20 mg q12 hours to 20 mg qAM and 10 mg qhs. also changed the short acting oxycodone prn from 10 mg q4 prn to 10 mg q6 hr prn. (10) HTN (hypertension): Normotensive -Continue Lopressor with hold parameters (11) DVT (deep venous thrombosis): left upper Extremity Deep Vein thrombosis which were diagnosed in previous hospitalizations -Continue Lovenox SQ 80mg BID DVT Ppx: SQ Lovenox BID Code status: FULL Disposition: based on case management notes on looking for rehabilitation facilities and because patient to receive palliative radiation treatment while in the hospital, the discharge date depends on finding acceptable rehabilitation facility and radiation treatments Subjective Patient seen this AM. Was being assisted by nursing assistants and using the commode. Patient reports he has been able to make bowel movements. mental statu is baseline. His friend at bedside reports patient had intermittent confusion at night but noted that patient also had narcotic pain medications close together. Discussed with patient about modifying pain medications scheduled and prns and patient agrees and will monitor if changes will also provide adequate pain control in regards to bone pain from the metastatic prostate cancer. patient continues to be on room air. AM temp noted to be slightly higher at 37.7 C than usual but no true documented febrile temperatures. patient denies vomiting and no other complaints Physical Exam Constitutional: WD/WN, vitals as above Eyes: PERRL, conjunctivae normal, anicteric sclerae EOM intact bilaterally ENMT: external ear and nose normal, oropharynx normal Neck: trachea midline, no thyromegaly normal visual inspection Respiratory: normal respiratory effort Auscultation: lungs clear to auscultation bilaterally (despite radialogy imaging of pleural effusion, breathing sounds symmetric) Cardiovascular: Rate/Rhythm: regular rate and regular rhythm Gastrointestinal (Abdomen): normal bowel sounds, soft, nontender, no hepatosplenomegaly Neurologic: PERRL, EOMI, accommodation nl, no face palsy, no dysarthria CN's II-XI intact bilaterally Psychiatric: A+Ox3, euthymic affect Results & Data Vital Signs (Past 12 Hours) Vital Signs Temp Pulse Resp BP Pulse Ox 12/13/18 07:23 37.7 C H 92 H 18 121/57 L 96 12/13/18 04:06 36.5 C 63 18 104/61 93 12/12/18 23:09 36.6 C 83 18 98/60 L 92
[2018-12-13] MEDS: FERROUS SULFATE 325 MG TAB PO SCH ×2 (08:50→20:02)
[2018-12-13] MEDS: DICLOFENAC SOD 1% GEL 100 GM TUBE EXT SCH ×4 (08:50→20:03)
[2018-12-13] MEDS: FLUTICASONE PROPIONATE NA SPR 16 GM BTL NAE SCH (08:50)
[2018-12-13] MEDS: NYSTATIN POWDER 15GM BTL EXT SCH ×2 (08:50→20:03)
[2018-12-13] MEDS: METOPROLOL TARTRATE 25 MG TAB PO SCH ×2 (08:51→20:04)
[2018-12-13] MEDS: LACTOBACILLUS ACIDOPHILUS (FLORANEX) TAB PO SCH ×2 (08:51→16:49)
[2018-12-13] MEDS: SACCHAROMYCES BOULARDII 250 MG CAP PO SCH ×2 (08:51→16:48)
[2018-12-13] MEDS: SENNA 8.6 MG TAB PO SCH (08:51)
[2018-12-13] MEDS: SERTRALINE HCL 50 MG TABLET PO SCH (08:51)
[2018-12-13] MEDS: ASCORBIC ACID 500 MG TAB PO SCH ×2 (08:51→20:03)
[2018-12-13] MEDS: PANTOprazole 40 MG TAB PO SCH (08:52)
[2018-12-13] MEDS: FUROSEMIDE 20 MG TAB PO SCH (08:53)
[2018-12-13] MEDS: DOCUSATE SODIUM 100 MG CAP PO SCH ×2 (08:53→20:02)
[2018-12-13] MEDS: AMIODARONE 200 MG TAB PO SCH (08:54)
[2018-12-13] MEDS: ENOXAPARIN 80 MG/0.8 ML SYR SQ SCH ×2 (08:54→20:02)
[2018-12-13] MEDS: DEXAMETHASONE CONC 3.75 MG, NYSTATIN 30 ML, DiphenhydrAMINE Syrup 300 MG, ORA-SWEET SYR... PO SCH ×3 (08:55→16:46)
[2018-12-13] MEDS: MULTIVITAMIN TAB PO SCH (12:34)
[2018-12-13] MEDS: ZINC SULFATE 220 MG CAPSULE PO SCH (12:34)
[2018-12-13] MEDS: CALCIUM 600MG + VIT D 400 IU TAB PO SCH ×2 (12:34→16:48)
[2018-12-13] MEDS: OXYCODONE HCL 20 MG TABCR (OXYCONTIN) PO SCH (14:50)
[2018-12-13] MEDS: OXYCODONE HCL IR 5 MG TAB (IMMEDIATE RELEASE) PO PRN (15:40)
[2018-12-13] MEDS: LIDOCAINE 5% 1 PATCH TD SCH (20:02)
[2018-12-13] MEDS ORDERED: OXYCODONE HCL 10 MG TABCR (OXYCONTIN) PO SCH (21:00)
[2018-12-14] MEDS: OXYCODONE HCL IR 5 MG TAB (IMMEDIATE RELEASE) PO PRN ×2 (01:57→13:09)
[2018-12-14 07:48] LABS: Hematocrit (blood only) 28.4 % (42-52); Hemoglobin 8.2 g/dL (14.0-18.0); Mean Corpuscular Hgb Conc 28.9 g/dL (32-36); Mean Corpuscular Volume 86.3 fL (80-100); Mean Platelet Volume 8.1 fL (7.4-10.4); Platelet Count 442 K/uL (130-400); RDW Coefficient of Variation 19.4 % (11.5-14.5); Red Blood Count 3.29 M/uL (4.7-6.1); White Blood Count 9.14 K/uL (4.8-10.8)
[2018-12-14 08:16] LABS: Basophils # (auto) 0.03 K/uL (0-0.2); Basophils % (auto) 0.3 %; Eosinophils # (auto) 0.08 K/uL (0-0.5); Eosinophils % (auto) 0.9 %; Immature Granulocytes # (auto) 0.02 K/uL (0.00-0.02); Immature Granulocytes % (auto) 0.2 %; Lymphocytes # (auto) 2.34 K/uL (1.2-3.4); Lymphocytes % (auto) 25.6 %; Monocytes # (auto) 0.84 K/uL (0.11-0.59); Monocytes % (auto) 9.2 %; Neutrophils # (auto) 5.83 K/uL (1.4-6.5); Neutrophils % (auto) 63.8 %
[2018-12-14] MEDS: DEXAMETHASONE CONC 3.75 MG, NYSTATIN 30 ML, DiphenhydrAMINE Syrup 300 MG, ORA-SWEET SYR... PO SCH ×3 (08:36→16:21)
[2018-12-14] MEDS: LACTOBACILLUS ACIDOPHILUS (FLORANEX) TAB PO SCH ×2 (08:36→16:24)
[2018-12-14] MEDS: AMIODARONE 200 MG TAB PO SCH (08:36)
[2018-12-14] MEDS: ASCORBIC ACID 500 MG TAB PO SCH ×2 (08:37→20:47)
[2018-12-14] MEDS: FERROUS SULFATE 325 MG TAB PO SCH ×2 (08:37→20:47)
[2018-12-14] MEDS: SACCHAROMYCES BOULARDII 250 MG CAP PO SCH ×2 (08:37→16:23)
[2018-12-14] MEDS: SENNA 8.6 MG TAB PO SCH (08:37)
[2018-12-14] MEDS: SERTRALINE HCL 50 MG TABLET PO SCH (08:37)
[2018-12-14] MEDS: METOPROLOL TARTRATE 25 MG TAB PO SCH ×2 (08:37→20:46)
[2018-12-14] MEDS: PANTOprazole 40 MG TAB PO SCH (08:37)
[2018-12-14] MEDS: DICLOFENAC SOD 1% GEL 100 GM TUBE EXT SCH ×4 (08:37→20:48)
[2018-12-14] MEDS: DOCUSATE SODIUM 100 MG CAP PO SCH ×2 (08:38→20:41)
[2018-12-14] MEDS: NYSTATIN POWDER 15GM BTL EXT SCH ×2 (08:38→20:44)
[2018-12-14] MEDS: FLUTICASONE PROPIONATE NA SPR 16 GM BTL NAE SCH (08:38)
[2018-12-14] MEDS: ENOXAPARIN 80 MG/0.8 ML SYR SQ SCH ×2 (08:39→20:41)
[2018-12-14] MEDS: FUROSEMIDE 20 MG TAB PO SCH (08:39)
[2018-12-14] MEDS ORDERED: OXYCODONE HCL 20 MG TABCR (OXYCONTIN) PO SCH (09:00)
--- NOTE | 2018-12-14 11:32 | Palliative Care Progress Note ---
Date of Service December 14, 2018 Subjective Patient reviewed with team. Patient remaining full code with active treatment. Will be receiving radiation this week and then transfering to a SNF. Palliative needs not apparent to continue following at this time. We are available should these needs change, Palliative Care Services will sign off at this time. [phone]. Results & Data Vital Signs (Past 12 Hours) Vital Signs Temp Pulse Resp BP Pulse Ox 12/14/18 07:37 36.8 C 86 16 114/65 96 12/14/18 03:59 36.9 C 79 18 104/56 L 94 Supervising Physician Co-Signing Physician Notes Return to meet with patient and per request of Dr. Noel-attempted to see patient x3-patient not in room due to receiving XRT. Will attempt to meet with them tomorrow.
[2018-12-14] MEDS: CALCIUM 600MG + VIT D 400 IU TAB PO SCH ×2 (11:59→16:22)
[2018-12-14] MEDS: ZINC SULFATE 220 MG CAPSULE PO SCH (11:59)
[2018-12-14] MEDS: MULTIVITAMIN TAB PO SCH (11:59)
--- NOTE | 2018-12-14 12:41 | Hospitalist Progress Note ---
Date of Service December 14, 2018 Assessment & Plan (1) Left shoulder pain: -Left shoulder CT scan: Subacute appearing nondisplaced fracture about the spine of the scapula correlates with the lucency seen on comparison shoulder radiographs. This is likely on a posttraumatic basis without a large metastatic lesion seen within this area to suggest pathologic fracture -continue Lidoderm patch, ice pack -already on Oxycodone -follow orthopedic recommendations -12/09/18: the left shoulder CT scan findings including osteoblastic lesions and left sided pleural effusion. Patient's left shoulder has more swelling than right side. Patient breathing comfortably on room air. He is able to use the up er extremities to eat breakfast at the bedside. no acute shortness of breath. no chest pain. no abdomen pain. no vomiting. Patient and patient's son interested in palliative radiation therapy for pain control. At this time, they are no currently interested in thoracentesis and opting for medical management of the pleural effusion -as per 12/09/18 orthopedic evaluation of left shoulder: Plan for PT/OT; Limited weight bearing at this time. Lifting of no more than 10lbs; Continue gentle ROM. Follow up in office with Dr Saravia in 2 weeks for repeat xrays. -radiation oncology: Palliative external beam radiation therapy to the left shoulder; CT simulation on 12/10/18 completed, started 1st session on 12/11/18 with plans for total of 5 fractions; next session is for Friday12/14/18 Left Pleural effusion -potentially could be malignant pleural effusion given history of metastatic prostate caner -patient and family defers diagnostic or therapeutic thoracentesis at this time -started furosemide 20 mg daily on 12/09/18, continue -will check electrolytes on 12/12/18 (2) Leukocytosis: This is a 73yo M with a PMH of prostate cancer with mets to bone, h/o non- healing BLE wounds thought to be calciphylaxis, HTN, paroxysmal A Fib, CKD III, left upper upper extremity DVT on SQ Lovenox and other medical problems listed below who presents from [facility] for concern for infection. -Patient was sent from nursing facility for infectious workup. 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 Continues to have diarrhea symptoms. Other notable health issue is malignancy with calciphylaxis. Calciphylaxis of the legs appear to be much better compared to previous admissions. 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 started on November 28, 2018 -patient has complete 10-day treatment of vancomycin oral as last day December 07, 2018 (4) Prostate cancer metastatic to bone: -patient has in the past followed with [facility] oncology Dr. 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 Patient's left shoulder has more swelling than right side. Patient breathing comfortably on room air. He is able to use the upper extremities to eat breakfast at the bedside. no acute shortness of breath. no chest pain. no abdomen pain. no vomiting. Patient and patient's son interested in palliative radiation therapy for pain control. 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 (6) Atrial fibrillation: Continue amiodarone (7) Anxiety: (8) Depression: on Zoloft 75 mg qhs Tremors/Muscle fasiculations -unclear as to the cause, will down titrate narcotic medications -ask for neurology consult evaluation (9) Chronic pain: -senna/colace to prevent narcotic induce constipation -to try to prevent delirium or confusion from narcotics, will continue reduction of the scheduled sustained release oxycodone to 10 mg BID from home dose 20 mg q12 . continue short acting oxycodone prn as 10 mg q6hr rather than q4h prn (10) HTN (hypertension): Normotensive -Continue Lopressor with hold parameters (11) DVT (deep venous thrombosis): left upper Extremity Deep Vein thrombosis which were diagnosed in previous hospitalizations -Continue Lovenox SQ 80mg BID DVT Ppx: SQ Lovenox BID Code status: FULL Disposition: based on case management notes on looking for rehabilitation facilities and because patient to receive palliative radiation treatment while in the hospital, the discharge date depends on finding acceptable rehabilitation facility and radiation treatments Subjective Patient seen and examined while sitting up in the chair. he is eating lunch. Patient's concerned or more tremors and patient does have noticeable muscle fasiculations of upper extremities. Patient does not appear to be in acute pain since decreasing the dose of narcotics. apparently the tremors is diminishing quality of sleep. Patient not in acute pain currently. breathing on room air. no vomiting. no fever. The tremors started before radiation on 12/11/18, patient due for radiation to shoulder later today on 12/14/18 Palliative care consult asked to re-evaluate Neurology consult also requested Physical Exam Constitutional: WD/WN, vitals as above Eyes: PERRL, conjunctivae normal, anicteric sclerae EOM intact bilaterally ENMT: external ear and nose normal, oropharynx normal Neck: trachea midline, no thyromegaly normal visual inspection Respiratory: normal respiratory effort Auscultation: lungs clear to auscultation bilaterally (despite radialogy imaging of pleural effusion, breathing sounds symmetric) Cardiovascular: Rate/Rhythm: regular rate and regular rhythm Gastrointestinal (Abdomen): normal bowel sounds, soft, nontender, no hepatosplenomegaly Neurologic: PERRL, EOMI, accommodation nl, no face palsy, no dysarthria CN's II-XI intact bilaterally tremors/muscle fasiculations of upper extremities Psychiatric: A+Ox3, euthymic affect Results & Data Vital Signs (Past 12 Hours) Vital Signs Temp Pulse Resp BP Pulse Ox 12/14/18 07:37 36.8 C 86 16 114/65 96 12/14/18 03:59 36.9 C 79 18 104/56 L 94
--- NOTE | 2018-12-14 14:38 | Neurology Consultation ---
Date of Consultation December 14, 2018 Assessment & Plan (1) Tremor due to multiple drugs: 1. essential tremor increased due to narcotic use 2. unable to visualize fasciculations out patient EMG but doubt if patient could tolerate 3. check TSH , mag, phos, ck 4. amiodarone likely cause of ongoing tremor which family states he has had for years but increased recently 5. tonic clonic jerk are likely from narcotics 6. MRI could be done but would not change treatment course and doubt if could t olerate. Supervising Physician Co-Signing Physician Notes I have seen and discussed above patient with Dr Araceli Roa, neurology Pt seen and examined. Pt was in pain and allowed limited exam. Pt may have had tremor for some time, but markedly increased on admission. No FMH tremor. Pt on amiodarone, narcotics, zoloft. Exam notable for the absence of significant atrophy, no fasciculations, mild generalized weakness. Knee jerks present, AJ absent, toes downgoing. Pt has mild random myoclonic jerks. There is a mild to moderate tremor with intention. Pble underlying essential tremor, exacerbated by amiodarone, zoloft, and pain. Myoclonic jerks appears to be metabolic and are most likely related to narcotics. Would minimize narcotics to the extent that they can be. May need to accept the myoclonic jerks to have adequate pain control. Would not tx tremor due to comorbidities. 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 He was hospitalized at [facility] for 4 weeks in July-he was admitted with altered mental status and pneumonia- requiring intubation as well as complications. He presented from [facility] for concern for infection. He also seemed confused and less engaged over the past few days. he has chronic bone pain from metastatic prostate cancer as well as chronic wounds. He has a recurrent C. difficile last week and has been on oral Vanco. He wants the chronic wounds to be less painful. and granddaughter are bedside, seem to be interested in clarification of goals and agreed to palliative care but they have signed off for now. He is on chronic pain medications which were reduced by the primary service to help with the tremor. he is very [place] and is in a lot of pain with his legs. His states the shaking started about a week ago. Neither of them know what medication he is currently taking or if anything has been changed. denies CP, SOB, abdominal pain, one sided weakness, numbness tingling, +left shoulder pain with movement, bilateral lower ext pain with movement and touch. Allergies Allergy/AdvReac Type Severity Reaction Status Date / Time doxycycline Allergy Unknown Unknown Verified 11/30/18 14:38 cephalexin [From Keflex] Allergy Rash Verified 11/30/18 14:38 Home Medications Home Medications Medication Instructions Recorded Confirmed Type ascorbic acid (vitamin C) [Vitamin 500 mg PO AMHS 03/29/18 11/30/18 History C] multivitamin 1 tab PO QDL 03/29/18 11/30/18 History pantoprazole 40 mg PO QAM 03/29/18 11/30/18 History amiodarone 200 mg PO QAM 07/02/18 11/30/18 History calcium carbonate-vitamin D3 2 tab PO BID 07/03/18 11/30/18 History [Calcium 500 + D] acetaminophen [Acetaminophen Extra 500 mg PO Q6H PRN 09/23/18 11/30/18 History Strength] metoprolol tartrate 25 mg PO AMHS 09/23/18 11/30/18 History nystatin 1 applic TOPICAL BID 09/23/18 11/30/18 History ondansetron 8 mg PO Q8H PRN 09/23/18 11/30/18 History oxycodone 10 mg PO Q4H PRN 09/23/18 11/30/18 History oxycodone [OxyContin] 20 mg PO Q12H 09/23/18 11/30/18 History sertraline 75 mg PO QAM 09/23/18 11/30/18 History zinc sulfate 220 mg PO QDL 09/23/18 11/30/18 History Lactobacillus acidoph-L.bulgar 1 tab PO BIDM 11/30/18 11/30/18 History [Lactinex] Saccharomyces boulardii [Florastor] 250 mg PO BIDM 11/30/18 11/30/18 History collagenase clostridium histo. 1 applic TOPICAL DAILY 11/30/18 11/30/18 History diclofenac sodium 2 g TOPICAL QID 11/30/18 11/30/18 History enoxaparin [Lovenox] 80 mg SUBCUT Q12H 11/30/18 11/30/18 History ferrous sulfate 325 mg PO BID 11/30/18 11/30/18 History fluticasone propionate [Flonase 1 spray INTRANASAL QAM 11/30/18 11/30/18 History Allergy Relief] lanolin-mineral oil [Thera-Derm] 1 applic TOPICAL TID 11/30/18 11/30/18 History vancomycin 125 mg PO QID 11/30/18 11/30/18 History Patient History Medical History Mood disorder (Chronic) Prostate cancer metastatic to bone (Chronic) ~2013 Anxiety (Chronic) Depression (Chronic) Umbilical hernia (Chronic) Dyslipidemia (Chronic) On anticoagulant therapy (Chronic) Chronic steroid use (Chronic) TAKING STEROIDS DAILY FOR LOWER LEG SORES CURRENTLY. Atrial fibrillation (Chronic) Chronic pain (Chronic) HTN (hypertension) (Chronic) Obesity (BMI 30-39.9) (Chronic) GERD (gastroesophageal reflux disease) (Chronic) Surgical History History of tonsillectomy and adenoidectomy (Resolved) H/O radical prostatectomy (Resolved) ~2000 History of cholecystectomy (Resolved) History of back surgery (Resolved) L4-L5 History of repair of rotator cuff (Resolved) LEFT SHOULDER Family History Mother Hypertension Father Lymphoma Social History Preferred Language: Chinese Communication Ability: Effective Emergency Department Clinician Required: Yes Beliefs That Will Affect Care: None marital status: Current Living Situation: Rehab current occupational status: retired Other Information That Helps Us Care for You: No Feels Safe at Home: Yes Safety Concerns: Feels Safe At This Time Smoking Status: Never smoker Tobacco Type: cigarettes Second Hand Exposure: No Hx Alcohol Use: No Hx Substance Use: No Physical Exam Physical Exam: Gen: alert very [place] lungs course breath sounds CV RRR tremor with intension no fasciculations seen in arms or legs LE bilateral wrapped no current drainage reflexes decreased bilaterally UE/LE sensation intact with light and cool touch left arm lift against gravity halted due to pain. Results & Data Vital Signs (Past 12 Hours) Vital Signs Temp Pulse Resp BP Pulse Ox 12/14/18 07:37 36.8 C 86 16 114/65 96 12/14/18 03:59 36.9 C 79 18 104/56 L 94 Laboratory Results Abnormal lab results 12/14/18 Range/Units 07:16 RBC 3.29 L (4.7-6.1) M/uL Hgb 8.2 L (14.0-18.0) g/dL Hct 28.4 L (42-52) % MCH 24.9 L (25-34) pg MCHC 28.9 L (32-36) g/dL RDW Std Deviation 61.0 H (36.4-46.3) fL RDW Coeff of Adriana 19.4 H (11.5-14.5) % Plt Count 442 H (130-400) K/uL [place] # (Auto) 0.84 H (0.11-0.59) K/uL Diagnostic Findings CT shoulder- Multifocal osteoblastic lesions redemonstrated throughout the imaged axial and appendicular skeletal system. Healing nondisplaced subacute appearing fracture about the spine of the left scapula. No acute fracture or dislocation identified, specifically the clavicle appears intact. Moderate glenohumeral and AC joint degenerative changes. Moderate left pleural effusion with left basilar consolidation. Chronic rotator cuff pathology as above.
[2018-12-14] MEDS: ACETAMINOPHEN 325 MG TAB PO PRN ×2 (19:49)
[2018-12-14] MEDS: OXYCODONE HCL 10 MG TABCR (OXYCONTIN) PO SCH (20:24)
[2018-12-14] MEDS: LIDOCAINE 5% 1 PATCH TD SCH (20:43)
[2018-12-15] MEDS: ACETAMINOPHEN 325 MG TAB PO PRN ×3 (04:16→17:12)
[2018-12-15 08:02] LABS: Basophils # (auto) 0.03 K/uL (0-0.2); Basophils % (auto) 0.3 %; Eosinophils # (auto) 0.04 K/uL (0-0.5); Eosinophils % (auto) 0.4 %; Hematocrit (blood only) 26.9 % (42-52); Immature Granulocytes # (auto) 0.03 K/uL (0.00-0.02); Immature Granulocytes % (auto) 0.3 %; Lymphocytes # (auto) 2.34 K/uL (1.2-3.4); Lymphocytes % (auto) 21.4 %; Mean Corpuscular Volume 85.9 fL (80-100); Mean Platelet Volume 7.9 fL (7.4-10.4); Monocytes # (auto) 1.14 K/uL (0.11-0.59); Monocytes % (auto) 10.4 %; Neutrophils # (auto) 7.38 K/uL (1.4-6.5); Neutrophils % (auto) 67.2 %; Platelet Count 410 K/uL (130-400); RDW Coefficient of Variation 19.3 % (11.5-14.5); RDW Standard Deviation 61.2 fL (36.4-46.3); Red Blood Count 3.13 M/uL (4.7-6.1); White Blood Count 10.96 K/uL (4.8-10.8)
[2018-12-15 08:06] LABS: Mean Corpuscular Hgb Conc 29.7 g/dL (32-36)
[2018-12-15] MEDS: DEXAMETHASONE CONC 3.75 MG, NYSTATIN 30 ML, DiphenhydrAMINE Syrup 300 MG, ORA-SWEET SYR... PO SCH (08:12)
[2018-12-15] MEDS: LACTOBACILLUS ACIDOPHILUS (FLORANEX) TAB PO SCH ×2 (08:14→17:14)
[2018-12-15] MEDS: ASCORBIC ACID 500 MG TAB PO SCH ×2 (08:16→20:57)
[2018-12-15] MEDS: AMIODARONE 200 MG TAB PO SCH (08:16)
[2018-12-15] MEDS: METOPROLOL TARTRATE 25 MG TAB PO SCH ×3 (08:16→20:59)
[2018-12-15] MEDS: DOCUSATE SODIUM 100 MG CAP PO SCH ×2 (08:16→20:55)
[2018-12-15] MEDS: FERROUS SULFATE 325 MG TAB PO SCH ×2 (08:16→20:55)
[2018-12-15] MEDS: PANTOprazole 40 MG TAB PO SCH (08:16)
[2018-12-15] MEDS: FUROSEMIDE 20 MG TAB PO SCH (08:17)
[2018-12-15] MEDS: SERTRALINE HCL 50 MG TABLET PO SCH (08:17)
[2018-12-15 08:18] LABS: Albumin Level 1.8 gm/dl (3.4-5.0); BUN Creatinine Ratio 11.4 (10-20); Calcium 8.6 mg/dl (8.5-10.1); Creatinine Clr Calc Pharmacy 101.9 ml/min; Est GFR (African American) 112.7; Est GFR (Non-African American) 97.3; Magnesium 1.9 mg/dl (1.8-2.4); Potassium 3.5 mmol/L (3.5-5.1)
[2018-12-15] MEDS: SACCHAROMYCES BOULARDII 250 MG CAP PO SCH ×2 (08:18→17:14)
[2018-12-15 08:19] LABS: Partial Thromboplastin Ratio 1.1; Partial Thromboplastin Time 29.6 Seconds (21.0-31.0); Prothrombin Time 10.7 Seconds (9.0-12.0)
[2018-12-15] MEDS: SENNA 8.6 MG TAB PO SCH (08:19)
[2018-12-15] MEDS: DICLOFENAC SOD 1% GEL 100 GM TUBE EXT SCH ×4 (08:19→20:57)
[2018-12-15] MEDS: FLUTICASONE PROPIONATE NA SPR 16 GM BTL NAE SCH (08:20)
[2018-12-15] MEDS: NYSTATIN POWDER 15GM BTL EXT SCH ×2 (08:21→20:57)
[2018-12-15] MEDS: ENOXAPARIN 80 MG/0.8 ML SYR SQ SCH ×2 (08:21→20:54)
[2018-12-15 08:28] LABS: Albumin Globulin Ratio 0.4 (0.9-2); Bilirubin,Total 0.3 mg/dl (0.2-1); Globulin 4.1 gm/dl (2.5-4.0); Total Protein 5.9 gm/dl (6.4-8.2)
[2018-12-15] MEDS: OXYCODONE HCL 10 MG TABCR (OXYCONTIN) PO SCH ×2 (08:32→20:54)
--- NOTE | 2018-12-15 09:27 | Hospitalist Progress Note ---
Date of Service December 15, 2018 Assessment & Plan (1) Left shoulder pain: -Left shoulder CT scan: Subacute appearing nondisplaced fracture about the spine of the scapula correlates with the lucency seen on comparison shoulder radiographs. This is likely on a posttraumatic basis without a large metastatic lesion seen within this area to suggest pathologic fracture -continue Lidoderm patch, ice pack -already on Oxycodone -follow orthopedic recommendations -12/09/18: the left shoulder CT scan findings including osteoblastic lesions and left sided pleural effusion. Patient's left shoulder has more swelling than right side. Patient breathing comfortably on room air. He is able to use the up er extremities to eat breakfast at the bedside. no acute shortness of breath. no chest pain. no abdomen pain. no vomiting. Patient and patient's son interested in palliative radiation therapy for pain control. At this time, they are no currently interested in thoracentesis and opting for medical management of the pleural effusion -as per 12/09/18 orthopedic evaluation of left shoulder: Plan for PT/OT; Limited weight bearing at this time. Lifting of no more than 10lbs; Continue gentle ROM. Follow up in office with Dr Saravia in 2 weeks for repeat xrays. -radiation oncology: Palliative external beam radiation therapy to the left shoulder; CT simulation on 12/10/18 completed, started 1st session on 12/11/18 with plans for total of 5 fractions; next session is for Friday12/14/18 Left Pleural effusion -potentially could be malignant pleural effusion given history of metastatic prostate caner -patient and family defers diagnostic or therapeutic thoracentesis at this time -started furosemide 20 mg daily on 12/09/18, continue -will check electrolytes on 12/12/18 (2) Leukocytosis: This is a 73yo M with a PMH of prostate cancer with mets to bone, h/o non- healing 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 -Patient was sent from nursing facility for infectious workup. 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 Continues to have diarrhea symptoms. Other notable health issue is malignancy with calciphylaxis. Calciphylaxis of the legs appear to be much better compared to previous admissions. 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 started on November 28, 2018 -patient has complete 10-day treatment of vancomycin oral as last day December 07, 2018 (4) Prostate cancer metastatic to bone: -patient has in the past followed with [facility] oncology Dr. 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 Patient's left shoulder has more swelling than right side. Patient breathing comfortably on room air. He is able to use the upper extremities to eat breakfast at the bedside. no acute shortness of breath. no chest pain. no abdomen pain. no vomiting. Patient and patient's son interested in palliative radiation therapy for pain control. 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 (6) Atrial fibrillation: Continue amiodarone (7) Anxiety: (8) Depression: -will hold Zoloft 75 mg qhs to see if this reduces tremors (9) Chronic pain: -senna/colace to prevent narcotic induce constipation -will continue the current reduction of the scheduled sustained release oxycodone as to 10 mg BID and short acting oxycodone prn as 10 mg q6hr Tremors /Myoclonoc jerks -as per neurology 12/14/18 Pt may have had tremor for some time, but markedly increased on admission. There is a mild to moderate tremor with intention. Probable underlying essential tremor, exacerbated by amiodarone, zoloft, and pain. Myoclonic jerks appears to be metabolic and are most likely related to narcotics. -have checked for levels of TSH , mag, phos, creatinine kinase on 12/15/18 as recommended and these results are normal -have followed directions with trial of narcotic dose reduction -will hold Zoloft -will continue amiodarone for cardiac reasons (10) HTN (hypertension): Normotensive -Continue Lopressor (11) DVT (deep venous thrombosis): left upper Extremity Deep Vein thrombosis which were diagnosed in previous hospitalizations -Continue Lovenox SQ 80mg BID DVT Ppx: SQ Lovenox BID Code status: FULL Disposition: based on case management notes on looking for rehabilitation facilities and because patient to receive palliative radiation treatment while in the hospital, the discharge date depends on finding acceptable rehabilitation facility and radiation treatments Subjective Patient appeared on exam to have less upper extremity tremors compared to yesterday. Patient awaiting 3rd radiation therapy session to shoulders. Patient feels that even with radiation therapy the left shoulder pain has not improved significantly. Patient's at beside and reports she will ask Dr. Johana Dukes more questions about the radiation treatments. Patient at this time would like to continue the 3 of 5 radiation therapies for now. While speaking with patient, he banged his left foot on the wheelchair. Patient reports he is ok after initial jolt of pain. Nurse recently was in the room with patient and also informed to help with wheelchair adjustments Physical Exam Constitutional: WD/WN, vitals as above Eyes: PERRL, conjunctivae normal, anicteric sclerae EOM intact bilaterally ENMT: external ear and nose normal, oropharynx normal Neck: trachea midline, no thyromegaly normal visual inspection Respiratory: normal respiratory effort Auscultation: lungs clear to auscultation bilaterally (despite radialogy imaging of pleural effusion, breathing sounds symmetric) Cardiovascular: Rate/Rhythm: regular rate and regular rhythm Gastrointestinal (Abdomen): normal bowel sounds, soft, nontender, no hepatosplenomegaly Neurologic: PERRL, EOMI, accommodation nl, no face palsy, no dysarthria CN's II-XI intact bilaterally some tremors of upper extremities Psychiatric: A+Ox3, euthymic affect Results & Data Vital Signs (Past 12 Hours) Vital Signs Temp Pulse Resp BP Pulse Ox 12/15/18 07:53 37.7 C H 90 17 98/51 L 94 12/15/18 06:15 37.0 C 12/15/18 04:00 37.9 C H 102 H 20 151/77 H 92 12/14/18 23:47 36.9 C 76 20 100/56 L 90
[2018-12-15] MEDS ORDERED: ONDANSETRON INJ 2 MG/ML 2 ML VIAL IV PRN (11:26)
[2018-12-15] MEDS: MULTIVITAMIN TAB PO SCH (12:22)
[2018-12-15] MEDS: ZINC SULFATE 220 MG CAPSULE PO SCH (12:23)
[2018-12-15] MEDS: CALCIUM 600MG + VIT D 400 IU TAB PO SCH ×2 (12:23→17:14)
--- NOTE | 2018-12-15 16:24 | Palliative Care Progress Note ---
Date of Service December 15, 2018 Assessment & Plan (1) Goals of care, counseling/discussion: Patient is a 73-year-old male with a history of calciphylaxis, CKD, metastatic prostate cancer with mets to spine, A. fib, history of TIA, history of DVT while on Coumadin and Xarelto and was on Lovenox. Patient was hospitalized at [facility] for 4 weeks in July- he was admitted with altered mental status and pneumonia-requiring intubation as well as complications from his above listed medical problems. Patient was discharged to [facility] on 09/21 for rehab. On 09/23 he had a left upper extremity ultrasound that showed a DVT in the left internal jugular and left subclavian vein-patient was admitted to [facility] on 09/23 through 10/02. Patient developed the DVT on Lovenox at 60 mg every 12-this was increased to 80 mg every 12 and patient was again discharged to [facility] on 10/02 for further rehab. Patient was nearing the end of his rehabs today when he was noted to be more confused and had new heel ulcers and was sent to the emergency room on 11/30. reports patient had done well in rehab at [facility]-he was able to sit up on the side of the bed without requiring Fanta lift. Patient states he had been doing well but then started to decline over the past 2 weeks. Patient and did not identify any particular reason for his decline. Patient has completed treatment for C. difficile-continues on Florastor. Patient's initial goals of care were to return home- was willing to take him home and attempt his care. She did voice concerns regarding being able to care for him-patient has not improved, strength has decreased- unable to provide care he needs at home-patient will require SNF placement. Collaborated with case management-referrals have been made to [facility] as well as [facility] for further rehab if patient is not safe to return home. PT/OT have been consulted to evaluate and treat to help improve transfers. - Altered mental status- improving -C. difficile colitis-patient may be a carrier, patient completed course of p.o. Vanco, continues on Florastor -DVT-patient with DVT while on Coumadin, Xarelto and lower dose Lovenox-now on Lovenox at 80 mg every 12 hours -Metastatic prostate cancer-mets to spine-patient on PRN oxycodone, pain primarily due to his leg wounds -Calciphylaxis-continue current wound care orders Will continue to follow and assist with medical decision making-collaborated with case management regarding patient and family's goals of care. (2) Altered mental status: Improving (3) Recurrent Clostridium difficile diarrhea: (4) Prostate cancer metastatic to bone: (5) Calciphylaxis cutis: Subjective Met with both patient and -patient on his way down to radiation therapy-he is to complete his course of XRT on 12/17. Patient is planned for discharge to senior care facility in [place]-both and patient have poor insight to patient's current disease process as well as prognosis. Review of Systems Review of Systems: No fever, chills, chest pain or abdominal pain Positive for left shoulder pain and back pain Physical Exam Physical Exam: PE: Patient up in a wheelchair, no acute distress, does not appear uncomfortable HEENT: EOMI, hearing within normal limits Respiration: Unlabored CV: Regular rate Abdomen: Soft Neuro: Alert and oriented Results & Data Vital Signs (Past 12 Hours) Vital Signs Temp Pulse Resp BP Pulse Ox 12/15/18 16:00 98.1 F 87 18 96/55 L 92 12/15/18 11:55 99.1 F 84 18 112/69 94 12/15/18 07:53 99.9 F H 90 17 98/51 L 94 12/15/18 06:15 98.6 F Time Spent Attending Total time spent 25 minutes with greater than 50% of the time spent discussing patient's current status as well as discharge plans
[2018-12-15] MEDS: LIDOCAINE 5% 1 PATCH TD SCH (20:55)
--- NOTE | 2018-12-16 07:00 | XRay Report ---
XR chest 1V portable CLINICAL HISTORY: follow up left pleural effusion COMPARISON STUDY: Chest CT September 28, 2018. Chest radiograph November 30, 2018. FINDINGS: Numerous skeletal lesions are again noted. There is no pneumothorax. A small left pleural e ffusion is similar to prior exam. Left basilar opacity is increased. Reticulonodular interstitial thi ckening within the lungs is unchanged. Cardiomediastinal silhouette is stable. IMPRESSION: 1. Small left pleural effusion with left basilar opacity which may reflect pneumonia or atelectasis. Radiographic follow-up to ensure resolution is recommended. 2. No change in reticulonodular interstitial thickening within the lungs. 3. Redemonstration of numerous skeletal lesions which suggest metastatic disease. Electronically signed by: Carlton Lopes M.D. 12/16/2018 6:58 AM
[2018-12-16] MEDS: PANTOprazole 40 MG TAB PO SCH (08:17)
[2018-12-16] MEDS: LACTOBACILLUS ACIDOPHILUS (FLORANEX) TAB PO SCH ×2 (08:17→17:44)
[2018-12-16] MEDS: METOPROLOL TARTRATE 25 MG TAB PO SCH ×2 (08:17→21:20)
[2018-12-16] MEDS: ENOXAPARIN 80 MG/0.8 ML SYR SQ SCH ×2 (08:18→21:20)
[2018-12-16] MEDS: AMIODARONE 200 MG TAB PO SCH (08:18)
[2018-12-16] MEDS: DOCUSATE SODIUM 100 MG CAP PO SCH ×2 (08:18→21:16)
[2018-12-16] MEDS: SACCHAROMYCES BOULARDII 250 MG CAP PO SCH ×2 (08:18→17:45)
[2018-12-16] MEDS: FERROUS SULFATE 325 MG TAB PO SCH ×2 (08:18→21:16)
[2018-12-16] MEDS: FUROSEMIDE 20 MG TAB PO SCH (08:18)
[2018-12-16] MEDS: ASCORBIC ACID 500 MG TAB PO SCH ×2 (08:18→21:17)
[2018-12-16] MEDS: SENNA 8.6 MG TAB PO SCH (08:18)
[2018-12-16] MEDS: FLUTICASONE PROPIONATE NA SPR 16 GM BTL NAE SCH (08:19)
[2018-12-16] MEDS: DICLOFENAC SOD 1% GEL 100 GM TUBE EXT SCH ×4 (08:19→21:16)
[2018-12-16] MEDS: OXYCODONE HCL 10 MG TABCR (OXYCONTIN) PO SCH ×2 (08:24→21:28)
[2018-12-16] MEDS: NYSTATIN POWDER 15GM BTL EXT SCH ×2 (09:24→21:22)
[2018-12-16] MEDS: CALCIUM 600MG + VIT D 400 IU TAB PO SCH ×2 (12:11→17:44)
[2018-12-16] MEDS: MULTIVITAMIN TAB PO SCH (12:11)
[2018-12-16] MEDS: ZINC SULFATE 220 MG CAPSULE PO SCH (12:11)
[2018-12-16] MEDS: ACETAMINOPHEN 325 MG TAB PO PRN ×2 (12:15→17:42)
--- NOTE | 2018-12-16 17:13 | Hospitalist Progress Note ---
Date of Service December 16, 2018 Assessment & Plan (1) Left shoulder pain: - plan for last palliative radiation therapy tomorrow Left Pleural effusion -potentially could be malignant pleural effusion given history of metastatic prostate caner -patient and family defers diagnostic or therapeutic thoracentesis at this time - repeat CXR: IMPRESSION: 1. Small left pleural effusion with left basilar opacity which may reflect pneumonia or atelectasis. Radiographic follow-up to ensure resolution is recommended. 2. No change in reticulonodular interstitial thickening within the lungs. 3. Redemonstration of numerous skeletal lesions which suggest metastatic disease. 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 (6) Atrial fibrillation: Continue amiodarone (7) Anxiety: (8) Depression: -will hold Zoloft 75 mg qhs to see if this reduces tremors (9) Chronic pain: per Dr. Noel's notes: -senna/colace to prevent narcotic induce constipation -will continue the current reduction of the scheduled sustained release oxycodone as to 10 mg BID and short acting oxycodone prn as 10 mg q6hr Tremors /Myoclonoc jerks -as per neurology 12/14/18 Pt may have had tremor for some time, but markedly increased on admission. There is a mild to moderate tremor with intention. Probable underlying essential tremor, exacerbated by amiodarone, zoloft, and pain. Myoclonic jerks appears to be metabolic and are most likely related to narcotics. -have checked for levels of TSH , mag, phos, creatinine kinase on 12/15/18 as recommended and these results are normal -have followed directions with trial of narcotic dose reduction -will hold Zoloft -will continue amiodarone for cardiac reasons (10) HTN (hypertension): Normotensive -Continue Lopressor (11) DVT (deep venous thrombosis): left upper Extremity Deep Vein thrombosis which were diagnosed in previous hospitalizations -Continue Lovenox SQ 80mg BID DVT Ppx: SQ Lovenox BID Code status: FULL Disposition: plan for d/c tomorrow after rad tx Subjective ff up for left shoulder pain, left pleural effusion seen resting in bed, comfortable states he feels fine overall left shoulder pain improving denies changes with breathing, cough, dyspnea no other symptoms Review of Systems Review of Systems: All systems reviewed & are unremarkable except as noted in HPI & below Physical Exam Physical Exam: General- oriented x 3, not in distress, speaks in sentences with no effort or accessory muscle use Eyes- anicteric Neck- no JVD Lungs- clear breath sounds bilaterally, no crackles, no wheezing Heart- normal rate, regular rhythm; no murmurs Abdomen- normal bowel sounds, nondistended, soft, nontender Extremities- dressing in place- no discharge or bleeding no visible edema Shoulder- very mild edema, no erythema/warmth/tenderness Neuro- alert, oriented x 3; no gross focal neurologic deficits Skin- warm & dry Results & Data Vital Signs (Past 12 Hours) Vital Signs Temp Pulse Pulse Resp BP Pulse Ox 12/16/18 15:36 36.4 C L 69 20 106/65 96 12/16/18 10:52 36.9 C 73 18 117/62 94 12/16/18 07:41 36.9 C 100 H 20 104/60 94
[2018-12-16] MEDS: BENZOCAINE 20% (ORAJEL) 11.9 GM TUBE MT PRN ×2 (17:45→23:54)
[2018-12-16] MEDS: DEXAMETHASONE CONC 3.75 MG, NYSTATIN 30 ML, DiphenhydrAMINE Syrup 300 MG, ORA-SWEET SYR... PO PRN (21:14)
[2018-12-16] MEDS: LIDOCAINE 5% 1 PATCH TD SCH (21:21)
[2018-12-17] MEDS: ACETAMINOPHEN 325 MG TAB PO PRN ×2 (00:44→12:35)
[2018-12-17] MEDS: DICLOFENAC SOD 1% GEL 100 GM TUBE EXT SCH ×2 (08:12→12:36)
[2018-12-17] MEDS: SENNA 8.6 MG TAB PO SCH (08:14)
[2018-12-17] MEDS: ASCORBIC ACID 500 MG TAB PO SCH (08:14)
[2018-12-17] MEDS: LACTOBACILLUS ACIDOPHILUS (FLORANEX) TAB PO SCH (08:14)
[2018-12-17] MEDS: PANTOprazole 40 MG TAB PO SCH (08:15)
[2018-12-17] MEDS: SACCHAROMYCES BOULARDII 250 MG CAP PO SCH (08:15)
[2018-12-17] MEDS: AMIODARONE 200 MG TAB PO SCH (08:15)
[2018-12-17] MEDS: METOPROLOL TARTRATE 25 MG TAB PO SCH (08:15)
[2018-12-17] MEDS: FERROUS SULFATE 325 MG TAB PO SCH (08:16)
[2018-12-17] MEDS: OXYCODONE HCL 10 MG TABCR (OXYCONTIN) PO SCH (08:16)
[2018-12-17] MEDS: ENOXAPARIN 80 MG/0.8 ML SYR SQ SCH (08:16)
[2018-12-17] MEDS: FLUTICASONE PROPIONATE NA SPR 16 GM BTL NAE SCH (08:18)
[2018-12-17] MEDS: NYSTATIN POWDER 15GM BTL EXT SCH (08:18)
[2018-12-17] MEDS: DOCUSATE SODIUM 100 MG CAP PO SCH (08:19)
[2018-12-17] MEDS: DEXAMETHASONE CONC 3.75 MG, NYSTATIN 30 ML, DiphenhydrAMINE Syrup 300 MG, ORA-SWEET SYR... PO PRN (12:35)
[2018-12-17] MEDS: MULTIVITAMIN TAB PO SCH (12:36)
[2018-12-17] MEDS: ZINC SULFATE 220 MG CAPSULE PO SCH (12:36)
[2018-12-17] MEDS: CALCIUM 600MG + VIT D 400 IU TAB PO SCH (12:36)
--- NOTE | 2018-12-17 13:02 | Hospitalist Progress Note ---
Date of Service December 17, 2018 Assessment & Plan (1) Left shoulder pain: - last palliative radiation therapy 12/17/18 Left Pleural effusion -potentially could be malignant pleural effusion given history of metastatic prostate caner -patient and family defers diagnostic or therapeutic thoracentesis at this time - repeat CXR: IMPRESSION: 1. Small left pleural effusion with left basilar opacity which may reflect pneumonia or atelectasis. Radiographic follow-up to ensure resolution is recommended. 2. No change in reticulonodular interstitial thickening within the lungs. 3. Redemonstration of numerous skeletal lesions which suggest metastatic disease. 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 started on November 28, 2018 -patient completed 10-day treatment of vancomycin PO, diarrhea resolved - on 12/17/18, patient was having 4 loose BMs stool c diff: (+) gene and toxin discussed with GI, as this is the patient's 3rd episode, recommend Vancomycin taper: Vancomycin 125mg po QID x 2 weeks, then BID x 1 week, then daily x 1 week, then every other day x 2 weeks - monitor closely, may need to be admitted if with no improvment, poor oral intake to prevent dehydration (4) Prostate cancer metastatic to bone: -radiation oncology: Palliative external beam radiation therapy to the left shoulder; completed 5 sessions (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 (6) Atrial fibrillation: Continue amiodarone (7) Anxiety: (8) Depression: -continue Zoloft hold if patient has tremors as this medication may be contributing (9) Chronic pain: per Dr. Noel's notes: -senna/colace to prevent narcotic induce constipation -will continue the current reduction of the scheduled sustained release oxycodone as to 10 mg BID and short acting oxycodone prn as 10 mg q6hr Tremors /Myoclonoc jerks -as per neurology 12/14/18 Pt may have had tremor for some time, but markedly increased on admission. There is a mild to moderate tremor with intention. Probable underlying essential tr emor, exacerbated by amiodarone, zoloft, and pain. Myoclonic jerks appears to be metabolic and are most likely related to narcotics. -have checked for levels of TSH , mag, phos, creatinine kinase on 12/15/18 as recommended and these results are normal -have followed directions with trial of narcotic dose reduction -will continue amiodarone for cardiac reasons (10) HTN (hypertension): Normotensive -Continue Lopressor (11) DVT (deep venous thrombosis): left upper Extremity Deep Vein thrombosis diagnosed in previous hospitalizations -Continue Lovenox SQ 80mg BID DVT Ppx: on SQ Lovenox BID Code status: FULL Disposition: d/c to SNF Follow up with PCP in 1 week Follow up with Supervisor Composing Room/Oncologist as scheduled discussed with patient, his son and his at the bedside case discussed, plan of care also discussed at length and in detail all questions and concerns were addressed with them they are understanding, agreeable, and comfortable with the plan of care Bishop Crawford MD Subjective ff up for left shoulder pain seen resting in chair, just returned from radiation therapy states he feels fine overall left shoulder pain gradually improving had 3-4 loose BMs this AM, no abdominal pain/nausea/vomiting, fever/chills, appetite is ok, able to drink fluids denies other symptoms agreeable with discharge today, family also agreeable, they were at the bedside Review of Systems Review of Systems: All systems reviewed & are unremarkable except as noted in HPI & below Physical Exam Physical Exam: General- oriented x 3, not in distress, speaks in sentences with no effort or accessory muscle use Eyes- anicteric Neck- no JVD Lungs- clear BS BL no rales no wheezing Heart- normal rate, regular rhythm; no murmurs Abdomen- normal bowel sounds, nondistended, soft, nontender Extremities- dressing in place- no discharge or bleeding no visible edema Shoulder- very mild edema, no erythema/warmth/tenderness Neuro- alert, oriented x 3; no gross focal neurologic deficits Skin- warm & dry Results & Data Vital Signs (Past 12 Hours) Vital Signs Temp Pulse Pulse Resp BP Pulse Ox 12/17/18 11:00 37.1 C 90 18 117/76 97 12/17/18 07:00 37.1 C 102 H 18 147/77 H 96 12/17/18 04:00 37.0 C 84 20 100/59 L 94
[2018-12-17 13:19] LABS: Cdiff Antigen Positive
[2018-12-17 13:21] LABS: Cdiff Toxin A+B Positive Cdiff Toxin (Negative)
[2018-12-17 13:56] VITALS: BP 119/57; PULSE 80; TEMP 98.6; O2SAT 92
[2018-12-17] MEDS ORDERED: RASPBERRY SYRUP 5 ML UDP PO SCH (14:00)
[2018-12-17] MEDS ORDERED: VANCOMYCIN HCL 125 MG/2.5ML SOLN PO SCH (14:00)
--- NOTE | 2018-12-17 14:03 | Discharge Summary ---
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 Patient noted by half-way staff to seem confused and less engaged over the past few days. Continues to have chronic bone pain from metastatic prostate cancer as well as chronic wounds. Found to have recurrent C. difficile last week and has been on oral Vanco. Continues to have loose stool but denies fever, chills, abdominal pain, nausea or vomiting. Has been eating a normal amount. Patient's primary concern is to improve comfort with chronic wounds. 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 Agreeable to palliative care consult. Vital signs stable. Leukocytosis of 17 K. Lactate normal, nontoxic in appearance. Chest x-ray with bibasilar atelectasis and cardiomegaly but no over t volume overload. CT head negative for acute abnormalities. Lumbar spine x- ray with osteoblastic disease throughout spine, which is known. CT abdomen pelvis with nonspecific colitis of the left colon and multifocal osteoblastic metastatic disease. Denies headache, lightheadedness, visual changes, cough, chest pain, shortness of breath, abdominal pain, nausea, vomiting, dysuria or constipation. Admission Exam Per Admitting Provider General Appearance: WD/WN, chronically ill appearing Head: normocephalic, atraumatic Eyes: normal inspection, PERRL, EOMI ENT: hearing grossly normal, pharynx normal (moist mucous membranes) Neck: supple, no JVD, no adenopathy Respiratory/Chest: lungs clear to auscultation. No wheezes, rales or rhonci. No respiratory distress or accessory muscle use Cardiovascular: regular rate, rhythm, systolic murmur, normal peripheral pulses, 2+ BLE edema Abdomen/GI: normal bowel sounds, soft, non-tender to palpation Extremities/Musculoskelatal: No calf tenderness, normal capillary refill Neurologic/Psych: alert, normal mood/affect, oriented x 3. Poor insight Skin: normal color, warm/dry. BLE with multiple chronic ulcers with sloughing, no purulent drainage or surrounding erythema noted. Principal Diagnosis RECURRENCE OF C DIFFICILE COLITIS, LEFT SCAPULAR FRACTURE, LIKELY PATHOLOGIC- PROSTATE CANCER WITH BONE METASTASES Discharge Exam General- oriented x 3, not in distress, speaks in sentences with no effort or accessory muscle use Eyes- anicteric Neck- no JVD Lungs- clear BS BL no rales no wheezing Heart- normal rate, regular rhythm; no murmurs Abdomen- normal bowel sounds, nondistended, soft, nontender Extremities- dressing in place- no discharge or bleeding no visible edema Shoulder- very mild edema, no erythema/warmth/tenderness Neuro- alert, oriented x 3; no gross focal neurologic deficits Skin- warm & dry Discharge Data Allergies Allergy/AdvReac Type Severity Reaction Status Date / Time doxycycline Allergy Unknown Unknown Verified 11/30/18 14:38 cephalexin [From Keflex] Allergy Rash Verified 11/30/18 14:38 Consultations 11/30/18 17:46 ED Decision to Admit Stat 11/30/18 19:46 Consult Case Management - Discharge Planning Routine Consult Palliative Care Routine 12/07/18 13:16 Consult Orthopedic Surgery Routine 12/09/18 08:34 Consult Radiation Oncology Routine 12/14/18 12:34 Consult Neurology Routine Ordered Studies 11/30/18 13:56 CT head/brain wo con Stat FINDINGS: No acute intracranial hemorrhage, midline shift, intracranial mass, hydrocephalus, territorial ischemia or abnormal extra-axial collection. Age-related involutional changes with ex vacuo ventriculomegaly. Minimal ill- defined hypodensities about the white matter are suggestive of chronic microvascular ischemic disease. Cerebral vascular calcifications are noted. The calvarium is intact. The paranasal sinuses, mastoid air cells, and middle ear cavities are clear. IMPRESSION: No acute intracranial abnormality. CT lumbar spine wo con Stat FINDINGS: Multifocal osteoblastic metastatic disease is again noted throughout the lumbar spine and sacrum. This has progressed compared to the 2015 examination. There is moderate to severe disc space narrowing throughout the lumbar spine. No fracture or subluxation. Moderate thickening of the distal sigmoid colon. There is associated mild pericolonic fat stranding. Mild to moderate central canal narrowing at L2-L3, L3-L4, L4-L5. There is also moderate to space narrowing at L4-L5 and L5-S1. Mild dextroscoliosis of the lumbar spine. IMPRESSION: 1. No acute fracture or subluxation within the lumbar spine. 2. 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 3. Multilevel degenerative changes as described above. 11/30/18 16:44 CT abd pelvis IV con only Stat FINDINGS: Lung bases: The heart is enlarged and without pericardial effusion. There are small pleural effusions with bibasilar atelectasis. Intralobular septal thickening is suggested at the lung bases. There is a tiny hiatal hernia. Liver: The contrast-enhanced liver is enlarged, measuring 20.9 cm in length. The liver demonstrates diffusely diminished attenuation consistent with hepatic st eatosis. There is no intrahepatic biliary ductal dilatation. The hepatic veins and portal veins are patent. Gallbladder: Unremarkable. Spleen: Normal in size and attenuation. Pancreas: There is moderate fatty atrophy of the pancreas. No acute pancreatic abnormality is identified. Adrenal glands: There is mild nodularity of the adrenal glands. Kidneys: The contrast enhanced kidneys demonstrate cortical atrophy and are without hydronephrosis. The kidneys enhance symmetrically. A 2.4 cm exophytic cyst arises from the right upper pole. A 1.4 cm cyst is noted in the interpolar left kidney. Abdominal vasculature: The abdominal aorta is normal in course and caliber noting advanced atherosclerotic calcification. Bowel: There is a long segment of thick-walled colon with edema and mucosal hyp eremia. This is greatest involving the descending colon and rectosigmoid, and is consistent with a nonspecific colitis. There is associated pericolonic inflammation, as well as presacral induration. There are scattered colonic diverticula without CT evidence of acute diverticulitis. No bowel obstruction is seen. The appendix is well-visualized and normal. Peritoneum: There is no intraperitoneal free air or abdominal ascites. There are foci of subcutaneous gas within the ventral abdominal wall, likely related to intradermal injections. Lymphadenopathy: None. Pelvic viscera: The prostate gland is surgically absent. The bladder wall appears thickened and trabeculated suggesting chronic outlet obstruction. Skeletal structures: The skeletal structures are osteopenic. Findings consistent with multifocal osteoblastic metastatic disease. Moderate lumbosacral spondylosis is observed. IMPRESSION: 1. Findings are consistent with a nonspecific colitis of the left colon. This likely on an infectious or inflammatory basis and clinical correlation will be required. 2. Findings are consistent with multifocal osteoblastic metastatic disease. 3. The heart is enlarged and there are small bilateral pleural effusions. Additionally, intralobular septal thickening is noted at the lung bases. Correlate clinically for evidence of congestive failure. 4. Hepatomegaly and hepatic steatosis. 5. Status post prostatectomy. 6. Additional findings as above. 12/08/18 13:51 CT shoulder LT wo con Routine CT shoulder LT wo con HISTORY: 73 years-old Male left shoulder pain acute left shoulder pain. History of osteoblastic prostate metastasis. COMPARISON: Left shoulder radiographs 12/07/2018, lumbar spine radiographs 11/30/2018. TECHNIQUE: Multiple axial CT images of the left shoulder were obtained without the use of IV contrast. A dose lowering technique was used consistent with the principals of ALARA. FINDINGS: Mildly demineralized appearance of the bones. Severe degenerative changes of the cervical spine. Scattered multifocal osteoblastic lesions are noted throughout the bony structures of the axial and appendicular skeletal system. Subacute appearing nondisplaced fracture about the spine of the scapula correlates with the lucency seen on comparison shoulder radiographs. This is likely on a posttraumatic basis without a large metastatic lesion seen within this area to suggest pathologic fracture. The clavicle and left humerus appear intact. Moderate glenohumeral and moderate AC joint osteoarthritis. No acute fracture or dislocation. Decreased acromiohumeral interval is suggestive of chronic full- thickness rotator cuff tear. The study is not tailored to assess the intrinsic ligaments and tendons of the shoulder. Moderate atrophy of the supraspinatus, infraspinatus and subscapularis musculature. Moderate left pleural effusion. Cardiomegaly. Left basilar consolidation. No adenopathy or large joint effusion. IMPRESSION: 1. Multifocal osteoblastic lesions redemonstrated throughout the imaged axial and appendicular skeletal system. 2. Healing nondisplaced subacute appearing fracture about the spine of the left scapula. 3. No acute fracture or dislocation identified, specifically the clavicle appears intact. 4. Moderate glenohumeral and AC joint degenerative changes. 5. Moderate left pleural effusion with left basilar consolidation. 6. Chronic rotator cuff pathology as above. Hospital Course (1) Recurrent Clostridium difficile diarrhea: - vancomycin p.o. started on November 28, 2018 while patient was still in the SNF -patient completed 10-day treatment of vancomycin PO while admitted, diarrhea resolved - on 12/17/18, patient was having 4 loose BMs again repeat stool c diff: (+) gene and toxin discussed with GI, as this is the patient's 3rd episode, recommend Vancomycin taper: Vancomycin 125mg po QID x 2 weeks, then BID x 1 week, then daily x 1 week, then every other day x 2 weeks - monitor closely, may need to be admitted if with no improvement, poor oral intake to prevent dehydration - continue Probiotics (2) Leukocytosis: -leukocytosis deemed to be likely from 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 Multifocal osteoblastic lesions redemonstrated throughout the imaged axial and appendicular skeletal system. 2. Healing nondisplaced subacute appearing fracture about the spine of the left scapula. 3. No acute fracture or dislocation identified, specifically the clavicle appears intact. 4. Moderate glenohumeral and AC joint degenerative changes. 5. Moderate left pleural effusion with left basilar consolidation. 6. Chronic rotator cuff pathology as above. - Ortho and Radiation Oncologist consulted - recommended palliative radiation therapy- patient completed 5 Rad tx (12/17/18) - continue Lidoderm patch, Left Pleural effusion -potentially could be malignant pleural effusion given history of metastatic prostate caner -patient and family defers diagnostic or therapeutic thoracentesis at this time - repeat CXR: IMPRESSION: 1. Small left pleural effusion with left basilar opacity which may reflect pneumonia or atelectasis. Radiographic follow-up to ensure resolution is recommended. 2. No change in reticulonodular interstitial thickening within the lungs. 3. Redemonstration of numerous skeletal lesions which suggest metastatic disease. 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 (7) Atrial fibrillation: Continue amiodarone (8) Anxiety: (9) Depression: -continue Zoloft hold if patient has tremors as this medication may be contributing (10) Chronic pain: per Dr. Noel's notes: -senna/colace to prevent narcotic induce constipation -will continue the current reduction of the scheduled sustained release oxycodone as to 10 mg BID and short acting oxycodone prn as 10 mg q6hr Tremors /Myoclonoc jerks -as per neurology 12/14/18 Pt may have had tremor for some time, but markedly increased on admission. There is a mild to moderate tremor with intention. Probable underlying essential tremor, exacerbated by amiodarone, zoloft, and pain. Myoclonic jerks appears to be metabolic and are most likely related to narcotics. -have checked for levels of TSH , mag, phos, creatinine kinase on 12/15/18 as recommended and these results are normal -have followed directions with trial of narcotic dose reduction -will continue amiodarone for cardiac reasons (11) HTN (hypertension): Normotensive -Continue Lopressor (12) DVT (deep venous thrombosis): left upper Extremity Deep Vein thrombosis diagnosed in previous hospitalizations -Continue Lovenox SQ 80mg BID DVT Ppx: on SQ Lovenox BID Code status: FULL Disposition: d/c to SNF Follow up with PCP in 1 week Follow up with [employer]/Oncologist as scheduled Total Time Total Time Spent Total Time Spent (In Minutes): 90 minutes Discharge Plan Discharge Items Patient Disposition: Transfer Longterm Fac Reason For Visit: LEUKOCYTOSIS,ONGOING MET PROSTATE CANCER PAIN Discharge Diagnosis: RECURRENT C DIFFICILE COLITIS, LEFT SCAPULAR FRACTURE- LIKELY PATHOLOGIC FRACTURE; PROSTATE CANCER WITH BONE METASTASES Discharge Goals: Decrease discomfort, Diagnostic testing and Therapeutic intervention Activity: As commented below Activity Comment: 2 PERSON ASSIST, FALL PRECATIONS, CONTINUE PT/OT Lifting: Wait until after follow-up appointment Exercise Comment: CONTINUE PT/OT Non-emergency contact: Primary Care Provider Call non-emergency contact if: you have any medication questions, your symptoms worsen, your pain is not controlled, your pain is worsening, your pain is unusual for you, your pain is concerning for you, you have a fever, your wound has increased redness, your wound has increased drainage and your wound pain has increased Diet: Heart Healthy Addtl Provider Instructions: PLEASE REFER TO ACCOMPANYING HOSPITAL DISCHARGE SUMMARY FOR FURTHER DETAILS. Prescriptions: New oxycodone [OxyContin] 10 mg Tablet,Oral Only,Ext.Rel.12 Hr 10 mg PO BID 10 Days Qty: 20 RF: 0 HurriCaine 20 % Gel 1 applic MT QID PRN (Reason: mouth irritation) 1 Days Qty: 1 RF: 0 lidocaine 5 % Adhesive Patch,Medicated 1 patch transdermal HS 10 Days Qty: 10 RF: 0 Continued calcium carbonate-vitamin D3 [Calcium 500 + D] 500 mg(1,250mg) -200 unit Tablet 2 tab PO BID RF: 0 acetaminophen [Acetaminophen Extra Strength] 500 mg Tablet 500 mg PO Q6H PRN (Reason: Pain) RF: 0 ondansetron 8 mg Tablet,Disintegrating 8 mg PO Q8H PRN (Reason: Nausea) RF: 0 nystatin 100,000 unit/gram Powder 1 applic TOPICAL BID RF: 0 zinc sulfate 220 (50) mg Capsule 220 mg PO QDL RF: 0 ferrous sulfate 325 mg (65 mg iron) Tablet 325 mg PO BID RF: 0 collagenase clostridium histo. 250 unit/gram Ointment 1 applic TOPICAL DAILY RF: 0 fluticasone propionate [Flonase Allergy Relief] 50 mcg/actuation [place],Suspension 1 spray INTRANASAL QAM RF: 0 Thera-Derm Lotion 1 applic TOPICAL TID RF: 0 Florastor 250 mg Capsule 250 mg PO BIDM RF: 0 diclofenac sodium 1 % Gel 2 g TOPICAL QID RF: 0 Lactinex 1 million cell tablet,chewable 1 tab PO BIDM RF: 0 amiodarone 200 mg tablet 200 mg PO QAM 30 Days Qty: 30 RF: 0 sertraline 25 mg Tablet 75 mg PO QAM 30 Days Qty: 90 RF: 0 enoxaparin [Lovenox] 80 mg/0.8 mL Syringe 80 mg SUBCUT Q12H 30 Days Qty: 48 RF: 1 metoprolol tartrate 25 mg Tablet 25 mg PO AMHS 30 Days Qty: 60 RF: 0 vancomycin 125 mg Capsule 125 mg PO QID 14 Days Qty: 56 RF: 0 multivitamin Tablet 1 tab PO QDL RF: 0 ascorbic acid (vitamin C) [Vitamin C] 500 mg Tablet 500 mg PO AMHS RF: 0 pantoprazole 40 mg Tablet,Delayed Release (Dr/Ec) 40 mg PO QAM RF: 0 Discontinued oxycodone 10 mg Tablet 10 mg PO Q4H PRN (Reason: Pain) RF: 0 oxycodone [OxyContin] 20 mg Tablet,Oral Only,Ext.Rel.12 Hr 20 mg PO Q12H RF: 0 Stand-Alone Forms: [facility] Discharge Orders: Discharge Order (Routine); Ordered 12/17/18 Ordered By: Ketan Crawford Skilled Items Patient informed of condition?: Yes DNR: No Discharge Level of Care: Skilled Communicable Disease: Yes Discharge Prognosis: Stable Admission Data Admit Date/Time: 11/30/18 18:54 Attending Provider: Ketan Crawford Admit Provider: Jean Carlos Noel Primary Care Provider: oCrry Salazar [place] Other Providers: Jean Carlos Noel ; Ramy Urbano Veeral B. ; Araceli Roa Service: Oncology Other Interventions: Discharge Summary Assessment (RN) Last Done: 12/17/18 13:35
[2018-12-18] MEDS ORDERED: FUROSEMIDE 20 MG TAB PO SCH (09:00)
--- NOTE | 2018-12-25 10:53 | Radiation Oncology Progress Nt ---
Date of Service December 25, 2018 Subjective 04/04/2008 to 05/24/2008. Radiation therapy for treatment of prostate cancer. 7200 cGy in 36 fractions. 09/23/2011 to 10/04/2011. Radiation therapy to bilateral breast for gynecomastia. 2000 cGy in 10 fractions at 200 cGy per fraction. 11/04/2018. Medical oncology follow-up with Dr. Hima Dueks. Given patient's issues with systemic therapy, Dr. Dukes is recommended only Zoladex and the patient has agreed to only consider treatment for goals of palliative intent. 11/30/2018. CT of abdomen/pelvis. IMPRESSION: 1. Findings are consistent with a nonspecific colitis of the left colon. This likely on an infectious or inflammatory basis and clinical correlation will be required. 2. Findings are consistent with multifocal osteoblastic metastatic disease. 3. The heart is enlarged and there are small bilateral pleural effusions. Additionally, intralobular septal thickening is noted at the lung bases. Correlate clinically for evidence of congestive failure. 4. Hepatomegaly and hepatic steatosis. 5. Status post prostatectomy. 6. Additional findings as above. 11/30/2018. CT lumbar spine. IMPRESSION: 1. No acute fracture or subluxation within the lumbar spine. 2. 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 3. Multilevel degenerative changes as described above. 12/07/2018. Orthopedic consultation by Dr. Saravia. Dr. Saravia has recommended conservative management only. 12/08/2018. CT left shoulder. IMPRESSION: 1. Multifocal osteoblastic lesions redemonstrated throughout the imaged axial and appendicular skeletal system. 2. Healing nondisplaced subacute appearing fracture about the spine of the left scapula. 3. No acute fracture or dislocation identified, specifically the clavicle appears intact. 4. Moderate glenohumeral and AC joint degenerative changes. 5. Moderate left pleural effusion with left basilar consolidation. 6. Chronic rotator cuff pathology as above. Currently, the patient does have significant discomfort involving his left and right shoulder. He also complains of bilateral lower extremity discomfort with associated tingling and sensitivity to touch. Site: Left Shoulder Technique: Parallel Opposed Energy: 15X Fractions: 5 Daily Dose: 400 cGy Total Dose: 2000 cGy Site: Right Shoulder Technique: Parallel Opposed Energy: 15X Fractions: 5 Daily Dose: 400 cGy Total Dose: 2000 cGy Treatment Dates: 12/11/2018 - 12/17/2018 Elapsed Days: 6 Do documented final doses agree with prescribed doses? Yes If not, explain: Is patients chart complete and accurate? Yes If not, explain: Notes/Comments: Previous radiation treatments: - Bilateral Breasts, 20 Gy in 10 fractions, completing on 10/04/2011 and - Pelvis/Prostate bed,72 Gy in 36 fractions, completing on 05/24/08. Status post completion of radiation therapy to the bilateral shoulders 12/17. He received 2000 cGy to each shoulder. He tolerated his treatment well. He may return to our office on a as needed basis. He may call if he has any questions or concerns we be happy to see him.
== END 2018-12-17 14:56 | DRG 543 ==
LOC: ED 13:26 → 4E 18:54 → SUATTDRO 18:54 → 4E 19:30

== ENCOUNTER 2020-03-08 14:21 | Inpatient (IN) ==
--- NOTE | 2020-03-08 14:41 | Emergency Department Note ---
Impression & Plan Acute confusion, Anemia, Elevated troponin, CHF (congestive heart failure), Metastatic cancer ED Provider Note NAME: CHAD ZAYAS JR AGE: 74 SEX: M : 1945 ARRIVES VIA: Ambulance INFORMANT: [Patient][ems, family] ED PROVIDER(S): [Joe Solo MD] CHIEF COMPLAINT: Unresponsive episode HISTORY OF PRESENT ILLNESS: The patient is a 74-year-old male on hospice care. He has metastatic prostate cancer. Today, just before arrival, he had an episode where he was not arousable. They could not get him up. He seemed confused. He did become more arousable prior to EMS arrival. He is now agitated. No reported seizure activity. The patient denies any pain presently. He does seem sleepy and somnolent. He just seems uncomfortable and restless. His granddaughter is at the bedside who states that the patient is on hospice care. Family is concerned that his hospice care is not keeping him comfortable at home, they are also concerned about his significant mental decline in the last 24 hours. No further history obtainable as the patient is somnolent and somewhat confused. Of note, as per family, the patient's fentanyl patch was increased yesterday. REVIEW OF SYSTEMS: Unobtainable given his mental state. PMHx/PSHx: See Below SOCIAL HISTORY: See Below. PHYSICAL EXAM: GENERAL: Patient is in mild distress, seems slightly agitated although quite somnolent. HEENT: No acute trauma, normocephalic atraumatic, mucous membranes markedly dry, no nasal congestion, no scleral icterus. NECK: No stridor, no adenopathy, no meningismus, trachea is midline. LUNGS: Clear to auscultation bilaterally when listening anterior, no wheeze, no rhonchi, breath sounds equal. HEART: Subtle systolic murmur, regular rate and rhythm. ABDOMEN: Soft, nontender, bowel sounds positive, no hernias, no peritonitis. Multiple contusions about the abdominal wall consistent with needle injections EXTREMITIES: No cyanosis. The patient has bilateral pedal edema with erythema to both lower extremities. His legs are wrapped and bandaged. This is a chronic state for him. NEUROLOGIC: Somnolent, does move all extremities. Cannot give any reliable history. No speech slur. SKIN: No rash, no jaundice, no diaphoresis. DIFFERENTIAL DIAGNOSIS: Infection, dehydration, metabolic abnormality, hypo/hyperglycemia, stroke, TIA, seizure, IN, intracranial bleeding, electrolyte disturbance, anemia, hypoxia, cardiac sources, intracerebral event, toxicologic, neurologic, as well as other pathologies. EMERGENCY DEPARTMENT COURSE/PROCEDURES: ECG: Indication was weakness. The ECG shows a sinus rhythm with a first- degree AV block. The rate is 97. There is a nonspecific intraventricular block. There is no ST elevation, no PVCs. The QTc is 431. Continuous Cardiac Monitoring: An order was placed for continuous cardiac monitoring. The monitor shows a rate of 99 with sinus rhythm and a first-degree AV block. MEDICAL DECISION MAKING: There is a normal white blood cell count. The patient is quite anemic with a hemoglobin of 6.8. Platelet count is low at 38. No kidney failure. No significant electrolyte abnormality in need of correction. Liver enzymes were elevated. Total CK was elevated consistent with some muscle breakdown and rhabdomyolysis. Ammonia level was normal. BNP was elevated consistent with fluid overload. Patient appeared to be in a euthyroid state. ECG showed a sinus rhythm, no acute ischemia. There was some cardiac enzyme elevation, this troponin elevation could be consistent with cardiac injury or strain. Chest film shows what appears to be some CHF, no pneumothorax. Brain CT showed artifact and a potential acute stroke. No evidence for acute intracranial bleeding. The patient did appear clinically dehydrated despite his CHF on x-ray. He was given IV saline for hydration. He was maintained on nasal cannula O2 to help with comfort. The patient is on hospice. He is doing poorly and I suspect does not have long to live. Multiple systems have failed. I spoke to the family, I spoke with case management. The family is overwhelmed and they feel that right now, his hospice care is not keeping him comfortable. The decision has been made to bring the patient into a hospice bed at this facility. We will hopefully get things better regulated and make him more comfortable. He may not survive this time in the hospital. The family is in complete understanding. The on-call hospitalist was consulted. Past Med/Surg History Medical History Anxiety Atrial fibrillation Dx 2 years ago Calciphylaxis BLLE - follows with wound clinic - [facility] Siddhartha - reports BLLE wrapped, no drainage - reason for penicillin Chronic pain Depression Dyslipidemia GERD (gastroesophageal reflux disease) History of blood clots thigh/arm - approx 1 year ago - on Lovenox (was on eliquis for A.fib prior to clots to thigh/arm and then switched to Lovenox) Hospice care patient HTN (hypertension) Mood disorder Obesity (BMI 30-39.9) On anticoagulant therapy Prostate cancer metastatic to bone ~2013 - h/o prostatectomy + chemo Umbilical hernia Surgical History H/O radical prostatectomy ~2000 History of back surgery L4-L5 History of carpal tunnel release of both wrists History of cholecystectomy History of repair of rotator cuff LEFT SHOULDER History of tonsillectomy and adenoidectomy Family History Mother Hypertension Father Lymphoma Social History Smoking Status: Never smoker Second Hand Exposure: No; Hx Alcohol Use: No Hx Substance Use: No Preferred Language: Scottish Communication Ability: Effective Label Maker Required: No Beliefs That Will Affect Care: None marital status: Current Living Situation: [facility] current occupational status: retired Feels Safe at Home: Yes Allergies Allergies Allergy/AdvReac Type Severity Reaction Status Date / Time cephalexin [From Keflex] Allergy Mild Rash Verified 03/08/20 16:25 doxycycline Allergy Unknown Unknown Verified 03/08/20 16:25 Home Meds Home Medications Medication Instructions Recorded Confirmed Calcium 600 with Vitamin D3 1 tab PO QPM 08/19/19 03/08/20 Senna Plus 3 tab-cap PO BID 08/19/19 03/08/20 Solanpas Cream 1 dose TOPICAL BID 08/19/19 03/08/20 acetaminophen [Tylenol Arthritis 650 mg PO QID 08/19/19 03/08/20 Pain] amiodarone 200 mg PO QAM 08/19/19 03/08/20 ascorbic acid (vitamin C) [Vitamin 1 g PO BID 08/19/19 03/08/20 C] diclofenac sodium 2 g TOPICAL BID 08/19/19 03/08/20 duloxetine [Cymbalta] 60 mg PO PM 08/19/19 03/08/20 fluticasone propionate [Flonase 1 spray INTRANASAL QAM 08/19/19 03/08/20 Allergy Relief] lorazepam [Lorazepam Intensol] 1 mg PO Q4H PRN 08/19/19 03/08/20 metoprolol tartrate 25 mg PO BID 08/19/19 03/08/20 morphine concentrate 10 mg PO Q2H PRN 08/19/19 03/08/20 multivitamin 1 tab PO QAM 08/19/19 03/08/20 ondansetron 8 mg PO Q8H PRN 08/19/19 03/08/20 pantoprazole 40 mg PO QAM 08/19/19 03/08/20 penicillin V potassium 500 mg PO QID 08/19/19 03/08/20 enoxaparin [Lovenox] 70 mg SUBCUT Q12H 03/08/20 03/08/20 fentanyl 1 patch TRANSDERMAL Q72H 03/08/20 03/08/20 lisinopril 5 mg PO QAM 03/08/20 03/08/20 Results & Data (ED) Vital Signs Vital Signs - 24 hr 03/08/20 14:31 03/08/20 14:32 03/08/20 14:33 Temperature 36.7 C Temperature Source Oral Pulse Rate 96 H 95 H 94 H Pulse Rate [Right Finger] Pulse Rate from SpO2 Sensor 95 H 94 H Respiratory Rate 23 20 24 Respiratory Effort / Characteristics Respiratory Depth Normal Blood Pressure 119/34 L 119/44 L Blood Pressure [Right Arm] Blood Pressure Mean 56 69 Blood Pressure Mean [Right Arm] Blood Pressure Position Lying Pulse Oximetry 95 95 94 Oxygen Delivery Method Room Air Oxygen Flow Rate Sepsis Recent Fever Within 48 Hours No Sepsis New/Unexplained Change in Mental Status Yes Sepsis Action Taken by Nursing No Action Required 03/08/20 15:00 03/08/20 15:06 03/08/20 15:30 Temperature Temperature Source Pulse Rate 96 H 95 H Pulse Rate [Right Finger] Pulse Rate from SpO2 Sensor 96 H 95 H Respiratory Rate 34 H 25 H Respiratory Effort / Characteristics Respiratory Depth Blood Pressure Blood Pressure [Right Arm] Blood Pressure Mean Blood Pressure Mean [Right Arm] Blood Pressure Position Pulse Oximetry 92 95 95 Oxygen Delivery Method Room Air Oxygen Flow Rate Sepsis Recent Fever Within 48 Hours Sepsis New/Unexplained Change in Mental Status Sepsis Action Taken by Nursing 03/08/20 16:00 03/08/20 16:30 09/09/20 18:27 Temperature Temperature Source Pulse Rate 94 H 99 H Pulse Rate [Right Finger] 103 H Pulse Rate from SpO2 Sensor 95 H 99 H Respiratory Rate 21 28 H 23 Respiratory Effort / Characteristics Non-Labored Respiratory Depth Normal Blood Pressure Blood Pressure [Right Arm] 112/60 Blood Pressure Mean Blood Pressure Mean [Right Arm] 77 Blood Pressure Position Pulse Oximetry 95 92 96 Oxygen Delivery Method Nasal Cannula Oxygen Flow Rate 2 Sepsis Recent Fever Within 48 Hours Sepsis New/Unexplained Change in Mental Status Sepsis Action Taken by Prison Medications Current Medication List: was personally reviewed by me Laboratory Data Attestation: I reviewed the patient's lab results. Result diagrams: 03/08/20 16:25 03/08/20 15:30 Lab Results 03/08/20 03/08/20 03/08/20 Range/Units 15:30 15:38 16:25 WBC 7.61 (4.8-10.8) K/uL RBC 2.61 L (4.7-6.1) M/uL Hgb 6.8 L* (14.0-18.0) g/dL Hct 23.0 L (42-52) % MCV 88.1 (80-100) fL MCH 26.1 (25-34) pg MCHC 29.6 L (32-36) g/dL RDW Std Deviation 67.6 H (36.4-46.3) fL RDW Coeff of Adriana 21.5 H (11.5-14.5) % Plt Count 38 L (130-400) K/uL MPV 9.7 (7.4-10.4) fL Absolute Nucleated RBC 0.13 H (0-0) K/uL Nucleated RBC % (auto) 1.7 % Neutrophils % (Manual) 68.7 % Lymphocytes % (Manual) 10.4 % Monocytes % (Manual) 5.2 % Metamyelocytes % (Man) 0.9 % Neutrophils # (Manual) 5.23 (1.4-6.5) K/uL Total Absolute Neuts 5.23 (1.4-6.5) K/uL Lymphocytes # (Manual) 0.79 L (1.2-3.4) K/uL Total Abs Lymphocytes 1.92 (1.2-3.4) K/uL Monocytes # (Manual) 0.40 (0.11-0.59) K/uL Metamyelocytes # (Man) 0.07 H (0-0) K/uL Large Granular Lymphs 14.8 % # Lrg Granular Lymphs 1.13 K/uL Hypochromasia Present Anisocytosis Present Sodium 131 L (136-145) mmol/L Potassium 4.8 (3.5-5.1) mmol/L Chloride 100 (98-107) mmol/L Carbon Dioxide 22 (21-32) mmol/L Anion Gap 9.0 (3-11) BUN 32 H (7-18) mg/dl Creatinine 1.33 (0.6-1.4) mg/dl Est Cr Clr Drug Dosing 58.1 ml/min Est GFR ( Amer) 61.5 Est GFR (Non-Af Amer) 53.0 BUN/Creatinine Ratio 23.7 H (10-20) Glucose 105 H (70-99) mg/dl Calcium 7.9 L (8.5-10.1) mg/dl Magnesium 2.6 H (1.8-2.4) mg/dl Total Bilirubin 0.4 (0.2-1) mg/dl AST 75 H (15-37) U/L ALT 17 (12-78) U/L Alkaline Phosphatase 567 H (45-117) U/L Ammonia < 10.0 L (11-32) umol/L Total Creatine Kinase 1789 H (39-308) U/L Troponin I 0.670 H* (0-0.045) ng/ml NT-Pro-B Natriuret Pep 926 H (0-900) pg/ml Total Protein 6.4 (6.4-8.2) gm/dl Albumin 2.1 L (3.4-5.0) gm/dl Globulin 4.3 H (2.5-4.0) gm/dl Albumin/Globulin Ratio 0.5 L (0.9-2) TSH 3.140 (0.300-4.500) uIu/ml Administered Medications Discontinued Medications Sodium Chloride (Nss 1000ml) 1,000 mls @ 999 mls/hr IV .Q1H1M LISBETH Stop: 03/08/20 15:45 Last Infusion: 03/08/20 16:29 Dose: 0 mls/hr Documented by: [id number] Admin: 03/08/20 15:36 Dose: 999 mls/hr Documented by: [id number] Imaging Data Radiologist's Impression: XR chest 1V portable HISTORY: 74 years-old Male weakness acute weakness COMPARISON: Chest radiograph 12/16/2018 TECHNIQUE: Portable AP view of the chest FINDINGS: Cardiac silhouette is enlarged, unchanged. Bilateral reticular nodular opacities are redemonstrated. Pulmonary vascular congestion. Small pleural effusions with mild bibasilar and right midlung opacities. Bilateral blastic skeletal lesions redemonstrated. Degenerative changes of the shoulders and spine. IMPRESSION: 1. Cardiomegaly with pulmonary vascular congestion and possible pulmonary edema. 2. Chronic reticular nodular densities. 3. Small pleural effusions with ill-defined bibasilar and right midlung opacities suggestive of atelectasis versus pneumonitis. 4. Probable skeletal metastasis. CT head/brain wo con CLINICAL HISTORY: 74 years-old Male with confusion. Acutely altered mental status TECHNIQUE: Multiple axial CT images of the head were obtained without contrast. A dose lowering technique was utilized adhering to the principles of ALARA. CT DOSE: 1683.20 mGycm COMPARISON: Head CT 11/30/2018 FINDINGS: Motion degraded exam. No acute intracranial hemorrhage, midline shift, intracranial mass, hydrocephalus, or abnormal extra-axial collection. Age- related involutional changes with mild ex vacuo ventriculomegaly. There is an i ll-defined area of decreased attenuation with blurring of the rod-white interface involving the left occipital lobe, image 17 series 4. The calvarium is intact. The paranasal sinuses, mastoid air cells, and middle ear cavities are clear. IMPRESSION: 1. Motion degraded exam. Moderate sized area of ill-defined low attenuation with blurring of the rod-white interface involves the left occipital lobe suspicious for acute infarct. 2. No midline shift, hydrocephalus or intracranial hemorrhage. Blood Pressure Blood Pressure Findings: Normal blood pressure Blood Pressure Disposition: further management by hospitalist Discharge Plan Visit Data Chief Complaint: Confusion ED Provider: Joe Solo Discharge Problem: Acute confusion, Anemia, Elevated troponin, CHF (congestive heart failure), Met astatic cancer Patient Disposition: Admitted As Inpatient Condition: Serious Forms Stand Alone Forms: [facility] Extend Health Prescriptions Prescriptions: No Action fentanyl 100 mcg/hr Patch 72 Hour 1 patch TRANSDERMAL Q72H RF: 0 lisinopril 5 mg Tablet 5 mg PO QAM RF: 0 enoxaparin [Lovenox] 80 mg/0.8 mL Syringe 70 mg SUBCUT Q12H RF: 0 multivitamin Tablet 1 tab PO QAM RF: 0 ascorbic acid (vitamin C) [Vitamin C] 1,000 mg Tablet 1 g PO BID RF: 0 amiodarone 200 mg Tablet 200 mg PO QAM RF: 0 penicillin V potassium 500 mg Tablet 500 mg PO QID RF: 0 ondansetron 8 mg Tablet,Disintegrating 8 mg PO Q8H PRN (Reason: Nausea) RF: 0 acetaminophen [Tylenol Arthritis Pain] 650 mg Tablet Extended Release 650 mg PO QID RF: 0 pantoprazole 40 mg Tablet,Delayed Release (Dr/Ec) 40 mg PO QAM RF: 0 fluticasone propionate [Flonase Allergy Relief] 50 mcg/actuation [place],Suspension 1 spray INTRANASAL QAM RF: 0 lorazepam [Lorazepam Intensol] 2 mg/mL Concentrate 1 mg PO Q4H PRN (Reason: anxiety ) RF: 0 metoprolol tartrate 25 mg Tablet 25 mg PO BID RF: 0 duloxetine [Cymbalta] 60 mg Capsule,Delayed Release(Dr/Ec) 60 mg PO PM RF: 0 Calcium 600 with Vitamin D3 600 mg(1,500mg) -400 unit Tablet,Chewable 1 tab PO QPM RF: 0 diclofenac sodium 1 % Gel 2 g TOPICAL BID RF: 0 morphine concentrate 10 mg/0.5 mL Syringe 10 mg PO Q2H PRN (Reason: Pain) RF: 0 Senna Plus 8.6-50 mg Capsule 3 tab-cap PO BID RF: 0 Solanpas Cream 1 dose topical BID RF: 0 Referrals Referrals: Damion Taylor [Primary Care Provider] - Discharge Problem: Anemia Qualifiers: Anemia type: unspecified type Qualified Code(s): D64.9 - Anemia, unspecified CHF (congestive heart failure) Qualifiers: Heart failure type: unspecified Heart failure chronicity: acute Qualified Code(s): I50.9 - Heart failure, unspecified Metastatic cancer Qualifiers: Area of secondary neoplastic involvement: unspecified site Qualified Code(s): C79.9 - Secondary malignant neoplasm of unspecified site
[2020-03-08] MEDS ORDERED: SODIUM CHLORIDE 0.9% 1000ML 1,000 ML IV SCH (14:45)
--- NOTE | 2020-03-08 15:07 | XRay Report ---
XR chest 1V portable HISTORY: 74 years-old Male weakness acute weakness COMPARISON: Chest radiograph 12/16/2018 TECHNIQUE: Portable AP view of the chest FINDINGS: Cardiac silhouette is enlarged, unchanged. Bilateral reticular nodular opacities are redemonstrated. Pulmonary vascular congestion. Small pleural effusions with mild bibasilar and right midlung opacitie s. Bilateral blastic skeletal lesions redemonstrated. Degenerative changes of the shoulders and spine . IMPRESSION: 1. Cardiomegaly with pulmonary vascular congestion and possible pulmonary edema. 2. Chronic reticular nodular densities. 3. Small pleural effusions with ill-defined bibasilar and right midlung opacities suggestive of atele ctasis versus pneumonitis. 4. Probable skeletal metastasis. ACT 112: Negative or not required by law. The above report was generated using voice recognition software. It may contain grammatical, syntax o r spelling errors. Electronically signed by: Ever Aguilar M.D. 03/08/2020 3:06 PM
[2020-03-08 16:13] LABS: Albumin Level 2.1 gm/dl (3.4-5.0); BUN Creatinine Ratio 23.7 (10-20); Calcium 7.9 mg/dl (8.5-10.1); Creatinine Clr Calc Pharmacy 58.1 ml/min; Est GFR (African American) 61.5; Magnesium 2.6 mg/dl (1.8-2.4); Potassium 4.8 mmol/L (3.5-5.1)
[2020-03-08 16:30] LABS: Albumin Globulin Ratio 0.5 (0.9-2); Bilirubin,Total 0.4 mg/dl (0.2-1); Globulin 4.3 gm/dl (2.5-4.0); Thyroid Stimulating Hormone 3.14 uIu/ml (0.300-4.500); Total Protein 6.4 gm/dl (6.4-8.2); Troponin I 0.67 ng/ml (0-0.045)
--- NOTE | 2020-03-08 16:57 | CT Scan Report ---
CT head/brain wo con CLINICAL HISTORY: 74 years-old Male with confusion. Acutely altered mental status TECHNIQUE: Multiple axial CT images of the head were obtained without contrast. A dose lowering tech nique was utilized adhering to the principles of ALARA. CT DOSE: 1683.20 mGycm COMPARISON: Head CT 11/30/2018 FINDINGS: Motion degraded exam. No acute intracranial hemorrhage, midline shift, intracranial mass, hydrocephal us, or abnormal extra-axial collection. Age-related involutional changes with mild ex vacuo ventricul omegaly. There is an ill-defined area of decreased attenuation with blurring of the rod-white interf fabian involving the left occipital lobe, image 17 series 4. The calvarium is intact. The paranasal sinuses, mastoid air cells, and middle ear cavities are clear . IMPRESSION: 1. Motion degraded exam. Moderate sized area of ill-defined low attenuation with blurring of the rod -white interface involves the left occipital lobe suspicious for acute infarct. 2. No midline shift, hydrocephalus or intracranial hemorrhage. ACT 112: Negative or not required by law. The above report was generated using voice recognition software. It may contain grammatical, syntax o r spelling errors. Electronically signed by: Ever Aguilar M.D. 03/08/2020 4:55 PM
[2020-03-08 16:58] LABS: Mean Corpuscular Hgb Conc 29.6 g/dL (32-36)
[2020-03-08 17:14] LABS: Hemoglobin 6.8 g/dL (14.0-18.0); Mean Corpuscular Hemoglobin 26.1 pg (25-34); Mean Corpuscular Volume 88.1 fL (80-100); RDW Coefficient of Variation 21.5 % (11.5-14.5); RDW Standard Deviation 67.6 fL (36.4-46.3); Red Blood Count 2.61 M/uL (4.7-6.1); White Blood Count 7.61 K/uL (4.8-10.8)
[2020-03-08 17:16] LABS: Mean Platelet Volume 9.7 fL (7.4-10.4); Platelet Count 38 K/uL (130-400)
[2020-03-08 17:17] LABS: ALC (manual) 1.92 K/uL (1.2-3.4); ANC (manual) 5.23 K/uL (1.4-6.5); Anisocytosis Present; Hypochromasia Present; Large Granular Lymph # (manua 1.13 K/uL; Large Granular Lymph % (manual) 14.8 %; Lymphocytes # (manual) 0.79 K/uL (1.2-3.4); Lymphocytes % (manual) 10.4 %; Metamyelocytes # (manual) 0.07 K/uL (0-0); Metamyelocytes % (manual) 0.9 %; Monocytes % (manual) 5.2 %; Neutrophils # (manual) 5.23 K/uL (1.4-6.5); Neutrophils % (manual) 68.7 %; Nucleated RBC # (auto) 0.13 K/uL (0-0); Nucleated RBC % (auto) 1.7 %
--- NOTE | 2020-03-08 19:26 | Electrocardiogram Report ---
Test Reason : Blood Pressure : / mmHG Vent. Rate : 097 BPM Atrial Rate : 097 BPM P-R Int : 228 ms QRS Dur : 096 ms QT Int : 340 ms P-R-T Axes : 043 045 034 degrees QTc Int : 431 ms Poor data quality, interpretation may be adversely affected Sinus rhythm with 1st degree A-V block Otherwise normal ECG When compared with ECG of 23-SEP-2018 15:37, IN interval has increased Nonspecific T wave abnormality no longer evident in Lateral leads Confirmed by Sam Shah ([id number]) on 03/08/2020 7:26:40 PM Referred By: ED Confirmed By:Gene Shah
[2020-03-08] MEDS ORDERED: ONDANSETRON 4 MG OD TAB PO PRN (20:04)
--- NOTE | 2020-03-08 20:16 | History & Physical Report ---
Date of Service March 08, 2020 Assessment & Plan (1) Acute confusion: CT chest showed moderate sized area of ill-defined low attenuation with blurring of the rod-white interface involves the left occipital lobe suspicious for acute infarct. Will not be able to get a MRI since pt is confused and restlessness; also MRI will not change the management since pt is hospice on comfort care Will d/c the fentanyl patch for now due to the confusion If confusion worsening, consider one to one observation (2) CHF (congestive heart failure): CXR showed cardiomegaly with pulmonary vascular congestion and possible pulmonary edema. ProBNP 926 Received IVF on admission Will consider to get lasix 20mg IV x1 for comfort (3) Prostate cancer metastatic to bone: Poor prognosis Continue pain controlled Once mental status improves, consider to start on a low dose fentanyl patch Continue hospice care Palliative care on board (4) DVT (deep venous thrombosis): On Lovenox subq would like to continue the Lovenox, but due to low hbg hemoglobin and suspicious for acute infarct will hold the Lovenox for now (5) Anemia: hgb 6.8 on admission, baseline hgb 8 Dr. Solo and I spoke to grand daughter and that no blood transfusion since pt is hospice and comfort care DVT px will do SCD for now due to low hgb Disposition Will consult case management for Inpatient hospice History of Present Illness Chief Complaint: Confusion Primary Care Provider: Damion Brandon 74 years old male with past medical history of paroxysmal atrial fibrillation, DVT, hypertension, prostate cancer mets to bones who was under hospice care was brought to the ER for confusion. Granddaughter and at bedside, as per family patient health has been declined in the last few days since started on the fentanyl patch for his pain. said on February 28 patient was started on fentanyl 75 mcg then increased to 100 mcg few days ago. said patient has been very drowsy and confused. Since patient has been drowsy and agitated, family decided to bring him to the ER for inpatient hospice care. Family does not want any heroic or aggressive management. They would like patient to be comfortable. Patient denies any pain, palpitation, and shortness of breath. Dr. Solo and I explained to family about CODE STATUS since patient is hospice that the patient will be DNR but granddaughter and would like son to be there to make decision. Granddaughter and understand since patient is hospice that we will not draw any lab. Allergies Allergy/AdvReac Type Severity Reaction Status Date / Time cephalexin [From Keflex] Allergy Mild Rash Verified 03/08/20 16:25 doxycycline Allergy Unknown Unknown Verified 03/08/20 16:25 Home Medications Home Medications Medication Instructions Recorded Confirmed Type Calcium 600 with Vitamin D3 1 tab PO QPM 08/19/19 03/08/20 History Senna Plus 3 tab-cap PO BID 08/19/19 03/08/20 History Solanpas Cream 1 dose TOPICAL BID 08/19/19 03/08/20 History acetaminophen [Tylenol Arthritis 650 mg PO QID 08/19/19 03/08/20 History Pain] amiodarone 200 mg PO QAM 08/19/19 03/08/20 History ascorbic acid (vitamin C) [Vitamin 1 g PO BID 08/19/19 03/08/20 History C] diclofenac sodium 2 g TOPICAL BID 08/19/19 03/08/20 History duloxetine [Cymbalta] 60 mg PO PM 08/19/19 03/08/20 History fluticasone propionate [Flonase 1 spray INTRANASAL QAM 08/19/19 03/08/20 History Allergy Relief] lorazepam [Lorazepam Intensol] 1 mg PO Q4H PRN 08/19/19 03/08/20 History metoprolol tartrate 25 mg PO BID 08/19/19 03/08/20 History morphine concentrate 10 mg PO Q2H PRN 08/19/19 03/08/20 History multivitamin 1 tab PO QAM 08/19/19 03/08/20 History ondansetron 8 mg PO Q8H PRN 08/19/19 03/08/20 History pantoprazole 40 mg PO QAM 08/19/19 03/08/20 History penicillin V potassium 500 mg PO QID 08/19/19 03/08/20 History enoxaparin [Lovenox] 70 mg SUBCUT Q12H 03/08/20 03/08/20 History fentanyl 1 patch TRANSDERMAL Q72H 03/08/20 03/08/20 History lisinopril 5 mg PO QAM 03/08/20 03/08/20 History Past Med/Surg History Medical History Anxiety Atrial fibrillation Dx 2 years ago Calciphylaxis BLLE - follows with wound clinic - [facility] - reports BLLE wrapped, no drainage - reason for penicillin Chronic pain Depression Dyslipidemia GERD (gastroesophageal reflux disease) History of blood clots thigh/arm - approx 1 year ago - on Lovenox (was on eliquis for A.fib prior to clots to thigh/arm and then switched to Lovenox) Hospice care patient HTN (hypertension) Mood disorder Obesity (BMI 30-39.9) On anticoagulant therapy Prostate cancer metastatic to bone ~2013 - h/o prostatectomy + chemo Umbilical hernia Surgical History H/O radical prostatectomy ~2000 History of back surgery L4-L5 History of carpal tunnel release of both wrists History of cholecystectomy History of repair of rotator cuff LEFT SHOULDER History of tonsillectomy and adenoidectomy Family History Mother Hypertension Father Lymphoma Social History Smoking Status: Never smoker Second Hand Exposure: No; Hx Alcohol Use: No Hx Substance Use: No Preferred Language: Estonian Communication Ability: Effective Assessment Counselor Required: No Beliefs That Will Affect Care: None marital status: Current Living Situation: Spouse current occupational status: retired Feels Safe at Home: Yes Review of Systems Review of Systems: All systems reviewed & are unremarkable except as noted in HPI & below Physical Exam Physical Exam: General- confusion Head- atraumatic Eyes- PERRL, EOMI, ENT- oropharynx clear Neck- supple, no JVD Lungs- decrease BS Heart- regular rhythm Abdomen- normal bowel sounds, soft, nontender Extremities- no calf tenderness, +edema, +gangrene in LE Neuro- alert, oriented x 3; PERRL, EOMI; no facial palsy; no dysarthria Skin- warm & dry, Bruises in extremities Results & Data Results & Data ([facility]) Vital Signs (Past 12 Hours) Vital Signs Temp Pulse Pulse Resp BP BP Pulse Ox 03/08/20 18:27 103 H 23 112/60 96 03/08/20 16:30 99 H 28 H 92 03/08/20 16:00 94 H 21 95 03/08/20 15:30 95 H 25 H 95 03/08/20 15:06 95 03/08/20 15:00 96 H 34 H 92 03/08/20 14:33 94 H 24 94 03/08/20 14:32 36.7 C 95 H 20 119/44 L 95 03/08/20 14:31 96 H 23 119/34 L 95 Code Status & VTE Plan VTE Prophylaxis Plan VTE Prophylaxis will be ordered: No (1) CHF (congestive heart failure) Heart failure chronicity: acute Heart failure type: unspecified Qualified Code(s): I50.9 - Heart failure, unspecified (2) Anemia Anemia type: unspecified type Qualified Code(s): D64.9 - Anemia, unspecified
[2020-03-08] MEDS ORDERED: DULOXETINE HCL 60 MG CAP PO SCH (21:00)
[2020-03-08] MEDS ORDERED: ENOXAPARIN 80 MG/0.8 ML SYR SQ SCH (21:00)
[2020-03-08] MEDS ORDERED: DICLOFENAC SOD 1% GEL 100 GM TUBE EXT SCH (21:00)
--- NOTE | 2020-03-08 21:20 | Communication Note ---
Date of Service: March 08, 2020 Pt was admitted for inpatient hospice after talking to and grand daughter. Son came later and wants patient to be treated for now. He said last year his dad was admitted for the similar thing and after receiving blood transfusion and fluid he was fine. I explained to son in detail that his dad has a very poor prognosis due to metastases prostate cancer, that his just came from home hospice but he wants him to get treated. We will change the admission from inpatient hospice to inpatient admit. His hgb is 6.8, his son would like him to get blood transfusion. Will do type and crossed and transfuse 1 unit PRBC. Consider to give lasix 20mgx1 after the blood transfusion. Elevated troponin with no EKG changed. Will trend troponin and get an echo in am. Will check UA and blood cx. CT head showed moderate sized area of ill-defined low attenuation with blurring of the rod-white interface involves the left occipital lobe suspicious for acute infarct. Unable to get an MRI head. Will consider to repeat CT head after 24 hrs. Will consider to consult neurology since family wants to treat. Will add aspirin. Will consult speech. Procalcitonin pending and if elevates will start on IV abx. Son is not sure about the code status for now. Will admit put a surveillance monitor. Palliative care consult to discuss with family and explain to them the goal of care since family wants everything to be done while pt was in hospice. MD Raegan
[2020-03-08] MEDS: MoRPHine SULFATE 10 MG/0.5 ML UDP PO PRN (21:22)
[2020-03-08] MEDS: METOPROLOL TARTRATE 25 MG TAB PO SCH (21:26)
[2020-03-08] MEDS: LORazepam 1 MG TAB PO PRN (21:31)
[2020-03-08] MEDS ORDERED: SODIUM CHLORIDE 0.9% 250 ML IV PRN (21:53)
--- NOTE | 2020-03-08 22:41 | Communication Note ---
Date of Service: March 08, 2020 Spoke to the hospice nurse to let them know that there was a lack of communication between the hospice team and the family that failed to educate the family to understand the goals of care while in hospice. Also pt was still full code while on hospice. Hospice nurse said that the family called EMS without notified the hospice team. She said that pt has been in hospice for about 1 month and the hospice team has been having a hard time with the family to change the code status. Son would like his dad to be full code for now and if in the next 48hr there is not improvement, they will change his code status to DNR. MD Raegan
[2020-03-08 22:43] LABS: Appearance Urine Clear (Clear); Bacteria Urine Automated Negative (Negative); Bilirubin Urine Negative (Negative); Blood Urine Trace (Negative); Color Urine Yellow; Epithelial Cell Urine Auto 0-5 /lpf (0-5); Glucose Urine UA Negative (Negative); Ketones Urine Negative (Negative); Leukocyte Esterase Urine Negative (Negative); Nitrite Urine Negative (Negative); Protein Urine 1+ (Negative); Specific Gravity Urine 1.017 (1.000-1.030); Urobilinogen Urine Negative (Negative)
[2020-03-08] MEDS: ASPIRIN 81 MG ECTAB PO SCH (22:44)
[2020-03-09] MEDS ORDERED: FUROSEMIDE 20 MG in SYRINGE 0 ML IV ONE (01:00)
[2020-03-09] MEDS: MoRPHine SULFATE 10 MG/0.5 ML UDP PO PRN ×5 (01:23→22:24)
[2020-03-09] MEDS: LORazepam 1 MG TAB PO PRN (01:23)
[2020-03-09] MEDS ORDERED: ACETAMINOPHEN 325 MG TAB PO PRN (01:43)
[2020-03-09] MEDS ORDERED: ACETAMINOPHEN 325 MG TAB ONE (01:53)
[2020-03-09] MEDS ORDERED: OLANZapine 10 MG/2.1 ML SDV IM PRN (02:54)
[2020-03-09] MEDS ORDERED: ACETAMINOPHEN 65 ML IV ONE ×2 (03:00→20:45)
[2020-03-09] MEDS ORDERED: ACETAMINOPHEN 65 ML IV PRN (03:11)
[2020-03-09 08:34] LABS: Hematocrit (blood only) 25.9 % (42-52); Mean Corpuscular Hemoglobin 26.8 pg (25-34); Mean Corpuscular Hgb Conc 30.9 g/dL (32-36); Mean Corpuscular Volume 86.9 fL (80-100); Nucleated RBC # (auto) 0.21 K/uL (0-0); Nucleated RBC % (auto) 2.8 %; RDW Standard Deviation 64.7 fL (36.4-46.3); Red Blood Count 2.98 M/uL (4.7-6.1); White Blood Count 7.45 K/uL (4.8-10.8)
[2020-03-09 08:44] LABS: Mean Platelet Volume 10.3 fL (7.4-10.4); Platelet Count 31 K/uL (130-400)
[2020-03-09 08:57] LABS: BUN Creatinine Ratio 21.5 (10-20); Calcium 8.7 mg/dl (8.5-10.1); Creatinine Clr Calc Pharmacy 63.3 ml/min; Est GFR (Non-African American) 61.3; Potassium 4.5 mmol/L (3.5-5.1)
[2020-03-09] MEDS ORDERED: FLUTICASONE PROPIONATE NA SPR 16 GM BTL SCH (09:00)
[2020-03-09] MEDS ORDERED: ACETAMINOPHEN 325 MG TAB PO SCH (09:00)
[2020-03-09 09:03] LABS: Troponin I 1.03 ng/ml (0-0.045)
[2020-03-09 09:08] LABS: Platelet Estimate SIGNIFIC DECREASED (Normal)
[2020-03-09] MEDS: ASPIRIN 81 MG ECTAB PO SCH (09:59)
[2020-03-09] MEDS: AMIODARONE 200 MG TAB PO SCH (10:05)
[2020-03-09] MEDS: ACETAMINOPHEN 325 MG TAB PO SCH ×4 (10:05→21:25)
[2020-03-09] MEDS: METOPROLOL TARTRATE 25 MG TAB PO SCH ×2 (10:07→22:07)
--- NOTE | 2020-03-09 10:25 | Urology Consultation ---
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 Spoke at length to patient's brother who gave additional information. Patient had been stopped from his cancer treatment for metastatic recurrence due to the severity and progression of his significant lower extremity issues as well as concern for contribution from the medication. He had been followed closely with oncology. Will await PSA however prognosis is overall extremely poor for both prostate cancer and the chronic wounds as well as chronic medical issues. Multiple considerations if patient is interested in proceeding with therapy and likely would need oncology to determine the medications and options that patient would be able to tolerate or proceed with. Patient has previously followed closely with the [facility] oncologist. At this point will await their input and the input from the palliative team. Patient's family is going to meet later today. History of Present Illness Attending Physician: Lindsay Arambula, History of Present Illness New consult for patient with metastatic prostate cancer who has recently been on palliation and hospice care however due to acute confusion and ill feelings patient was taken off hospice and brought to the emergency room where he was admitted. It appears that he has not been on any considerable medications or interventions for his prostate cancer. He has been on considerable intervention for management of recurrence with metastasis after radical prostatectomy in 2000. Patient is unable to answer majority of questions due to altered mental status with acute illness as well as severe chronic medical issues and underlying issues Family and patient are now considering going back on treatment for prostate cancer. Most recent PSA was nearly a year ago and was in the 150 range. He is previously seen radiation oncology. Patient has multiple chronic underlying illnesses as well. Per records patient had been on Xgeva at one point. Allergies Allergy/AdvReac Type Severity Reaction Status Date / Time cephalexin [From Keflex] Allergy Mild Rash Verified 03/08/20 16:25 doxycycline Allergy Unknown Unknown Verified 03/08/20 16:25 Home Medications Home Medications Medication Instructions Recorded Confirmed Type Calcium 600 with Vitamin D3 1 tab PO QPM 08/19/19 03/08/20 History Senna Plus 3 tab-cap PO BID 08/19/19 03/08/20 History Solanpas Cream 1 dose TOPICAL BID 08/19/19 03/08/20 History acetaminophen [Tylenol Arthritis 650 mg PO QID 08/19/19 03/08/20 History Pain] amiodarone 200 mg PO QAM 08/19/19 03/08/20 History ascorbic acid (vitamin C) [Vitamin 1 g PO BID 08/19/19 03/08/20 History C] diclofenac sodium 2 g TOPICAL BID 08/19/19 03/08/20 History duloxetine [Cymbalta] 60 mg PO PM 08/19/19 03/08/20 History fluticasone propionate [Flonase 1 spray INTRANASAL QAM 08/19/19 03/08/20 History Allergy Relief] lorazepam [Lorazepam Intensol] 1 mg PO Q4H PRN 08/19/19 03/08/20 History metoprolol tartrate 25 mg PO BID 08/19/19 03/08/20 History morphine concentrate 10 mg PO Q2H PRN 08/19/19 03/08/20 History multivitamin 1 tab PO QAM 08/19/19 03/08/20 History ondansetron 8 mg PO Q8H PRN 08/19/19 03/08/20 History pantoprazole 40 mg PO QAM 08/19/19 03/08/20 History penicillin V potassium 500 mg PO QID 08/19/19 03/08/20 History enoxaparin [Lovenox] 70 mg SUBCUT Q12H 03/08/20 03/08/20 History fentanyl 1 patch TRANSDERMAL Q72H 03/08/20 03/08/20 History lisinopril 5 mg PO QAM 03/08/20 03/08/20 History Patient History Medical History Anxiety Atrial fibrillation Dx 2 years ago Calciphylaxis BLLE - follows with wound clinic - [facility] - reports BLLE wrapped, no drainage - reason for penicillin Chronic pain Depression Dyslipidemia GERD (gastroesophageal reflux disease) History of blood clots thigh/arm - approx 1 year ago - on Lovenox (was on eliquis for A.fib prior to clots to thigh/arm and then switched to Lovenox) Hospice care patient HTN (hypertension) Mood disorder Obesity (BMI 30-39.9) On anticoagulant therapy Prostate cancer metastatic to bone ~2013 - h/o prostatectomy + chemo Umbilical hernia Surgical History H/O radical prostatectomy ~2000 History of back surgery L4-L5 History of carpal tunnel release of both wrists History of cholecystectomy History of repair of rotator cuff LEFT SHOULDER History of tonsillectomy and adenoidectomy Family History Mother Hypertension Father Lymphoma Social History Smoking Status: Never smoker Second Hand Exposure: No; Hx Alcohol Use: No Hx Substance Use: No Preferred Language: Palestinian Communication Ability: Effective Fairground Operator Required: No Beliefs That Will Affect Care: None marital status: Current Living Situation: Spouse current occupational status: retired Feels Safe at Home: Yes Review of Systems Review of Systems: All systems reviewed & are unremarkable except as noted in HPI & below Physical Exam Physical Exam: General: Alert in no acute distress. Advanced age. Chronic Medical issues. Patient minimally responsive with altered mental status due to acute illness as well as major underlying issues HEENT: Normocephalic. Inspection normal. Cranial Nerves 2-12 Grossly intact with some hearing issues. Normal inspection of face. Normal inspection of neck. Psychologic: Anxious. Baseline issues with memory. Respiratory: Nonlabored. No use of accessory muscles. No tachypnea or dyspnea. Cardiovascular: No tachycardia Skin: [place] and Dry. No rashes or visible lesions. Extremities/Lymphatics: Lower extremities bandaged due to chronic wound. Minimal mobility with very slow Gait. Abdomen: Obese soft Non-distended. No rebound or guarding. Results & Data ([facility]) Vital Signs (Past 12 Hours) Vital Signs Temp Pulse Pulse Pulse Resp BP BP 03/09/20 07:28 03/09/20 07:23 36.9 C 92 H 20 102/60 03/09/20 03:58 37.0 C 95 H 22 122/66 03/09/20 03:10 37.3 C 96 H 22 107/60 03/09/20 01:35 37.9 C H 99 H 28 H 115/71 03/09/20 01:20 36.9 C 103 H 28 H 122/62 03/09/20 01:00 36.2 C L 91 H 30 H 136/63 03/08/20 23:47 03/08/20 23:46 37.4 C 93 H 22 110/87 Pulse Ox 03/09/20 07:28 97 03/09/20 07:23 03/09/20 03:58 95 03/09/20 03:10 95 03/09/20 01:35 91 03/09/20 01:20 89 L 03/09/20 01:00 88 L 03/08/20 23:47 91 03/08/20 23:46 77 L PG Care Time/CCT Total # of Minutes Spent Total Time Spent with Patient: Total time spent is greater than 50% in coordination of care (as documented) at patient's floor/unit and/or counseling patient: Coding Level of Care Code 52201 Inpt Consult Level 5 Diagnoses Prostate cancer metastatic to bone C61; C79.51
[2020-03-09] MEDS ORDERED: FUROSEMIDE 40 MG in SYRINGE 0 ML IV ONE (13:00)
--- NOTE | 2020-03-09 14:09 | Hospitalist Progress Note ---
Date of Service March 09, 2020 Assessment & Plan (1) Acute confusion: CT chest showed moderate sized area of ill-defined low attenuation with blurring of the rod-white interface involves the left occipital lobe suspicious for acute infarct. Will not be able to get a MRI since pt is confused and restless. Stroke is a possibility, however, acute mental status changes occurred when he was placed on Fentanyl patch in an effort to achieve better pain control, switched just one week ago from morphine ER 60mg BID. However, there was ? altered absorption, etc. and he became sedated and confused consistent with toxic encephalopathy. Both pain meds were stopped on admission and he is starting to appear more agitated, possibly 2/2 opiate withdrawal. Restarted his long-acting morphine and continuing with his Roxanal PRN breakthrough pain. Additionally, he had fevers yesterday and has a large tumor burden related to his Stage 4 prostate cancer. This may also be playing a role in altered mental status we see today. Neurology was consulted in setting of possible stroke and recommended repeat CT imaging while an MRI is still not feasible. This is pending (2) Acute ischemic stroke: Cont to monitor on telemetry for occult arrhythmia. ASA and statin were started for him. Speech, PT and OT orders placed. Neuro consult was placed. CT head wo contrast repeated and CT head and neck with contrast performed. Reveals two new areas of acute stroke. Cont supportive care. (3) Acute diastolic (congestive) heart failure: CXR showed cardiomegaly with pulmonary vascular congestion and possible pulmonary edema. ProBNP 926. Still hypoxic today, Lasix 40mg IV now. Cont diuresis as tolerated over next couple of days. Low salt diet. Daily weights. Echo revealed normal EF and no acute wall motion abnormalities. (4) Anemia: hgb 6.8 on admission, baseline hgb 8. Monitor for bleeding and post transfusion H/H stability. (5) DVT (deep venous thrombosis): hold Lovenox in setting of PLT 31K (6) Chronically on opiate therapy: chronic morphine added back to regimen. (7) Thrombocytopenia: Dropped into the 30s. Full dose Lovenox was stopped-given for prior upper arm DVT. reports spontaneous epistaxis over recent months. Will plan to transfuse if <10 or if bleeding. Hold ASA as we need what he has to function. 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 (9) Prostate cancer metastatic to bone: Poor prognosis, PSA 3250 Continue pain controlled switching back to previously working morphine ER q12hr with Roxanal PRN breakthrough Fentanyl patch no longer a good idea. Continue hospice care Palliative care on board (10) DVT prophylaxis: SCDs Full Code despite discussion with myself and Palliative care physician. Dispo-may need to transfer on Hospice to SNF. Will wait and see if he regains function as brain swelling improves since stroke. Lindsay Arambula DO [facility] Hospitalist Admission and Anticipated Discharge Date Admission Date: March 08, 2020 Subjective Pt is altered and unable to give a history or answer questions reliably gave history Review of Systems Review of Systems: Unobtainable due to cognitive status Physical Exam Physical Exam: CONSTITUTIONAL: obese, vitals as above, generally ill- appearing EYES: wasn't able to comply with EOM check, eyes were rolling around, but pupils appeared symmetric bilaterally, normal conjunctivae, no scleral icterus ENT: external ear and nose normal, MMM NECK: trachea midline RESPIRATORY: very limited exam as he was unable to sit up and he was unable to participate with repositioning his arms and taking deep breaths. Normal respiratory effort on supplemental oxygenation. CARDIOVASCULAR: regular rate and rhythm, S1 and 2 heard without murmurs, gallops or rubs, no JVD, no peripheral edema GASTROINTESTINAL: soft, nontender, nondistended MUSCULOSKELETAL: 5/5 throughout approximately. somewhat limited test because of him having hard time following directions. Not waslking, very unstable when tried to sit up in bed. Requires max assist to do this. SKIN: warm and dry, wounds on lower extremities. Evidence of calciphylaxis present. Erythema present fpc up each leg bilaterally. NEUROLOGIC: patellar DTRs unable to elicit 2+ bilat. BR DTR 2+ bilat. No facial palsy, no dysarthria. N 2-12 grossly intact, uncertain sensory deficit, intermittent abnormal cognition with some sedation Results & Data Results & Data ([facility]) Vital Signs (Past 12 Hours) Vital Signs Temp Pulse Pulse Resp BP BP Pulse Ox 03/09/20 07:28 97 03/09/20 07:23 36.9 C 92 H 20 102/60 03/09/20 03:58 37.0 C 95 H 22 122/66 95 03/09/20 03:10 37.3 C 96 H 22 107/60 95 Laboratory Results Short CBC 03/08/20 03/09/20 Range/Units 16:25 07:58 WBC 7.61 7.45 (4.8-10.8) K/uL Hgb 6.8 L* 8.0 L (14.0-18.0) g/dL Hct 23.0 L 25.9 L (42-52) % Plt Count 38 L 31 L (130-400) K/uL BMP 03/08/20 03/09/20 15:30 07:58 Sodium 131 L 137 Potassium 4.8 4.5 Chloride 100 102 Carbon Dioxide 22 24 BUN 32 H 25 H Creatinine 1.33 1.18 Glucose 105 H 95 Calcium 7.9 L 8.7 Cardiac Enzymes 03/08/20 03/08/20 03/09/20 Range/Units 15:30 22:19 07:58 Total Creatine Kinase 1789 H (39-308) U/L Troponin I 0.670 H* 0.694 H* 1.030 H* (0-0.045) ng/ml Liver Function 03/08/20 Range/Units 15:30 Total Bilirubin 0.4 (0.2-1) mg/dl AST 75 H (15-37) U/L ALT 17 (12-78) U/L Alkaline Phosphatase 567 H (45-117) U/L Albumin 2.1 L (3.4-5.0) gm/dl Urine 03/08/20 Range/Units 21:50 Urine Color Yellow Urine Appearance Clear (Clear) Urine pH 5.0 (4.5-7.5) Ur Specific [place] 1.017 (1.000-1.030) Urine Protein 1+ H (Negative) Urine Glucose (UA) Negative (Negative) Diagnostic Findings CT head/brain wo con CLINICAL HISTORY: 74 years-old Male with confusion. Acutely altered mental status TECHNIQUE: Multiple axial CT images of the head were obtained without contrast. A dose lowering technique was utilized adhering to the principles of ALARA. CT DOSE: 1683.20 mGycm COMPARISON: Head CT 11/30/2018 FINDINGS: Motion degraded exam. No acute intracranial hemorrhage, midline shift, intracranial mass, hydrocephalus, or abnormal extra-axial collection. Age- related involutional changes with mild ex vacuo ventriculomegaly. There is an ill-defined area of decreased attenuation with blurring of the rod-white interface involving the left occipital lobe, image 17 series 4. The calvarium is intact. The paranasal sinuses, mastoid air cells, and middle ear cavities are clear. IMPRESSION: 1. Motion degraded exam. Moderate sized area of ill-defined low attenuation with blurring of the rod-white interface involves the left occipital lobe suspicious for acute infarct. 2. No midline shift, hydrocephalus or intracranial hemorrhage. XR chest 1V portable HISTORY: 74 years-old Male weakness acute weakness COMPARISON: Chest radiograph 12/16/2018 TECHNIQUE: Portable AP view of the chest FINDINGS: Cardiac silhouette is enlarged, unchanged. Bilateral reticular nodular opacities are redemonstrated. Pulmonary vascular congestion. Small pleural effusions with mild bibasilar and right midlung opacities. Bilateral blastic skeletal lesions redemonstrated. Degenerative changes of the shoulders and spine. IMPRESSION: 1. Cardiomegaly with pulmonary vascular congestion and possible pulmonary edema. 2. Chronic reticular nodular densities. 3. Small pleural effusions with ill-defined bibasilar and right midlung opacities suggestive of atelectasis versus pneumonitis. 4. Probable skeletal metastasis Medications Administered Current Inpatient Medications Acetaminophen (Acetaminophen 325 Mg Tab) 325 mg PO Q6H PRN PRN Reason: Mild Pain Stop: 04/08/20 01:42 Acetaminophen (Acetaminophen 325 Mg Tab) 325 mg PO QID [facility] Stop: 04/08/20 08:59 Last Admin: 03/09/20 13:31 Dose: Not Given Documented by: Amiodarone HCl (Amiodarone 200 Mg Tab) [address] [facility] Stop: 04/08/20 08:59 Last Admin: 03/09/20 10:05 Dose: 200 mg Documented by: Aspirin (Aspirin 81 Mg Ectab) [facility] Stop: 04/07/20 21:59 Last Admin: 03/09/20 09:59 Dose: Not Given Documented by: Fluticasone Propionate (Fluticasone Propionate Na Spr 16 Gm Btl) [address] [facility] Stop: 04/08/20 08:59 Last Admin: 03/09/20 09:59 Dose: Not Given Documented by: Acetaminophen (Ofirmev) 65 mls @ 200 mls/hr IV Q8H PRN; Protocol PRN Reason: fever/pain if unable to takePO Stop: 03/12/20 03:10 Metoprolol Tartrate (Metoprolol Tartrate 25 Mg Tab) 25 mg PO BID LISBETH Stop: 04/07/20 20:59 Last Admin: 03/09/20 10:07 Dose: 25 mg Documented by: Morphine Sulfate (Morphine Sulfate 10 Mg/0.5 Ml Udp) 10 mg PO Q3H PRN PRN Reason: Pain Stop: 03/22/20 20:03 Last Admin: 03/09/20 09:57 Dose: 10 mg Documented by: Ondansetron HCl (Ondansetron 4 Mg Od Tab) 8 mg PO Q8H PRN PRN Reason: Nausea Stop: 04/07/20 20:03 (1) Anemia Anemia type: unspecified type Qualified Code(s): D64.9 - Anemia, unspecified
--- NOTE | 2020-03-09 15:56 | Palliative Care Consultation ---
Date of Consultation March 09, 2020 Assessment & Plan (1) Goals of care, counseling/discussion: Patient is a 74-year-old male with a history of widely metastatic prostate cancer diagnosed in 1999-status post resection -with calciphylaxis primarily affecting his feet and legs below the knees. Patient with an ischemic right great toe. Patient was active with [facility] hospice. Pain had been controlled on MS Contin at 60 mg twice daily with 10 mg of Roxanol as needed- reports she was giving it to him approximately twice a day. On 02/28 patient was started on a fentanyl patch at 75 mcg . On 03/08 patient was difficult to arouse and was brought to [facility]. -Patient seen and examined in room 257, patient's , Hannah and their 2 daughters at bedside, Sade and Ty. -Patient with metastatic prostate cancer. PSA on this admission was 3250, last PSA in the EMR was in March 2018 at 142 -Patient has 1 son from a previous marriage, the 2 daughters he has with his current , patient's current has 2 daughters and 1 son from a previous marriage. - reported history that patient's pain had been fairly well controlled with long-acting morphine and as needed Roxanol for breakthrough pain-he was having increased pain in his feet he was not able to ambulate due to pain.-Patient has dry gangrene of the right great toe as well as bilateral foot and bilateral lópez findings consistent with calciphylaxis. - reports that patient does have times where he is very warm and sweaty and other times when he feels cool-this may contribute to erratic absorption of the fentanyl patch, along with the calciphylaxis fentanyl may not be a good choice for him due to erratic absorption. -Pain-would recommend going back on his long-acting morphine at 60 mg twice daily, patient's can continue PRN Roxanol 10 mg every 2 to 4 hours as needed. MS Contin can be adjusted if he requires frequent breakthrough pain meds. -Patient had completed his own POLST form in 2019-stated at that time he wanted to be a full code, patient's son from his previous marriage is fairly adamant that patient remain a full code. -Patient confused and restless, unable to participate in a conversation regarding CODE STATUS at this time. We will continue to follow-hopefully mental status will improve off of fentanyl. -Plan is for patient to return home and be reenrolled with [facility]-Case management discussed with just prior to my arrival. -Collaborated with attending physician -regarding pain medication. -PPS 30% (2) Altered mental status: (3) Calciphylaxis cutis: (4) Prostate cancer metastatic to bone: History of Present Illness Reason for Consultation: Address goals of care and assist with pain management Requesting Physician: Dr. Lindsay Arambula Attending Physician: Lindsay Arambula, DO History of Present Illness Patient is a 74-year-old male with a history of widely metastatic prostate cancer diagnosed in 1999-status post resection -with calciphylaxis primarily affecting his feet and legs below the knees. Patient with an ischemic right great toe. Patient was active with [facility] hospice. Pain had been controlled on MS Contin at 60 mg twice daily with 10 mg of Roxanol as needed- reports she was giving it to him approximately twice a day. On 02/28 patient was started on a fentanyl patch at 75 mcg . On 03/08 patient was difficult to arouse and was brought to [facility]. -Patient seen and examined in room 257, patient's , Hannah and their 2 daughters at bedside, Sade and Ty. -Patient with metastatic prostate cancer. PSA on this admission was 3250, last PSA in the EMR was in March 2018 at 142 -Patient has 1 son from a previous marriage, the 2 daughters he has with his current , patient's current has 2 daughters and 1 son from a previous marriage. - reported history that patient's pain had been fairly well controlled with long-acting morphine and as needed Roxanol for breakthrough pain-he was having increased pain in his feet he was not able to ambulate due to pain.-Patient has dry gangrene of the right great toe as well as bilateral foot and bilateral lópez findings consistent with calciphylaxis. - reports that patient does have times where he is very warm and sweaty and other times when he feels cool-this may contribute to erratic absorption of the fentanyl patch, along with the calciphylaxis fentanyl may not be a good choice for him due to erratic absorption. -Pain-would recommend going back on his long-acting morphine at 60 mg twice daily, patient's can continue PRN Roxanol 10 mg every 2 to 4 hours as needed. MS Contin can be adjusted if he requires frequent breakthrough pain meds. -Patient had completed his own POLST form in 2019-stated at that time he wanted to be a full code, patient's son from his previous marriage is fairly adamant that patient remain a full code. -Patient confused and restless, unable to participate in a conversation regarding CODE STATUS at this time. We will continue to follow-hopefully mental status will improve off of fentanyl. -Plan is for patient to return home and be reenrolled with [facility]-Case management discussed with just prior to my arrival. -Collaborated with attending physician -regarding pain medication. -PPS 30% Allergies Allergy/AdvReac Type Severity Reaction Status Date / Time cephalexin [From Keflex] Allergy Mild Rash Verified 03/08/20 16:25 doxycycline Allergy Unknown Unknown Verified 03/08/20 16:25 Home Medications Home Medications Medication Instructions Recorded Confirmed Type Calcium 600 with Vitamin D3 1 tab PO QPM 08/19/19 03/08/20 History Senna Plus 3 tab-cap PO BID 08/19/19 03/08/20 History Solanpas Cream 1 dose TOPICAL BID 08/19/19 03/08/20 History acetaminophen [Tylenol Arthritis 650 mg PO QID 08/19/19 03/08/20 History Pain] amiodarone 200 mg PO QAM 08/19/19 03/08/20 History ascorbic acid (vitamin C) [Vitamin 1 g PO BID 08/19/19 03/08/20 History C] diclofenac sodium 2 g TOPICAL BID 08/19/19 03/08/20 History duloxetine [Cymbalta] 60 mg PO PM 08/19/19 03/08/20 History fluticasone propionate [Flonase 1 spray INTRANASAL QAM 08/19/19 03/08/20 History Allergy Relief] lorazepam [Lorazepam Intensol] 1 mg PO Q4H PRN 08/19/19 03/08/20 History metoprolol tartrate 25 mg PO BID 08/19/19 03/08/20 History morphine concentrate 10 mg PO Q2H PRN 08/19/19 03/08/20 History multivitamin 1 tab PO QAM 08/19/19 03/08/20 History ondansetron 8 mg PO Q8H PRN 08/19/19 03/08/20 History pantoprazole 40 mg PO QAM 08/19/19 03/08/20 History penicillin V potassium 500 mg PO QID 08/19/19 03/08/20 History enoxaparin [Lovenox] 70 mg SUBCUT Q12H 03/08/20 03/08/20 History fentanyl 1 patch TRANSDERMAL Q72H 03/08/20 03/08/20 History lisinopril 5 mg PO QAM 03/08/20 03/08/20 History Patient History Medical History Anxiety Atrial fibrillation Dx 2 years ago Calciphylaxis BLLE - follows with wound clinic - [facility] - reports BLLE wrapped, no drainage - reason for penicillin Chronic pain Depression Dyslipidemia GERD (gastroesophageal reflux disease) History of blood clots thigh/arm - approx 1 year ago - on Lovenox (was on eliquis for A.fib prior to clots to thigh/arm and then switched to Lovenox) Hospice care patient HTN (hypertension) Mood disorder Obesity (BMI 30-39.9) On anticoagulant therapy Prostate cancer metastatic to bone ~2013 - h/o prostatectomy + chemo Umbilical hernia Surgical History H/O radical prostatectomy ~2000 History of back surgery L4-L5 History of carpal tunnel release of both wrists History of cholecystectomy History of repair of rotator cuff LEFT SHOULDER History of tonsillectomy and adenoidectomy Family History Mother Hypertension Father Lymphoma Social History Smoking Status: Never smoker Second Hand Exposure: No; Hx Alcohol Use: No Hx Substance Use: No Preferred Language: Samoan Communication Ability: Unable Senior Drafter Required: No Beliefs That Will Affect Care: None marital status: Current Living Situation: Spouse current occupational status: retired How many Children do You have: 6 Feels Safe at Home: Yes Review of Systems Review of Systems: Unobtainable due to cognitive status Physical Exam Physical Exam: PE: Patient restless, confused HEENT: EOMI, [place] Respirations: Unlabored, clear breath sounds bilaterally CV: Regular rate Abdomen: Soft, nontender Extremities: Skin changes over bilateral shins consistent with calciphylaxis, both feet with dressings in place, reviewed wound images in the EMR-dry gangrene of right great toe Neuro: Confused Results & Data ([facility]) Vital Signs (Past 12 Hours) Vital Signs Temp Pulse Pulse Pulse Resp BP BP 03/09/20 14:59 97.3 F L 98 H 18 116/61 03/09/20 08:00 89 03/09/20 07:28 03/09/20 07:23 98.4 F 92 H 20 102/60 03/09/20 03:58 98.6 F 95 H 22 122/66 Pulse Ox 03/09/20 14:59 94 03/09/20 08:00 03/09/20 07:28 97 03/09/20 07:23 03/09/20 03:58 95 PG Care Time/CCT Total # of Minutes Spent Total Time Spent with Patient: Total time spent 75 minutes with greater than 50% of time spent at bedside discussing goals of care with family, collaborating with attending physician on the unit Coding Level of Care Code 78750 Inpt Consult Level 3 Diagnoses Goals of care, counseling/discussion Z71.89 Altered mental status R41.82 Calciphylaxis cutis E83.59 Prostate cancer metastatic to bone C61; C79.51 Time Spent (min) 70
--- NOTE | 2020-03-09 16:17 | Communication Note ---
Date of Service: March 09, 2020 I have evaluated Mr. Tejeda today, reviewed his chart and reviewed the reports of his imaging study of the brain and have discussed his case with Lindsay Arambula MD who is now his attending physician This is a man with metastatic prostate CA who was on hospice care is now here at the hospital at the request of his family for evaluation of acute confusion anemia increasing congestive heart failure stage III kidney disease and a chronic wound CAT scan of the head shows what may be an acute to subacute left occipital infarction in the family at the bedside has noticed that he tends to pay more attention to individuals off to his left today in conversation but exam is very very difficult he is agitated confused picking at bedclothes speaks in short nonsensical sentences and his ability to keep his attention focused is insufficient to really do a reasonable exam. I do note a tendency for head deviation to the left but this is towards the open window whether is a light source and on brief confrontation note that he may extinguish visual stimuli on the right but I really cannot do anything more than this and certainly do not notice any significant right-sided motor deficits and he seems to be able to use both hands and to move both lower extremities in equivalent fashion His medications at home include amiodarone acetaminophen ascorbic acid calcium Cymbalta diclofenac Lovenox fentanyl fluticasone lisinopril lorazepam metoprolol morphine multivitamins Zofran pantoprazole penicillin senna and certainly some of his confusion could reflect an accumulation of narcotics and he also has a significant anemia My suggestions would be to obtain a CT scan tomorrow with and without contrast if his renal function will permit to exclude the remote possibility that he has an occipital lobe metastases from his prostate cancer. While prostate cancer is a low frequency of involvement of the central nervous system I have seen several cases of it and without contrast and isodense metastatic deposit cannot be excluded although I would favor in the setting of vascular event based on the first CT scan and the brief examination I see today In an ideal world we would also do a CT angiogram but he is not committable hold still for this and I am hoping that we can get a carotid ultrasound although this might be technically difficult and an echocardiogram I agree with adding aspirin here as long as there is no risk for exacerbating some gastritis which may or may not be present To some degree the issue is academic this man has widely metastatic terminal prostate cancer with a poor prognosis for survival and appropriate management of a CVA in the setting would simply be antiplatelet drugs anyway unless she would be a clear-cut cardiogenic source for emboli in which case a novel anticoagulant or Coumadin might have to be considered with the obvious risk of bleeding with above the risk that antiplatelet agents would already confer Dr. Sow will be assuming the consult service tomorrow and I am going to ask him to review the imaging studies and make any further recommendations but frankly at this point not sure neurology is anything more to offer Alfredo Bain
[2020-03-09] MEDS ORDERED: ENOXAPARIN 80 MG/0.8 ML SYR SQ SCH (18:00)
[2020-03-09] MEDS: MoRPHine SULFATE CR 60 MG TABCR PO SCH (18:29)
--- NOTE | 2020-03-09 18:59 | Electrocardiogram Report ---
Test Reason : Blood Pressure : / mmHG Vent. Rate : 091 BPM Atrial Rate : 091 BPM P-R Int : 224 ms QRS Dur : 096 ms QT Int : 356 ms P-R-T Axes : 064 061 078 degrees QTc Int : 437 ms Sinus rhythm with 1st degree A-V block Otherwise normal ECG When compared with ECG of 08-MAR-2020 14:31, No significant change was found Confirmed by Sam Shah ([id number]) on 03/09/2020 6:59:07 PM Referred By: REFERRED SELF Confirmed By:Gene Shah
[2020-03-09] MEDS ORDERED: OPTIRAY 320 125ml IV ONE (19:26)
--- NOTE | 2020-03-09 19:54 | CT Scan Report ---
HEAD CT NONCONTRAST CT DOSE: HISTORY: Confusion. Abnormal head CT. repeat from yest looking at ? area, ?stroke TECHNIQUE: Multiaxial CT images of the head were performed without the use of intravenous contrast. A utomated exposure control was utilized for this study. A dose lowering technique was utilized adheri ng to the principles of ALARA. Comparison: Head CT 03/08/2020. Findings: The paranasal sinuses and mastoid air cells are clear. Motion artifact. Progressive hypoden sity within the medial aspect of the left occipital lobe measuring approximately 4 cm. This is consis tent with an acute/subacute left BUILDING MAINTENANCE SUPERINTENDENT territory infarct. The ventricles and sulci demonstrate mild age -related involutional changes. No definite mass, hematoma, midline shift. There appears to be a secon d hypodense area within the left temporal lobe which could be due to artifact or an additional area o f acute/subacute infarct. This measures 1.8 cm. Impression: 1. Progressive hypodensity within the medial aspect of the left occipital lobe measuring 4 cm. This i s consistent with an acute/subacute left BUILDING MAINTENANCE SUPERINTENDENT territory infarct. No evidence for hemorrhagic transform ation. 2. There appears to be a second hypodense area within the left temporal lobe which could be due to ar tifact or an additional area of acute/subacute infarct. This measures 1.8 cm. ACT 112: Negative or not required by law. Electronically signed by: Griffin Romero M.D. 03/09/2020 7:53 PM
--- NOTE | 2020-03-09 20:05 | CT Scan Report ---
HEAD & NECK CTA HISTORY: Confusion. Left-sided infarct. TECHNIQUE: Multiaxial CT images of the head were performed following the intravenous administration o f contrast to evaluate the major cerebral vessels. Multiaxial CT images of the neck were also perform ed following the intravenous administration of contrast to evaluate the major cervical vessels. Maxim um intensity projection images were also obtained. A dose lowering technique was utilized adhering to the principles of ALARA. COMPARISON: Head CT 03/09/2020. FINDINGS: Focal areas of hypodensity within the left occipital lobe and left temporal lobe consistent with acut e/subacute infarcts. Near-complete focal occlusion of the distal left vertebral artery best seen on a xial image 338. There is reconstitution immediately following the area of near occlusion. The distal right vertebral artery and basilar artery are widely patent. The right PRESS SERVICE READER, bilateral ACAs, and bilat eral MCAs show no significant stenosis, occlusion, or aneurysm. Focal abrupt occlusion within the pro ximal left PRESS SERVICE READER best seen on image 409. This corresponds to the left PRESS SERVICE READER territory infarct within the left occipital lobe. The major dural venous sinuses are widely patent. The aortic arch and proximal great vessels are widely patent. Mild stenosis within the right suprac linoid ICA due to the calcified plaque. Mild calcified plaque within the right carotid bifurcation. M oderate to severe calcified plaque within the left carotid bifurcation. This results in up to 75% foc al stenosis within the proximal left internal carotid artery. The bilateral common carotid and cervic al vertebral arteries are patent. Diffuse interlobular septal thickening and groundglass airspace opa cities within the lungs. This favors pulmonary edema. Small to moderate bilateral pleural effusions. Small amount of mucoid material within the distal trachea. Mild right hilar lymphadenopathy. Multifocal osteoblastic metastatic disease is again noted throughout the majority of the visualized o sseous structures. Small 0.6 cm lytic lesion within the right side of the clivus. IMPRESSION: 1. Focal occlusion within the proximal left PRESS SERVICE READER corresponding to the patient's left PRESS SERVICE READER territory inf arct. 2. Near-complete focal occlusion of the distal left intracranial vertebral artery with immediate tyler nstitution following the area of near occlusion. This suggests a focal embolus. 3. Approximately 75% focal stenosis within the proximal left internal carotid artery due to the ather osclerotic plaque. 4. Moderate pulmonary edema and small to moderate bilateral pleural effusions. 5. A small amount of mucoid material within the distal trachea. This could represent aspiration. 6. Redemonstration of multifocal osteoblastic metastatic disease. ACT 112: Negative or not required by law. Electronically signed by: Griffin Romero M.D. 03/09/2020 8:03 PM
--- NOTE | 2020-03-09 20:05 | CT Scan Report ---
HEAD & NECK CTA HISTORY: Confusion. Left-sided infarct. TECHNIQUE: Multiaxial CT images of the head were performed following the intravenous administration o f contrast to evaluate the major cerebral vessels. Multiaxial CT images of the neck were also perform ed following the intravenous administration of contrast to evaluate the major cervical vessels. Maxim um intensity projection images were also obtained. A dose lowering technique was utilized adhering to the principles of ALARA. COMPARISON: Head CT 03/09/2020. FINDINGS: Focal areas of hypodensity within the left occipital lobe and left temporal lobe consistent with acut e/subacute infarcts. Near-complete focal occlusion of the distal left vertebral artery best seen on a xial image 338. There is reconstitution immediately following the area of near occlusion. The distal right vertebral artery and basilar artery are widely patent. The right DIRECTOR OF SOFTWARE ENGINEERING, bilateral ACAs, and bilat eral MCAs show no significant stenosis, occlusion, or aneurysm. Focal abrupt occlusion within the pro ximal left DIRECTOR OF SOFTWARE ENGINEERING best seen on image 409. This corresponds to the left DIRECTOR OF SOFTWARE ENGINEERING territory infarct within the left occipital lobe. The major dural venous sinuses are widely patent. The aortic arch and proximal great vessels are widely patent. Mild stenosis within the right suprac linoid ICA due to the calcified plaque. Mild calcified plaque within the right carotid bifurcation. M oderate to severe calcified plaque within the left carotid bifurcation. This results in up to 75% foc al stenosis within the proximal left internal carotid artery. The bilateral common carotid and cervic al vertebral arteries are patent. Diffuse interlobular septal thickening and groundglass airspace opa cities within the lungs. This favors pulmonary edema. Small to moderate bilateral pleural effusions. Small amount of mucoid material within the distal trachea. Mild right hilar lymphadenopathy. Multifocal osteoblastic metastatic disease is again noted throughout the majority of the visualized o sseous structures. Small 0.6 cm lytic lesion within the right side of the clivus. IMPRESSION: 1. Focal occlusion within the proximal left DIRECTOR OF SOFTWARE ENGINEERING corresponding to the patient's left DIRECTOR OF SOFTWARE ENGINEERING territory inf arct. 2. Near-complete focal occlusion of the distal left intracranial vertebral artery with immediate tyler nstitution following the area of near occlusion. This suggests a focal embolus. 3. Approximately 75% focal stenosis within the proximal left internal carotid artery due to the ather osclerotic plaque. 4. Moderate pulmonary edema and small to moderate bilateral pleural effusions. 5. A small amount of mucoid material within the distal trachea. This could represent aspiration. 6. Redemonstration of multifocal osteoblastic metastatic disease. ACT 112: Negative or not required by law. Electronically signed by: Griffin Romero M.D. 03/09/2020 8:03 PM
[2020-03-09] MEDS ORDERED: ALBUMIN 25% 50 ML IV ONE (20:35)
[2020-03-09] MEDS ORDERED: ATORVASTATIN 40 MG TAB PO SCH (21:00)
[2020-03-09] MEDS ORDERED: MoRPHine SULFATE CR 60 MG TABCR PO SCH (21:00)
[2020-03-09] MEDS: ASCORBIC ACID 500 MG TAB PO SCH (22:06)
[2020-03-10] MEDS: MoRPHine SULFATE 10 MG/0.5 ML UDP PO PRN ×2 (05:29→09:22)
[2020-03-10] MEDS: MoRPHine SULFATE CR 60 MG TABCR PO SCH ×2 (07:52→21:39)
[2020-03-10] MEDS: METOPROLOL TARTRATE 25 MG TAB PO SCH (07:53)
[2020-03-10] MEDS: AMIODARONE 200 MG TAB PO SCH (07:53)
[2020-03-10] MEDS: ASCORBIC ACID 500 MG TAB PO SCH (07:54)
[2020-03-10] MEDS: ASPIRIN 81 MG ECTAB PO SCH (07:54)
[2020-03-10] MEDS: ACETAMINOPHEN 325 MG TAB PO SCH ×3 (07:55→15:21)
[2020-03-10 08:08] LABS: Chol HDL Ratio 4; Cholesterol 183 mg/dl (0-200); HDL Cholesterol 42 mg/dl; LDL Cholesterol Calculated 98 mg/dl; Triglycerides 215 mg/dl (0-150); VLDL Cholesterol 43 mg/dl
[2020-03-10 08:46] LABS: BUN Creatinine Ratio 19.4 (10-20); Calcium 8.4 mg/dl (8.5-10.1); Creatinine Clr Calc Pharmacy 62.7 ml/min; Est GFR (African American) 70.3; Est GFR (Non-African American) 60.7; Magnesium 2.5 mg/dl (1.8-2.4); Potassium 4.5 mmol/L (3.5-5.1)
[2020-03-10 09:05] LABS: Hematocrit (blood only) 25.4 % (42-52); Hemoglobin 7.8 g/dL (14.0-18.0); Mean Corpuscular Hemoglobin 26.9 pg (25-34); Mean Corpuscular Hgb Conc 30.7 g/dL (32-36); Mean Corpuscular Volume 87.6 fL (80-100); Nucleated RBC # (auto) 0.15 K/uL (0-0); Nucleated RBC % (auto) 2.1 %; Platelet Count 24 K/uL (130-400); Platelet Estimate SIGNIFIC DECREASED (Normal); RDW Coefficient of Variation 21.2 % (11.5-14.5); RDW Standard Deviation 66.9 fL (36.4-46.3); White Blood Count 7.11 K/uL (4.8-10.8)
--- NOTE | 2020-03-10 10:14 | XRay Report ---
SINGLE VIEW CHEST CLINICAL HISTORY: Chest congestion. Fluid overload. FINDINGS: An AP, portable, upright chest radiograph is compared to study dated 03/08/2020 and correlate d with chest CT dated 09/28/2018. The examination is degraded by portable technique and patient rotatio n. The heart is enlarged noting atherosclerotic calcification of the thoracic aorta. There is pulmon marielle vascular congestion with evidence of interstitial edema. There are small pleural effusions with b ibasilar consolidation. No pneumothorax is seen. The skeletal structures are heterogeneously osteopen ic. The bony thorax is grossly intact. Findings of multifocal osteoblastic metastatic disease were be tter appreciated on the prior chest CT. Arthritic change is noted in the shoulders. Superior subluxat ion of the right humeral head suggests chronic rotator cuff injury. IMPRESSION: 1. Cardiomegaly with evidence of congestive failure and interstitial edema. 2. Small pleural effusions with bibasilar consolidation. ACT 112: Negative or not required by law. Electronically signed by: Joe Omalley M.D. 03/10/2020 10:13 AM
[2020-03-10] MEDS ORDERED: FUROSEMIDE 40 MG in SYRINGE 0 ML IV SCH (12:30)
--- NOTE | 2020-03-10 13:39 | Hospitalist Progress Note ---
Date of Service March 10, 2020 Assessment & Plan (1) Acute confusion: Repeat CT overnight showed two areas of acute infarction. He cannot have aspirin with thrombocytopenia. Atorvastatin was started. Ancillary services have been ordered but limited in their ability to evaluate him secondary to altered cognition. He is currently n.p.o. after choking on food this morning and speech is in and unable to reevaluate him. Prognosis is very poor. It may be more likely he will moved to SNF on hospice from the hospital. I briefly discussed this with the this morning. Continue to monitor for clinical improvement as swelling goes down he may regain some function. Complicating t his is toxic encephalopathy and opiate withdrawal after fentanyl patch replaced morphine 60 mg ER twice daily one week ago. He had a time of approximately 24 hours where he was off narcotics completely except for an Roxanol breakthrough. We have restarted his morphine 60 mg twice daily and he looks more comfortable in general. (2) Acute ischemic stroke: Cont to monitor on telemetry for occult arrhythmia; no issues overnight. Cont statin if tolerating PO. PT, OT, Speech and Neuro are involved. (3) CHF (congestive heart failure): CXR showed cardiomegaly with pulmonary vascular congestion and possible pulmonary edema. ProBNP 926. Approx 2L out overnight in response to 40mg IV yesterday. Started on 40mg IV BID and this was changed to Lasix/alb BID by cardiology. Cont diuresis as tolerated over next couple of days. Low salt diet. Daily weights. (4) Prostate cancer metastatic to bone: Poor prognosis, PSA 3250 Continue pain control efforts Fentanyl patch no longer a good idea. Continue hospice care, however patient remains a full code. Palliative care on board (5) DVT (deep venous thrombosis): hold Lovenox in setting of thrombocytopenia. (6) Anemia: hgb 6.8 on admission, baseline hgb 8. Monitor for bleeding and post transfusion H/H stability (7) Chronically on opiate therapy: chroncic morphine added back to regimen. Appears more comfortable now. 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 (9) DVT prophylaxis: SCDs Full Code Dispo-uncertain at this time. [facility] (10) Thrombocytopenia: 24K today and no bleeding. Admission and Anticipated Discharge Date Admission Date: March 08, 2020 Subjective at bedside and reported that patient was eating breakfast and was more aware this morning, then became agitated. Nurse reported patient did become agitated consistent with possible narcotic withdrawal and was better after some breakthrough morphine for pain Additionally she mentioned that he had a hard time eating with choking He was made NPO and speech came by later and was unable to evaluate him second marielle to sedation The patient remained hypoxic and somnolent. He was starting to have increase work of breathing and was started on Lasix Cardiology was consulted. I spoke with the regarding the very poor prognosis, again about the full code status and what that will mean, and we spoke about what might occur in the next few days. Specifically I prepared her for the possibility that he may not awaken and reorient, and we will have to make decisions on how to feed him. Additionally, if he were to decline he may be put on life support. Also he may not recover from the stroke and may need to go to a SNF on Hospice instead of back home. She verbalized understanding and it was very clear she is overwhelmed at this time. Later in the afternoon, he spiked a fever of 38.2C and was recultured, started on APAP IV as needed and started on Vanc and Zosyn empicially. It is more likely that the fever is from the high tumor burden, but will monitor for 48 hours on abx Review of Systems Review of Systems: Unobtainable due to cognitive status Physical Exam Physical Exam: CONSTITUTIONAL: obese, vitals as above, generally ill- appearing EYES: eyes were rolling around, but pupils appeared symmetric bilaterally, normal conjunctivae, no scleral icterus ENT: external ear and nose normal, MMM NECK: trachea midline RESPIRATORY: pt unable to sit up , coarse rhonchi throughout all lung pena when rolled to side. On oxygen supplementation. Normal respiratory effort. CARDIOVASCULAR: regular rate and rhythm, S1 and 2 heard without murmurs, gallops or rubs, no JVD, no peripheral edema GASTROINTESTINAL: soft, nontender, nondistended MUSCULOSKELETAL: cannot assess as patient is altered and unable to follow instructions to move his limbs. SKIN: warm and dry, wounds on lower extremities. Evidence of calciphylaxis present. Erythema present correction up each leg bilaterally. NEUROLOGIC: altered Results & Data Results & Data ([facility]) Vital Signs (Past 12 Hours) Vital Signs Temp Pulse Pulse Resp BP Pulse Ox 03/10/20 12:36 88 22 122/59 L 95 09/11/20 10:57 37.3 C 84 22 100/50 L 95 03/10/20 09:40 84 92 03/10/20 07:03 37.4 C 93 H 22 126/78 94 03/10/20 03:38 36.8 C 83 22 105/46 L 93 Laboratory Results Short CBC 03/10/20 Range/Units 07:23 WBC 7.11 (4.8-10.8) K/uL Hgb 7.8 L (14.0-18.0) g/dL Hct 25.4 L (42-52) % Plt Count 24 L* (130-400) K/uL BMP 03/10/20 07:23 Sodium 135 L Potassium 4.5 Chloride 100 Carbon Dioxide 25 BUN 23 H Creatinine 1.19 Glucose 107 H Calcium 8.4 L Cardiac Enzymes 03/09/20 Range/Units 14:02 Troponin I 0.831 H* (0-0.045) ng/ml Diagnostic Findings SINGLE VIEW CHEST CLINICAL HISTORY: Chest congestion. Fluid overload. FINDINGS: An AP, portable, upright chest radiograph is compared to study dated 03/08/2020 and correlated with chest CT dated 09/28/2018. The examination is degraded by portable technique and patient rotation. The heart is enlarged noting atherosclerotic calcification of the thoracic aorta. There is pulmonary vascular congestion with evidence of interstitial edema. There are small pleural effusions with bibasilar consolidation. No pneumothorax is seen. The skeletal structures are heterogeneously osteopenic. The bony thorax is grossly intact. Findings of multifocal osteoblastic metastatic disease were better appreciated on the prior chest CT. Arthritic change is noted in the shoulders. Superior subluxation of the right humeral head suggests chronic rotator cuff injury. IMPRESSION: 1. Cardiomegaly with evidence of congestive failure and interstitial edema. 2. Small pleural effusions with bibasilar consolidation. Medications Administered Current Inpatient Medications Acetaminophen (Acetaminophen 325 Mg Tab) 325 mg PO QID [facility] Stop: 04/08/20 08:59 Last Admin: 03/10/20 11:10 Dose: Not Given Documented by: Amiodarone HCl (Amiodarone 200 Mg Tab) 200 mg PO QAM LISBETH Stop: 04/08/20 08:59 Last Admin: 03/10/20 07:53 Dose: 200 mg Documented by: Ascorbic Acid (Ascorbic Acid 500 Mg Tab) 1,000 mg PO BID LISBETH Stop: 04/08/20 20:59 Last Admin: 03/10/20 07:54 Dose: 1,000 mg Documented by: Atorvastatin Calcium (Atorvastatin 40 Mg Tab) 40 mg PO HS LISBETH Stop: 04/08/20 20:59 Last Admin: 03/09/20 22:05 Dose: 40 mg Documented by: Furosemide 40 mg/ Syringe 4 mls @ 4 mls/min IV Q12H LISBETH Stop: 04/09/20 12:29 Last Admin: 03/10/20 12:31 Dose: 4 mls/min Documented by: Metoprolol Tartrate (Metoprolol Tartrate 25 Mg Tab) 25 mg PO BID LISBETH Stop: 04/07/20 20:59 Last Admin: 03/10/20 07:53 Dose: 25 mg Documented by: Morphine Sulfate (Morphine Sulfate 10 Mg/0.5 Ml Udp) 10 mg PO Q3H PRN PRN Reason: Pain Stop: 03/22/20 20:03 Last Admin: 03/10/20 09:22 Dose: 10 mg Documented by: Morphine Sulfate (Morphine Sulfate Cr 60 Mg Tabcr) 60 mg PO BID LISBETH Stop: 03/23/20 17:59 Last Admin: 03/10/20 07:52 Dose: 60 mg Documented by: Ondansetron HCl (Ondansetron 4 Mg Od Tab) 8 mg PO Q8H PRN PRN Reason: Nausea Stop: 04/07/20 20:03 Last Admin: 03/09/20 16:05 Dose: 8 mg Documented by: (1) CHF (congestive heart failure) Heart failure chronicity: acute Heart failure type: unspecified Qualified Code(s): I50.9 - Heart failure, unspecified (2) Anemia Anemia type: unspecified type Qualified Code(s): D64.9 - Anemia, unspecified
--- NOTE | 2020-03-10 15:17 | Cardiology Consultation ---
Date of Consultation March 10, 2020 Assessment & Plan (1) CHF (congestive heart failure): (2) Metastatic cancer: (3) Anemia: (4) Thrombocytopenia: (5) Acute ischemic stroke: (6) Acute confusion: Patient has a history of recurrent metastatic prostate cancer with PSA level of 3250. He has suffered appears to be ischemic, perhaps embolic occipital, temporal lobe strokes. He has a history of paroxysmal atrial fibrillation but he has been on anticoagulation. He has an anemia with hemoglobin of 7.8, white count 24,000. He presented with acute somnolence, having been on hospice for 2 years. In terms of his volume status, his ejection fraction is hyperdynamic. Believe he is third spacing related to low intravascular oncotic pressure, noted low albumin level of 1.8 this admission. Bowen catheter is in place. He just received 40 mg of IV furosemide as prescribed by the primary team. Recommend 4 doses of albumin plus furosemide. He is to be on amiodarone oral metoprolol but at present he is unable to swallow pills. Conversation with the patient's family regarding his prognosis. As noted his multiple problems, I believe that the current situation is likely not recoverable. 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 Arambula for management of congestive heart failure. Patient's primary mystery shopper is Dr. Mulligan of our practice. The patient is currently somnolent, history obtained from review of his records and interview with his spouse and 2 daughters who are bedside. He has a history of prostate cancer that per his spouse was initially diagnosed 20 years ago. He had a recurrence several years ago and is apparently been on hospice for the last 2 years. He was admitted via the emergency room on 03/08/2020 for profound somnolence. Work-up thus far is notable for subacute left occipital lobe/left SPINNING SUPERVISOR territory infarct, as well as a second hypodensity within the left temporal lobe possibly due to infarction. CT angiogram revealed focal occlusion within the proximal left SPINNING SUPERVISOR complete focal occlusion of the distal left cranial vertebral artery with reconstitution noted downstream consistent with embolus per the radiology report. A 75% focal stenosis is also noted within the left internal carotid artery due to atherosclerotic plaque. Moderate pulmonary edema and small to moderate pleural effusions were also noted. Mucoid material noted in the distal trachea. Multifocal osteoblastic metastatic disease was also described in the radiology report through the majority of the visualized osseous structures. From a cardiology perspective the patient has a history of paroxysmal atrial fibrillation and is on amiodarone as well as metoprolol and anticoagulation dose Lovenox. Allergies Allergy/AdvReac Type Severity Reaction Status Date / Time cephalexin [From Keflex] Allergy Mild Rash Verified 03/08/20 16:25 doxycycline Allergy Unknown Unknown Verified 03/08/20 16:25 Home Medications Home Medications Medication Instructions Recorded Confirmed Type Calcium 600 with Vitamin D3 1 tab PO QPM 08/19/19 03/08/20 History Senna Plus 3 tab-cap PO BID 08/19/19 03/08/20 History Solanpas Cream 1 dose TOPICAL BID 08/19/19 03/08/20 History acetaminophen [Tylenol Arthritis 650 mg PO QID 08/19/19 03/08/20 History Pain] amiodarone 200 mg PO QAM 08/19/19 03/08/20 History ascorbic acid (vitamin C) [Vitamin 1 g PO BID 08/19/19 03/08/20 History C] diclofenac sodium 2 g TOPICAL BID 08/19/19 03/08/20 History duloxetine [Cymbalta] 60 mg PO PM 08/19/19 03/08/20 History fluticasone propionate [Flonase 1 spray INTRANASAL QAM 08/19/19 03/08/20 History Allergy Relief] lorazepam [Lorazepam Intensol] 1 mg PO Q4H PRN 08/19/19 03/08/20 History metoprolol tartrate 25 mg PO BID 08/19/19 03/08/20 History morphine concentrate 10 mg PO Q2H PRN 08/19/19 03/08/20 History multivitamin 1 tab PO QAM 08/19/19 03/08/20 History ondansetron 8 mg PO Q8H PRN 08/19/19 03/08/20 History pantoprazole 40 mg PO QAM 08/19/19 03/08/20 History penicillin V potassium 500 mg PO QID 08/19/19 03/08/20 History enoxaparin [Lovenox] 70 mg SUBCUT Q12H 03/08/20 03/08/20 History fentanyl 1 patch TRANSDERMAL Q72H 03/08/20 03/08/20 History lisinopril 5 mg PO QAM 03/08/20 03/08/20 History Patient History Medical History (Updated 03/10/20 @ 12:31 by Lindsay Arambula DO) Anxiety Atrial fibrillation Dx 2 years ago Calciphylaxis BLLE - follows with wound clinic - [facility] - reports BLLE wrapped, no drainage - reason for penicillin Chronic pain Depression Dyslipidemia GERD (gastroesophageal reflux disease) History of blood clots thigh/arm - approx 1 year ago - on Lovenox (was on eliquis for A.fib prior to clots to thigh/arm and then switched to Lovenox) Hospice care patient HTN (hypertension) Mood disorder Obesity (BMI 30-39.9) On anticoagulant therapy Prostate cancer metastatic to bone ~2013 - h/o prostatectomy + chemo Umbilical hernia Surgical History H/O radical prostatectomy ~2000 History of back surgery L4-L5 History of carpal tunnel release of both wrists History of cholecystectomy History of repair of rotator cuff LEFT SHOULDER History of tonsillectomy and adenoidectomy Family History Mother Hypertension Father Lymphoma Social History Smoking Status: Never smoker Second Hand Exposure: No; Hx Alcohol Use: No Hx Substance Use: No Preferred Language: Syrian Communication Ability: Unable Social Insurance Adviser Required: No Beliefs That Will Affect Care: None marital status: Current Living Situation: Spouse current occupational status: retired How many Children do You have: 6 Feels Safe at Home: Yes Review of Systems Review of Systems: Unobtainable due to reduced consciousness Physical Exam Physical Exam: Temp Pulse Resp BP Pulse Ox 37.3 C 100 H 24 108/67 95 03/10/20 10:57 03/10/20 14:50 03/10/20 14:50 03/10/20 14:50 03/10/20 12:36 Constitutional: Chronically ill in appearance Respiratory: Coarse breath sounds at the bases Cardiovascular: Rate/Rhythm: regular rhythm Heart Sounds: no murmur Vessels: no JVD Extremities: + edema (Trace to 1+ bilateral lower extreme edema, lower extremity venous stasis ulcers noted) Gastrointestinal (Abdomen): normal bowel sounds, soft, nontender, no hepatosplenomegaly Neurologic: Patient somnolent Results & Data ([facility]) Vital Signs (Past 12 Hours) Vital Signs Temp Pulse Pulse Resp BP BP Pulse Ox 03/10/20 14:50 100 H 24 108/67 03/10/20 12:36 88 22 122/59 L 95 03/10/20 10:57 37.3 C 84 22 100/50 L 95 03/10/20 09:40 84 92 03/10/20 07:03 37.4 C 93 H 22 126/78 94 03/10/20 03:38 36.8 C 83 22 105/46 L 93 Laboratory Results Lipids 03/10/20 Range/Units 07:23 Triglycerides 215 H (0-150) mg/dl Cholesterol 183 (0-200) mg/dl HDL Cholesterol 42 mg/dl Cholesterol/HDL Ratio 4 CBC 03/10/20 Range/Units 07:23 WBC 7.11 (4.8-10.8) K/uL RBC 2.90 L (4.7-6.1) M/uL Hgb 7.8 L (14.0-18.0) g/dL Hct 25.4 L (42-52) % Plt Count 24 L* (130-400) K/uL Comprehensive Metabolic Panel 03/10/20 Range/Units 07:23 Sodium 135 L (136-145) mmol/L Potassium 4.5 (3.5-5.1) mmol/L Chloride 100 (98-107) mmol/L Carbon Dioxide 25 (21-32) mmol/L BUN 23 H (7-18) mg/dl Creatinine 1.19 (0.6-1.4) mg/dl Glucose 107 H (70-99) mg/dl Calcium 8.4 L (8.5-10.1) mg/dl Intake and Output 03/10/20 03/10/20 03/10/20 06:59 14:59 22:59 Intake Total 115 / 550 480 / 480 Output Total 250 / 2550 700 / 700 Balance -135 / -2000 - / -220 Intake: IV 115 / 115 Ofirmev 65 ml @ 200 mls/hr IV 65 / 65 ONE ONE Rx#:[id number] Albumin 25% 50 ml @ 50 mls/hr 50 / 50 IV ONE ONE Rx#:[id number] Oral 480 / 480 Output: Urine Amount (Catheter) 250 / 1850 700 / 700 Bowen/Indwelling 250 / 1850 700 / 700 Other: Other Intake Source sips Diagnostic Findings EKG performed 03/09/2020 revealed sinus rhythm at 91 bpm with first-degree AV block Echocardiogram on 03/09/2020, technically limited due to patient's inability to cooperate with the exam concentric left ventricular hypertrophy noted, no regional wall motion abnormalities, hyperdynamic left ventricular ejection fract ion 70%, mild to moderate aortic valve stenosis. (1) CHF (congestive heart failure) Heart failure chronicity: acute Heart failure type: unspecified Qualified Code(s): I50.9 - Heart failure, unspecified (2) Metastatic cancer Area of secondary neoplastic involvement: unspecified site Qualified Code(s): C79.9 - Secondary malignant neoplasm of unspecified site (3) Anemia Anemia type: unspecified type Qualified Code(s): D64.9 - Anemia, unspecified
[2020-03-10] MEDS ORDERED: ACETAMINOPHEN 1000 MG/100 ML IV IV PRN (16:23)
[2020-03-10] MEDS ORDERED: HYDROmorphone INJ 1 MG/ML SYRINGE IV PRN (16:26)
[2020-03-10] MEDS ORDERED: VANCOMYCIN CONSULT ACTIVE PRN (16:29)
[2020-03-10] MEDS ORDERED: HYDROmorphone INJ 0.5 MG/0.5 ML SYR IV PRN (16:29)
[2020-03-10] MEDS ORDERED: PIPERACILL/TAZOBAC CONSULT ACTIVE PRN (16:29)
[2020-03-10] MEDS ORDERED: VANCOMYCIN HCL 2,250 MG in SODIUM CHLORIDE 0.9% 500 ML IV ONE (16:45)
[2020-03-10] MEDS ORDERED: PIPERACILLIN/TAZOBACTAM 3.375 GM in DEXTROSE 5% 100 ML IV ONE (17:00)
[2020-03-10 17:34] LABS: BUN Creatinine Ratio 17.3 (10-20); Calcium 7.9 mg/dl (8.5-10.1); Creatinine Clr Calc Pharmacy 51.1 ml/min; Est GFR (African American) 54.9; Est GFR (Non-African American) 47.4
--- NOTE | 2020-03-10 18:28 | Communication Note ---
Date of Service: March 10, 2020 Called by the nurse that the patient was declining. Specifically, he is now breathing irregularly and his oxygen saturation is in the low 80s now on 6L oxymask. At bedside patient is in respiratory distress. BIPAP ordered and was quickly titrated up to max settings. Contacted [employer] and we both spoke with his , who is the medical POA. Up until now she had been deferring decisions to other family members including the patient's son, Adonay. She made a statement definitively that she just wanted him to be comfortable. We will not progress with any further aggressive treatment at this time as this would be unethical. We will continue all the current treatment including antibiotics and BIPAP support and will ensure he has adequate pain control and oxygen present. All rest of the family is now bedside and they are singing and comforting each other. Lindsay Arambula DO [facility]
[2020-03-10 18:33] LABS: Base Excess ABG -4.8 mEq/L (-9-1.8); HCO3 ABG 24 mmol/L (19-24); Oxygen Saturation ABG 87.2 % (90-95); PCO2 ABG 62 mmHg (35-46); PO2 ABG 70 mmHg (80-95)
[2020-03-10 18:35] LABS: Allen Test POS (Pos)
[2020-03-10 19:04] LABS: Hematocrit (blood only) 30.7 % (42-52); Hemoglobin 8.5 g/dL (14.0-18.0); Mean Corpuscular Hemoglobin 25.1 pg (25-34); Mean Corpuscular Hgb Conc 27.7 g/dL (32-36); Mean Corpuscular Volume 90.6 fL (80-100); Nucleated RBC # (auto) 0.56 K/uL (0-0); Nucleated RBC % (auto) 4.9 %; Platelet Count 25 K/uL (130-400); RDW Coefficient of Variation 21.6 % (11.5-14.5); RDW Standard Deviation 70.2 fL (36.4-46.3); Red Blood Count 3.39 M/uL (4.7-6.1); White Blood Count 11.37 K/uL (4.8-10.8)
[2020-03-10 19:05] LABS: Anisocytosis Present; Basophils # (auto) 0.06 K/uL (0-0.2); Basophils % (auto) 0.5 %; Eosinophils # (auto) 0.06 K/uL (0-0.5); Eosinophils % (auto) 0.5 %; Giant Platelets 1+; Immature Granulocytes # (auto) 0.13 K/uL (0.00-0.02); Immature Granulocytes % (auto) 1.1 %; Lymphocytes # (auto) 6.77 K/uL (1.2-3.4); Lymphocytes % (auto) 59.5 %; Monocytes % (auto) 6.2 %; Neutrophils # (auto) 3.65 K/uL (1.4-6.5); Neutrophils % (auto) 32.2 %; Ovalocytes 1+; Platelet Estimate SIGNIFIC DECREASED (Normal)
[2020-03-10] MEDS ORDERED: MoRPHine SULF/NSS 250 MG/250 ML BTL IV PRN (19:55)
[2020-03-10] MEDS ORDERED: ONDANSETRON INJ 2 MG/ML 2 ML VIAL IV PRN (19:55)
[2020-03-10] MEDS ORDERED: ONDANSETRON 4 MG OD TAB SL PRN (19:55)
[2020-03-10] MEDS ORDERED: LORazepam 0.5 MG/1 ML VIAL IV PRN (19:55)
[2020-03-10] MEDS ORDERED: ALBUMIN 25% 50 ML with FUROSEMIDE 40 MG IV SCH (21:00)
--- NOTE | 2020-03-10 21:17 | Communication Note ---
Date of Service: March 10, 2020 Critical care addendum: I was called to evaluate patient as he was in respiratory distress by Dr Arambula. 74 yo with PMHx of Metastatic Prostate CA not on treatment since approx 18 months, Hx of Afin who was on Home hospice but brought in due to AMS as per family's request. Patient was found to have acute to subacute infract on CT head along with pulmonary infiltrates and small effusions. Patient has been spiking fever for which he has been on Abx for. Patient had swallow evaluation which showed possible aspirations. Mental status has declined even while being in the hospital. Patient was requiring more oxygen and was tachypniec. Palliative care had seen patient and family recently and were not able to come to conclusion as patient's Mrs Tejeda who is POA was relaying decision to other family member including patient's son. I had a talk with Mrs Tejeda. She was well reversed in what patient has and what the outcome and prognosis would be. She was overwhelmed and was having fear of losing the patient. I supported her understanding and added that there is not much which can be done to make patient better. Aggressive treatment which includes intubation and chest compressions would not be appropriate and instead cause more suffering and pain during the end moments of patients life. Mrs Tejeda understood and was very clear that she doesn't want the patient to suffer. I reiterated that we will continue the care but would not elevate it further and keep patient comfortable. Patient's daughers were also there to comfort Mrs Tejeda. This discussion took place in presence of Dr Arambula. Coding Level of Care Code Critical Care 1st 30-74 mins Time Spent (min) 31
[2020-03-10] MEDS: ATROPINE SULFATE 1% OP SOLN 2 ML BTL SL PRN ×2 (21:51→23:35)
[2020-03-10] MEDS ORDERED: PIPERACILLIN/TAZOBACTAM 3.375 GM in DEXTROSE 5% 100 ML IV SCH (22:00)
[2020-03-11] MEDS ORDERED: VANCOMYCIN HCL 1,500 MG in SODIUM CHLORIDE 0.9% 500 ML IV SCH (06:00)
--- NOTE | 2020-03-11 18:53 | Discharge Summary ---
Date of Service March 11, 2020 Admission HPI Per Admitting Provider 74 years old male with past medical history of paroxysmal atrial fibrillation, DVT, hypertension, prostate cancer mets to bones who was under hospice care was brought to the ER for confusion. Granddaughter and at bedside, as per family patient health has been declined in the last few days since started on the fentanyl patch for his pain. said on February 28 patient was started on fentanyl 75 mcg then increased to 100 mcg few days ago. said patient has been very drowsy and confused. Since patient has been drowsy and agitated, family decided to bring him to the ER for inpatient hospice care. Family does not want any heroic or aggressive management. They would like patient to be comfortable. Patient denies any pain, palpitation, and shortness of breath. Dr. Solo and I explained to family about CODE STATUS since patient is hospice that the patient will be DNR but granddaughter and would like son to be there to make decision. Granddaughter and understand since patient is hospice that we will not draw any lab. Admission Exam Per Admitting Provider General- confusion Head- atraumatic Eyes- PERRL, EOMI, ENT- oropharynx clear Neck- supple, no JVD Lungs- decrease BS Heart- regular rhythm Abdomen- normal bowel sounds, soft, nontender Extremities- no calf tenderness, +edema, +gangrene in LE Neuro- alert, oriented x 3; PERRL, EOMI; no facial palsy; no dysarthria Skin- warm & dry, Bruises in extremities Principal Diagnosis acute diastolic heart failure acute respiratory failure with hypoxia acute metabolic encephalopathy chronic opiate use thrombocytopenia stroke Discharge Data Allergies Allergy/AdvReac Type Severity Reaction Status Date / Time cephalexin [From Keflex] Allergy Mild Rash Verified 03/08/20 16:25 doxycycline Allergy Unknown Unknown Verified 03/08/20 16:25 Consultations 03/08/20 17:17 ED Decision to Admit Stat 03/08/20 22:03 Consult Palliative Care Routine 03/09/20 10:20 Consult Urology Routine 03/09/20 11:54 Consult Case Management - Discharge Planning Routine 03/09/20 12:44 Consult Neurology Routine 03/10/20 12:34 Consult Cardiology Routine 03/10/20 19:55 Consult Case Management - Discharge Planning Routine Ordered Studies 03/08/20 14:40 CT head/brain wo con Stat 03/09/20 15:39 CT angio head w con Routine CT angio neck with con Routine CT head/brain wo con Routine Hospital Course (1) Acute metabolic encephalopathy: (2) Acute diastolic (congestive) heart failure: (3) Acute confusion: (4) Acute ischemic stroke: (5) Prostate cancer metastatic to bone: (6) DVT (deep venous thrombosis): (7) Anemia: (8) Chronically on opiate therapy: (9) Calciphylaxis: (10) Thrombocytopenia: Patient was a 74-year-old man who had stage IV prostate cancer with mets to the bone who was under hospice care for the last 2 years. He been dealing with prostate cancer since the year 1999. He had stopped medical therapy last year in 2019. His sons got him to the ER via ambulance when he became acutely confused at home. He was found to be anemic and was transfused on e unit of blood. There has been a recent change in his chronic narcotic pain medication where his morphine 60 mg ER twice daily was switched to a fentanyl patch for his pain. The fentanyl patch was 75 mcg every 72 hours and then this was increased to 100 mcg after just 1 week. He became very drowsy confused and sedated. The was unable to manage him at home and agreed with him going to the ER. The family discussed with the admitting provider they did not want any heroic or aggressive management. They would like to make the patient comfortable. On arrival he was acutely confused with a CT head revealing a small area suspicious of an acute infarction. An MRI was unable to obtain as the patient was confused and restless. An MRI would also not change the management as the patient was on hospice and had platelets in the 30s. The fentanyl patch and morphine were discontinued and the Roxanol breakthrough was continued. Chest x-ray also revealed pulmonary vascular congestion and possible pulmonary edema consistent with acute congestive heart failure (diastolic). His proBNP was 926 and he received some IV fluids on admission. The admitting provider then gave him Lasix and Lasix was continued throughout his hospitalization. Despite this he still remained hypoxic with an oxygen requirement that precipitously fell on day of discharge. He was put on BiPAP as a last ditch effort and a discussion ensued with the assembler rubber footwear myself and the family members regarding the inappropriateness of placing him on life support at this point. This was also not consistent with your initial wishes regarding his hospice care. Going back in the hospitalization his CT scans were repeated with imaging of the vasculature and neurology was consulted. This resulted in additional evidence that there was an area consistent with acute to subacute infarction that had occurred likely complicating the acute metabolic/toxic encephalopathy picture. On day of discharge he began breathing more irregular and developed acute respiratory failure with accessory muscle use to help him breathe and a drop in oxygen saturation despite BiPAP at max therapy. After discussion with the family he was made comfort care and was placed on a morphine drip expiring later that evening. (11) Acute respiratory failure with hypoxia: Total Time Total Time Spent Total Time Spent (In Minutes): 60 Total Time Includes: Examination of the Patient, Discharge Planning, Medication Reconciliation and Communication With Other Providers Discharge Plan Discharge Items Patient Disposition:
== END 2020-03-11 02:18 | disposition expired | DRG 64 ==
LOC: ED 14:21 → 2W 19:09 → SUATTDRO 19:09 → 2W 20:32 → 2E 03-09 16:58